=== PATIENT | male | born 1950 | race Caucasian/White ===

== ENCOUNTER 2016-11-16 21:48 | Observation (INO) | payer MEDICARE, OTHER ==
[~2016-11-16] VITALS: Ht 175.3 cm; Wt 82.0 kg
[2016-11-16 21:52] VITALS: BP 174/92; PULSE 102; RESP 16; TEMP 97.5; O2SAT 98
--- NOTE | 2016-11-16 23:03 | PD ---
HPI Chief Complaint: Abdominal Pain Time Seen by Provider: 22:55 Travel History International Travel<30 days: No Contact w/Intl Traveler<30days: No Traveled to known affect area: No History of Present Illness HPI The patient is a 66 year old male who presents to the [facility] emergency department with a history of chronic pain in his abdomen and back that began 4 months ago. It hurts in the back and sometimes in the front. It waxes and wanes in severity. It intermittently is sharp, burning, or cramping. He had some xrays done through [place] doctors that showed a possible spinal fracture. Today he had an MRI of the Lumbar spine and was doubled over in pain after the procedure therefore he decided to come to the emergency department for evaluation. He reports that he thought he strained his back related to playing softball, however he denies any fall or specific injury. His last colonoscopy was at 50 years of age. The patient denies any recent fevers, night sweats, loss of bowel or bladder control, cough, congestion, neck pain, chest pain, shortness of breath, abdominal pain, vomiting, diarrhea, urinary symptoms, or neurologic symptoms. [facility] Past Medical History Narrative Medical The patient's past medical history is significant for crohn's disease-first diagnosed in his 20s, He was last seen for a physical at the [facility] 5 years ago. Medical other: Yes (cat scratch fever, chrons ) Influenza Vaccination: No Past Surgical History Narrative Surgical The patient's past surgical history is significant for a lymph node resection for cat scratch fever. Surgical History: No Previous Surgery Social History Alcohol Use: No Tobacco Use: No Substance Use: No Allergies-Medications (Allergen,Severity, Reaction): Coded Allergies: Sulfa (Verified Allergy, Severe, DIZZINESS, 11/16/16) Reported Meds & Prescriptions Reported Meds & Active Scripts Active No Active Prescriptions or Reported Medications Narrative Medication Ibuprofen prn Review of Systems Except as stated in HPI: all other systems reviewed are Neg General / Constitutional: No: Fever Eyes: No: Visual changes HENT: No: Headaches Cardiovascular: No: Chest Pain or Discomfort Respiratory: No: Shortness of Breath Gastrointestinal: Positive: Abdominal Pain, No: Nausea, Vomiting, Diarrhea, Changes in Bowel Habits, Indigestion, Loss of Appetite Genitourinary: No: Dysuria Musculoskeletal: Positive: Myalgias, Arthralgias, Pain Skin: No Rash Neurologic: No: Weakness, Focal Abnormalities, Change in Mentation, Sensory Disturbance Psychiatric: No: Depression Endocrine: No: Polydipsia Hematologic/Lymphatic: No: Easy Bruising Physical Exam Narrative General: The patient is a well-developed well-nourished male in no acute distress while lying still, however with sitting forward or lying back he has pain in the right side of his back right upper quadrant of the abdomen. Head and Neck exam: Head is normocephalic atraumatic. Eyes: EOMI, pupils are equal round and reactive to light. Nose: Midline septum with pink mucous membranes Mouth: Dentition unremarkable. Moist mucus membranes. Posterior oropharynx is not erythematous. No tonsillar hypertrophy. Uvula midline. Airway patent. Neck: No palpable lymphadenopathy. No nuchal rigidity. No thyromegaly. Cardiovascular: Regular rate and rhythm without murmurs, gallops, or rubs. No pulse deficit to the extremities. Lungs: Clear to auscultation bilaterally. No wheezes, rhonchi, or rales. Abdomen: Soft, without tenderness to palpation in all 4 quadrants of the abdomen. No guarding, rebound, or rigidity. Normal bowel sounds are audible. No tenderness on palpation of McBurney's point. Extremities: No clubbing, cyanosis, or edema. 2+ pulses in all 4 extremities. Back: No spinous process tenderness to palpation. Right-sided CVA tenderness on palpation. Neurologic Exam: Cranial nerves 2-12 were intact on exam. Strength is 5/5 in all 4 extremities. No sensory deficits noted. Skin Exam: No rash noted. Intact skin that is warm and dry. Data Data Last Documented VS Vital Signs Date Time Temp Pulse Resp B/P Pulse Ox O2 Delivery O2 Flow Rate FiO2 11/16/16 23:28 28 99 Room Air 11/16/16 21:52 97.5 102 174/92 Orders Electrocardiogram (11/16/16 23:10) Complete Blood Count With Diff (11/16/16 23:10) Comprehensive Metabolic Panel (11/16/16 23:10) C-Reactive Protein (Crp) (11/16/16 23:10) Lipase (11/16/16 23:10) Urinalysis - C+S If Indicated (11/16/16 23:10) Chest, Single Ap (11/16/16 23:10) Iv Access Insert/Monitor (11/16/16 23:10) Ecg Monitoring (11/16/16 23:10) Oximetry (11/16/16 23:10) Lactic Acid Sepsis Protocol (11/16/16 23:10) Ct Abd/Pel W/O Iv Contrast (11/16/16 23:30) Admit Order (Ed Use Only) (11/17/16 01:13) Labs Laboratory Tests Test 11/16/16 11/16/16 23:20 23:25 White Blood Count 10.2 TH/MM3 Red Blood Count 3.20 MIL/MM3 Hemoglobin 11.0 GM/DL Hematocrit 31.1 % Mean Corpuscular Volume 97.2 FL Mean Corpuscular Hemoglobin 34.4 PG Mean Corpuscular Hemoglobin 35.4 % Concent Red Cell Distribution Width 14.2 % Platelet Count 262 TH/MM3 Mean Platelet Volume 7.9 FL Neutrophils (%) (Auto) 73.8 % Lymphocytes (%) (Auto) 17.1 % Monocytes (%) (Auto) 6.9 % Eosinophils (%) (Auto) 1.8 % Basophils (%) (Auto) 0.4 % Neutrophils # (Auto) 7.5 TH/MM3 Lymphocytes # (Auto) 1.8 TH/MM3 Monocytes # (Auto) 0.7 TH/MM3 Eosinophils # (Auto) 0.2 TH/MM3 Basophils # (Auto) 0.0 TH/MM3 CBC Comment DIFF FINAL Differential Comment Sodium Level 132 MEQ/L Potassium Level 5.0 MEQ/L Chloride Level 102 MEQ/L Carbon Dioxide Level 27.9 MEQ/L Anion Gap 2 MEQ/L Blood Urea Nitrogen 24 MG/DL Creatinine 1.84 MG/DL Estimat Glomerular Filtration 37 ML/MIN Rate Random Glucose 109 MG/DL Calcium Level 9.1 MG/DL Total Bilirubin 0.5 MG/DL Aspartate Amino Transf 58 U/L (AST/SGOT) Alanine Aminotransferase 30 U/L (ALT/SGPT) Alkaline Phosphatase 32 U/L C-Reactive Protein LESS THAN 0.29 MG/DL Total Protein 13.8 GM/DL Albumin 2.8 GM/DL Lipase 152 U/L Lactic Acid Level 0.8 mmol/L MDM Medical Decision Making Medical Screen Exam Complete: Yes Emergency Medical Condition: Yes Medical Record Reviewed: Yes Interpretation(s) Last Impressions Abdomen/Pelvis CT 11/16/16 2330 Signed Impressions: Service Date/Time: Wednesday, November 16, 2016 23:50 - CONCLUSION: Widespread lytic bony lesions consistent with metastatic disease or myeloma. Several significant size soft tissue masses, most conspicuous in the right paraspinal soft tissues in the region of the right 11th rib costovertebral junction. See above discussion Jim Marrero MD Chest X-Ray 11/16/16 2310 Signed Impressions: Service Date/Time: Wednesday, November 16, 2016 23:22 - CONCLUSION: Minimal left base opacity Jim Marrero MD Differential Diagnosis Kidney stone, versus pyelonephritis, versus compression fracture Narrative Course During the course of the patients emergency department visit, the patients history, examination, and differential diagnosis were reviewed with the patient. The patient had IV access obtained and blood work sent for analysis. The patient was placed on a cardiac cath rn with oximetry and blood pressure monitoring. The patient was provided normal saline 1 L IV fluid bolus, morphine for pain, Zofran for nausea. The patients laboratory studies were reviewed and remarkable for white count of 10.2, hemoglobin 11, platelets 262 with 73.8 neutrophils, CMP is remarkable for sodium of 132, BUN 24, creatinine 1.84, glucose 109, lactic acid 0.8, AST 58 , alkaline phosphatase 32, C-reactive protein less than 0.29, total protein 13.8 , urinalysis shows 30 protein trace occult blood rare bacteria Radiology studies were reviewed and remarkable for a chest x-ray that shows a minimal left base opacity. CT scan of the abdomen and pelvis reveals widespread lytic bony lesions consistent with metastatic disease or myeloma, several significant sized soft tissue masses most conspicuous in the right paraspinal soft tissues in the region of the right 11th rib costovertebral junction. The patient's results were discussed with him, his questions were answered. The patient is agreeable with the plan to proceed with admission for continued evaluation and treatment. The he patient was admitted to the hospital in stable condition and [facility] Physician Communication Physician Communication The patient's case is discussed with Dr. Regalado who did agree to admit the patient for further evaluation and treatment at this time. Diagnosis Primary Impression: Osteolytic lesion Additional Impression: Chronic back pain Qualified Code: M54.6 - Chronic right-sided thoracic back pain Admitting Information Admitting Physician Requests: Admit Scripts No Active Prescriptions or Reported Meds Judith Christiansen MD Nov 16, 2016 23:03
--- NOTE | 2016-11-16 23:26 | RADRPT ---
EXAM DATE/TIME: 11/16/2016 23:22 [facility] COMPARISON: No previous studies available for comparison. INDICATIONS : Right side chest pain. MEDICAL HISTORY : None. SURGICAL HISTORY : None. ENCOUNTER: Initial ACUITY: 2 months PAIN SCORE: 5/10 LOCATION: Right chest FINDINGS: There is slight flattening of the left diaphragm and blunting of the left costophrenic angle. This ma y be scarring though some degree of infiltrate and/or effusion at the left base is not excluded and w e have no comparison exams. Right lung is clear. The cardiomediastinal contours are normal for techni que and projection. CONCLUSION: Minimal left base opacity Jim Marrero MD on November 16, 2016 at 23:23 Board Certified Radiologist. This report was verified electronically.
[2016-11-16 23:28] VITALS: RESP 28; O2SAT 99
[2016-11-16 23:41] LABS: AUTOMATED NEUTROPHIL # 7.5 TH/MM3 (1.8-7.7); BASOPHIL % 0.4 % (0.0-2.0); EOSINOPHIL # 0.2 TH/MM3 (0-0.4); EOSINOPHIL % 1.8 % (0.0-4.0); HEMATOCRIT 31.1 % (39.0-51.0); HEMO FLAGS DIFF FINAL; LYMPH % 17.1 % (9.0-44.0); LYMPHOCYTE # 1.8 TH/MM3 (1.0-4.8); MEAN CELL VOLUME 97.2 FL (80.0-100.0); MEAN CORPUSCULAR HEMOGLOBIN 34.4 PG (27.0-34.0); MEAN CORPUSCULAR HGB CONC 35.4 % (32.0-36.0); MONO % 6.9 % (0.0-8.0); NEUT % 73.8 % (16.0-70.0); PLATELET COUNT 262 TH/MM3 (150-450); RED CELL DISTRIBUTION WIDTH 14.2 % (11.6-17.2); WHITE BLOOD COUNT 10.2 TH/MM3 (4.0-11.0)
[2016-11-17] VITALS (11 sets, daily range): BP systolic 130–162; BP diastolic 76–97; PULSE 63–86; RESP 15–18; TEMP 97.5–98.1; O2SAT 94–98
[2016-11-17 00:11] LABS: ALKALINE PHOSPHATASE 32 U/L (45-117); TOTAL BILIRUBIN ADULT 0.5 MG/DL (0.2-1.0)
[2016-11-17 00:14] LABS: ALT (GPT) 30 U/L (12-78); ANION GAP 2 MEQ/L (5-15); AST (GOT) 58 U/L (15-37); BICARBONATE 27.9 MEQ/L (21.0-32.0); BLOOD UREA NITROGEN 24 MG/DL (7-18); CHLORIDE 102 MEQ/L (98-107); GLOMERULAR FILTRATION RATE 37 ML/MIN (>89); SODIUM (NA) 132 MEQ/L (136-145)
--- NOTE | 2016-11-17 00:17 | RADRPT ---
EXAM DATE/TIME: 11/16/2016 23:50 [facility] COMPARISON: No previous studies available for comparison. INDICATIONS : Right upper quadrant and right flank pain for one month ORAL CONTRAST: No oral contrast ingested. RADIATION DOSE: 8.65 CTDIvol (mGy) MEDICAL HISTORY : Crohn's disease. SURGICAL HISTORY : None. ENCOUNTER: Initial ACUITY: 1 day PAIN SCALE: 6/10 LOCATION: Right flank TECHNIQUE: Volumetric scanning of the abdomen and pelvis was performed. Using automated exposure control and ad justment of the mA and/or kV according to patient size, radiation dose was kept as low as reasonably achievable to obtain optimal diagnostic quality images. FINDINGS: There is slight atelectasis in the posterior lung bases. There are widespread lucent bone lesions present consistent with metastatic disease or myeloma. There are several areas of expansile lytic soft tissue involvement of bone, most conspicuously involving t he right transverse process of T10 and at the right 11th rib costovertebral junction where a 3.7 cm s oft tissue mass is present in the posterior lateral paraspinal region count likely contributing to ba ck pain and right-sided radicular symptoms. An expansile lesion is present involving the posterolater al aspect of the left 11th rib with a roughly 3 cm soft tissue mass component present at this site. The liver, spleen, pancreas, adrenals and kidneys are benign in appearance. The bowel structures are benign with scattered distal colonic diverticula noted. In the pelvis cavity urinary bladder is notable for a tiny bladder base diverticulum on the right. Mi ld prostatic enlargement and calcification are noted. There is no evidence of retroperitoneal adenopathy. Inguinal regions are clear. CONCLUSION: Widespread lytic bony lesions consistent with metastatic disease or myeloma. Several significant size soft tissue masses, most conspicuous in the right paraspinal soft tissues in the region of the right 11th rib costovertebral junction. See above discussion Jim Marrero MD on November 17, 2016 at 0:08 Board Certified Radiologist. This report was verified electronically.
[2016-11-17] MEDS ORDERED: MORPHINE SULFATE 4 MG/ML INJ IV PUSH ONE (01:30)
[2016-11-17] MEDS ORDERED: SODIUM CHLOR 0.9% 1000 ML INJ 1,000 ML IV ONE (01:30)
[2016-11-17] MEDS ORDERED: ONDANSETRON HCL 4 MG/2 ML VIAL IV ONE (01:30)
[2016-11-17] MEDS ORDERED: NALOXONE HCL 0.4 MG/ML AMP IV PRN (01:45)
[2016-11-17] MEDS ORDERED: SODIUM CHLORIDE 0.9% FLUSH 5 ML FLUSH FLUSH PRN (01:45)
[2016-11-17] MEDS ORDERED: ONDANSETRON HCL 4 MG/2 ML VIAL IVP PRN (01:45)
[2016-11-17 04:11] LABS: BACTERIA, URINE RARE /hpf; BLOOD, URINE TRACE (NEG); GLUCOSE,URINE NEG (NEG); HYALINE CAST, URINE 3 /lpf (RARE); KETONE, URINE NEG (NEG); MUCUS URINE FEW /lpf (OCC); NITRITE,URINE NEG (NEG); PH, URINE 5.5 (5.0-8.5); SQUAMOUS EPITHELIAL CELL URINE <1 /hpf (0-5); TRANSITIONAL EPI CELLS, URINE <1 /hpf; URINE COLOR YELLOW (YELLW/STRAW)
[2016-11-17 04:12] LABS: COMMENT (UR) CULT NOT INDICATED; CULTURE IF INDICATED CULT NOT INDICATED
[2016-11-17] MEDS: ENOXAPARIN SODIUM 40 MG/0.4 ML SYRINGE SQ SCH (09:00)
--- NOTE | 2016-11-17 09:12 | HHI.HP ---
[facility] Unknown Admission Diagnosis Intractable pain with widespread bony lytic lesions on CT Diagnoses: Chief Complaint: Pain on the right side of the lower chest and back pain. Travel History International Travel<30 Days: No Contact w/Intl Traveler <30 Da: No Traveled to Known Affected Are: No Sepsis Criteria SIRS Criteria (2 or more): Heart rate over 90, RR > 20 or PaCO2 < 32 History of Present Illness Mr. Guerra is a pleasant 66-year-old male with a history of Crohn' s disease who presented to the ED on 11/16/2016 due to right-sided lower rib pain , lower back pain that has been worsening in the last 2 months. Pain is sharp sometimes burning in quality. He has been evaluated by [facility] and had x- ray done. On 11/16/2016, patient underwent an MRI of the Lumbar spine but after MRI he had excruciating pain which prompted him to come to the ED. patient denies any chest pain, shortness of breath, fever or chills. Denies any changes in bowel or bladder habits. Review of Systems ROS Limitations: Other (negative except as noted in the history of present illness) Past Family Social History Past Medical History Crohn's disease Past Surgical History In 1954 had a cat scratch related gland removal from left axilla Reported Medications Patient does not take any medication on a regular basis Allergies: Coded Allergies: Sulfa (Verified Allergy, Severe, DIZZINESS, 11/16/16) Family History Motherdiabetes mellitus. Brotherdiabetes mellitus, prostate cancer Social History Patient is a lifelong nonsmoker. Once in a while he drinks alcohol. Physical Exam Vital Signs Vital Signs Date Time Temp Pulse Resp B/P Pulse Ox O2 Delivery O2 Flow Rate FiO2 11/17/16 07:27 78 15 162/80 97 Room Air 11/16/16 23:28 28 99 Room Air 11/16/16 21:52 97.5 102 16 174/92 98 Physical Exam GENERAL: This is a well-nourished, well-developed patient, in no apparent distress. SKIN: No rashes, ecchymoses or lesions. Cool and dry. HEAD: Atraumatic. Normocephalic. No temporal or scalp tenderness. EYES: Pupils equal round and reactive. Extraocular motions intact. No scleral icterus. No injection or drainage. ENT: Nose without bleeding, purulent drainage or septal hematoma. Throat without erythema, tonsillar hypertrophy or exudate. Uvula midline. Airway patent. NECK: Trachea midline. No JVD or lymphadenopathy. Supple, nontender, no meningeal signs. CARDIOVASCULAR: Regular rate and rhythm without murmurs, gallops, or rubs. RESPIRATORY: Clear to auscultation. Breath sounds equal bilaterally. No wheezes , rales, or rhonchi. GASTROINTESTINAL: Abdomen soft, non-tender, nondistended. No hepato-splenomegaly , or palpable masses. No guarding. MUSCULOSKELETAL: Extremities without clubbing, cyanosis, or edema. No joint tenderness, effusion, or edema noted. No calf tenderness. Negative Homans sign bilaterally. NEUROLOGICAL: Awake and alert. Cranial nerves II through XII intact. Motor and sensory grossly within normal limits. Five out of 5 muscle strength in all muscle groups. Normal speech. Laboratory Laboratory Tests Test 11/16/16 11/16/16 11/17/16 23:20 23:25 03:50 White Blood Count 10.2 Red Blood Count 3.20 Hemoglobin 11.0 Hematocrit 31.1 Mean Corpuscular Volume 97.2 Mean Corpuscular Hemoglobin 34.4 Mean Corpuscular Hemoglobin 35.4 Concent Red Cell Distribution Width 14.2 Platelet Count 262 Mean Platelet Volume 7.9 Neutrophils (%) (Auto) 73.8 Lymphocytes (%) (Auto) 17.1 Monocytes (%) (Auto) 6.9 Eosinophils (%) (Auto) 1.8 Basophils (%) (Auto) 0.4 Neutrophils # (Auto) 7.5 Lymphocytes # (Auto) 1.8 Monocytes # (Auto) 0.7 Eosinophils # (Auto) 0.2 Basophils # (Auto) 0.0 CBC Comment DIFF FINAL Differential Comment Sodium Level 132 Potassium Level 5.0 Chloride Level 102 Carbon Dioxide Level 27.9 Anion Gap 2 Blood Urea Nitrogen 24 Creatinine 1.84 Estimat Glomerular Filtration 37 Rate Random Glucose 109 Calcium Level 9.1 Total Bilirubin 0.5 Aspartate Amino Transf 58 (AST/SGOT) Alanine Aminotransferase 30 (ALT/SGPT) Alkaline Phosphatase 32 C-Reactive Protein LESS THAN 0.29 Total Protein 13.8 Albumin 2.8 Lipase 152 Lactic Acid Level 0.8 Urine Color YELLOW Urine Turbidity CLEAR Urine pH 5.5 Urine Specific [place] 1.018 Urine Protein 30 Urine Glucose (UA) NEG Urine Ketones NEG Urine Occult Blood TRACE Urine Nitrite NEG Urine Bilirubin NEG Urine Urobilinogen LESS THAN 2.0 Urine Leukocyte Esterase NEG Urine RBC 1 Urine WBC 1 Urine Squamous Epithelial <1 Cells Urine Transitional Epithelial <1 Cells Urine Bacteria RARE Urine Hyaline Casts 3 Urine Mucus FEW Microscopic Urinalysis Comment CULT NOT INDICATED Result Diagram: 11/16/16231911/16/162319 Imaging Last Impressions Abdomen/Pelvis CT 11/16/162329 Signed Impressions: Service Date/Time: Wednesday, November 16, 2016 23:50 - CONCLUSION: Widespread lytic bony lesions consistent with metastatic disease or myeloma. Several significant size soft tissue masses, most conspicuous in the right paraspinal soft tissues in the region of the right 11th rib costovertebral junction. See above discussion Jim Marrero MD Chest X-Ray 11/16/162309 Signed Impressions: Service Date/Time: Wednesday, November 16, 2016 23:22 - CONCLUSION: Minimal left base opacity Jim Marrero MD Assessment and Plan Problem List: (1) Osteolytic lesion ICD Code: M89.50 Status: Acute (2) Paraspinal mass ICD Code: R22.2 Status: Acute (3) Crohn's disease ICD Code: K50.90 Status: Acute (4) SUSHMA (acute kidney injury) ICD Code: N17.9 Status: Acute Assessment and Plan Ms. Guerra is a 66-year-old male with a history of Crohn's disease who presented to the emergency department on 11/16/2016 due to right lower rib pain, lower back pain that has been worsening in the last 2 months. Denies any chest pain, shortness of breath, fever or chills. - Paraspinal mass - Osteolytic lesions - Likely related to multiple myeloma or other metastatic disease. - Oncology (Dr. Olvera) has already evaluated patient. - CT-guided biopsy of the paraspinal mass pending. - Other labs pending including [place]/lambda free light chain. - Acute kidney injury - Creatinine 1.84, we do not have baseline creatinine. - will monitor. - Crohn's disease - no acute issues. Full code. SCDs for now. After biopsy, we can consider pharmacological DVT Prophylaxis. Oneal Price DO Nov 17, 2016 09:12
--- NOTE | 2016-11-17 10:38 | EKG ---
Date Performed: 11/16/2016 Time Performed: 23:20:18 PTAGE: 66 years EKG: Sinus rhythm poor r wave progression cannot exclude septal infarct vs. lead placement ABNORMAL ECG NO PREVIOUS TRACING DOCTOR: Panfilo Christiansen Interpretating Date/Time 11/17/2016 10:35:33
[2016-11-17] MEDS: SODIUM CHLORIDE 0.9% FLUSH 5 ML FLUSH FLUSH SCH ×2 (10:39→21:00)
[2016-11-17 10:53] LABS: APTT (PATIENT) 27.6 SEC (24.3-30.1); INTERNATIONAL NORMALIZED RATIO 1.2 RATIO; PROTHROMBIN TIME - PATIENT 13.8 SEC (9.8-11.6)
[2016-11-17] MEDS ORDERED: LIDOCAINE 1%/EPINEPHrine 1:100,000 SOLN 20 ML VIAL ONE (13:34)
[2016-11-17] MEDS ORDERED: fentaNYL CITRATE 250 MCG/5 ML AMP ONE (13:46)
[2016-11-17] MEDS ORDERED: MIDAZOLAM HCL 5 MG/5 ML VIAL ONE (13:46)
--- NOTE | 2016-11-17 14:13 | PD.RAD ---
Post CT Procedure Prog Note Pre Procedure Diagnosis: (1) Osteolytic lesion (2) Paraspinal mass Post Procedure Diagnosis: (1) Osteolytic lesion (2) Paraspinal mass Procedure Date: Nov 17, 2016 Supervising Radiologist: Rolando Pickens Proceduralist/Assist: RT Evelin(R) Anesthesia: Local, Conscious Sedation Plan of Activity Patient to Unit: ROPU Patient Condition: Good See PACS Report for procedural detail/treatment Biopsy Imaging Guidance: CT Side: Right Biopsy Procedure: Soft Tissue Site: Lower thoracic, paraspinal mass Specimen: Core Biopsy Rolando Pickens MD Nov 17, 2016 14:13
[2016-11-17 14:36] LABS: TOTAL PROTEIN SPE 12.9 GM/DL (6.0-7.6)
--- NOTE | 2016-11-17 14:43 | RADRPT ---
EXAM DATE/TIME: 11/17/2016 13:53 [facility] COMPARISON: No previous studies available for comparison. INDICATIONS : Right sided paraspinal soft tissue mass. SEDATION TIME: 30 minutes BIOPSY SITE: Right paraspinal soft tissue MEDICATION(S): 1.) 3 mg midazolam (Versed) IV 2.) 150 mcg fentanyl (Sublimaze) IV DEVICE(S): 1.) 18 gauge Temno core biopsy needle 9cm MEDICAL HISTORY : Crohn's disease. SURGICAL HISTORY : None. ENCOUNTER: Initial ACUITY: 1 day PAIN SCORE: 3/10 LOCATION: Middle back A total of two core specimen(s) were obtained and sent to the laboratory for pathologic evaluation. PROCEDURE: 1. CT guided soft tissue, right biopsy. 2. Conscious sedation with continuous EKG and oximetry monitoring. Prior to the procedure informed consent was obtained. Any appropriate prior imaging studies were rev iewed. The site was prepped in a sterile fashion. Full sterile technique was used, including cap, mask, mary rile gloves and gown and a large sterile sheet. Hand hygiene and 2% chlorhexidine and/or betadine/al cohol prep was utilized per protocol for cutaneous antisepsis. The skin and subcutaneous tissues wer e infiltrated with local anesthetic solution. With CT guidance a right-sided lower thoracic paraspinal mass with adjacent destructive bone changes was localized. Biopsy was performed using the prescribed needle as above. Adequate hemostasis was ob tained with compression at the puncture site. Follow-up CT scan reveals no hemorrhage. The patient tolerated the procedure well and there were no complications. The patient was returned to the Radiology Outpatient Unit in stable condition. CONCLUSION: Uncomplicated CT guided biopsy of a right lower thoracic paraspinal mass. Rolando Pickens MD on November 17, 2016 at 14:41 Board Certified Radiologist. This report was verified electronically.
[2016-11-17 15:17] LABS: IMMUNOGLOBULIN G 7990 MG/DL (670-1650)
[2016-11-17 15:18] LABS: IMMUNOGLOBULIN A 15 MG/DL (98-543); IMMUNOGLOBULIN M LESS THAN 8 MG/DL (39-238); KAPPA LAMBDA RATIO 0.01 (1.57-3.93); LAMBDA LIGHT CHAIN 2290 MG/DL (90-210)
[2016-11-17] MEDS: MORPHINE SULFATE 4 MG/ML INJ IV PUSH PRN ×2 (17:14→23:28)
--- NOTE | 2016-11-17 21:33 | MB ---
cc: MAYA OLVERA M.D. DATE OF CONSULTATION 11/17/16 REASON FOR CONSULTATION Consult requested by Dr. Fabricio BERKOWITZ hospitalist for evaluation of metastatic malignancy. HISTORY OF PRESENT ILLNESS Josh is a pleasant 66-year-old male. He is without any significant past medical history. He has been having intermittent back pain for the last few months. He went to see his [employer] doctor. The patient had an x-ray which was abnormal. He was asked to have MRI of the thoracic and the lumbar spine. The patient unfortunately was unable to do it due to the claustrophobia. Then he was referred to open MRI in [facility]. The patient had an MRI of the spine yesterday. Subsequently, he noticed severe back pain and he came to the emergency room for further evaluation. When he came to the emergency room, he had a CAT scan of the abdomen and pelvis which showed widespread lytic bony lesions consistent with metastatic disease on myeloma. Several significant size soft tissue masses noted most suspicious in the right paraspinal soft tissue in the region of the right 11th rib costal vertebral junction. The chest x-ray was reported to be negative. The patient has been admitted to the hospital and I have been asked to see the patient for evaluation of abnormal CAT scan of the abdomen and pelvis. PAST MEDICAL HISTORY The patient denies any significant past medical history except that he had Crohn's disease when he was in his 20s. He also has a history of cat scratch fever. He had left axillary lymph node dissection. MEDICATIONS The patient is not taking any regular medications except he is on ibuprofen for the back pain. REVIEW OF SYSTEMS He denies any weight loss. He denies any cough, shortness of breath. He denies any nausea, vomiting, constipation.. The rest of the review systems PAST MEDICAL HISTORY 1. Crohn's disease 2. Cat scratch fever. PAST SURGICAL HISTORY Left axillary lymph node dissection for current scratch fever. ALLERGIES SULFA MEDICATIONS Ibuprofen. FAMILY HISTORY Noncontributory. SOCIAL HISTORY The patient does not smoke cigarettes, does not drink alcohol. PHYSICAL EXAMINATION GENERAL: This is a well-developed, well-nourished white male in no apparent distress. VITAL SIGNS: signs: Temperature 97.5, heart rate 75, blood pressure 157/90. HEENT: PERRLA, EOMI, anicteric. No oral lesions are noted. NECK: Supple. LYMPH NODES: There is no cervical, supraclavicular, axillary lymphadenopathy noted. LUNGS: Clear, no wheezing, rhonchi or rales. HEART: Regular rate and rhythm. ABDOMEN: Soft, nontender. No hepatosplenomegaly. EXTREMITIES: No pedal edema. NEUROLOGIC: Awake, alert, oriented times three SKIN: No significant lesions are noted. ASSESSMENT Multiple lytic lesions associated with hyperproteinemia of 13.8, mild renal insufficiency and anemia. This is most likely consistent with multiple myeloma until proven otherwise. However, other primary malignancy cannot be ruled out at this time. PLAN I have reviewed his available records and I had an extensive discussion with the patient and his regarding my clinical suspicion of myeloma. The compressive metabolic profile is significant for total protein of 13.8, albumin is 2.8, creatinine is 1.84. GFR is 37, calcium is normal. The patient has hyperproteinemia and a CAT scan of the abdomen and pelvis show multiple lytic lesions along with multiple soft tissue masses. Most likely we are dealing with multiple myeloma. I will order the gammopathy workup. I will ask interventional radiologist for CT-guided core needle biopsy of the paraspinal soft tissue mass for tissue diagnosis. We will check the PSA as well. Once we have the tissue diagnosis then we will discuss with the patient regarding the treatment plan. I will attempt to get the MRI of C-spine result from open MRI which he had it yesterday. Thank you, Dr. Regalado, for asking my opinion. David Olvera MD / /7:40 PM /9:21 PM MTDRene
[2016-11-18] VITALS (7 sets, daily range): BP systolic 152–159; BP diastolic 82–92; PULSE 52–83; RESP 18–20; TEMP 96.1–98.1; O2SAT 93–97
[2016-11-18 02:18] LABS: URINE TOTAL PROTEIN TIMED 499.7 MG/DL
[2016-11-18] MEDS ORDERED: LORazepam 0.5 MG TAB PO PRN (07:30)
[2016-11-18] MEDS: SODIUM CHLORIDE 0.9% FLUSH 5 ML FLUSH FLUSH SCH ×2 (08:03→20:33)
[2016-11-18] MEDS: MORPHINE SULFATE 4 MG/ML INJ IV PUSH PRN (08:05)
[2016-11-18] MEDS: ENOXAPARIN SODIUM 40 MG/0.4 ML SYRINGE SQ SCH (09:00)
[2016-11-18] MEDS ORDERED: DOCUSATE SODIUM 50 MG/SENNA 8.6 MG TAB PO ONE (09:15)
--- NOTE | 2016-11-18 09:24 | HHI.PR ---
Subjective Remarks Follow-up for right lower rib pain and possible new malignancy. Seen ambulating the halls with his . He still has some right lower rib pain, the medication helps. He does have associated constipation. He is asking for telemetry to be removed. He denies any chest pain, shortness breath, palpitations. Normal urine output, denies history of renal disease. Objective Vitals Vital Signs Date Time Temp Pulse Resp B/P Pulse Ox O2 Delivery O2 Flow Rate FiO2 11/18/16 07:14 97.0 78 18 156/87 95 11/18/16 03:52 97.4 77 18 156/92 97 11/17/16 23:41 16 11/17/16 23:39 97.5 76 18 155/97 95 11/17/16 23:11 63 11/17/16 20:34 97.9 74 18 136/82 96 11/17/16 17:15 97.5 75 18 157/90 98 11/17/16 15:52 67 18 138/82 97 11/17/16 15:25 76 16 136/77 95 11/17/16 15:15 68 16 130/76 94 11/17/16 14:40 82 16 138/81 94 11/17/16 14:25 98.1 86 16 146/82 95 11/17/16 13:14 79 18 159/79 98 Result Diagram: 11/16/16231911/16/162319 Imaging Last Impressions Soft Tissue Biopsy 11/17/16 1028 Signed Impressions: Service Date/Time: Thursday, November 17, 2016 13:53 - CONCLUSION: Uncomplicated CT guided biopsy of a right lower thoracic paraspinal mass. Rolando Pickens MD Abdomen/Pelvis CT 11/16/16 2330 Signed Impressions: Service Date/Time: Wednesday, November 16, 2016 23:50 - CONCLUSION: Widespread lytic bony lesions consistent with metastatic disease or myeloma. Several significant size soft tissue masses, most conspicuous in the right paraspinal soft tissues in the region of the right 11th rib costovertebral junction. See above discussion Jim Marrero MD Chest X-Ray 11/16/16 2310 Signed Impressions: Service Date/Time: Wednesday, November 16, 2016 23:22 - CONCLUSION: Minimal left base opacity Jim Marrero MD Objective Remarks GENERAL: Well-developed well-nourished. In no acute distress. SKIN: Warm and dry. No lesions noted. HEENT: Normocephalic. Pupils equal and round. Mucous membranes pink and moist. CARDIOVASCULAR: Regular rate and rhythm. No murmur appreciated. RESPIRATORY: No accessory muscle use. Clear to auscultation. Breath sounds equal bilaterally. GASTROINTESTINAL: Abdomen soft, non-tender, nondistended. Bowel sounds x4. MUSCULOSKELETAL: No obvious deformities. No clubbing or cyanosis. No edema. NEUROLOGICAL: Awake and alert. No focal neurological deficits. Moves upper and lower extremities spontaneously. Normal speech. PSYCHIATRIC: Appropriate mood and affect; insight and judgment normal. A/P Problem List: (1) Osteolytic lesion ICD Code: M89.50 Status: Acute (2) Paraspinal mass ICD Code: R22.2 Status: Acute (3) Crohn's disease ICD Code: K50.90 Status: Chronic (4) SUSHMA (acute kidney injury) ICD Code: N17.9 Status: Acute Assessment and Plan Ms. Guerra is a 66-year-old male with a history of Crohn's disease who presented to the emergency department on 11/16/2016 due to right lower rib pain, lower back pain that has been worsening in the last 2 months. - Paraspinal mass - Osteolytic lesions - Likely related to multiple myeloma or other metastatic disease. - Oncology consulted, seen by Dr. Olvera, workup in progress. - CT-guided biopsy of the paraspinal mass performed, pathology pending. - Oncology as started the patient on Decadron and oral narcotic pain control , add bowel regimen - Acute kidney injury versus chronic kidney disease- Creatinine 1.84, we do not have baseline creatinine. - Follow-up BMP today - Crohn's disease - no acute issues. Full code. SCDs. Ambulation. Refused Lovenox. Discharge Planning Discharge planning when cleared by oncology. Attending Statement The exam, history, and the medical decision-making described in the above note were completed with the assistance of the mid-level provider. I reviewed and agree with the findings presented. I attest that I had a [id number] encounter with the patient on the same day, and personally performed and documented my assessment and findings in the medical record. Problem Qualifiers (1) Crohn's disease: Qualified Code: K50.90 - Crohn's disease without complication, unspecified gastrointestinal tract location Christopher Escobar Nov 18, 2016 09:24 Tobi Walls MD Dec 07, 2016 03:15
[2016-11-18 09:31] LABS: ALBUMIN SPE 4.01 GM/DL (3.50-5.00); ALPHA 1 GLOBULIN 0.23 GM/DL (0.11-0.29); ALPHA 2 GLOBULIN 0.97 GM/DL (0.22-1.00)
[2016-11-18] MEDS: MORPHINE SULFATE 30 MG CONTROLLED RELEASE TAB PO SCH ×2 (09:43→20:33)
[2016-11-18 10:19] LABS: AUTOMATED NEUTROPHIL # 4.9 TH/MM3 (1.8-7.7); BASOPHIL % 0.6 % (0.0-2.0); EOSINOPHIL # 0.2 TH/MM3 (0-0.4); EOSINOPHIL % 2.8 % (0.0-4.0); HEMATOCRIT 29.3 % (39.0-51.0); HEMO FLAGS DIFF FINAL; LYMPHOCYTE # 1.5 TH/MM3 (1.0-4.8); MEAN CORPUSCULAR HEMOGLOBIN 34.4 PG (27.0-34.0); MEAN CORPUSCULAR HGB CONC 35.5 % (32.0-36.0); MONO % 5.8 % (0.0-8.0); NEUT % 69.8 % (16.0-70.0); PLATELET COUNT 226 TH/MM3 (150-450); RED BLOOD COUNT 3.02 MIL/MM3 (4.50-5.90); RED CELL DISTRIBUTION WIDTH 13.9 % (11.6-17.2)
--- NOTE | 2016-11-18 10:54 | PD.ONC.PN ---
Subjective Subjective Remarks Afebrile overnight. Patient has some pain in the right rib cage, radiating to the back. he states the pain is controlled with the PO morphine he has been receiving. Objective Data Date Time Temp Pulse Resp B/P Pulse Ox O2 Delivery O2 Flow Rate FiO2 11/18/16 07:14 97.0 78 18 156/87 95 11/18/16 03:52 97.4 77 18 156/92 97 11/17/16 23:41 16 11/17/16 23:39 97.5 76 18 155/97 95 11/17/16 23:11 63 11/17/16 20:34 97.9 74 18 136/82 96 11/17/16 17:15 97.5 75 18 157/90 98 11/17/16 15:52 67 18 138/82 97 11/17/16 15:25 76 16 136/77 95 11/17/16 15:15 68 16 130/76 94 11/17/16 14:40 82 16 138/81 94 11/17/16 14:25 98.1 86 16 146/82 95 11/17/16 13:14 79 18 159/79 98 Result Diagram: 11/18/16 0938 11/16/16 2320 Laboratory Results Laboratory Tests Test 11/17/16 11/18/16 11:40 09:38 Prostate Specific Antigen 1.72 NG/ML Screen Total Protein 12.9 GM/DL Albumin 4.01 GM/DL Albumin/Globulin Ratio 0.45 Ozffm-1-Ooddikkrw 0.23 GM/DL Cnmuj-3-Ovyrkugql 0.97 GM/DL Beta Globulins 0.80 GM/DL Gamma Globulins 6.89 GM/DL Immunoglobulin G Total 7990 MG/DL Immunoglobulin A 15 MG/DL Immunoglobulin M LESS THAN 8 MG/DL Immunoglobulin [place]/Lambda 0.01 Ratio Immunofixation Interpretation [place] Light Chain Analysis 12 MG/DL Lambda Light Chain Analysis 2290 MG/DL White Blood Count 7.0 TH/MM3 Red Blood Count 3.02 MIL/MM3 Hemoglobin 10.4 GM/DL Hematocrit 29.3 % Mean Corpuscular Volume 97.0 FL Mean Corpuscular Hemoglobin 34.4 PG Mean Corpuscular Hemoglobin 35.5 % Concent Red Cell Distribution Width 13.9 % Platelet Count 226 TH/MM3 Mean Platelet Volume 7.5 FL Neutrophils (%) (Auto) 69.8 % Lymphocytes (%) (Auto) 21.0 % Monocytes (%) (Auto) 5.8 % Eosinophils (%) (Auto) 2.8 % Basophils (%) (Auto) 0.6 % Neutrophils # (Auto) 4.9 TH/MM3 Lymphocytes # (Auto) 1.5 TH/MM3 Monocytes # (Auto) 0.4 TH/MM3 Eosinophils # (Auto) 0.2 TH/MM3 Basophils # (Auto) 0.0 TH/MM3 CBC Comment DIFF FINAL Differential Comment Administered Medications Medications (Trade) Dose Ordered Sig/Lisa Route PRN Reason Start Time Stop Time Status Last Admin Dose Admin IV Flush (NS Flush) 2 ml BID FLUSH 11/17/16 09:00 11/18/16 08:03 Morphine Sulfate (Oramorph Sr) 30 mg Q12HR PO 11/18/16 09:00 11/18/16 09:43 Objective Remarks GENERAL: Middle aged male, sitting up in bed in nad. SKIN: Warm and dry. HEAD: Normocephalic. EYES: No injection or drainage. NECK: Supple, trachea midline. CARDIOVASCULAR: Regular rate and rhythm RESPIRATORY: Breath sounds equal bilaterally. No accessory muscle use. GASTROINTESTINAL: Abdomen soft, non-tender, nondistended. EXTREMITIES: No cyanosis NEUROLOGICAL: awake and alert, normal speech. moving all extremities. Assessment/Plan Problem List: (1) multiple lytic lesions Status: Acute Plan: 11/18/16: await bone survey and 24 hour urine. will arrange follow up in office Wednesday. s/p CT-guided core needle biopsy of the paraspinal soft tissue mass for tissue diagnosis-->pathology pending --fs faxed to npr for UMER follow up this coming Wednesday. --bone survey pending --24 hour urine pending. Assessment 66y/o male with widespread lytic lesions, hyperproteinemia of 13.8, renal insufficiency + anemia consistent with multiple myeloma until proven otherwise. History: intermittent back pain for the last few months. CAT scan of the abdomen and pelvis in ED showed widespread lytic bony lesions consistent with metastatic disease on myeloma. Several significant size soft tissue masses noted most suspicious in the right paraspinal soft tissue in the region of the right 11th rib costal vertebral junction. The chest x-ray was reported to be negative. Attending Statement c/o right rib cage pain. start oral morphine and stop IV narcotics. IGG and lamda are very high. THis is c/w Myeloma. I have d/w pt and about myeloma. answer their questions. start high dose decadron. Get skeletal survey and 24 hrs urine for TP bx result pending. home tomorrow. Hannah Sandoval Nov 18, 2016 10:54 Jyothi Olvera MD Nov 18, 2016 21:20
[2016-11-18 10:55] LABS: ALKALINE PHOSPHATASE 36 U/L (45-117); ALT (GPT) 19 U/L (12-78); ANION GAP 7 MEQ/L (5-15); AST (GOT) 14 U/L (15-37); BICARBONATE 27.5 MEQ/L (21.0-32.0); BLOOD UREA NITROGEN 19 MG/DL (7-18); CHLORIDE 100 MEQ/L (98-107); GLOMERULAR FILTRATION RATE 36 ML/MIN (>89); POTASSIUM 4.2 MEQ/L (3.5-5.1); SODIUM (NA) 134 MEQ/L (136-145); TOTAL BILIRUBIN ADULT 0.5 MG/DL (0.2-1.0)
[2016-11-18] MEDS: DEXAMETHASONE 4 MG TAB PO SCH (11:36)
[2016-11-18] MEDS: MORPHINE SULFATE 15 MG TAB PO PRN (16:04)
--- NOTE | 2016-11-18 17:00 | RADRPT ---
EXAM DATE/TIME: 11/18/2016 16:09 [facility] COMPARISON: CT ABDOMEN & PELVIS W/O CONTRAST, November 16, 2016, 23:50. INDICATIONS : Evaluate bones for metastatic disease. MEDICAL HISTORY : None. SURGICAL HISTORY : None. ENCOUNTER: Initial ACUITY: 2 days PAIN SCORE: 10/10 LOCATION: Right middle chest. FINDINGS: Bone survey was performed of the axial and appendicular skeleton. The upper extremities are significant only for an area of ill-defined lucency involving the distal ri ght radius. The lower extremities are demonstrate no abnormality. The spinal axis and pelvis are unremarkable for decreased vertebral body height at the level of C6. T he multiple lytic lesions seen throughout the lumbar spine on comparison CT abdomen and pelvis are no t visible by plain film. The AP view of the skull demonstrates multiple well-circumscribed lucencies. The visualized heart, lungs and abdominal structures are unremarkable. Bony mineralization is normal . CONCLUSION: The multiple lytic lesions seen throughout the lumbar spine are not visible by plain film. Well-circu mscribed lucencies are identified within the calvarium and there are ill-defined lucencies identified within the distal right radius. Decreased vertebral body height at the level of C6 concerning for me tastatic involvement. The remainder of the survey is unremarkable.. Suma Mayes MD on November 18, 2016 at 16:53 Board Certified Radiologist. This report was verified electronically.
[2016-11-18] MEDS: DOCUSATE SODIUM 50 MG/SENNA 8.6 MG TAB PO SCH (20:32)
[2016-11-19] MEDS: MORPHINE SULFATE 15 MG TAB PO PRN (04:01)
[2016-11-19 04:38] VITALS: BP 136/79; PULSE 70; RESP 20; TEMP 98.6; O2SAT 95
[2016-11-19 07:45] VITALS: BP 163/90; PULSE 78; RESP 18; TEMP 97.5; O2SAT 95
[2016-11-19] MEDS: SODIUM CHLORIDE 0.9% FLUSH 5 ML FLUSH FLUSH SCH (09:00)
[2016-11-19] MEDS: DOCUSATE SODIUM 50 MG/SENNA 8.6 MG TAB PO SCH (09:16)
[2016-11-19] MEDS: MORPHINE SULFATE 30 MG CONTROLLED RELEASE TAB PO SCH (09:17)
[2016-11-19] MEDS: DEXAMETHASONE 4 MG TAB PO SCH (09:18)
[2016-11-19 10:40] LABS: URINE TOTAL PROTEIN TIMED 227.8 MG/DL
[2016-11-19] MEDS ORDERED: MORP1TAB25 PO (10:50)
[2016-11-19] MEDS ORDERED: SENN1TAB PO (10:50)
[2016-11-19] MEDS ORDERED: DEXA4TAB PO (10:50)
[2016-11-19] MEDS ORDERED: MSIR15 PO (10:50)
--- NOTE | 2016-11-19 10:51 | HHI.DCPOC ---
Discharge Care Plan Diagnosis: (1) multiple lytic lesions Your Health Problems Are: Difficulty with ADL Exercise Tolerance Chronic Pain Goals to Promote Your Health * To prevent worsening of your condition and complications * To maintain your health at the optimal level Directions to Meet Your Goals Take your medications as prescribed Follow your dietary instruction Follow activity as directed Keep your appointments as scheduled Take your immunizations and boosters as scheduled If your symptoms worsen call your PCP, if no PCP go to Urgent Care Center or Emergency Room Smoking is Dangerous to Your Health. Avoid second hand smoke Call the 24-hour hour crisis hotline for domestic abuse at Romeo Lobo MD Nov 19, 2016 10:51
--- NOTE | 2016-11-19 10:56 | PD.ONC.PN ---
Subjective Subjective Remarks pain is better on oral morphine Objective Data Date Time Temp Pulse Resp B/P Pulse Ox O2 Delivery O2 Flow Rate FiO2 11/19/16 07:45 97.5 78 18 163/90 95 11/19/16 05:08 16 11/19/16 04:38 98.6 70 20 136/79 95 11/18/16 23:33 96.1 52 20 155/91 93 11/18/16 21:52 16 11/18/16 20:09 97.6 83 20 152/82 95 11/18/16 15:47 98.1 76 18 159/83 96 11/18/16 11:11 97.5 73 18 153/86 96 Result Diagram: 11/18/1693711/18/16937 Laboratory Results Laboratory Tests Test 11/19/16 09:15 Urine Total Volume 24 Hours 2050 ML Urine Total Protein 24 Hour 4670 MG/24HR Administered Medications Medications (Trade) Dose Ordered Sig/Lisa Route PRN Reason Start Time Stop Time Status Last Admin Dose Admin IV Flush (NS Flush) 2 ml BID FLUSH 11/17/16 09:00 11/18/16 20:33 Morphine Sulfate (Oramorph Sr) 30 mg Q12HR PO 11/18/16 09:00 11/19/16 09:17 Morphine Sulfate (Msir) 15 mg Q4H PRN PO pain 1-10 11/18/16 08:45 11/19/16 04:01 Dexamethasone (Decadron) 40 mg DAILY PO 11/18/16 09:00 11/19/16 09:18 Senna/Docusate Sodium (Marva-Colace) 1 tab BID PO 11/18/16 21:00 11/19/16 09:16 Objective Remarks GENERAL: Well-nourished, well-developed patient. SKIN: Warm and dry. HEAD: Normocephalic. EYES: No scleral icterus. No injection or drainage. NECK: Supple, trachea midline. No JVD or lymphadenopathy. LYMPHATIC: No adenopathy. CARDIOVASCULAR: Regular rate and rhythm without murmurs. RESPIRATORY: Breath sounds equal bilaterally. No accessory muscle use. GASTROINTESTINAL: Abdomen soft, non-tender, nondistended. EXTREMITIES: No cyanosis, or edema. MUSCULOSKELETAL: Adequate muscle tone. NEUROLOGICAL: No obvious focal deficit. Awake, alert, and oriented x3. PSYCHIATRIC: Appropriate mood and affect; insight and judgment normal. Assessment/Plan Problem List: (1) multiple lytic lesions Status: Acute Plan: 11/19/16 IgG and kappa are very high . This is c/w myeloma. 24hrs urine for TP and B2MG are pending continue decadron 40 mg daily OK to d/c FU on wednesday. d/w pt, family and RN 11/18/16: await bone survey and 24 hour urine. will arrange follow up in office Wednesday. s/p CT-guided core needle biopsy of the paraspinal soft tissue mass for tissue diagnosis-->pathology pending --fs faxed to npr for UMER follow up this coming Wednesday. --bone survey pending --24 hour urine pending. Assessment 66y/o male with widespread lytic lesions, hyperproteinemia of 13.8, renal insufficiency + anemia consistent with multiple myeloma until proven otherwise. History: intermittent back pain for the last few months. CAT scan of the abdomen and pelvis in ED showed widespread lytic bony lesions consistent with metastatic disease on myeloma. Several significant size soft tissue masses noted most suspicious in the right paraspinal soft tissue in the region of the right 11th rib costal vertebral junction. The chest x-ray was reported to be negative. Jyothi Olvera MD Nov 19, 2016 10:56
--- NOTE | 2016-11-19 11:12 | HHI.DS ---
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 Brief History - From Admission Mr. Guerra is a pleasant 66-year-old male with a history of Crohn' s disease who presented to the ED on 11/16/2016 due to right-sided lower rib pain , lower back pain that has been worsening in the last 2 months. Pain is sharp sometimes burning in quality. He has been evaluated by [facility] [facility] and had x- ray done. On 11/16/2016, patient underwent an MRI of the Lumbar spine but after MRI he had excruciating pain which prompted him to come to the ED. patient denies any chest pain, shortness of breath, fever or chills. Denies any changes in bowel or bladder habits. CBC/BMP: 11/18/16 0938 11/18/16 0938 Significant Findings Laboratory Tests Test 11/16/16 11/17/16 11/17/16 11/17/16 23:20 03:50 10:30 11:40 Red Blood Count 3.20 MIL/MM3 (4.50-5.90) Hemoglobin 11.0 GM/DL (13.0-17.0) Hematocrit 31.1 % (39.0-51.0) Mean Corpuscular Hemoglobin 34.4 PG (27.0-34.0) Neutrophils (%) (Auto) 73.8 % (16.0-70.0) Sodium Level 132 MEQ/L (136-145) Anion Gap 2 MEQ/L (5-15) Blood Urea Nitrogen 24 MG/DL (7-18) Creatinine 1.84 MG/DL (0.60-1.30) Estimat Glomerular Filtration 37 ML/MIN (>89) Rate Random Glucose 109 MG/DL (74-106) Aspartate Amino Transf 58 U/L (15-37) (AST/SGOT) Alkaline Phosphatase 32 U/L (45-117) Total Protein 13.8 GM/DL 12.9 GM/DL (6.4-8.2) (6.0-7.6) Albumin 2.8 GM/DL (3.4-5.0) Urine Protein 30 mg/dL (NEG-TRACE) Urine Occult Blood TRACE (NEG) Urine Bacteria RARE /hpf (NONE) Urine Mucus FEW /lpf (OCC) Prothrombin Time 13.8 SEC (9.8-11.6) Albumin/Globulin Ratio 0.45 (1.39-2.23) Gamma Globulins 6.89 GM/DL (0.50-1.39) Immunoglobulin G Total 7990 MG/DL (670-1650) Immunoglobulin A 15 MG/DL (98-543) Immunoglobulin M LESS THAN 8 MG/DL (39-238) Immunoglobulin Gillespie/Lambda 0.01 Ratio (1.57-3.93) Gillespie Light Chain Analysis 12 MG/DL (170-370) Lambda Light Chain Analysis 2290 MG/DL (90-210) Free Lambda Light Chains 4928.00 mg/L (5.7-26.3) Free Gillespie/Lambda Light Chain 0.00 Ratio (0.26-1.65) Test 11/18/16 11/19/16 09:38 09:15 Red Blood Count 3.02 MIL/MM3 (4.50-5.90) Hemoglobin 10.4 GM/DL (13.0-17.0) Hematocrit 29.3 % (39.0-51.0) Mean Corpuscular Hemoglobin 34.4 PG (27.0-34.0) Sodium Level 134 MEQ/L (136-145) Blood Urea Nitrogen 19 MG/DL (7-18) Creatinine 1.88 MG/DL (0.60-1.30) Estimat Glomerular Filtration 36 ML/MIN (>89) Rate Aspartate Amino Transf 14 U/L (15-37) (AST/SGOT) Alkaline Phosphatase 36 U/L (45-117) Total Protein 12.2 GM/DL (6.4-8.2) Albumin 2.4 GM/DL (3.4-5.0) Euop-9-Onsgxxjphdqzi 3.43 mcg/mL (1.21 - 2.70) Urine Total Protein 24 Hour 4670 MG/24HR (0-150) Imaging Last Impressions Bone Osseous Survey 11/18/16 0000 Signed Impressions: Service Date/Time: Friday, November 18, 2016 16:09 - CONCLUSION: The multiple lytic lesions seen throughout the lumbar spine are not visible by plain film. Well-circumscribed lucencies are identified within the calvarium and there are ill-defined lucencies identified within the distal right radius. Decreased vertebral body height at the level of C6 concerning for metastatic involvement. The remainder of the survey is unremarkable.. Suma Mayes MD Soft Tissue Biopsy 11/17/16 1028 Signed Impressions: Service Date/Time: Thursday, November 17, 2016 13:53 - CONCLUSION: Uncomplicated CT guided biopsy of a right lower thoracic paraspinal mass. Rolando Pickens MD Abdomen/Pelvis CT 11/16/16 2330 Signed Impressions: Service Date/Time: Wednesday, November 16, 2016 23:50 - CONCLUSION: Widespread lytic bony lesions consistent with metastatic disease or myeloma. Several significant size soft tissue masses, most conspicuous in the right paraspinal soft tissues in the region of the right 11th rib costovertebral junction. See above discussion Jim Marrero MD Chest X-Ray 11/16/16 2310 Signed Impressions: Service Date/Time: Wednesday, November 16, 2016 23:22 - CONCLUSION: Minimal left base opacity Jim Marrero MD PE at Discharge GENERAL: Well-developed well-nourished. In no acute distress. SKIN: Warm and dry. No lesions noted. HEENT: Normocephalic. Pupils equal and round. Mucous membranes pink and moist. CARDIOVASCULAR: Regular rate and rhythm. No murmur appreciated. RESPIRATORY: No accessory muscle use. Clear to auscultation. Breath sounds equal bilaterally. GASTROINTESTINAL: Abdomen soft, non-tender, nondistended. Bowel sounds x4. MUSCULOSKELETAL: No obvious deformities. No clubbing or cyanosis. No edema. NEUROLOGICAL: Awake and alert. No focal neurological deficits. Moves upper and lower extremities spontaneously. Normal speech. PSYCHIATRIC: Appropriate mood and affect; insight and judgment normal. Pt update on day of discharge Follow up for back pain with multiple lytic lesions, suspect multiple myeloma. The patient states his pain is better controlled on the current pain medications. He states he just overall feels lousy. He has been able to ambulate without difficulty. He has no other medical complaints at this time. Hospital Course Ms. Guerra is a 66-year-old male with a history of Crohn's disease who presented to the emergency department on 11/16/2016 due to right lower rib pain, lower back pain that has been worsening in the last 2 months. Upon arrival, CXR showed minimal left base opacity, and CT abd/pelvis showed widespread lytic bony lesions consistent with metastatic disease or myeloma; several significant size soft tissue masses, most conspicuous in right paraspinal tissue at right 11th rib costovertebral junction. Oncology was consulted, seen by Dr. Olvera. CT guided biopsy done 11/17/16 of paraspinous soft tissue mass, sent for pathology. Bone scan completed which showed multiple lytic lesions. Started patient on decadron, and given Rx to continue decadron 40mg daily. IgG and kappa were very high, consistent with myeloma. Checking 24hr urine for total protein and B2MG which was pending at time of discharge. The patient is diagnosed with multiple myeloma until proven otherwise. His pain was well controlled with morphine ER 30mg q12h olayinka and morphine IR 15mg q4h prn. He was cleared for discharge by oncology with follow up appointment being arranged for Wednesday. Written by Angelia Choudhury, acting as scribe for Dr. Lobo on 11/19/16 at 11:05. Pt Condition on Discharge: Stable Discharge Disposition: Discharge Home Discharge Time: > 30 minutes Discharge Instructions DIET: Follow Instructions for: As Tolerated, No Restrictions Activities you can perform: Regular-No Restrictions Activities to Avoid: Driving Follow up Referrals: Oncology - 11/23/16 PCP Follow-up - 2-3 Days New Medications: Dexamethasone (Dexamethasone) 4 Mg Tab 40 MG PO DAILY Control Inflammation #30 TAB Morphine ER (Morphine ER) 30 Mg Tab 30 MG PO Q12HR Pain Management #14 TAB Morphine IR (Morphine IR) 15 Mg Tab 15 MG PO Q4H PRN pain 1-10 #30 TAB Sennosides-Docusate Sodium (Senna Plus 8.6-50 mg) 1 Tab Tab 1 TAB PO BID Prevent Constipation #60 TAB Angelia Choudhury PA-C Nov 19, 2016 11:12
[2016-11-19 11:57] VITALS: BP 163/88; PULSE 92; RESP 18; TEMP 97.9; O2SAT 95
== END 2016-11-19 12:52 | disposition home or self-care (01) ==
LOC: NEPC 21:48 → INTOOBSV 11-17 01:15 → NEDA 11-17 01:15 → NEDH 11-17 05:15 → NEPHCDU 11-17 16:25
PROVIDERS: ADMIT Internal Medicine; ATTEND Internal Medicine
DX: M89.58 Osteolysis, other site (principal); M89.59 Osteolysis, multiple sites; R22.2 Localized swelling, mass and lump, trunk; M54.6 Pain in thoracic spine; N17.9 Acute kidney failure, unspecified; K50.90 Crohn's disease, unspecified, without complications; F40.240 Claustrophobia; E88.09 Other disorders of plasma-protein metabolism, not elsewhere classified; Z83.3 Family history of diabetes mellitus; Z80.42 Family history of malignant neoplasm of prostate
CPT/HCPCS: 20206; 71010; 74176; 77012; 77075; 80053; 81001; 81050; 82232; 82784; 83605; 83690; 83883; 84156; 84165; 84166; 85025; 85610; 85730; 86140; 86334; 86335; 88305; 88341; 88342; 93005; 99152; 99285; G0103; G0378; J2250; J2270; J2405; J3010; J7030; J8540

== ENCOUNTER 2016-11-30 21:25 | Inpatient (IN) | payer OTHER, MEDICARE ==
[~2016-11-30] VITALS: Ht 177.8 cm; Wt 75.4 kg
[2016-11-30 21:25] VITALS: BP 126/75; PULSE 130; RESP 18; TEMP 98.5; O2SAT 91; O2SAT 97
[~2016-11-30 21:25] MED LIST: DEXA4TAB PO; MORP1TAB25 PO; MSIR15 PO; SENN1TAB PO
[2016-11-30 22:23] LABS: AUTOMATED NEUTROPHIL # 18.5 TH/MM3 (1.8-7.7); BASOPHIL # 0.1 TH/MM3 (0-0.2); BASOPHIL % 0.4 % (0.0-2.0); EOSINOPHIL # 0.2 TH/MM3 (0-0.4); EOSINOPHIL % 0.8 % (0.0-4.0); HEMATOCRIT 34.9 % (39.0-51.0); HEMO FLAGS DIFF FINAL; LYMPH % 6.2 % (9.0-44.0); LYMPHOCYTE # 1.3 TH/MM3 (1.0-4.8); MEAN CELL VOLUME 96.4 FL (80.0-100.0); MEAN CORPUSCULAR HGB CONC 35.3 % (32.0-36.0); MONO % 4.1 % (0.0-8.0); NEUT % 88.5 % (16.0-70.0); PLATELET COUNT 293 TH/MM3 (150-450); RED BLOOD COUNT 3.62 MIL/MM3 (4.50-5.90); RED CELL DISTRIBUTION WIDTH 14.5 % (11.6-17.2); WHITE BLOOD COUNT 20.9 TH/MM3 (4.0-11.0)
[2016-11-30 22:45] LABS: APTT (PATIENT) 22.8 SEC (24.3-30.1); INTERNATIONAL NORMALIZED RATIO 1.1 RATIO; PROTHROMBIN TIME - PATIENT 12.3 SEC (9.8-11.6)
[2016-11-30] MEDS ORDERED: SODIUM CHLOR 0.9% 1000 ML INJ 1,000 ML IV ONE (22:45)
[2016-11-30] MEDS ORDERED: ONDANSETRON HCL 4 MG/2 ML VIAL IV PUSH ONE (22:45)
[2016-11-30] MEDS ORDERED: HYDROmorphone HCL PF 1 MG/ML VIAL IV PUSH ONE (22:45)
--- NOTE | 2016-11-30 23:58 | PD ---
HPI Chief Complaint: Abdominal Pain Time Seen by Provider: 22:45 Travel History International Travel<30 days: No Contact w/Intl Traveler<30days: No Traveled to known affect area: No History of Present Illness HPI 66-year-old male presents to the emergency department for complaint of abdominal pain. Patient reports that abdominal pain has been worsening over the past few days. Patient was seen by his oncologist today and received a second dose of chemotherapy Velcade and steroid therapy. Patient is also on pain medication. Patient has developed constipation with decreased bowel movements over the past 2 weeks. Patient was diagnosed recently in the past 2 weeks with multiple myeloma. Patient also has history of Crohn's disease. Patient denies any fever or chills. Patient's had no nausea or vomiting. Patient's had no chest pain or shortness of breath. Patient has only had mild flatus. No previous abdominal surgeries. Patient presents due to abdominal pain that he rates as 10 over 10 in intensity. Patient has been given a medication to help with bowel movements by his oncologist but states he is not getting any relief. No report of melena or hematochezia. PFSH Past Medical History Narrative Medical Multiple myeloma with chemotherapy Crohn's disease Blood Disorders: No Cancer: Yes (MULTIPLE MYELOMA) Cardiovascular Problems: No Chemotherapy: Yes Endocrine: No Genitourinary: No Immune Disorder: No Musculoskeletal: No Neurologic: No Psychiatric: No Reproductive: No Respiratory: No Tetanus Vaccination: Unknown Influenza Vaccination: No Past Surgical History Surgical History: No Previous Surgery Social History Alcohol Use: No Tobacco Use: No Substance Use: No Allergies-Medications (Allergen,Severity, Reaction): Coded Allergies: Sulfa (Verified Allergy, Severe, DIZZINESS, 11/30/16) Reported Meds & Prescriptions Reported Meds & Active Scripts Active Senna Plus 8.6-50 mg (Sennosides-Docusate Sodium) 1 Tab Tab 1 Tab PO BID Morphine IR (Morphine Sulfate) 15 Mg Tab 15 Mg PO Q4H PRN Morphine ER (Morphine Sulfate) 30 Mg Tab 30 Mg PO Q12HR Dexamethasone 4 Mg Tab 40 Mg PO DAILY Review of Systems Except as stated in HPI: all other systems reviewed are Neg General / Constitutional: No: Fever, Chills HENT: No: Congestion Cardiovascular: No: Chest Pain or Discomfort Respiratory: No: Shortness of Breath Gastrointestinal: Positive: Abdominal Pain, Constipation, No: Nausea, Vomiting , Diarrhea Genitourinary: No: Urgency, Frequency, Dysuria Musculoskeletal: No: Myalgias, Arthralgias Skin: No Rash Neurologic: No: Weakness Psychiatric: No: Anxiety Hematologic/Lymphatic: No: Lymph Node Enlargement Physical Exam Narrative GENERAL: Well-developed well-nourished male in no acute distress no respiratory distress SKIN: Warm and dry. HEAD: Normocephalic. EYES: No scleral icterus. No injection or drainage. NECK: Supple, trachea midline. No JVD or lymphadenopathy. CARDIOVASCULAR: Regular rate and rhythm without murmurs, gallops, or rubs. RESPIRATORY: Breath sounds equal bilaterally. No accessory muscle use. GASTROINTESTINAL: Abdomen soft, non-tender, nondistended. No guarding or rebound. MUSCULOSKELETAL: No cyanosis, or edema. BACK: Nontender without obvious deformity. No CVA tenderness. Data Data Last Documented VS Vital Signs Date Time Temp Pulse Resp B/P Pulse Ox O2 Delivery O2 Flow Rate FiO2 11/30/16 21:25 18 91 Room Air 11/30/16 21:25 98.5 130 126/75 Orders Complete Blood Count With Diff (11/30/16 21:48) Comprehensive Metabolic Panel (11/30/16 21:48) Lipase (11/30/16 21:48) Lactic Acid (11/30/16 21:48) Prothrombin Time / Inr (Pt) (11/30/16 21:48) Act Partial Throm Time (Ptt) (11/30/16 21:48) Urinalysis - C+S If Indicated (11/30/16 21:48) Iv Access Insert/Monitor (11/30/16 21:48) Ecg Monitoring (11/30/16 21:48) Oximetry (11/30/16 21:48) Electrocardiogram (11/30/16 21:48) Blood Culture (11/30/16 21:48) Ct Abd/Pel W/O Iv Contrast (11/30/16 ) Sodium Chlor 0.9% 1000 Ml Inj (Ns 1000 M (11/30/16 22:45) Ondansetron Inj (Zofran Inj) (11/30/16 22:45) Hydromorphone Pf Inj (Dilaudid Pf Inj) (11/30/16 22:45) Labs Laboratory Tests Test 11/30/16 11/30/16 22:00 23:30 White Blood Count 20.9 TH/MM3 Red Blood Count 3.62 MIL/MM3 Hemoglobin 12.3 GM/DL Hematocrit 34.9 % Mean Corpuscular Volume 96.4 FL Mean Corpuscular Hemoglobin 34.0 PG Mean Corpuscular Hemoglobin 35.3 % Concent Red Cell Distribution Width 14.5 % Platelet Count 293 TH/MM3 Mean Platelet Volume 7.2 FL Neutrophils (%) (Auto) 88.5 % Lymphocytes (%) (Auto) 6.2 % Monocytes (%) (Auto) 4.1 % Eosinophils (%) (Auto) 0.8 % Basophils (%) (Auto) 0.4 % Neutrophils # (Auto) 18.5 TH/MM3 Lymphocytes # (Auto) 1.3 TH/MM3 Monocytes # (Auto) 0.8 TH/MM3 Eosinophils # (Auto) 0.2 TH/MM3 Basophils # (Auto) 0.1 TH/MM3 CBC Comment DIFF FINAL Differential Comment Prothrombin Time 12.3 SEC Prothromb Time International 1.1 RATIO Ratio Activated Partial 22.8 SEC Thromboplast Time Lactic Acid Level 2.5 mmol/L Sodium Level 132 MEQ/L Potassium Level 4.2 MEQ/L Chloride Level 97 MEQ/L Carbon Dioxide Level 27.7 MEQ/L Anion Gap 7 MEQ/L Blood Urea Nitrogen 31 MG/DL Creatinine 2.19 MG/DL Estimat Glomerular Filtration 30 ML/MIN Rate Random Glucose 126 MG/DL Calcium Level 8.4 MG/DL Total Bilirubin 0.4 MG/DL Aspartate Amino Transf 21 U/L (AST/SGOT) Alanine Aminotransferase 55 U/L (ALT/SGPT) Alkaline Phosphatase 43 U/L Total Protein 11.0 GM/DL Albumin 1.8 GM/DL Lipase 95 U/L [facility] Medical Decision Making Medical Screen Exam Complete: Yes Emergency Medical Condition: Yes Medical Record Reviewed: Yes Differential Diagnosis Abdominal pain, bowel obstruction, obstipation, constipation, exacerbation Crohn 's, UTI, appendicitis, pancreatitis, biliary colic, atypical chest pain Narrative Course Well-developed 58-year-old male with obvious abdominal discomfort recent pain medication introduced with diagnosis of multiple myeloma and development of constipation presents with worsening abdominal pain 1 day. Patient has history of Crohn's. Plan is to proceed with collecting specimens sent for resulting CBC metabolic panel lactic acid and urinalysis and we'll obtain CT abdomen and pelvis without IV contrast in view of history of multiple myeloma. Patient administered normal saline as well as Zofran and Dilaudid 0.5 mg IV for pain 10 over 10 in intensity. At 12:39 AM the patient was spouse at bedside is informed of imaging results. Patient and spouse report that they have been told that there is significant disease of the vertebra T9 affecting the cord and that he has been scheduled to undergo an begin radiation therapy this . Maddison Brown MD Nov 30, 2016 23:58 Maddison Brown MD Nov 30, 2016 23:58
[2016-12-01] VITALS (7 sets, daily range): BP systolic 119–146; BP diastolic 63–78; PULSE 71–91; RESP 18–20; TEMP 98–98.7; O2SAT 94–96
--- NOTE | 2016-12-01 00:04 | RADRPT ---
EXAM DATE/TIME: 11/30/2016 23:12 [facility] COMPARISON: BONE SURVEY COMPLETE, November 18, 2016, 16:09. CT ABDOMEN & PELVIS W/O CONTRAST, November 16, 2016, 2 3:50. INDICATIONS : Abdominal pain with nausea. ORAL CONTRAST: No oral contrast ingested. RADIATION DOSE: 8.89 CTDIvol (mGy) MEDICAL HISTORY : multiple myeloma. SURGICAL HISTORY : None. ENCOUNTER: Initial ACUITY: 1 day PAIN SCALE: 10/10 LOCATION: abdomen TECHNIQUE: Volumetric scanning of the abdomen and pelvis was performed. Using automated exposure control and ad justment of the mA and/or kV according to patient size, radiation dose was kept as low as reasonably achievable to obtain optimal diagnostic quality images. FINDINGS: LOWER LUNGS: The visualized lower lungs are clear. LIVER: Homogeneous density without lesion. There is no dilation of the biliary tree. No calcified gallston es. SPLEEN: Normal size without lesion. PANCREAS: Within normal limits. KIDNEYS: Normal in size and shape. There is no mass, stone, or hydronephrosis. ADRENAL GLANDS: Within normal limits. VASCULAR: There is no aortic aneurysm. BOWEL/MESENTERY: Scattered diverticula are seen of the sigmoid colon without acute inflammatory changes. A small hiata l hernia is noted. There is no obstruction. ABDOMINAL WALL: Within normal limits. RETROPERITONEUM: There is no lymphadenopathy. BLADDER: 1 cm diverticulum seen laterally on the right. REPRODUCTIVE: Heterogeneous enlargement of the prostate with scattered calcifications noted. INGUINAL: There is no lymphadenopathy or hernia. MUSCULOSKELETAL: Numerous lytic lesions are again seen of the visualized osseous structures. The upper most axial imag e on the current study is higher than on the comparison and demonstrates a very large destructive les ion of the T9 vertebral body measuring at least 3.5 x 4.5 cm in size, including the right posterior e lements, and with a considerable epidural component. The cord is displaced to the left and probably c ompressed. Of the lesions seen previously, I don't see a significant change in the interim. CONCLUSION: 1. No acute abnormality seen within the abdomen or pelvis. Diverticulitis. A small hiatal hernia and small diverticulum of the urinary bladder also noted. 2. Widespread involvement of the visualized osseous structures by multiple myeloma again noted. Inclu ded on this study but not the prior is a large destructive lesion of the T9 vertebral body with proba ble cord compression. Jim Vega MD on November 30, 2016 at 23:54 Board Certified Radiologist. This report was verified electronically.
[2016-12-01 00:05] LABS: ANION GAP 7 MEQ/L (5-15); AST (GOT) 21 U/L (15-37); BICARBONATE 27.7 MEQ/L (21.0-32.0); BLOOD UREA NITROGEN 31 MG/DL (7-18); CHLORIDE 97 MEQ/L (98-107); GLOMERULAR FILTRATION RATE 30 ML/MIN (>89); POTASSIUM 4.2 MEQ/L (3.5-5.1); SODIUM (NA) 132 MEQ/L (136-145)
[2016-12-01 00:08] LABS: ALKALINE PHOSPHATASE 43 U/L (45-117); ALT (GPT) 55 U/L (12-78); TOTAL BILIRUBIN ADULT 0.4 MG/DL (0.2-1.0)
[2016-12-01] MEDS ORDERED: cefTAZidime INJ 2,000 MG in SODIUM CHLORIDE 0.9% INJ 100 ML IV ONE (01:00)
[2016-12-01] MEDS ORDERED: NALOXONE HCL 0.4 MG/ML AMP IV PRN (01:00)
[2016-12-01] MEDS ORDERED: SODIUM CHLORIDE 0.9% FLUSH 5 ML FLUSH FLUSH PRN (01:00)
[2016-12-01] MEDS ORDERED: SODIUM CHLORIDE 0.9% FLUSH 5 ML FLUSH IVF PRN (01:15)
[2016-12-01] MEDS ORDERED: LORazepam 2 MG/ML VIAL IV PUSH ONE (01:45)
[2016-12-01 02:01] LABS: BLOOD, URINE NEG (NEG); GLUCOSE,URINE NEG (NEG); HYALINE CAST, URINE 8 /lpf (RARE); KETONE, URINE NEG (NEG); MUCUS URINE FEW /lpf (OCC); NITRITE,URINE NEG (NEG); PH, URINE 5.5 (5.0-8.5); RENAL EPITHELIAL CELLS <1 /hpf; URINE COLOR YELLOW (YELLW/STRAW)
[2016-12-01 02:02] LABS: COMMENT (UR) CULT NOT INDICATED; CULTURE IF INDICATED CULT NOT INDICATED
[2016-12-01] MEDS ORDERED: GADOBENATE DIM PF 529 MG/ML 5 ML VIAL (for RAD MRI) IV ONE (02:41)
--- NOTE | 2016-12-01 03:26 | RADRPT ---
EXAM DATE/TIME: 12/01/2016 02:03 [facility] COMPARISON: No previous studies available for comparison. INDICATIONS : Neoplasm. CONTRAST: 15 cc Multihance (gadobenate) IV MEDICAL HISTORY : Multiple myeloma. SURGICAL HISTORY : None. ENCOUNTER: Initial ACUITY: 2 weeks PAIN SCORE: 0/10 LOCATION: neck TECHNIQUE: Multiplanar, multisequence MRI examination of the cervical spine was performed. FINDINGS: Too numerous to count enhancing bone lesions are demonstrated of the thoracic spine. These range betw een just a few millimeters in size and 2.6 cm. The largest lesion is in the C2 vertebral body. There is essentially complete infiltration of the C6 vertebral body and there is a moderate compression def ormity of its inferior endplate. There is expansion and mild retropulsion and resultant mild spinal s tenosis but no cord compression or cord signal abnormality. The C6 vertebral body changes combined wi th degenerative changes contribute to right greater than left foraminal stenosis at both C5/C6 and C6 /C7. There is also narrowing of the right transverse foramen at C6. I don't see an extraosseous lesion of the cervical spine. There are mild degenerative changes, mainly the C5/C6 disc. Cervical cord has normal signal and morphology. CONCLUSION: 1. Too numerous to count multiple myeloma lesions of the cervical spine osseous structures ranging in size from just a few millimeters up to 26 mm. Largest lesion is in the C2 vertebral body. 2. Moderate pathologic compression deformity and bony expansion of C6 with associated spinal stenosis without cord compression or cord signal abnormality. There is also associated right greater than lef t foraminal stenosis at C5/C6 and C6/C7. Bony expansion of C6 preferentially towards the right also c auses obliteration of the right transverse foramen and probable occlusion of the right vertebral glenn ry. 3. No cervical spine fracture or osseous lesion. Jim Vega MD on December 01, 2016 at 3:16 Board Certified Radiologist. This report was verified electronically.
--- NOTE | 2016-12-01 03:42 | RADRPT ---
EXAM DATE/TIME: 12/01/2016 02:03 [facility] COMPARISON: No previous studies available for comparison. INDICATIONS : Neoplasm. CONTRAST: 15 cc Multihance (gadobenate) IV MEDICAL HISTORY : Multiple myeloma. SURGICAL HISTORY : None. ENCOUNTER: Initial ACUITY: 2 weeks PAIN SCORE: 5/10 LOCATION: Back TECHNIQUE: Multiplanar multisequence MRI of the thoracic spine was performed. FINDINGS: There are too numerous to count multiple myeloma lesions of the thoracic spine. These range in size f rom just a few millimeters to several centimeters. Largest vertebral body lesions are seen of T1, T3, T9 and T10. There is mild loss of height of T9 vertebral body. Most extensive posterior element invo lvement is left-sided at T1 and T2, right-sided of T3, left-sided of T5 and T6 and right-sided at T9 and T10. T9 vertebral body and posterior elements are expanded and destroyed, especially on the right. There i s associated moderate spinal stenosis and short segment compression of the cord to the left. No cord signal abnormality demonstrated. No other areas of spinal stenosis are demonstrated. There is mild right foraminal stenosis at T8/T9 and T9/T10. Otherwise no significant foraminal stenos is in the thoracic spine. Numerous lesions are seen of the visualized ribs. There appears to be involvement i medially of the v isualized right scapula body as well with an estimated 2.6 cm lesion. Posterior portions of the right fifth and sixth ribs are expanded. There is an expansile lesion posteriorly of the right 11th rib at the costovertebral junction. CONCLUSION: 1. Destruction/expansion of T9 vertebral body and right posterior elements and with associated modera te spinal stenosis compressing the cord towards the left but no cord signal abnormality. There is rig ht foraminal stenosis at both T8/T9 and T9/T10. There is mild pathologic compression fracture/loss of height of the T9 vertebral body. 2. There is extensive osseous involvement elsewhere of the thoracic spine as above but no other level s of spinal or significant foraminal stenosis demonstrated. There is right scapula and extensive rib involvement as well. Jim Vega MD on December 01, 2016 at 3:29 Board Certified Radiologist. This report was verified electronically.
[2016-12-01] MEDS ORDERED: OXYC1TAB63 PO (07:54)
[2016-12-01] MEDS ORDERED: SODIUM CHLORIDE 0.9% FLUSH 5 ML FLUSH FLUSH SCH (09:00)
[2016-12-01] MEDS ORDERED: SODIUM CHLORIDE 0.9% FLUSH 5 ML FLUSH IVF SCH (09:00)
[2016-12-01] MEDS ORDERED: MORPHINE SULFATE 30 MG CONTROLLED RELEASE TAB PO SCH (09:45)
[2016-12-01] MEDS ORDERED: oxyCODONE/ACETAMINOPHEN 5 MG/325 MG TAB PO PRN (09:45)
[2016-12-01] MEDS: DEXAMETHASONE SOD PHOS 4 MG/ML VIAL IV PUSH SCH ×2 (10:01→17:31)
[2016-12-01] MEDS: LACTULOSE SYRUP 20 GM/30 ML CUP PO SCH ×2 (11:55→17:31)
--- NOTE | 2016-12-01 13:45 | EKG ---
Date Performed: 11/30/2016 Time Performed: 21:44:14 PTAGE: 66 years EKG: SINUS TACHYCARDIA POSSIBLE LEFT ATRIAL ENLARGEMENT LOW QRS VOLTAGE IN PRECORDIAL LEADS POSS IBLE RIGHT VENTRICULAR CONDUCTION DELAY ABNORMAL RHYTHM ECG Compared to prior tracing no significant change PREVIOUS TRACING : 11/16/2016 23.20 DOCTOR: Apurva Greenberg Interpretating Date/Time 12/01/2016 13:43:58
[2016-12-01] MEDS ORDERED: MIRA33504 PO (14:25)
[2016-12-01] MEDS ORDERED: SENN1TAB PO (14:25)
--- NOTE | 2016-12-01 14:42 | HHI.HP ---
HPI Service [facility] Primary Care Physician Non-Staff Admission Diagnosis abdominal pain; T9 destructive lesion; multiple myeloma; poss sepsis Diagnoses: Travel History International Travel<30 Days: No Contact w/Intl Traveler <30 Da: No Traveled to Known Affected Are: No History of Present Illness patient was constipated, took many laxatives, then had a "huge" watery BM, felt chilled and lightheaded at the time, which lasted about 10 mins. He was brought into the ER due to this acute episode. Says he feels back to normal now. denies any weakness.. no CP or sob. No fevers, chills, nausea, vomiting. Review of Systems Other performed and negative except for HPI and past medical history. 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 Allergies: Coded Allergies: Sulfa (Verified Allergy, Severe, DIZZINESS, 11/30/16) Family History Family history reviewed with the patient and found to be currently noncontributory. Social History Nonsmoker. Nondrinker. Denies illicit drugs. Physical Exam Vital Signs Vital Signs Date Time Temp Pulse Resp B/P Pulse Ox O2 Delivery O2 Flow Rate FiO2 12/01/16 12:00 98.7 83 18 138/76 94 12/01/16 08:00 71 12/01/16 08:00 98.0 78 18 132/78 95 12/01/16 05:00 98.0 91 18 146/77 96 12/01/16 03:27 84 20 119/63 94 Nasal Cannula 12/01/16 01:40 95 12/01/16 00:05 82 20 123/64 Nasal Cannula 11/30/16 21:25 18 91 Room Air 11/30/16 21:25 18 11/30/16 21:25 98.5 130 18 126/75 97 Physical Exam GENERAL: This is a well-nourished, well-developed patient, in no apparent distress. AAOx3 SKIN: No rashes, ecchymoses or lesions. Cool and dry. HEAD: Atraumatic. Normocephalic. No temporal or scalp tenderness. EYES: Pupils equal round and reactive. Extraocular motions intact. No scleral icterus. No injection or drainage. ENT: Nose without bleeding, purulent drainage or septal hematoma. Throat without erythema, tonsillar hypertrophy or exudate. Uvula midline. Airway patent. NECK: Trachea midline. No JVD or lymphadenopathy. Supple, nontender, no meningeal signs. CARDIOVASCULAR: Regular rate and rhythm without murmurs, gallops, or rubs. RESPIRATORY: Clear to auscultation. Breath sounds equal bilaterally. No wheezes , rales, or rhonchi. GASTROINTESTINAL: Abdomen soft, non-tender, nondistended. No hepato-splenomegaly , or palpable masses. No guarding. MUSCULOSKELETAL: Extremities without clubbing, cyanosis, or edema. No joint tenderness, effusion, or edema noted. No calf tenderness. Negative Homans sign bilaterally. NEUROLOGICAL: Awake and alert. Cranial nerves II through XII intact. Motor and sensory grossly within normal limits. Five out of 5 muscle strength in all muscle groups. Normal speech. Laboratory Laboratory Tests Test 11/30/16 11/30/16 12/01/16 12/01/16 22:00 23:30 01:30 10:35 White Blood Count 20.9 Red Blood Count 3.62 Hemoglobin 12.3 Hematocrit 34.9 Mean Corpuscular Volume 96.4 Mean Corpuscular Hemoglobin 34.0 Mean Corpuscular Hemoglobin 35.3 Concent Red Cell Distribution Width 14.5 Platelet Count 293 Mean Platelet Volume 7.2 Neutrophils (%) (Auto) 88.5 Lymphocytes (%) (Auto) 6.2 Monocytes (%) (Auto) 4.1 Eosinophils (%) (Auto) 0.8 Basophils (%) (Auto) 0.4 Neutrophils # (Auto) 18.5 Lymphocytes # (Auto) 1.3 Monocytes # (Auto) 0.8 Eosinophils # (Auto) 0.2 Basophils # (Auto) 0.1 CBC Comment DIFF FINAL Differential Comment Prothrombin Time 12.3 Prothromb Time International 1.1 Ratio Activated Partial 22.8 Thromboplast Time Lactic Acid Level 2.5 1.2 Sodium Level 132 Potassium Level 4.2 Chloride Level 97 Carbon Dioxide Level 27.7 Anion Gap 7 Blood Urea Nitrogen 31 Creatinine 2.19 Estimat Glomerular Filtration 30 Rate Random Glucose 126 Calcium Level 8.4 Total Bilirubin 0.4 Aspartate Amino Transf 21 (AST/SGOT) Alanine Aminotransferase 55 (ALT/SGPT) Alkaline Phosphatase 43 Total Protein 11.0 Albumin 1.8 Lipase 95 Urine Color YELLOW Urine Turbidity CLEAR Urine pH 5.5 Urine Specific Dexter 1.012 Urine Protein 30 Urine Glucose (UA) NEG Urine Ketones NEG Urine Occult Blood NEG Urine Nitrite NEG Urine Bilirubin NEG Urine Urobilinogen LESS THAN 2.0 Urine Leukocyte Esterase TRACE Urine RBC 2 Urine WBC 5 Urine Renal Epithelial Cells <1 Urine Hyaline Casts 8 Urine Mucus FEW Microscopic Urinalysis Comment CULT NOT INDICATED Date/Time Procedure Status Source Growth 12/01/16 03:15 Aerobic Blood Culture Received Blood Peripheral Pending 12/01/16 03:15 Anaerobic Blood Culture Received Blood Peripheral Pending 11/30/16 22:05 Aerobic Blood Culture - Preliminary Resulted Blood Peripheral NO GROWTH IN 1 DAY 11/30/16 22:05 Anaerobic Blood Culture - Preliminary Resulted Blood Peripheral NO GROWTH IN 1 DAY Result Diagram: 11/30/16 2200 11/30/16 2330 Imaging Last Impressions Thoracic Spine MRI 12/01/16 0000 Signed Impressions: Service Date/Time: Thursday, December 01, 2016 02:03 - CONCLUSION: 1. Destruction/expansion of T9 vertebral body and right posterior elements and with associated moderate spinal stenosis compressing the cord towards the left but no cord signal abnormality. There is right foraminal stenosis at both T8/T9 and T9/T10. There is mild pathologic compression fracture/loss of height of the T9 vertebral body. 2. There is extensive osseous involvement elsewhere of the thoracic spine as above but no other levels of spinal or significant foraminal stenosis demonstrated. There is right scapula and extensive rib involvement as well. Jim Vega MD Cervical Spine MRI 12/01/16 0000 Signed Impressions: Service Date/Time: Thursday, December 01, 2016 02:03 - CONCLUSION: 1. Too numerous to count multiple myeloma lesions of the cervical spine osseous structures ranging in size from just a few millimeters up to 26 mm. Largest lesion is in the C2 vertebral body. 2. Moderate pathologic compression deformity and bony expansion of C6 with associated spinal stenosis without cord compression or cord signal abnormality. There is also associated right greater than left foraminal stenosis at C5/C6 and C6/C7. Bony expansion of C6 preferentially towards the right also causes obliteration of the right transverse foramen and probable occlusion of the right vertebral artery. 3. No cervical spine fracture or osseous lesion. Jim Vega MD Abdomen/Pelvis CT 11/30/16 0000 Signed Impressions: Service Date/Time: Wednesday, November 30, 2016 23:12 - CONCLUSION: 1. No acute abnormality seen within the abdomen or pelvis. Diverticulitis. A small hiatal hernia and small diverticulum of the urinary bladder also noted. 2. Widespread involvement of the visualized osseous structures by multiple myeloma again noted. Included on this study but not the prior is a large destructive lesion of the T9 vertebral body with probable cord compression. Jim Vega MD Assessment and Plan Assessment and Plan //Constipation. //Abdominal pain. Resolved after bowel movement. Discharge with daily MiraLAX. Increase Marva- Colace to 2 tabs twice daily Patient will continue to monitor at home //Multiple myeloma. Chronic. Continue pain medication. //Leukocytosis. Most likely secondary to steroids. No fevers. //Pathologic fracture of T-spine and C-spine. Patient was found to have compression fracture at T9. Patient does have chronic pain, however no acute findings. No acute weakness. Discussed with oncology. Patient will be undergoing radiation tomorrow. -Continue dexamethasone 8 mg by mouth 3 times a day as per oncology. Appreciate assistance -Patient can be discharged home. He'll receive radiation, follow-up oncology. Discussed Condition With patient, nurse, oncology physician's orthodontic assistant. Physician Certification 2 Midnight Certification Type: Admission for Inpatient Services Order for Inpatient Services The services are ordered in accordance with Medicare regulations or non- Medicare payer requirements, as applicable. In the case of services not specified as inpatient-only, they are appropriately provided as inpatient services in accordance with the 2-midnight benchmark. Estimated LOS (days): 4 days is the estimated time the patient will need to remain in the hospital, assuming treatment plan goals are met and no additional complications. Post-Hospital Plan: Home Notes: estimated length of stay is as estimated at the time of admission. Tobi Walls MD Dec 01, 2016 14:42
[2016-12-01] MEDS ORDERED: DEXA4TAB PO (16:10)
[2016-12-01] MEDS ORDERED: PANT20 PO (16:10)
--- NOTE | 2016-12-01 21:21 | MB ---
cc: MAYA NUR M.D. DATE OF CONSULTATION 12/01/2016 REASON FOR CONSULTATION CONSULTATION REASON FOR CONSULTATION Consult requested by Dr. Regalado for followup of multiple myeloma. HISTORY OF PRESENT ILLNESS Josh is a pleasant 66-year-old male. Recently he was diagnosed with multiple myeloma. He was started on Velcade and Decadron therapy last week Wednesday. Yesterday he came into our office to get the chemotherapy. In the clinic he was complaining of severe constipation. He was prescribed lactulose. When he went home last evening he developed severe abdominal pain and had no bowel movements. With that he came to the emergency room. In the emergency room the patient had a CAT scan of the abdomen and pelvis which did not show any abdominal findings except that he was found to have worsening pathological fracture of the thoracic spine. He had an MRI of the cervical and thoracic spine which confirmed multiple lytic lesions with compression fracture at T9. The patient is admitted to the hospital. I have been asked to see the patient for further evaluation. The patient had a good bowel movement and his abdominal pain has not resolved. PAST MEDICAL HISTORY 1. Multiple myeloma recently diagnosed. 2. Cat scratch fever. 3. Crohn's disease. PAST SURGICAL HISTORY Axillary lymph node biopsy. Colonoscopy. ALLERGIES SULFA. MEDICATIONS Please see EMR. FAMILY HISTORY Noncontributory. SOCIAL HISTORY The patient does not smoke cigarettes, does not drink alcohol. PHYSICAL EXAMINATION GENERAL: This is a well-developed, well-nourished white male in no apparent distress. VITAL SIGNS: Temperature 98, heart rate is 91, blood pressure 146/77, O2 suture 96%. HEENT: PERRLA, EOMI, anicteric. No oral lesions noted. NECK: Supple. LYMPHATICS: There is no cervical, supraclavicular or axillary lymphadenopathy noted. LUNGS: Clear. No wheezing, rhonchi or rales. HEART: Regular rate and rhythm. ABDOMEN: Soft, nontender. No hepatosplenomegaly. EXTREMITIES: No pedal edema. NEUROLOGY: Awake, alert, oriented x 3. SKIN: No significant lesions noted. ASSESSMENT 1. Multiple myeloma. 1. Abdominal pain due to constipation. 2. Pathological fracture of the T-spine and C-spine. PLAN 1. I have reviewed his available records and I have discussed with the patient regarding the chemotherapy and radiation treatment. I have discussed the case with Dr. Johnson, radiation oncologist. Dr. Johnson will simulate him today and then will start the radiation therapy tomorrow. 2. I have placed him on Decadron 8 mg to take three times per day due to the pathological fracture. I have advised him to continue the Decadron throughout the radiation treatment. 3. He will also continue with the Velcade chemotherapy which is twice a week. 4. He will also continue on morphine ER 30 mg twice a day and Percocet for breakthrough pain. 5. The patient could be discharged from the oncology standpoint. I will follow him as an outpatient. Thank you for asking my opinion. MD WILMAN Lin/ANGELINA /8:38 PM /9:12 PM
== END 2016-12-01 17:55 | disposition home or self-care (01) | DRG 392 ==
LOC: NEPC 21:25 → NEDA 12-01 01:04 → OBSVTOIN 12-01 01:04 → N04A 12-01 04:20
PROVIDERS: ADMIT Internal Medicine; ATTEND Internal Medicine
DX: R10.9 Unspecified abdominal pain (principal); C90.00 Multiple myeloma not having achieved remission; M84.58XA Pathological fracture in neoplastic disease, other specified site, initial encounter for fracture; K50.90 Crohn's disease, unspecified, without complications; K59.00 Constipation, unspecified; G89.3 Neoplasm related pain (acute) (chronic); Z88.2 Allergy status to sulfonamides
CPT/HCPCS: 72156; 72157; 74176; 77263; 77290; 77334; 80053; 81001; 83605; 83690; 85025; 85610; 85730; 87040; 87186; 87205; 93005; 96374; 96375; 96401; A9577; J0713; J1100; J1170; J2060; J2405; J7030; J9041; Q0166

== ENCOUNTER 2016-12-21 15:08 | Inpatient (IN) | payer OTHER, MEDICARE ==
[~2016-12-21] VITALS: Ht 165.1 cm; Wt 74.4 kg
[~2016-12-21 15:08] MED LIST changes: +MIRA33504 PO; -MSIR15 PO; +OXYC1TAB63 PO; +PANT20 PO
[2016-12-21 15:11] VITALS: BP 128/85; PULSE 118; RESP 19; TEMP 97.9; O2SAT 96
--- NOTE | 2016-12-21 17:34 | PD ---
HPI Chief Complaint: ENT Complaint Time Seen by Provider: 17:33 Travel History International Travel<30 days: No Contact w/Intl Traveler<30days: No Traveled to known affect area: No History of Present Illness HPI Patient sent by Dr. Olvera after chemotherapy today secondary to not being able to eat, drink, take medications x24 hrs. secondary to local to swallowing. Patient has history of multiple myeloma in his neck and is having radiation and chemotherapy. He was told by Dr. Olvera he would most likely develop an inability to swallow. Per the patient he was sent for fluids and nutrition and to have us call Dr. Olvera when the patient got here. Reports lightheadedness , dizziness, headache. Denies chest pain, shortness of breath, abdominal pain. Denies change in stool. Reports decreased urination. Denies fever, chills, nausea, vomiting. Allergies to sulfa. No other modifying factors or associated signs and symptoms. PFSH Past Medical History Blood Disorders: No Anxiety: No Depression: No Cancer: Yes (MULTIPLE MYELOMA) Cardiovascular Problems: No Chemotherapy: Yes Endocrine: No Genitourinary: No Immune Disorder: No Musculoskeletal: No Neurologic: No Psychiatric: No Reproductive: No Respiratory: No Social History Alcohol Use: No Tobacco Use: No Substance Use: No Allergies-Medications (Allergen,Severity, Reaction): Coded Allergies: Sulfa (Verified Allergy, Severe, DIZZINESS, 12/21/16) Reported Meds & Prescriptions Reported Meds & Active Scripts Active Miralax Powder (Polyethylene Glycol 3350 Powder) 17 Gm Powd 17 Gm PO DAILY Mix and dissolve one measuring cap-ful (17 grams) in water or juice. Senna Plus 8.6-50 mg (Sennosides-Docusate Sodium) 1 Tab Tab 2 Tab PO BID Reported [Revlimid] 25 Mg PO DIRECTED Dexamethasone 4 Mg Tab 20 Mg PO WEEKLY Omeprazole 40 Mg Cap 40 Mg PO DAILY Morphine IR (Morphine Sulfate) 15 Mg Tab 15 Mg PO TID Review of Systems Except as stated in HPI: all other systems reviewed are Neg Physical Exam Narrative GENERAL: Well-nourished, well-developed male patient, in no acute distress SKIN: Warm and dry. HEAD: Atraumatic. Normocephalic. EYES: Pupils equal and round. No scleral icterus. No injection or drainage. ENT: Mucosa pink and moist. No erythema or exudates. No uvular edema. No uvular , palatal, or tonsillar deviation. Airway patent. NECK: Trachea midline. CARDIOVASCULAR: Tachycardic rate and rhythm. No murmur appreciated. RESPIRATORY: No accessory muscle use. Breath sounds clear and equal bilaterally. No retractions or tachypnea. GASTROINTESTINAL: Abdomen soft, non-tender, nondistended. Bowel sounds active 4 quadrants. MUSCULOSKELETAL: No obvious deformities. No clubbing. No cyanosis. No edema. NEUROLOGICAL: Awake and alert. Oriented 3. No obvious cranial nerve deficits. Motor grossly within normal limits. Normal speech. PSYCHIATRIC: Appropriate mood and affect; insight and judgment normal. Data Data Last Documented VS Vital Signs Date Time Temp Pulse Resp B/P Pulse Ox O2 Delivery O2 Flow Rate FiO2 12/21/16 17:51 95 Room Air 12/21/16 15:11 97.9 118 19 128/85 Orders Basic Metabolic Panel (Bmp) (12/21/16 17:38) Complete Blood Count With Diff (12/21/16 17:38) Magnesium (Mg) (12/21/16 17:38) Act Partial Throm Time (Ptt) (12/21/16 17:38) Prothrombin Time / Inr (Pt) (12/21/16 17:38) Ecg Monitoring (12/21/16 17:38) Iv Access Insert/Monitor (12/21/16 17:38) Oximetry (12/21/16 17:38) Sodium Chloride 0.9% Flush (Ns Flush) (12/21/16 17:45) Sodium Chlor 0.9% 1000 Ml Inj (Ns 1000 M (12/21/16 17:59) Consult Medical Oncology (12/21/16 ) (Hub Use Only)Inp Phy Cons/Ref (12/21/16 ) Sodium Chlor 0.9% 1000 Ml Inj (Ns 1000 M (12/21/16 18:58) Add Patient To Providers List (12/21/16 ) Sucralfate Liq (Carafate Liq) (12/21/16 21:00) Pantoprazole Inj (Protonix Inj) (12/21/16 21:00) Dexamethasone Inj (Decadron Inj) (12/21/16 19:15) ^ Other Nursing Orders (12/21/16 19:06) Admit Order (Ed Use Only) (12/21/16 19:19) Labs Laboratory Tests Test 12/21/16 17:55 White Blood Count 5.8 TH/MM3 Red Blood Count 3.21 MIL/MM3 Hemoglobin 10.9 GM/DL Hematocrit 31.8 % Mean Corpuscular Volume 99.0 FL Mean Corpuscular Hemoglobin 33.8 PG Mean Corpuscular Hemoglobin 34.1 % Concent Red Cell Distribution Width 14.7 % Platelet Count 206 TH/MM3 Mean Platelet Volume 7.4 FL Neutrophils (%) (Auto) 94.2 % Lymphocytes (%) (Auto) 2.9 % Monocytes (%) (Auto) 2.0 % Eosinophils (%) (Auto) 0.8 % Basophils (%) (Auto) 0.1 % Neutrophils # (Auto) 5.4 TH/MM3 Lymphocytes # (Auto) 0.2 TH/MM3 Monocytes # (Auto) 0.1 TH/MM3 Eosinophils # (Auto) 0.0 TH/MM3 Basophils # (Auto) 0.0 TH/MM3 CBC Comment DIFF FINAL Differential Comment Prothrombin Time 12.8 SEC Prothromb Time International 1.2 RATIO Ratio Activated Partial 23.6 SEC Thromboplast Time Sodium Level 132 MEQ/L Potassium Level 4.2 MEQ/L Chloride Level 97 MEQ/L Carbon Dioxide Level 27.6 MEQ/L Anion Gap 7 MEQ/L Blood Urea Nitrogen 19 MG/DL Creatinine 1.49 MG/DL Estimat Glomerular Filtration 47 ML/MIN Rate Random Glucose 103 MG/DL Calcium Level 8.3 MG/DL Magnesium Level 1.9 MG/DL MDM Medical Decision Making Medical Screen Exam Complete: Yes Emergency Medical Condition: Yes Medical Record Reviewed: Yes Differential Diagnosis Electrolyte imbalance, dehydration, anemia Narrative Course 66-year-old male currently under radiation and chemotherapy for multiple myeloma in his neck sent by Dr. Olvera, for hydration and nutrition secondary to inability to swallow fluids, food, medications 24 hours. Patient placed on cardiopulmonary monitor. IV site established. Labs ordered. Normal saline bolus ordered. 1740: Call out to Dr. Olvera. 1800: I spoke with Dr. Olvera and he is requesting the patient to be admitted secondary to dysphagia for hydration and nutrition. 1910: Hemoglobin 10.9. Hematocrit 31.8. Sodium 132. BUN 19. Creatinine 1.49. BUN and creatinine are improved when compared to November 30, 2016 levels. Sodium is consistent with November 30, 2016 level of 132. I discussed the patient with Dr. Landa and he recommended normal saline at 150 mL per hour. Order entered. Call placed to WOO. 1919: I spoke with WOO Watts, and report given and the patient will be admitted. Portia Gamez Dec 21, 2016 17:33
[2016-12-21] MEDS ORDERED: SODIUM CHLORIDE 0.9% FLUSH 5 ML FLUSH IVF PRN (17:45)
[2016-12-21 17:51] VITALS: O2SAT 95
[2016-12-21] MEDS ORDERED: OMEP40CA2 PO (17:54)
[2016-12-21] MEDS ORDERED: MSIR15 PO (17:54)
[2016-12-21] MEDS ORDERED: DEXA4TAB PO (17:54)
[2016-12-21] MEDS ORDERED: REVLIMID PO (17:55)
[2016-12-21] MEDS ORDERED: SODIUM CHLOR 0.9% 1000 ML INJ 1,000 ML IV SCH ×2 (17:59→18:58)
[2016-12-21 18:15] LABS: AUTOMATED NEUTROPHIL # 5.4 TH/MM3 (1.8-7.7); BASOPHIL % 0.1 % (0.0-2.0); EOSINOPHIL % 0.8 % (0.0-4.0); HEMATOCRIT 31.8 % (39.0-51.0); HEMO FLAGS DIFF FINAL; LYMPH % 2.9 % (9.0-44.0); LYMPHOCYTE # 0.2 TH/MM3 (1.0-4.8); MEAN CORPUSCULAR HEMOGLOBIN 33.8 PG (27.0-34.0); MEAN CORPUSCULAR HGB CONC 34.1 % (32.0-36.0); NEUT % 94.2 % (16.0-70.0); PLATELET COUNT 206 TH/MM3 (150-450); RED BLOOD COUNT 3.21 MIL/MM3 (4.50-5.90); RED CELL DISTRIBUTION WIDTH 14.7 % (11.6-17.2); WHITE BLOOD COUNT 5.8 TH/MM3 (4.0-11.0)
[2016-12-21 18:28] LABS: APTT (PATIENT) 23.6 SEC (24.3-30.1); INTERNATIONAL NORMALIZED RATIO 1.2 RATIO; PROTHROMBIN TIME - PATIENT 12.8 SEC (9.8-11.6)
[2016-12-21 18:29] LABS: BICARBONATE 27.6 MEQ/L (21.0-32.0); MAGNESIUM 1.9 MG/DL (1.5-2.5); POTASSIUM 4.2 MEQ/L (3.5-5.1)
[2016-12-21 19:05] VITALS: BP 136/67; PULSE 99; RESP 18
[2016-12-21] MEDS: DEXAMETHASONE SOD PHOS 20 MG/5 ML VIAL IV PUSH SCH (19:35)
[2016-12-21] MEDS ORDERED: SODIUM CHLORIDE 0.9% FLUSH 5 ML FLUSH FLUSH PRN (19:45)
[2016-12-21] MEDS ORDERED: NALOXONE HCL 0.4 MG/ML AMP IV PRN (19:45)
[2016-12-21] MEDS ORDERED: MORPHINE SULFATE 4 MG/ML INJ IV PUSH PRN (20:00)
[2016-12-21] MEDS: SUCRALFATE 1 GM/10 ML CUP PO SCH (21:00)
[2016-12-21] MEDS: SODIUM CHLORIDE 0.9% FLUSH 5 ML FLUSH FLUSH SCH (21:22)
[2016-12-21] MEDS: PANTOPRAZOLE SODIUM 40 MG VIAL IV PUSH SCH (22:41)
[2016-12-21] MEDS ORDERED: AMINO ACID IV SCH (23:45)
[2016-12-21] MEDS ORDERED: D5W IV SCH (23:45)
[2016-12-21] MEDS ORDERED: [UNRECOGNIZED DRUG - OTHER] IV SCH (23:45)
[2016-12-22] VITALS (8 sets, daily range): BP systolic 120–150; BP diastolic 65–89; PULSE 72–89; RESP 16–20; TEMP 96.5–98.1; O2SAT 94–97
[2016-12-22 00:55] LABS: TOTAL BILIRUBIN ADULT 0.7 MG/DL (0.2-1.0)
[2016-12-22 01:00] LABS: INDIRECT BILIRUBIN 0.6 MG/DL (0.0-0.8)
[2016-12-22] MEDS: AMINO ACID INFUSION IN D5W 1,000 ML IV SCH ×2 (01:46→14:32)
--- NOTE | 2016-12-22 02:12 | HHI.HP ---
[facility] Primary Care Physician Non-Staff Admission Diagnosis dysphagia, hyponatremia, dehydration Diagnoses: (1) Dysphagia (2) Odynophagia (3) Dehydration (4) Hyponatremia (5) Renal insufficiency (6) Multiple myeloma Chief Complaint: progressively worsening dysphagia with odynophagia Travel History International Travel<30 Days: No Contact w/Intl Traveler <30 Da: No Traveled to Known Affected Are: No History of Present Illness Mr. Guerra is a 66 year-old male with multiple myeloma currently being treated by Dr. Olvera with radiation and chemotherapy. He was seen today for a chemotherapy treatment and was sent to the hospital by Dr. Olvera for nutrition and fluids due to inability to eat, drink or take medications for 24 hours. Hemoglobin 10.9 and hematocrit 31.8. Patient is hyponatremic with a sodium of 132, impaired kidney function noted with BUN elevated at 19, creatinine elevated at 1.49, and estimated GFR low at 47. The patient is seen in his hospital room. He reports that he's had progressively worsening dysphagia accompanied by odynophagia over the past couple of days. He states he is now even having trouble taking fluids in. His last radiation treatment was on Wednesday and his last chemotherapy treatment was yesterday. Denies fever, shortness of breath, chest pain, black or bloody stools, constipation, diarrhea, nausea, vomiting, hematuria, or dysuria. Denies history of diabetes mellitus, respiratory disease, cardiac disease, liver problems, kidney problems, seizures, thyroid dysfunction, or problems with blood clots such as DVT, PE, CVA. . Review of Systems Constitutional: DENIES: Fever, Chills Respiratory: DENIES: Shortness of breath Cardiovascular: DENIES: Chest pain Gastrointestinal: DENIES: Black stools, Bloody stools, Constipation, Diarrhea, Nausea, Vomiting Genitourinary: DENIES: Hematuria, Dysuria Past Family Social History Past Medical History Multiple myeloma Crohns disease . Past Surgical History Left axillary lymph node removal following cat scratch 1953 Colonoscopy Reported Medications Reported Meds & Active Scripts Active Miralax Powder (Polyethylene Glycol 3350 Powder) 17 Gm Powd 17 Gm PO DAILY Mix and dissolve one measuring cap-ful (17 grams) in water or juice. Senna Plus 8.6-50 mg (Sennosides-Docusate Sodium) 1 Tab Tab 2 Tab PO BID Reported [Revlimid] 25 Mg PO DIRECTED Dexamethasone 4 Mg Tab 20 Mg PO WEEKLY Omeprazole 40 Mg Cap 40 Mg PO DAILY Morphine IR (Morphine Sulfate) 15 Mg Tab 15 Mg PO TID . Allergies: Coded Allergies: Sulfa (Verified Allergy, Severe, DIZZINESS, 12/21/16) Active Ordered Medications Current Medications IV Flush 2 ml 2 ml UNSCH PRN IVF FLUSH AFTER USING IV ACCESS Last administered on 12/21/16 18:04; Start 12/21/16 at 17:45; Stop 12/21/16 at 19:46; Status DC Sodium Chloride 1,000 ml @ 1,000 mls/hr Q1H IV Last administered on 12/21/16 18:04; Start 12/21/16 at 17:59; Stop 12/21/16 at 18:58; Status DC Sodium Chloride (NS 1000 ml Inj) 1,000 ml @ 150 mls/hr Q6H40M IV Last administered on 12/21/16 19:35; Start 12/21/16 at 18:58; Stop 12/22/16 at 01:37 ; Status DC Sucralfate (Carafate Liq) 1 gm ACHS PO ; Start 12/21/16 at 21:00 Pantoprazole Sodium (Protonix Inj) 40 mg Q12H IV PUSH Last administered on 12/21 22:41; Start 12/21/16 at 21:00 Dexamethasone Sodium Phosphate (Decadron Inj) 40 mg DAILY IV PUSH Last administered on 12/21/16 19:35; Start 12/21/16 at 19:15 IV Flush (NS Flush) 2 ml UNSCH PRN FLUSH FLUSH AFTER USING IV ACCESS; Start at 19:45 IV Flush (NS Flush) 2 ml BID FLUSH Last administered on 12/21/16 21:22; Start 12/21/16 at 21:00 Ondansetron HCl (Zofran Inj) 4 mg Q6H PRN IVP NAUSEA OR VOMITING; Start at 19:45 Enoxaparin Sodium (Lovenox Inj) 40 mg Q24H SQ ; Start 12/22/16 at 09:00 Naloxone HCl (Narcan Inj) 0.4 mg UNSCH PRN IV SEE LABEL COMMENTS; Start at 19:45 Morphine Sulfate 2 mg 2 mg Q3H PRN IV PUSH pain >5; Start 12/21/16 at 20:00 Multivitamins 10 ml/Folic Acid 1 mg/Amino Acids/ Electrolytes/ Dextrose 2,010.2 ml @ 83 mls/hr Q24H IV ; Start 12/22/16 at 20:00 Fat Emulsion Intravenous 250 ml @ 10 mls/hr Q24H IV ; Start 12/22/16 at 20:00 Amino Acids/ Electrolytes/ Dextrose 2,000 ml @ 83 mls/hr Q24H IV ; Start at 23:45; Stop 12/22/16 at 20:00; Status Cancel Amino Acids/ Dextrose (Clinimix 4.25/5) 1,000 ml @ 83 mls/hr Q12H3M IV Last administered on 12/22/16t 01:46; Start 12/21/16 at 23:45; Stop 12/22/16 at 20:00 . Family History Mother with diabetes mellitus lived until age 95 Brother with diabetes mellitus and (prostate cancer in his 40s) . Social History Tobacco: Denies lifelong non-smoker Alcohol: Occasional Illicit Drugs: Denies . Physical Exam Vital Signs Vital Signs Date Time Temp Pulse Resp B/P Pulse Ox O2 Delivery O2 Flow Rate FiO2 12/22/16 00:00 97.5 87 17 122/65 94 12/21/16 19:05 99 18 136/67 Room Air 12/21/16 17:51 95 Room Air 12/21/16 15:11 97.9 118 19 128/85 96 Room Air Physical Exam GENERAL: This is a well-nourished, well-developed patient, in no apparent distress. SKIN: No rashes, ecchymoses or lesions. Cool and dry. PPN left upper extremity. HEAD: Atraumatic. Normocephalic. EYES: No scleral icterus. No injection or drainage. ENT: Nose without bleeding, purulent drainage. NECK: Trachea midline. No JVD or lymphadenopathy. CARDIOVASCULAR: Regular rate and rhythm without murmurs, gallops, or rubs. RESPIRATORY: Clear to auscultation. Breath sounds equal bilaterally. No wheezes , rales, or rhonchi. GASTROINTESTINAL: Abdomen soft, non-tender, nondistended. No guarding. MUSCULOSKELETAL: Extremities without clubbing, cyanosis, or edema. No calf tenderness. NEUROLOGICAL: Awake and alert. Motor and sensory grossly within normal limits. Normal speech. . Laboratory Laboratory Tests Test 12/21/16 17:55 White Blood Count 5.8 Red Blood Count 3.21 Hemoglobin 10.9 Hematocrit 31.8 Mean Corpuscular Volume 99.0 Mean Corpuscular Hemoglobin 33.8 Mean Corpuscular Hemoglobin 34.1 Concent Red Cell Distribution Width 14.7 Platelet Count 206 Mean Platelet Volume 7.4 Neutrophils (%) (Auto) 94.2 Lymphocytes (%) (Auto) 2.9 Monocytes (%) (Auto) 2.0 Eosinophils (%) (Auto) 0.8 Basophils (%) (Auto) 0.1 Neutrophils # (Auto) 5.4 Lymphocytes # (Auto) 0.2 Monocytes # (Auto) 0.1 Eosinophils # (Auto) 0.0 Basophils # (Auto) 0.0 CBC Comment DIFF FINAL Differential Comment Prothrombin Time 12.8 Prothromb Time International 1.2 Ratio Activated Partial 23.6 Thromboplast Time Sodium Level 132 Potassium Level 4.2 Chloride Level 97 Carbon Dioxide Level 27.6 Anion Gap 7 Blood Urea Nitrogen 19 Creatinine 1.49 Estimat Glomerular Filtration 47 Rate Random Glucose 103 Calcium Level 8.3 Magnesium Level 1.9 Phosphorus Level 3.7 Total Bilirubin 0.7 Direct Bilirubin 0.1 Indirect Bilirubin 0.6 Aspartate Amino Transf 23 (AST/SGOT) Alanine Aminotransferase 34 (ALT/SGPT) Alkaline Phosphatase 39 Total Protein 11.6 Albumin 1.8 Triglycerides Level 66 Result Diagram: 12/21/16175412/21/161754 Assessment and Plan Problem List: (1) Dysphagia ICD Code: R13.10 Status: Acute (2) Odynophagia ICD Code: R13.10 Status: Acute (3) Dehydration ICD Code: E86.0 Status: Acute (4) Hyponatremia ICD Code: E87.1 Status: Acute (5) Renal insufficiency ICD Code: N28.9 Status: Acute (6) Multiple myeloma ICD Code: C90.00 Status: Chronic Assessment and Plan Mr. Guerra is a 66 year-old male with multiple myeloma currently being treated by Dr. Olvera with radiation and chemotherapy. He was seen today for a chemotherapy treatment and was sent to the hospital by Dr. Olvera for nutrition and fluids due to inability to eat, drink or take medications for 24 hours. Dysphagia with odynophagia - NPO - PPN per Dr. Dorsey orders - Morphine 2 mg IV q3h prn for pain - Dexamethasone, Carafate, and Protonix per Dr. Olvera - We will discuss further with Dr. Olvera re: management plan Dehydration - continue NS at 150 cc/hr - monitor for improvement Renal insufficiency - BUN elevated at 19, creatinine elevated at 1.49, and estimated GFR low at 47- appears to be chronic when compared to prior labs but we only have labs dating back to 11/16/16 - IVF hydration - Recheck BMP in a.m. and follow trends in renal indices - Avoid nephrotoxins Hyponatremia, stable compared to prior labs - Sodium 132 on admission - Replaced with normal saline - Recheck sodium level in a.m. and follow trends DVT prophylaxis - Lovenox 40 mg subcutaneous every 24 hours Written by Concetta Collins, acting as scribe for Dr. Regalado on 12/22/16 at 02:33. The documentation accurately reflects the work performed [id number] by me on at 0233 Discussed Condition With patient, ER physician, and RN Concetta Collins Dec 22, 2016 02:12 Apolonia Regalado MD Dec 22, 2016 08:35
[2016-12-22] MEDS: SUCRALFATE 1 GM/10 ML CUP PO SCH ×4 (05:39→20:28)
[2016-12-22 07:14] LABS: AUTOMATED NEUTROPHIL # 5.7 TH/MM3 (1.8-7.7); BASOPHIL % 0.1 % (0.0-2.0); EOSINOPHIL % 0.1 % (0.0-4.0); HEMATOCRIT 27.5 % (39.0-51.0); HEMO FLAGS DIFF FINAL; LYMPH % 1.5 % (9.0-44.0); LYMPHOCYTE # 0.1 TH/MM3 (1.0-4.8); MEAN CELL VOLUME 100.1 FL (80.0-100.0); MEAN CORPUSCULAR HEMOGLOBIN 33.6 PG (27.0-34.0); MEAN CORPUSCULAR HGB CONC 33.5 % (32.0-36.0); NEUT % 97.3 % (16.0-70.0); PLATELET COUNT 157 TH/MM3 (150-450); RED BLOOD COUNT 2.75 MIL/MM3 (4.50-5.90); RED CELL DISTRIBUTION WIDTH 14.8 % (11.6-17.2); WHITE BLOOD COUNT 5.9 TH/MM3 (4.0-11.0)
[2016-12-22 07:51] LABS: BICARBONATE 26.4 MEQ/L (21.0-32.0); POTASSIUM 3.8 MEQ/L (3.5-5.1)
--- NOTE | 2016-12-22 08:46 | MB ---
cc: MAYA OLVERA M.D. DATE OF CONSULTATION 12/21/2016 REASON FOR CONSULTATION Consult requested by ER BRITTNI Gamez for followup of multiple myeloma. HISTORY OF PRESENT ILLNESS Josh is a 66-year-old male. He was recently diagnosed with IgG lambda multiple myeloma. He was started on chemotherapy, Velcade and Decadron. I saw him last week Wednesday and added the Revlimid to the Velcade and Decadron therapy. The patient also has had developed pathological fracture of the T9 vertebrae and C6 vertebrae. The patient was referred to Dr. Johnson. The patient had received radiation therapy which he completed last week Wednesday. The patient came into the office today for the day #4 of cycle number #2 chemotherapy today. The patient was found to be quite ill. He stated that over the weekend he was unable to eat or drink. When he tried to take pills, he felt like they got stuck in his esophagus. He has burning retrosternal pain. He is not able to drink or eat anything for the last 24-48 hours. He is not able to take his narcotics either due to difficulties swallowing. He noticed that since he is not able to take the narcotics his constipation has now almost resolved which was a huge problem in the last couple of weeks. He had to do manual disimpaction previously but he does not need to do it anymore since he is not taking the narcotics. The patient denies any fever. He is complaining of rash on his forehead. He is complaining of extreme weakness, tiredness, fatigue. PAST MEDICAL HISTORY 1. Arthritis. 1. Cat scratch fever. 2. Crohn disease. 3. Multiple myeloma. 4. IgG lambda type recently diagnosed. PAST SURGICAL HISTORY 1. Lymph node biopsy. 2. Colonoscopy. ALLERGIES SULFA. MEDICATIONS Prior to admission to the hospital - 1. Decadron. 2. Revlimid. 3. Velcade. 4. Morphine IR 15 mg. FAMILY HISTORY Noncontributory. SOCIAL HISTORY Does not smoke cigarettes, does not drink alcohol. PHYSICAL EXAMINATION GENERAL: This is a well-developed, well-nourished chronically ill-appearing white male in no apparent distress. VITAL SIGNS: Temperature 97.9, heart rate is 118, blood pressure 128/85, O2 saturation 96% on room air. HEENT: PERRLA, EOMI, anicteric. No oral lesions are noted. NECK: Supple. LYMPHATICS: There is no cervical, supraclavicular, axillary lymphadenopathy noted. LUNGS: Clear. No wheezing, rhonchi or rales. HEART: Regular rate and rhythm. ABDOMEN: Soft, nontender. No other splenomegaly. EXTREMITIES: No pedal edema. NEUROLOGY: Awake, alert, oriented x 3. SKIN: No significant lesions are noted. ASSESSMENT 1. IgG lambda multiple myeloma recently diagnosed, currently on chemotherapy, Revlimid, Velcade and Decadron. 2. Pathological fracture of C6 and T9 vertebrae, status post radiation therapy completed last week Wednesday. 3. Radiation esophagitis. 4. Dehydration due to radiation esophagitis. 5. Poor nutrition due to difficulty swallowing from radiation esophagitis. PLAN I have reviewed his available records. I have discussed with the patient and his regarding his condition. The patient clearly is quite ill. He is unable to drink or eat anything due to the radiation esophagitis. My recommendation is for hydration as well as PPN for nutrition. I will also start him on Carafate liquid 1 gram four times a day as well as IV Protonix 40 mg twice a day . I will also give him high-dose Decadron 40 mg daily for his myeloma. He had Velcade chemotherapy today. Since he is having difficulty swallowing, I will hold off on the oral Revlimid for now. Further recommendations based on his hospital stay. Thank you for asking my opinion. David Olvera MD /ANGELINA /7:18 PM /8:31 AM MTDD
[2016-12-22] MEDS ORDERED: ACETAMINOPHEN 1000 MG/100 ML VIAL IV ONE (09:00)
[2016-12-22] MEDS: SODIUM CHLORIDE 0.9% FLUSH 5 ML FLUSH FLUSH SCH ×2 (09:30→20:28)
[2016-12-22] MEDS: PANTOPRAZOLE SODIUM 40 MG VIAL IV PUSH SCH (09:32)
--- NOTE | 2016-12-22 10:07 | PD.ONC.PN ---
Subjective Subjective Remarks Afebrile overnight. Patient would like to try some liquids today. He complains of headache and states he cannot swallow pills but would like to try liquids. Objective Data Date Time Temp Pulse Resp B/P Pulse Ox O2 Delivery O2 Flow Rate FiO2 12/22/16 08:00 96.8 82 16 126/74 96 12/22/16 04:00 97.4 89 17 120/73 94 12/22/16 00:00 97.5 87 17 122/65 94 12/21/16 19:05 99 18 136/67 Room Air 12/21/16 17:51 95 Room Air 12/21/16 15:11 97.9 118 19 128/85 96 Room Air Result Diagram: 12/22/16 0624 12/22/16 0624 Laboratory Results Laboratory Tests Test 12/21/16 12/22/16 17:55 06:24 White Blood Count 5.8 TH/MM3 5.9 TH/MM3 Red Blood Count 3.21 MIL/MM3 2.75 MIL/MM3 Hemoglobin 10.9 GM/DL 9.2 GM/DL Hematocrit 31.8 % 27.5 % Mean Corpuscular Volume 99.0 FL 100.1 FL Mean Corpuscular Hemoglobin 33.8 PG 33.6 PG Mean Corpuscular Hemoglobin 34.1 % 33.5 % Concent Red Cell Distribution Width 14.7 % 14.8 % Platelet Count 206 TH/MM3 157 TH/MM3 Mean Platelet Volume 7.4 FL 7.7 FL Neutrophils (%) (Auto) 94.2 % 97.3 % Lymphocytes (%) (Auto) 2.9 % 1.5 % Monocytes (%) (Auto) 2.0 % 1.0 % Eosinophils (%) (Auto) 0.8 % 0.1 % Basophils (%) (Auto) 0.1 % 0.1 % Neutrophils # (Auto) 5.4 TH/MM3 5.7 TH/MM3 Lymphocytes # (Auto) 0.2 TH/MM3 0.1 TH/MM3 Monocytes # (Auto) 0.1 TH/MM3 0.1 TH/MM3 Eosinophils # (Auto) 0.0 TH/MM3 0.0 TH/MM3 Basophils # (Auto) 0.0 TH/MM3 0.0 TH/MM3 CBC Comment DIFF FINAL DIFF FINAL Differential Comment Prothrombin Time 12.8 SEC Prothromb Time International 1.2 RATIO Ratio Activated Partial 23.6 SEC Thromboplast Time Sodium Level 132 MEQ/L 135 MEQ/L Potassium Level 4.2 MEQ/L 3.8 MEQ/L Chloride Level 97 MEQ/L 102 MEQ/L Carbon Dioxide Level 27.6 MEQ/L 26.4 MEQ/L Anion Gap 7 MEQ/L 7 MEQ/L Blood Urea Nitrogen 19 MG/DL 23 MG/DL Creatinine 1.49 MG/DL 1.39 MG/DL Estimat Glomerular Filtration 47 ML/MIN 51 ML/MIN Rate Random Glucose 103 MG/DL 117 MG/DL Calcium Level 8.3 MG/DL 7.8 MG/DL Magnesium Level 1.9 MG/DL Phosphorus Level 3.7 MG/DL Total Bilirubin 0.7 MG/DL Direct Bilirubin 0.1 MG/DL Indirect Bilirubin 0.6 MG/DL Aspartate Amino Transf 23 U/L (AST/SGOT) Alanine Aminotransferase 34 U/L (ALT/SGPT) Alkaline Phosphatase 39 U/L Total Protein 11.6 GM/DL Albumin 1.8 GM/DL Triglycerides Level 66 MG/DL Administered Medications Medications (Trade) Dose Ordered Sig/Lisa Route PRN Reason Start Time Stop Time Status Last Admin Dose Admin Pantoprazole Sodium (Protonix Inj) 40 mg Q12H IV PUSH 12/21/16 21:00 12/22/16 09:32 Dexamethasone Sodium Phosphate (Decadron Inj) 40 mg DAILY IV PUSH 12/21/16 19:15 12/21/16 19:35 IV Flush 2 ml 2 ml BID FLUSH 12/21/16 21:00 12/21/16 21:22 Amino Acids/ Dextrose (Clinimix 4.25/5) 1,000 ml @ 83 mls/hr Q12H3M IV 12/21/16 23:45 12/22/16 20:00 12/22/16 01:46 Objective Remarks GENERAL: Pleasant middle aged male, sitting up in bed in [facility]. SKIN: Warm and dry. HEAD: Normocephalic. EYES: No injection or drainage. NECK: Supple, trachea midline. CARDIOVASCULAR: Regular rate and rhythm RESPIRATORY: Breath sounds equal bilaterally. No accessory muscle use. GASTROINTESTINAL: Abdomen soft, non-tender, nondistended. EXTREMITIES: No cyanosis NEUROLOGICAL: awake and alert, normal speech. moving all extremities. Assessment/Plan Problem List: (1) Multiple myeloma Status: Chronic Plan: IgG lambda multiple myeloma recently diagnosed, currently on chemotherapy , Revlimid, Velcade and Decadron. --transfer to oncology floor (2) Dysphagia Status: Acute Plan: --TPN --Carafate + Protonix --continue Decadron 40 mg daily for myeloma. --consult ST for swallow eval (3) Headache Status: Acute Plan: --supportive care for now, if persistent will order imaging to r/o mets Assessment 66y/o male with IgG lambda multiple myeloma admitted with suspected radiation esophagitis, dehydration, dysphagia. h/o pathologic fx T9 and C6 vertebrae--completed XRT 12/18 Crohn disease. Attending Statement c/o dysphagia and R/S pain. Vomited with swallowing study. NO more constipation. c/o severe LABOY. continuie PPN, hydration, carafate, and protonix. Continue Hi dose decadron. d/w pt and . The exam, history, and the medical decision-making described in the above note were completed with the assistance of the mid-level provider. I reviewed and agree with the findings presented. I attest that I had a [id number] encounter with the patient on the same day, and personally performed and documented my assessment and findings in the medical record. Hannah Sandoval Dec 22, 2016 10:07 Jyothi Olvera MD Dec 22, 2016 20:50
[2016-12-22] MEDS: ENOXAPARIN SODIUM 40 MG/0.4 ML SYRINGE SQ SCH (10:28)
[2016-12-22] MEDS: DEXAMETHASONE SOD PHOS 20 MG/5 ML VIAL IV PUSH SCH (10:29)
[2016-12-22] MEDS ORDERED: oxyCODONE/ACETAMINOPHEN 10 MG/325 MG TAB PO PRN (12:45)
[2016-12-22] MEDS ORDERED: NALOXONE HCL 0.4 MG/ML AMP IV PRN (12:45)
[2016-12-22] MEDS ORDERED: ACETAMINOPHEN 325 MG TAB PO PRN (12:45)
[2016-12-22] MEDS ORDERED: oxyCODONE/ACETAMINOPHEN 5 MG/325 MG TAB PO PRN (12:45)
[2016-12-22] MEDS ORDERED: IBUPROFEN 600 MG TAB PO PRN (13:45)
[2016-12-22] MEDS: FAT EMULSION 20% INJ 250 ML (@10 mls/hr) IV SCH ×2 (20:29→22:57)
[2016-12-22] MEDS ORDERED: PANTOPRAZOLE SOD 40 MG DELAYED RELEASE TAB PO SCH (21:00)
[2016-12-22] MEDS: CLINIMIX E 4.25/5 2000 mL- >42 mls/hr IV SCH ×3 (22:57)
[2016-12-23] VITALS: BP 158/88; PULSE 77; RESP 18; TEMP 96.7; O2SAT 96
[2016-12-23 04:00] VITALS: BP 145/83; PULSE 69; RESP 18; TEMP 97; O2SAT 96
[2016-12-23] MEDS: SUCRALFATE 1 GM/10 ML CUP PO SCH ×4 (06:03→20:40)
[2016-12-23 07:55] LABS: BICARBONATE 22.3 MEQ/L (21.0-32.0); POTASSIUM 3.8 MEQ/L (3.5-5.1)
[2016-12-23 08:00] VITALS: BP 152/94; PULSE 77; RESP 20; TEMP 96.5; O2SAT 98
[2016-12-23] MEDS ORDERED: ACETAMINOPHEN 1000 MG/100 ML VIAL IV ONE (08:30)
[2016-12-23] MEDS: SODIUM CHLORIDE 0.9% FLUSH 5 ML FLUSH FLUSH SCH ×2 (09:00→20:40)
[2016-12-23] MEDS: DEXAMETHASONE SOD PHOS 20 MG/5 ML VIAL IV PUSH SCH (10:04)
[2016-12-23] MEDS: PANTOPRAZOLE SODIUM 40 MG VIAL IV PUSH SCH ×2 (10:04→20:40)
[2016-12-23] MEDS: ENOXAPARIN SODIUM 40 MG/0.4 ML SYRINGE SQ SCH (10:04)
[2016-12-23 10:05] VITALS: PULSE 70
[2016-12-23 10:15] LABS: AUTOMATED NEUTROPHIL # 9.1 TH/MM3 (1.8-7.7); BASOPHIL % 0.1 % (0.0-2.0); HEMATOCRIT 28.5 % (39.0-51.0); HEMO FLAGS DIFF FINAL; LYMPH % 1.7 % (9.0-44.0); LYMPHOCYTE # 0.2 TH/MM3 (1.0-4.8); MEAN CELL VOLUME 99.1 FL (80.0-100.0); MEAN CORPUSCULAR HEMOGLOBIN 33.8 PG (27.0-34.0); MEAN CORPUSCULAR HGB CONC 34.1 % (32.0-36.0); MONO % 3.2 % (0.0-8.0); PLATELET COUNT 143 TH/MM3 (150-450); RED BLOOD COUNT 2.88 MIL/MM3 (4.50-5.90); WHITE BLOOD COUNT 9.6 TH/MM3 (4.0-11.0)
[2016-12-23 10:36] LABS: ANION GAP 8 MEQ/L (5-15); AST (GOT) 11 U/L (15-37); BICARBONATE 22.9 MEQ/L (21.0-32.0); BLOOD UREA NITROGEN 25 MG/DL (7-18); CHLORIDE 104 MEQ/L (98-107); GLOMERULAR FILTRATION RATE 59 ML/MIN (>89); MAGNESIUM 1.9 MG/DL (1.5-2.5); POTASSIUM 3.4 MEQ/L (3.5-5.1); SODIUM (NA) 135 MEQ/L (136-145)
[2016-12-23 10:45] LABS: ALKALINE PHOSPHATASE 33 U/L (45-117); ALT (GPT) 20 U/L (12-78); TOTAL BILIRUBIN ADULT 0.2 MG/DL (0.2-1.0)
[2016-12-23] MEDS ORDERED: LORazepam 2 MG/ML VIAL IV PUSH ONE (11:00)
--- NOTE | 2016-12-23 11:00 | PD.ONC.PN ---
Subjective Subjective Remarks Afebrile overnight. Patient continues to have headache. Describes it as pain/ pressure around his sinuses and in the forehead. +photophobia. No nausea or vomiting. Continues to have pain in throat. Cannot swallow pills and does not want to take IV pain medications. Had BM yesterday. Objective Data Date Time Temp Pulse Resp B/P Pulse Ox O2 Delivery O2 Flow Rate FiO2 12/23/16 08:00 96.5 77 20 152/94 98 12/23/16 04:00 97.0 69 18 145/83 96 12/23/16 00:00 96.7 77 18 158/88 96 12/22/16 21:38 72 12/22/16 20:00 97.9 76 18 146/85 95 12/22/16 16:14 98.1 78 20 150/89 96 12/22/16 12:00 96.5 74 17 129/73 97 Result Diagram: 12/23/16 0946 12/23/16 0946 Laboratory Results Laboratory Tests Test 12/23/16 12/23/16 06:46 09:46 Sodium Level 134 MEQ/L 135 MEQ/L Potassium Level 3.8 MEQ/L 3.4 MEQ/L Chloride Level 104 MEQ/L 104 MEQ/L Carbon Dioxide Level 22.3 MEQ/L 22.9 MEQ/L Anion Gap 8 MEQ/L 8 MEQ/L Blood Urea Nitrogen 26 MG/DL 25 MG/DL Creatinine 1.21 MG/DL 1.23 MG/DL Estimat Glomerular Filtration 60 ML/MIN 59 ML/MIN Rate Random Glucose 127 MG/DL 112 MG/DL Calcium Level 8.0 MG/DL 8.0 MG/DL White Blood Count 9.6 TH/MM3 Red Blood Count 2.88 MIL/MM3 Hemoglobin 9.7 GM/DL Hematocrit 28.5 % Mean Corpuscular Volume 99.1 FL Mean Corpuscular Hemoglobin 33.8 PG Mean Corpuscular Hemoglobin 34.1 % Concent Red Cell Distribution Width 15.0 % Platelet Count 143 TH/MM3 Mean Platelet Volume 7.4 FL Neutrophils (%) (Auto) 95.0 % Lymphocytes (%) (Auto) 1.7 % Monocytes (%) (Auto) 3.2 % Eosinophils (%) (Auto) 0.0 % Basophils (%) (Auto) 0.1 % Neutrophils # (Auto) 9.1 TH/MM3 Lymphocytes # (Auto) 0.2 TH/MM3 Monocytes # (Auto) 0.3 TH/MM3 Eosinophils # (Auto) 0.0 TH/MM3 Basophils # (Auto) 0.0 TH/MM3 CBC Comment DIFF FINAL Differential Comment Phosphorus Level 2.0 MG/DL Magnesium Level 1.9 MG/DL Total Bilirubin 0.2 MG/DL Aspartate Amino Transf 11 U/L (AST/SGOT) Alanine Aminotransferase 20 U/L (ALT/SGPT) Alkaline Phosphatase 33 U/L Total Protein 9.9 GM/DL Albumin 1.6 GM/DL Administered Medications Medications (Trade) Dose Ordered Sig/Lisa Route PRN Reason Start Time Stop Time Status Last Admin Dose Admin Sucralfate (Carafate Liq) 1 gm ACHS PO 12/21/16 21:00 12/23/16 10:05 Dexamethasone Sodium Phosphate (Decadron Inj) 40 mg DAILY IV PUSH 12/21/16 19:15 12/23/16 10:04 IV Flush (NS Flush) 2 ml BID FLUSH 12/21/16 21:00 12/21/16 21:22 Enoxaparin Sodium 40 mg 40 mg Q24H SQ 12/22/16 09:00 12/23/16 10:04 Multivitamins 10 ml/Folic Acid 1 mg/Amino Acids/ Electrolytes/ Dextrose 2,010.2 ml @ 83 mls/hr Q24H IV 12/22/16 20:00 12/22/16 22:57 Fat Emulsion Intravenous (Liposyn Iii 20% Inj) 250 ml @ 10 mls/hr Q24H IV 12/22/16 20:00 12/22/16 22:57 Pantoprazole Sodium (Protonix Inj) 40 mg Q12HR IV PUSH 12/23/16 09:00 12/23/16 10:04 Objective Remarks GENERAL: Middle aged male, sitting up in bed in [facility]. SKIN: Warm and dry. HEAD: Normocephalic. EYES: No injection or drainage. NECK: Supple, trachea midline. CARDIOVASCULAR: Regular rate and rhythm RESPIRATORY: Breath sounds equal bilaterally. No accessory muscle use. GASTROINTESTINAL: Abdomen soft, non-tender, nondistended. EXTREMITIES: No cyanosis NEUROLOGICAL: awake and alert, normal speech. moving all extremities. Assessment/Plan Problem List: (1) Headache Status: Acute Plan: --supportive care with acetaminophen. will check MRI brain for mets (2) Multiple myeloma Status: Chronic Plan: IgG lambda multiple myeloma recently diagnosed, currently on Decadron only while inpatient with radiation esophagitis (3) Dysphagia Status: Acute Plan: --TPN + as tolerated pureed diet. --Carafate + Protonix --continue Decadron 40 mg daily for myeloma. 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 h/o pathologic fx T9 and C6 vertebrae--completed XRT 12/18 Crohn disease. Attending Statement LABOY resolve MRI brain = NL able to eat some. Continue PPN Home by wednesday. The exam, history, and the medical decision-making described in the above note were completed with the assistance of the mid-level provider. I reviewed and agree with the findings presented. I attest that I had a [id number] encounter with the patient on the same day, and personally performed and documented my assessment and findings in the medical record. Hannah Sandoval Dec 23, 2016 11:00 Jyothi Olvera MD Dec 23, 2016 18:29
[2016-12-23 12:00] VITALS: BP 146/88; PULSE 78; RESP 18; TEMP 96.9; O2SAT 98
--- NOTE | 2016-12-23 12:11 | HHI.PR ---
Subjective Remarks This note is a late entry. Patient was seen at 10:15 this morning. The patient states that his throat pain and swallowing have improved. He was able to tolerate cream of wheat this morning. He denies any nausea vomiting. Denies neck pain paresthesias or weakness in his legs or arms. Has not had a bowel movement but feels this is due to his decreased by mouth intake. is at bedside. Objective Vitals Vital Signs Date Time Temp Pulse Resp B/P Pulse Ox O2 Delivery O2 Flow Rate FiO2 12/23/16 08:00 96.5 77 20 152/94 98 12/23/16 04:00 97.0 69 18 145/83 96 12/23/16 00:00 96.7 77 18 158/88 96 12/22/16 21:38 72 12/22/16 20:00 97.9 76 18 146/85 95 12/22/16 16:14 98.1 78 20 150/89 96 I/O 12/22/16 12/22/16 12/22/16 12/23/16 12/23/16 12/23/16 07:00 15:00 23:00 07:00 15:00 23:00 Intake Total 1650 ml 1464 ml 654 ml Output Total 120 ml Balance 1530 ml 1464 ml 654 ml Intake IV Total 1650 ml 800 ml TPN/PPN 664 ml 584 ml Lipid 70 ml Output Urine Total 120 ml # Voids 1 1 # Bowel Movements 1 1 Result Diagram: 12/23/1646 12/23/16 0946 Objective Remarks GENERAL: Well-nourished, well-developed very pleasant male patient. SKIN: Warm and dry. HEAD: Normocephalic. EYES: No scleral icterus. No injection or drainage. NECK: Supple, trachea midline. No JVD or lymphadenopathy. CARDIOVASCULAR: Regular rate and rhythm without murmurs, gallops, or rubs. RESPIRATORY: Breath sounds equal bilaterally. No accessory muscle use. GASTROINTESTINAL: Abdomen soft, non-tender, nondistended. EXTREMITIES: No cyanosis, or edema. NEUROLOGICAL: Awake, alert, and oriented x 3. Non-focal. A/P Problem List: (1) Dysphagia ICD Code: R13.10 Status: Acute (2) Odynophagia ICD Code: R13.10 Status: Acute (3) Dehydration ICD Code: E86.0 Status: Acute (4) Hyponatremia ICD Code: E87.1 Status: Acute (5) Renal insufficiency ICD Code: N28.9 Status: Acute (6) Multiple myeloma ICD Code: C90.00 Status: Chronic Assessment and Plan Mr. Guerra is a 66 year-old male with multiple myeloma currently being treated by Dr. Olvera with radiation and chemotherapy were multiple myeloma recently diagnosed; last course of chemotherapy was last Wednesday, he also completed radiation for pathologic fracture of T9 vertebra and C6 vertebra. Over the weekend he started to develop O Saumya aphasia with inability to tolerate by mouth. He was seen to the ER by Dr. Olvera for nutrition and fluids due to inability to eat, drink or take medications for 24 hours. 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 -Continue PPN. -Tolerating pured diet. ST following. -Continue Carafate. Protonix IV. Dehydration - improved. - continue NS at 150 cc/hr - monitor for improvement Acute kidney injury secondary to dehydration. Resolved after IV fluid hydration. Chronic Hyponatremia, stable compared to prior labs Multiple myeloma with pathologic fracture T9 C6 status post completion of radiation treatment last week. No neurologic signs or symptoms. He is on Decadron high-dose IV as per hematology as part of his chemotherapy treatment. DVT prophylaxis - Lovenox 40 mg subcutaneous every 24 hours Terra Brown MD Dec 23, 2016 12:11
[2016-12-23] MEDS ORDERED: GADODIAMIDE PF 287 MG/ML 5 ML VIAL (for RAD MRI) IV ONE (15:39)
--- NOTE | 2016-12-23 16:24 | RADRPT ---
EXAM DATE/TIME: 12/23/2016 15:23 [facility] COMPARISON: No previous studies available for comparison. INDICATIONS : Metastatic disease. Dysphagia. Headache. CONTRAST: 16 cc Omniscan (gadodiamide) IV MEDICAL HISTORY : Crohn's disease. Multiple myeloma. SURGICAL HISTORY : None. ENCOUNTER: Initial ACUITY: 1 day PAIN SCORE: 5/10 LOCATION: cranial TECHNIQUE: Multiplanar, multisequence MRI of the brain was performed both prior to and following the administrat ion of paramagnetic contrast. FINDINGS: CEREBRUM: The ventricles are normal for age. No evidence of midline shift, mass lesion, hemorrhage or acute in farction. No extraaxial fluid collections are seen. The pituitary gland and suprasellar cistern are normal in configuration. WHITE MATTER: No significant signal abnormalities are seen in the white matter. POSTERIOR FOSSA: The cerebellum and brainstem are intact. The 4th ventricle is midline. The cerebellopontine angle is unremarkable. The cerebellar tonsils are normal in position. DIFFUSION IMAGING: No focal areas of restricted diffusion are seen. No evidence of acute infarction. EXTRACRANIAL: The visualized portions of the orbits and paranasal sinuses are unremarkable. POST-CONTRAST: No abnormal areas of parenchymal or dural enhancement. No evidence of blood-brain barrier breakdown. CONCLUSION: Normal examination. Maximo Leblanc MD on December 23, 2016 at 16:22 Board Certified Radiologist. This report was verified electronically.
[2016-12-23] MEDS: FAT EMULSION 20% INJ 250 ML (@10 mls/hr) IV SCH (20:40)
[2016-12-23] MEDS: CLINIMIX E 4.25/5 2000 mL- >42 mls/hr IV SCH ×3 (20:41)
[2016-12-23 21:30] VITALS: BP 143/87; PULSE 72; RESP 16; TEMP 97.6; O2SAT 94
[2016-12-24] VITALS: BP 139/86; PULSE 79; RESP 16; TEMP 97.6; O2SAT 94
[2016-12-24] MEDS: ONDANSETRON HCL 4 MG/2 ML VIAL IVP PRN (00:05)
[2016-12-24 04:56] VITALS: BP 140/70; PULSE 74; RESP 16; TEMP 96.8; O2SAT 98
[2016-12-24] MEDS: SUCRALFATE 1 GM/10 ML CUP PO SCH ×4 (06:04→22:22)
[2016-12-24] MEDS ORDERED: ACETAMINOPHEN 1000 MG/100 ML VIAL IV ONE (06:30)
[2016-12-24 08:00] VITALS: BP 140/88; PULSE 70; RESP 16; TEMP 96.8; O2SAT 97
[2016-12-24 08:45] LABS: AUTOMATED NEUTROPHIL # 5.9 TH/MM3 (1.8-7.7); BASOPHIL % 0.1 % (0.0-2.0); EOSINOPHIL % 0.1 % (0.0-4.0); HEMATOCRIT 25.9 % (39.0-51.0); HEMO FLAGS DIFF FINAL; LYMPH % 1.5 % (9.0-44.0); LYMPHOCYTE # 0.1 TH/MM3 (1.0-4.8); MEAN CELL VOLUME 97.4 FL (80.0-100.0); MEAN CORPUSCULAR HEMOGLOBIN 34.4 PG (27.0-34.0); MEAN CORPUSCULAR HGB CONC 35.3 % (32.0-36.0); MONO % 3.3 % (0.0-8.0); PLATELET COUNT 104 TH/MM3 (150-450); RED BLOOD COUNT 2.65 MIL/MM3 (4.50-5.90); RED CELL DISTRIBUTION WIDTH 14.7 % (11.6-17.2); WHITE BLOOD COUNT 6.2 TH/MM3 (4.0-11.0)
[2016-12-24] MEDS: ENOXAPARIN SODIUM 40 MG/0.4 ML SYRINGE SQ SCH (09:00)
[2016-12-24 09:07] LABS: ALKALINE PHOSPHATASE 31 U/L (45-117); ALT (GPT) 21 U/L (12-78); ANION GAP 8 MEQ/L (5-15); AST (GOT) 11 U/L (15-37); BICARBONATE 23.2 MEQ/L (21.0-32.0); BLOOD UREA NITROGEN 27 MG/DL (7-18); CHLORIDE 101 MEQ/L (98-107); GLOMERULAR FILTRATION RATE 67 ML/MIN (>89); POTASSIUM 3.6 MEQ/L (3.5-5.1); SODIUM (NA) 132 MEQ/L (136-145); TOTAL BILIRUBIN ADULT 0.2 MG/DL (0.2-1.0)
[2016-12-24] MEDS: SODIUM CHLORIDE 0.9% FLUSH 5 ML FLUSH FLUSH SCH ×2 (09:12→21:00)
[2016-12-24] MEDS: PANTOPRAZOLE SODIUM 40 MG VIAL IV PUSH SCH ×2 (09:12→22:24)
[2016-12-24] MEDS: DEXAMETHASONE SOD PHOS 20 MG/5 ML VIAL IV PUSH SCH (09:12)
[2016-12-24 12:00] VITALS: BP 139/90; PULSE 72; RESP 16; TEMP 98.2; O2SAT 99
--- NOTE | 2016-12-24 13:13 | PD.ONC.PN ---
Subjective Subjective Remarks Afebrile overnight. Patient tolerating pureed diet. He does not like the food here, his is bringing him in some soup. Objective Data Date Time Temp Pulse Resp B/P Pulse Ox O2 Delivery O2 Flow Rate FiO2 12/24/16 12:00 98.2 72 16 139/90 99 12/24/16 08:00 96.8 70 16 140/88 97 12/24/16 04:56 96.8 74 16 140/70 98 12/24/16 00:00 97.6 79 16 139/86 94 12/23/16 21:30 97.6 72 16 143/87 94 12/24/16 12/24/16 12/24/16 07:00 15:00 23:00 Intake Total 1044 ml 240 ml Balance 1044 ml 240 ml Result Diagram: 12/24/16 0800 12/24/16 0800 Laboratory Results Laboratory Tests Test 12/24/16 08:00 White Blood Count 6.2 TH/MM3 Red Blood Count 2.65 MIL/MM3 Hemoglobin 9.1 GM/DL Hematocrit 25.9 % Mean Corpuscular Volume 97.4 FL Mean Corpuscular Hemoglobin 34.4 PG Mean Corpuscular Hemoglobin 35.3 % Concent Red Cell Distribution Width 14.7 % Platelet Count 104 TH/MM3 Mean Platelet Volume 8.1 FL Neutrophils (%) (Auto) 95.0 % Lymphocytes (%) (Auto) 1.5 % Monocytes (%) (Auto) 3.3 % Eosinophils (%) (Auto) 0.1 % Basophils (%) (Auto) 0.1 % Neutrophils # (Auto) 5.9 TH/MM3 Lymphocytes # (Auto) 0.1 TH/MM3 Monocytes # (Auto) 0.2 TH/MM3 Eosinophils # (Auto) 0.0 TH/MM3 Basophils # (Auto) 0.0 TH/MM3 CBC Comment DIFF FINAL Differential Comment Sodium Level 132 MEQ/L Potassium Level 3.6 MEQ/L Chloride Level 101 MEQ/L Carbon Dioxide Level 23.2 MEQ/L Anion Gap 8 MEQ/L Blood Urea Nitrogen 27 MG/DL Creatinine 1.10 MG/DL Estimat Glomerular Filtration 67 ML/MIN Rate Random Glucose 106 MG/DL Calcium Level 7.9 MG/DL Total Bilirubin 0.2 MG/DL Aspartate Amino Transf 11 U/L (AST/SGOT) Alanine Aminotransferase 21 U/L (ALT/SGPT) Alkaline Phosphatase 31 U/L Total Protein 9.4 GM/DL Albumin 1.5 GM/DL Administered Medications Medications (Trade) Dose Ordered Sig/Lisa Route PRN Reason Start Time Stop Time Status Last Admin Dose Admin Sucralfate (Carafate Liq) 1 gm ACHS PO 12/21/16 21:00 12/24/16 10:44 Dexamethasone Sodium Phosphate (Decadron Inj) 40 mg DAILY IV PUSH 12/21/16 19:15 12/24/16 09:12 IV Flush (NS Flush) 2 ml BID FLUSH 12/21/16 21:00 12/24/16 09:12 Ondansetron HCl (Zofran Inj) 4 mg Q6H PRN IVP NAUSEA OR VOMITING 12/21/16 19:45 12/24/16 00:05 Enoxaparin Sodium 40 mg 40 mg Q24H SQ 12/22/16 09:00 12/23/16 10:04 Multivitamins 10 ml/Folic Acid 1 mg/Amino Acids/ Electrolytes/ Dextrose 2,010.2 ml @ 83 mls/hr Q24H IV 12/22/16 20:00 12/23/16 20:41 Fat Emulsion Intravenous (Liposyn Iii 20% Inj) 250 ml @ 10 mls/hr Q24H IV 12/22/16 20:00 12/23/16 20:40 Pantoprazole Sodium (Protonix Inj) 40 mg Q12HR IV PUSH 12/23/16 09:00 12/24/16 09:12 Objective Remarks GENERAL: Middle aged male, upright in room in [facility]. SKIN: Warm and dry. HEAD: Normocephalic. EYES: No injection or drainage. NECK: Supple, trachea midline. CARDIOVASCULAR: Regular rate and rhythm RESPIRATORY: Breath sounds equal bilaterally. No accessory muscle use. GASTROINTESTINAL: Abdomen soft, non-tender, nondistended. EXTREMITIES: No cyanosis NEUROLOGICAL: AO x3. normal speech. Assessment/Plan Problem List: (1) Headache Status: Resolved Plan: 12/24: states headache is gone now. --supportive care with acetaminophen. MRI brain negative (2) Multiple myeloma Status: Chronic Plan: IgG lambda multiple myeloma recently diagnosed, currently on Decadron only while inpatient with radiation esophagitis--asked to bring in Revlimid since he can swallow again. will resume once brought in and patient able to swallow the Revlimid (3) Dysphagia Status: Acute Plan: 12/24: continue PPN + as tolerated diet. will taper TPN once eating more --TPN + as tolerated pureed diet. --Carafate + Protonix --continue Decadron 40 mg daily for myeloma. 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 h/o pathologic fx T9 and C6 vertebrae--completed XRT 12/18 Crohn disease. Attending Statement tolertaing puree diet. Continue PPN resume revlimid. continue hi dose decadron. home soon. Hannah Sandoval Dec 24, 2016 13:13 Jyothi Olvera MD Dec 24, 2016 20:43
--- NOTE | 2016-12-24 13:31 | HHI.PR ---
Subjective Remarks Swallowing is improving, but still painful. Objective Vitals Vital Signs Date Time Temp Pulse Resp B/P Pulse Ox O2 Delivery O2 Flow Rate FiO2 12/24/16 12:00 98.2 72 16 139/90 99 12/24/16 08:00 96.8 70 16 140/88 97 12/24/16 04:56 96.8 74 16 140/70 98 12/24/16 00:00 97.6 79 16 139/86 94 12/23/16 21:30 97.6 72 16 143/87 94 I/O 12/23/16 12/23/16 12/23/16 12/24/16 12/24/16 12/24/16 07:00 15:00 23:00 07:00 15:00 23:00 Intake Total 654 ml 120 ml 1224 ml 1044 ml 240 ml Balance 654 ml 120 ml 1224 ml 1044 ml 240 ml Intake Oral 120 ml 480 ml 300 ml 240 ml TPN/PPN 584 ml 664 ml 664 ml Lipid 70 ml 80 ml 80 ml # Voids 3 3 1 1 # Bowel Movements 0 Result Diagram: 12/24/16 0812/24/16 0800 Objective Remarks GENERAL: Well-nourished, well-developed very pleasant male patient. SKIN: Warm and dry. HEAD: Normocephalic. EYES: No scleral icterus. No injection or drainage. NECK: Supple, trachea midline. No JVD or lymphadenopathy. CARDIOVASCULAR: Regular rate and rhythm without murmurs, gallops, or rubs. RESPIRATORY: Breath sounds equal bilaterally. No accessory muscle use. GASTROINTESTINAL: Abdomen soft, non-tender, nondistended. EXTREMITIES: No cyanosis, or edema. NEUROLOGICAL: Awake, alert, and oriented x 3. Non-focal. A/P Problem List: (1) Dysphagia ICD Code: R13.10 Status: Acute (2) Odynophagia ICD Code: R13.10 Status: Acute (3) Dehydration ICD Code: E86.0 Status: Acute (4) Hyponatremia ICD Code: E87.1 Status: Acute (5) Renal insufficiency ICD Code: N28.9 Status: Acute (6) Multiple myeloma ICD Code: C90.00 Status: Chronic Assessment and Plan Mr. Guerra is a 66 year-old male with multiple myeloma currently being treated by Dr. Olvera with radiation and chemotherapy were multiple myeloma recently diagnosed; last course of chemotherapy was last Wednesday, he also completed radiation for pathologic fracture of T9 vertebra and C6 vertebra. Over the weekend he started to develop O Saumya aphasia with inability to tolerate by mouth. He was seen to the ER by Dr. Olvera for nutrition and fluids due to inability to eat, drink or take medications for 24 hours. 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 -Continue PPN. -Tolerating pured diet. ST following. -Continue Carafate. Protonix IV. Dehydration - improved. Acute kidney injury secondary to dehydration. Resolved after IV fluid hydration. Chronic Hyponatremia, stable compared to prior labs Multiple myeloma with pathologic fracture T9 C6 status post completion of radiation treatment last week. No neurologic signs or symptoms. He is on Decadron high-dose IV as per hematology as part of his chemotherapy treatment. DVT prophylaxis - Lovenox 40 mg subcutaneous every 24 hours - monitor platelets as they have decreased slightly, repeat CBC in a.m. Terra Brown MD Dec 24, 2016 13:31
[2016-12-24 16:00] VITALS: BP 144/91; PULSE 73; RESP 16; TEMP 98.2; O2SAT 98
[2016-12-24 20:00] VITALS: BP 132/85; PULSE 69; RESP 17; TEMP 97.3; O2SAT 96
[2016-12-24] MEDS: FAT EMULSION 20% INJ 250 ML (@10 mls/hr) IV SCH (22:20)
[2016-12-24] MEDS: CLINIMIX E 4.25/5 2000 mL- >42 mls/hr IV SCH ×3 (22:21)
[2016-12-25] VITALS: BP 141/87; PULSE 70; RESP 17; TEMP 96.8; O2SAT 96
[2016-12-25 04:00] VITALS: BP 142/92; PULSE 68; RESP 16; TEMP 96.7; O2SAT 98
[2016-12-25] MEDS: SUCRALFATE 1 GM/10 ML CUP PO SCH ×4 (06:01→20:34)
[2016-12-25 08:00] VITALS: BP 135/74; PULSE 69; RESP 20; TEMP 96.9; O2SAT 96
[2016-12-25] MEDS: SODIUM CHLORIDE 0.9% FLUSH 5 ML FLUSH FLUSH SCH ×2 (09:00→20:34)
[2016-12-25] MEDS: ONDANSETRON HCL 4 MG/2 ML VIAL IVP PRN (10:06)
[2016-12-25] MEDS: DEXAMETHASONE SOD PHOS 20 MG/5 ML VIAL IV PUSH SCH (10:15)
[2016-12-25] MEDS: ENOXAPARIN SODIUM 40 MG/0.4 ML SYRINGE SQ SCH (10:16)
[2016-12-25] MEDS: PANTOPRAZOLE SODIUM 40 MG VIAL IV PUSH SCH ×2 (10:16→20:34)
[2016-12-25 10:58] LABS: AUTOMATED NEUTROPHIL # 7.6 TH/MM3 (1.8-7.7); BASOPHIL % 0.1 % (0.0-2.0); EOSINOPHIL % 0.1 % (0.0-4.0); HEMATOCRIT 29.4 % (39.0-51.0); HEMO FLAGS DIFF FINAL; LYMPH % 3.3 % (9.0-44.0); LYMPHOCYTE # 0.3 TH/MM3 (1.0-4.8); MEAN CELL VOLUME 98.7 FL (80.0-100.0); MEAN CORPUSCULAR HEMOGLOBIN 34.1 PG (27.0-34.0); MEAN CORPUSCULAR HGB CONC 34.5 % (32.0-36.0); MONO % 3.2 % (0.0-8.0); NEUT % 93.3 % (16.0-70.0); PLATELET COUNT 111 TH/MM3 (150-450); RED BLOOD COUNT 2.98 MIL/MM3 (4.50-5.90); RED CELL DISTRIBUTION WIDTH 15.2 % (11.6-17.2); WHITE BLOOD COUNT 8.1 TH/MM3 (4.0-11.0)
[2016-12-25 11:25] LABS: ALKALINE PHOSPHATASE 35 U/L (45-117); ALT (GPT) 25 U/L (12-78); ANION GAP 11 MEQ/L (5-15); AST (GOT) 12 U/L (15-37); BICARBONATE 23.2 MEQ/L (21.0-32.0); BLOOD UREA NITROGEN 26 MG/DL (7-18); CHLORIDE 97 MEQ/L (98-107); GLOMERULAR FILTRATION RATE 59 ML/MIN (>89); POTASSIUM 3.3 MEQ/L (3.5-5.1); SODIUM (NA) 131 MEQ/L (136-145); TOTAL BILIRUBIN ADULT 0.2 MG/DL (0.2-1.0)
[2016-12-25 12:00] VITALS: BP 143/85; PULSE 73; RESP 20; TEMP 96.2; O2SAT 96
--- NOTE | 2016-12-25 12:37 | PD.ONC.PN ---
Subjective Subjective Remarks Afebrile overnight. patient resting. He tried to drink a protein shake this AM , but vomited it up. He complains of electrical shock like sensation along left abdomen, present for the last two days. He also had a few loose stools this AM. Objective Data Date Time Temp Pulse Resp B/P Pulse Ox O2 Delivery O2 Flow Rate FiO2 12/25/16 12:00 96.2 73 20 143/85 96 12/25/16 08:00 96.9 69 20 135/74 96 12/25/16 04:00 96.7 68 16 142/92 98 12/25/16 00:00 96.8 70 17 141/87 96 12/24/16 20:00 97.3 69 17 132/85 96 12/24/16 16:00 98.2 73 16 144/91 98 Result Diagram: 12/25/16 1010 12/25/16 1010 Laboratory Results Laboratory Tests Test 12/25/16 10:10 White Blood Count 8.1 TH/MM3 Red Blood Count 2.98 MIL/MM3 Hemoglobin 10.1 GM/DL Hematocrit 29.4 % Mean Corpuscular Volume 98.7 FL Mean Corpuscular Hemoglobin 34.1 PG Mean Corpuscular Hemoglobin 34.5 % Concent Red Cell Distribution Width 15.2 % Platelet Count 111 TH/MM3 Mean Platelet Volume 8.7 FL Neutrophils (%) (Auto) 93.3 % Lymphocytes (%) (Auto) 3.3 % Monocytes (%) (Auto) 3.2 % Eosinophils (%) (Auto) 0.1 % Basophils (%) (Auto) 0.1 % Neutrophils # (Auto) 7.6 TH/MM3 Lymphocytes # (Auto) 0.3 TH/MM3 Monocytes # (Auto) 0.3 TH/MM3 Eosinophils # (Auto) 0.0 TH/MM3 Basophils # (Auto) 0.0 TH/MM3 CBC Comment DIFF FINAL Differential Comment Sodium Level 131 MEQ/L Potassium Level 3.3 MEQ/L Chloride Level 97 MEQ/L Carbon Dioxide Level 23.2 MEQ/L Anion Gap 11 MEQ/L Blood Urea Nitrogen 26 MG/DL Creatinine 1.22 MG/DL Estimat Glomerular Filtration 59 ML/MIN Rate Random Glucose 142 MG/DL Calcium Level 8.3 MG/DL Total Bilirubin 0.2 MG/DL Aspartate Amino Transf 12 U/L (AST/SGOT) Alanine Aminotransferase 25 U/L (ALT/SGPT) Alkaline Phosphatase 35 U/L Total Protein 10.9 GM/DL Albumin 1.9 GM/DL Administered Medications Medications (Trade) Dose Ordered Sig/Lisa Route PRN Reason Start Time Stop Time Status Last Admin Dose Admin Sucralfate (Carafate Liq) 1 gm ACHS PO 12/21/16 21:00 12/25/16 10:16 Dexamethasone Sodium Phosphate (Decadron Inj) 40 mg DAILY IV PUSH 12/21/16 19:15 12/25/16 10:15 IV Flush (NS Flush) 2 ml BID FLUSH 12/21/16 21:00 12/25/16 09:00 Ondansetron HCl (Zofran Inj) 4 mg Q6H PRN IVP NAUSEA OR VOMITING 12/21/16 19:45 12/25/16 10:06 Enoxaparin Sodium 40 mg 40 mg Q24H SQ 12/22/16 09:00 12/25/16 10:16 Multivitamins 10 ml/Folic Acid 1 mg/Amino Acids/ Electrolytes/ Dextrose 2,010.2 ml @ 83 mls/hr Q24H IV 12/22/16 20:00 12/24/16 22:21 Fat Emulsion Intravenous (Liposyn Iii 20% Inj) 250 ml @ 10 mls/hr Q24H IV 12/22/16 20:00 12/24/16 22:20 Pantoprazole Sodium (Protonix Inj) 40 mg Q12HR IV PUSH 12/23/16 09:00 12/25/16 10:16 Objective Remarks GENERAL: Middle aged male, lying in bed, resting. SKIN: Warm and dry. HEAD: Normocephalic. EYES: No injection or drainage. NECK: Supple, trachea midline. CV: RRR Lungs: CTAB GASTROINTESTINAL: Abdomen soft, nondistended. equisitly tender to light touch palpation of left abdomen and left back ~T9-T10 dermatome. there are some red papules on the left back forming. I do not see a rash along the front abdomen. EXTREMITIES: No cyanosis Assessment/Plan Problem List: (1) Dysphagia Status: Acute Plan: 12/25: will continue PPN. --TPN + as tolerated pureed diet. --Carafate + Protonix --continue Decadron 40 mg daily for myeloma. (2) Multiple myeloma Status: Chronic Plan: IgG lambda multiple myeloma recently diagnosed, currently on Decadron only while inpatient with radiation esophagitis--asked to bring in Revlimid since he can swallow again. 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 h/o pathologic fx T9 and C6 vertebrae--completed XRT 12/18 Crohn disease. Attending Statement still has dysphagia. Can not swallow. c/o left abd pain. continue ppn and hydration. Acyclovir for H zoster. Home once start eating again. The exam, history, and the medical decision-making described in the above note were completed with the assistance of the mid-level provider. I reviewed and agree with the findings presented. I attest that I had a [id number] encounter with the patient on the same day, and personally performed and documented my assessment and findings in the medical record. Problem Qualifiers (1) Herpes zoster: Qualified Code: B02.9 - Herpes zoster without complication (2) Vomiting: Qualified Code: R11.2 - Non-intractable vomiting with nausea, unspecified vomiting type Hannah Sandoval Dec 25, 2016 12:37 Jyothi Olvera MD Dec 25, 2016 17:17
[2016-12-25] MEDS: ACETAMINOPHEN 1000 MG/100 ML VIAL IV PRN ×2 (13:09→21:59)
[2016-12-25] MEDS ORDERED: KETOROLAC TROMETHAMINE 30 MG/ML (IVP) VIAL IV PUSH ONE (13:45)
[2016-12-25] MEDS ORDERED: POTASSIUM CHLORIDE 10 MEQ CAP PO SCH (13:45)
[2016-12-25 16:00] VITALS: BP 120/71; PULSE 88; RESP 20; TEMP 98.4; O2SAT 97
[2016-12-25] MEDS: LIDOCAINE HCL 5% OINT 37 GM TUBE TOPICAL PRN ×2 (16:17→23:59)
[2016-12-25] MEDS: ACYCLOVIR IV SCH ×2 (16:17→23:59)
[2016-12-25] MEDS: SODIUM CHLORIDE 0.9% IV SCH ×2 (16:17→23:59)
--- NOTE | 2016-12-25 16:19 | HHI.PR ---
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 Patient sitting in room with at bedside. Patient's and reports she just vomited for the second time today. Patient reports he cannot tolerate the hospital food. Patient reports his esophageal pain has improved a little but is still present. Patient reports left thoracic pain which started today describes this pain as tingling sensation. Patient reports feeling generally weak and washed out. Patient denies shortness of breath chest pain. Objective Vitals Vital Signs Date Time Temp Pulse Resp B/P Pulse Ox O2 Delivery O2 Flow Rate FiO2 12/25/16 16:00 98.4 88 20 120/71 97 12/25/16 12:00 96.2 73 20 143/85 96 12/25/16 08:00 96.9 69 20 135/74 96 12/25/16 04:00 96.7 68 16 142/92 98 12/25/16 00:00 96.8 70 17 141/87 96 12/24/16 20:00 97.3 69 17 132/85 96 I/O 12/24/16 12/24/16 12/24/16 12/25/16 12/25/16 12/25/16 07:00 15:00 23:00 07:00 15:00 23:00 Intake Total 1044 ml 720 ml 240 ml 240 ml Balance 1044 ml 720 ml 240 ml 240 ml Intake Oral 300 ml 720 ml 240 ml 240 ml TPN/PPN 664 ml Lipid 80 ml # Voids 1 4 1 3 5 # Bowel Movements 0 1 1 3 Result Diagram: 12/25/16 1010 12/25/16 1010 Imaging Last Impressions Brain MRI 12/23/16 0000 Signed Impressions: Service Date/Time: Friday, December 23, 2016 15:23 - CONCLUSION: Normal examination. Maximo Leblanc MD Objective Remarks GENERAL: thin frail appearing 66 year old male SKIN: exquisitely tender to light touch palpation of left abdomen and left back ~T9-T10 dermatome. there are some red papules on the left back forming HEAD: Normocephalic. EYES: No scleral icterus. No injection or drainage. NECK: Supple, trachea midline. No JVD or lymphadenopathy. CARDIOVASCULAR: Regular rate and rhythm without murmurs, gallops, or rubs. RESPIRATORY: Breath sounds equal bilaterally. No accessory muscle use. GASTROINTESTINAL: Abdomen soft, non-tender, nondistended. EXTREMITIES: No cyanosis, or edema. NEUROLOGICAL: Awake, alert, and oriented x 3. Non-focal. Medications and IVs Current Medications Medications (Trade) Dose Ordered Sig/Lisa Route Start Time Stop Time Status Last Admin (Carafate Liq) 1 gm ACHS PO 12/21/16 21:00 12/25/16 16:16 (Decadron Inj) 40 mg DAILY IV PUSH 12/21/16 19:15 12/25/16 10:15 (NS Flush) 2 ml UNSCH PRN FLUSH 12/21/16 19:45 (NS Flush) 2 ml BID FLUSH 12/21/16 21:00 12/25/16 09:00 (Zofran Inj) 4 mg Q6H PRN IVP 12/21/16 19:45 12/25/16 10:06 (Lovenox Inj) 40 mg Q24H SQ 12/22/16 09:00 12/25/16 10:16 (Narcan Inj) 0.4 mg UNSCH PRN IV 12/21/16 19:45 Morphine Sulfate 2 mg 2 mg Q3H PRN IV PUSH 12/21/16 20:00 Multivitamins 10 ml/Folic Acid 1 mg/Amino Acids/ Electrolytes/ Dextrose 2,010.2 ml @ 83 mls/hr Q24H IV 12/22/16 20:00 12/24/16 22:21 (Liposyn Iii 20% Inj) 250 ml @ 10 mls/hr Q24H IV 12/22/16 20:00 12/24/16 22:20 (Percocet 5-325 Mg) 1 tab Q6H PRN PO 12/22/16 12:45 (Percocet 10-325 Mg) 1 tab Q6H PRN PO 12/22/16 12:45 (Narcan Inj) 0.4 mg UNSCH PRN IV 12/22/16 12:45 (Motrin) 600 mg Q8HR PRN PO 12/22/16 13:45 (Protonix Inj) 40 mg Q12HR IV PUSH 12/23/16 09:00 12/25/16 10:16 Acetaminophen 1000 mg 1,000 mg Q8H PRN IV 12/25/16 12:45 12/25/16 13:09 (Zovirax Inj/NS Inj) 150 ml @ 150 mls/hr Q8H IV 12/25/16 16:00 12/25/16 16:17 Lidocaine HCl 1 applic 1 applic Q8H PRN TOPICAL 12/25/16 13:45 12/25/16 16:17 (KCl 20 Meq Premix Inj) 100 ml @ 50 mls/hr ONCE ONCE IV 12/25/16 16:30 12/25/16 18:29 12/25/16 16:45 A/P Problem List: (1) Dysphagia ICD Code: R13.10 Status: Acute (2) Odynophagia ICD Code: R13.10 Status: Acute (3) Dehydration ICD Code: E86.0 Status: Resolved (4) Hyponatremia ICD Code: E87.1 Status: Acute (5) Renal insufficiency ICD Code: N28.9 Status: Acute (6) Multiple myeloma ICD Code: C90.00 Status: Chronic Assessment and Plan Mr. Guerra is a 66 year-old male with multiple myeloma currently being treated by Dr. Olvera with radiation and chemotherapy were multiple myeloma recently diagnosed; last course of chemotherapy was last Wednesday, he also completed radiation for pathologic fracture of T9 vertebra and C6 vertebra. Over the weekend he started to develop odynophagia with inability to tolerate by mouth. He was seen to the ER by Dr. Olvera for nutrition and fluids due to inability to eat, drink or take medications for 24 hours. 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 Continue PPN. pured diet. ST following. Continue Carafate. Protonix IV. Dehydration - improved. Acute kidney injury secondary to dehydration. Resolved after IV fluid hydration. Hyponatremia, Worsening and trending down. Will check serum and urine osmolality. Continue to monitor BMP. Since patient has been vomiting could be due to SIADH. Multiple myeloma with pathologic fracture T9 C6 status post completion of radiation treatment last week. No neurologic signs or symptoms. He is on Decadron high-dose IV as per hematology as part of his chemotherapy treatment. Follow by Oncology/Hematology Herpes zoster On IV acyclovir 10mg/kg q 8 hours (patient unable to take PO) per Oncology/ hematology PRN acetaminophen PRN morphine PRN lidocaine ointment 5% isolation for herpes zoster Vomiting supportive care with PPN, PRN zofran DVT prophylaxis Lovenox 40 mg subcutaneous every 24 hours - monitor platelets Hypokalemia- replaced recheck in AM Discussed plan of care with patient and at bedside and RN Written by Michelle Potter, acting as scribe for Dr. Franklin on 12/25/16 at 16:14. Attending Statement All or portions of this note were transcribed by scribe Michelle Potter . I, Dr. Jj Vyas personally performed the history, physical exam, and medical decision making; and confirmed the accuracy of the information in the transcribed note. Authenticated by Dr. Jj Vyas on 01/10/17 at 23:49. Michelle Potter Dec 25, 2016 16:19 Jj Cross MD Dec 25, 2016 16:54
[2016-12-25] MEDS ORDERED: POTASSIUM CHLOR 20 MEQ PREMIX 100 ML IV ONE (16:30)
[2016-12-25 20:00] VITALS: BP 135/87; PULSE 69; RESP 17; TEMP 96.3; O2SAT 96
[2016-12-25] MEDS: CLINIMIX E 4.25/5 2000 mL- >42 mls/hr IV SCH ×3 (20:35)
[2016-12-25] MEDS: FAT EMULSION 20% INJ 250 ML (@10 mls/hr) IV SCH (20:35)
[2016-12-26] VITALS: BP 145/93; PULSE 71; RESP 18; TEMP 96.7; O2SAT 97
[2016-12-26] MEDS ORDERED: KETOROLAC TROMETHAMINE 30 MG/ML (IVP) VIAL IV PUSH ONE (00:45)
[2016-12-26 04:00] VITALS: BP 142/86; PULSE 69; RESP 17; TEMP 96.5; O2SAT 96
[2016-12-26] MEDS: SUCRALFATE 1 GM/10 ML CUP PO SCH ×4 (05:39→20:58)
[2016-12-26] MEDS: ACETAMINOPHEN 1000 MG/100 ML VIAL IV PRN ×2 (05:40→14:08)
[2016-12-26 06:45] LABS: ALKALINE PHOSPHATASE 30 U/L (45-117); ALT (GPT) 19 U/L (12-78); ANION GAP 9 MEQ/L (5-15); AST (GOT) 9 U/L (15-37); BICARBONATE 23.5 MEQ/L (21.0-32.0); BLOOD UREA NITROGEN 28 MG/DL (7-18); CHLORIDE 101 MEQ/L (98-107); GLOMERULAR FILTRATION RATE 60 ML/MIN (>89); POTASSIUM 4.1 MEQ/L (3.5-5.1); SODIUM (NA) 133 MEQ/L (136-145); TOTAL BILIRUBIN ADULT 0.3 MG/DL (0.2-1.0)
[2016-12-26] MEDS: ONDANSETRON HCL 4 MG/2 ML VIAL IVP PRN (07:53)
[2016-12-26] MEDS: DEXAMETHASONE SOD PHOS 20 MG/5 ML VIAL IV PUSH SCH (07:55)
[2016-12-26] MEDS: SODIUM CHLORIDE 0.9% FLUSH 5 ML FLUSH FLUSH SCH ×2 (07:56→20:59)
[2016-12-26] MEDS: PANTOPRAZOLE SODIUM 40 MG VIAL IV PUSH SCH ×2 (07:56→20:58)
[2016-12-26] MEDS: SODIUM CHLORIDE 0.9% IV SCH ×3 (07:57→23:44)
[2016-12-26] MEDS: ACYCLOVIR IV SCH ×3 (07:57→23:44)
[2016-12-26 08:00] VITALS: BP 133/86; PULSE 90; RESP 18; TEMP 96.4; O2SAT 97
[2016-12-26] MEDS: ENOXAPARIN SODIUM 40 MG/0.4 ML SYRINGE SQ SCH (08:03)
[2016-12-26 08:08] LABS: AUTOMATED NEUTROPHIL # 7.9 TH/MM3 (1.8-7.7); BASOPHIL % 0.1 % (0.0-2.0); EOSINOPHIL % 0.1 % (0.0-4.0); HEMATOCRIT 26.8 % (39.0-51.0); LYMPH % 2.6 % (9.0-44.0); LYMPHOCYTE # 0.2 TH/MM3 (1.0-4.8); MEAN CELL VOLUME 98.3 FL (80.0-100.0); MEAN CORPUSCULAR HEMOGLOBIN 33.9 PG (27.0-34.0); MEAN CORPUSCULAR HGB CONC 34.5 % (32.0-36.0); MONO % 3.9 % (0.0-8.0); NEUT % 93.3 % (16.0-70.0); PLATELET COUNT 92 TH/MM3 (150-450); RED BLOOD COUNT 2.73 MIL/MM3 (4.50-5.90); RED CELL DISTRIBUTION WIDTH 14.9 % (11.6-17.2); WHITE BLOOD COUNT 8.4 TH/MM3 (4.0-11.0)
[2016-12-26 08:12] LABS: HEMO FLAGS AUTO DIFF
--- NOTE | 2016-12-26 08:51 | PD.ONC.PN ---
Subjective Subjective Remarks Afebrile overnight. Pt sitting up in chair at bedside with emesis basin in lap. He is having some increased nausea this am. Per RN, he is not able to keep much down. Objective Data Date Time Temp Pulse Resp B/P Pulse Ox O2 Delivery O2 Flow Rate FiO2 12/26/16 04:00 96.5 69 17 142/86 96 12/26/16 00:00 96.7 71 18 145/93 97 12/25/16 20:00 96.3 69 17 135/87 96 12/25/16 16:00 98.4 88 20 120/71 97 12/25/16 12:00 96.2 73 20 143/85 96 Result Diagram: 12/26/16 0518 12/26/1618 Laboratory Results Laboratory Tests Test 12/25/16 12/25/16 12/25/16 12/26/16 10:10 17:50 19:04 05:18 White Blood Count 8.1 TH/MM3 8.4 TH/MM3 Red Blood Count 2.98 MIL/MM3 2.73 MIL/MM3 Hemoglobin 10.1 GM/DL 9.3 GM/DL Hematocrit 29.4 % 26.8 % Mean Corpuscular Volume 98.7 FL 98.3 FL Mean Corpuscular Hemoglobin 34.1 PG 33.9 PG Mean Corpuscular Hemoglobin 34.5 % 34.5 % Concent Red Cell Distribution Width 15.2 % 14.9 % Platelet Count 111 TH/MM3 92 TH/MM3 Mean Platelet Volume 8.7 FL 9.2 FL Neutrophils (%) (Auto) 93.3 % 93.3 % Lymphocytes (%) (Auto) 3.3 % 2.6 % Monocytes (%) (Auto) 3.2 % 3.9 % Eosinophils (%) (Auto) 0.1 % 0.1 % Basophils (%) (Auto) 0.1 % 0.1 % Neutrophils # (Auto) 7.6 TH/MM3 7.9 TH/MM3 Lymphocytes # (Auto) 0.3 TH/MM3 0.2 TH/MM3 Monocytes # (Auto) 0.3 TH/MM3 0.3 TH/MM3 Eosinophils # (Auto) 0.0 TH/MM3 0.0 TH/MM3 Basophils # (Auto) 0.0 TH/MM3 0.0 TH/MM3 CBC Comment DIFF FINAL AUTO DIFF Differential Comment Sodium Level 131 MEQ/L 133 MEQ/L Potassium Level 3.3 MEQ/L 4.1 MEQ/L Chloride Level 97 MEQ/L 101 MEQ/L Carbon Dioxide Level 23.2 MEQ/L 23.5 MEQ/L Anion Gap 11 MEQ/L 9 MEQ/L Blood Urea Nitrogen 26 MG/DL 28 MG/DL Creatinine 1.22 MG/DL 1.20 MG/DL Estimat Glomerular Filtration 59 ML/MIN 60 ML/MIN Rate Random Glucose 142 MG/DL 108 MG/DL Calcium Level 8.3 MG/DL 8.0 MG/DL Total Bilirubin 0.2 MG/DL 0.3 MG/DL Aspartate Amino Transf 12 U/L 9 U/L (AST/SGOT) Alanine Aminotransferase 25 U/L 19 U/L (ALT/SGPT) Alkaline Phosphatase 35 U/L 30 U/L Total Protein 10.9 GM/DL 9.3 GM/DL Albumin 1.9 GM/DL 1.7 GM/DL Urine Osmolality 631 MOSM/KG Serum Osmolality 296 MOSM/KG Administered Medications Medications (Trade) Dose Ordered Sig/Lisa Route PRN Reason Start Time Stop Time Status Last Admin Dose Admin Sucralfate (Carafate Liq) 1 gm ACHS PO 12/21/16 21:00 12/26/16 05:39 Dexamethasone Sodium Phosphate (Decadron Inj) 40 mg DAILY IV PUSH 12/21/16 19:15 12/26/16 07:55 IV Flush (NS Flush) 2 ml BID FLUSH 12/21/16 21:00 12/26/16 07:56 Ondansetron HCl (Zofran Inj) 4 mg Q6H PRN IVP NAUSEA OR VOMITING 12/21/16 19:45 12/26/16 07:53 Enoxaparin Sodium 40 mg 40 mg Q24H SQ 12/22/16 09:00 12/25/16 10:16 Multivitamins 10 ml/Folic Acid 1 mg/Amino Acids/ Electrolytes/ Dextrose 2,010.2 ml @ 83 mls/hr Q24H IV 12/22/16 20:00 12/25/16 20:35 Fat Emulsion Intravenous (Liposyn Iii 20% Inj) 250 ml @ 10 mls/hr Q24H IV 12/22/16 20:00 12/25/16 20:35 Pantoprazole Sodium (Protonix Inj) 40 mg Q12HR IV PUSH 12/23/16 09:00 12/26/16 07:56 Acetaminophen 1000 mg 1,000 mg Q8H PRN IV pain 12/25/16 12:45 12/26/16 05:40 Acyclovir Sodium/ Sodium Chloride (Zovirax Inj/NS Inj) 150 ml @ 150 mls/hr Q8H IV 12/25/16 16:00 12/26/16 07:57 Lidocaine HCl (Xylocaine 5% Oint) 1 applic Q8H PRN TOPICAL pain 12/25/16 13:45 12/25/16 23:59 Objective Remarks GENERAL: Middle aged male, sitting up in chair at bedside. SKIN: Warm and dry. Few red papules noted to L back. HEAD: Normocephalic. EYES: No injection or drainage. NECK: Supple, trachea midline. CV: +S1/S2. No murmur noted. Lungs: Lungs clear, mildly diminished to bases. GASTROINTESTINAL: Abdomen soft, nondistended. Tender to L side abdomen. EXTREMITIES: No cyanosis. MUSCULOSKELETAL: Generalized weakness. Assessment/Plan Problem List: (1) Dysphagia Status: Acute Plan: --TPN + as tolerated pureed diet. --Carafate + Protonix --continue Decadron 40 mg daily for myeloma. (2) Multiple myeloma Status: Chronic Plan: IgG lambda multiple myeloma recently diagnosed, currently on Decadron only while inpatient with radiation esophagitis--asked to bring in Revlimid since he can swallow again. 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 h/o pathologic fx T9 and C6 vertebrae--completed XRT 12/18 Crohn disease. Plan 1. Continue Acyclovir for herpes zoster. 2. Will add on Reglan for increased nausea. 3. GI consulted; plan to do EGD on Wednesday. 4. Monitor labs, electrolytes. 5. Supportive care. Attending Statement The exam, history, and the medical decision-making described in the above note were completed with the assistance of the mid-level provider. I reviewed and agree with the findings presented. I attest that I had a [id number] encounter with the patient on the same day, and personally performed and documented my assessment and findings in the medical record. Pt seen and examined. Cont acyclovir for Zoster. Dysphagia evaluated by GI, pt wants to get better to avoid GI procedure. Pt reports able to swallow some liquid this afternoon. Carafate helping. Continue to follow and support, TPN continue until pt can drink enough fluid to sustain himself without IV. Problem Qualifiers (1) Herpes zoster: Qualified Code: B02.9 - Herpes zoster without complication (2) Vomiting: Qualified Code: R11.2 - Non-intractable vomiting with nausea, unspecified vomiting type Alexandrea Toney Dec 26, 2016 08:50 Ella Messina MD Dec 26, 2016 16:42
--- NOTE | 2016-12-26 11:34 | HHI.PR ---
Subjective Remarks Patient very nauseous this am still has pain and difficulty swallowing Denies fevers/chills sodium improving stable vital signs Objective Vitals Vital Signs Date Time Temp Pulse Resp B/P Pulse Ox O2 Delivery O2 Flow Rate FiO2 12/26/16 08:00 96.4 90 18 133/86 97 12/26/16 04:00 96.5 69 17 142/86 96 12/26/16 00:00 96.7 71 18 145/93 97 12/25/16 20:00 96.3 69 17 135/87 96 12/25/16 16:00 98.4 88 20 120/71 97 12/25/16 12:00 96.2 73 20 143/85 96 I/O 12/25/16 12/25/16 12/25/16 12/26/16 12/26/16 12/26/16 07:00 15:00 23:00 07:00 15:00 23:00 Intake Total 240 ml 240 ml 240 ml 120 ml Output Total 100 ml 200 ml Balance 240 ml 240 ml 140 ml -80 ml Intake Oral 240 ml 240 ml 240 ml 120 ml Output Urine Total 100 ml 200 ml # Voids 3 5 # Bowel Movements 3 Result Diagram: 12/26/16 0518 12/26/16 0518 Imaging Last Impressions Brain MRI 12/23/16 0000 Signed Impressions: Service Date/Time: Friday, December 23, 2016 15:23 - CONCLUSION: Normal examination. Maximo Leblanc MD Objective Remarks GENERAL: thin frail appearing 66 year old male SKIN: exquisitely tender to light touch palpation of left abdomen and left back ~T9-T10 dermatome. there are some red papules on the left back forming HEAD: Normocephalic. EYES: No scleral icterus. No injection or drainage. NECK: Supple, trachea midline. No JVD or lymphadenopathy. CARDIOVASCULAR: Regular rate and rhythm without murmurs, gallops, or rubs. RESPIRATORY: Breath sounds equal bilaterally. No accessory muscle use. GASTROINTESTINAL: Abdomen soft, non-tender, nondistended. EXTREMITIES: No cyanosis, or edema. NEUROLOGICAL: Awake, alert, and oriented x 3. Non-focal. Medications and IVs Current Medications Medications (Trade) Dose Ordered Sig/Lisa Route Start Time Stop Time Status Last Admin (Carafate Liq) 1 gm ACHS PO 12/21/16 21:00 12/26/16 05:39 (Decadron Inj) 40 mg DAILY IV PUSH 12/21/16 19:15 12/26/16 07:55 (NS Flush) 2 ml UNSCH PRN FLUSH 12/21/16 19:45 (NS Flush) 2 ml BID FLUSH 12/21/16 21:00 12/26/16 07:56 (Zofran Inj) 4 mg Q6H PRN IVP 12/21/16 19:45 12/26/16 07:53 (Lovenox Inj) 40 mg Q24H SQ 12/22/16 09:00 12/25/16 10:16 (Narcan Inj) 0.4 mg UNSCH PRN IV 12/21/16 19:45 Morphine Sulfate 2 mg 2 mg Q3H PRN IV PUSH 12/21/16 20:00 Multivitamins 10 ml/Folic Acid 1 mg/Amino Acids/ Electrolytes/ Dextrose 2,010.2 ml @ 83 mls/hr Q24H IV 12/22/16 20:00 12/25/16 20:35 (Liposyn Iii 20% Inj) 250 ml @ 10 mls/hr Q24H IV 12/22/16 20:00 12/25/16 20:35 (Percocet 5-325 Mg) 1 tab Q6H PRN PO 12/22/16 12:45 (Percocet 10-325 Mg) 1 tab Q6H PRN PO 12/22/16 12:45 (Narcan Inj) 0.4 mg UNSCH PRN IV 12/22/16 12:45 (Motrin) 600 mg Q8HR PRN PO 12/22/16 13:45 Hold (Protonix Inj) 40 mg Q12HR IV PUSH 12/23/16 09:00 12/26/16 07:56 Acetaminophen 1000 mg 1,000 mg Q8H PRN IV 12/25/16 12:45 12/26/16 05:40 (Zovirax Inj/NS Inj) 150 ml @ 150 mls/hr Q8H IV 12/25/16 16:00 12/26/16 07:57 (Xylocaine 5% Oint) 1 applic Q8H PRN TOPICAL 12/25/16 13:45 12/25/16 23:59 Urinary Catheter: No Vascular Central Line Catheter: No A/P Problem List: (1) Dysphagia ICD Code: R13.10 Status: Acute (2) Odynophagia ICD Code: R13.10 Status: Acute (3) Dehydration ICD Code: E86.0 Status: Acute (4) Hyponatremia ICD Code: E87.1 Status: Acute (5) Renal insufficiency ICD Code: N28.9 Status: Acute (6) Multiple myeloma ICD Code: C90.00 Status: Chronic Assessment and Plan Mr. Guerra is a 66 year-old male with multiple myeloma currently being treated by Dr. Olvera with radiation and chemotherapy were multiple myeloma recently diagnosed; last course of chemotherapy was last Wednesday, he also completed radiation for pathologic fracture of T9 vertebra and C6 vertebra. Over the weekend he started to develop O [place] aphasia with inability to tolerate by mouth. He was seen to the ER by Dr. Olvera for nutrition and fluids due to inability to eat, drink or take medications for 24 hours. 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 Continue PPN. pured diet. ST following. Continue Carafate. Protonix IV. 12/26 Patient still with dysphagia and odynophagia - Will order a barium swallow and consult GI. Dehydration - improved. Acute kidney injury secondary to dehydration. Resolved after IV fluid hydration. Hyponatremia, 12/26Initially worsening, now trending up Serum osmolality high and urine osmolality in the lower side of normal - likely SIADH from nausea. Sodium improving. Continue to monitor BMP. Multiple myeloma with pathologic fracture T9 C6 status post completion of radiation treatment last week. No neurologic signs or symptoms. He is on Decadron high-dose IV as per hematology as part of his chemotherapy treatment. Follow by Oncology/Hematology Herpes zoster On IV acyclovir 10mg/kg q 8 hours (patient unable to take PO) per Oncology/ hematology PRN acetaminophen PRN morphine PRN lidocaine ointment 5% isolation for herpes zoster Vomiting supportive care with PPN, PRN zofran Agree with Reglan DVT prophylaxis Lovenox 40 mg subcutaneous every 24 hours - monitor platelets Hypokalemia- Due to poor oral intake replaced. K 4.1. continue to monitor BMP and replace as needed. Discharge Planning Continue to monitor in oncology floor. Jj Cross MD Dec 26, 2016 11:34
[2016-12-26 12:00] VITALS: BP 141/90; PULSE 74; RESP 18; TEMP 98.1; O2SAT 95
--- NOTE | 2016-12-26 13:49 | MB ---
cc: JEAN CARLOS LEE M.D. DATE OF CONSULTATION: 12/26/2016. REASON FOR CONSULTATION: Dysphagia. HISTORY OF PRESENT ILLNESS: Thank you for the consultation. This is a 66-year-old gentleman who has history of multiple myeloma. The patient had been treated with radiation and chemotherapy. The patient developed a fracture of T9 and C6. The patient is also starting to have dysphagia and odynophagia. I was asked to see him for evaluation with possible endoscopy and dilation. The patient denies any previous history of GI problems. He finished radiation last Wednesday and he feels that he can take some liquid especially with Carafate, but no solid food. PAST SURGICAL HISTORY: 1. Lymph node biopsy. 2. Colonoscopy. ALLERGIES: SULFA. PAST MEDICAL HISTORY: 1. Arthritis. 2. Cat scratch fever. 3. Crohn disease. 4. Multiple myeloma IgG lambda type recently diagnosed. MEDICATIONS: Reviewed in the chart. FAMILY HISTORY: Noncontributory. SOCIAL HISTORY: No tobacco or drug or alcohol. REVIEW OF SYSTEMS: All 12-point negative except for the history of present illness. PHYSICAL EXAMINATION: GENERAL: Alert, oriented, in no acute distress. VITAL SIGNS: Vital signs are stable at this time. No fever. Slightly tachycardic. HEAD, EYES, EARS, NOSE, THROAT: Pupils are round and reactive to light. NECK: The neck is supple. CHEST: Clear to auscultation and percussion. CARDIAC: Regular rate and rhythm. ABDOMEN: The abdomen is soft, nontender and nondistended. EXTREMITIES: No edema, clubbing or cyanosis. NEUROLOGIC: Neurologically alert and oriented and no muscle waste or neurological deficits. PSYCHIATRIC: Psychologically appropriate. LABORATORY DATA: White count 8.4, hemoglobin 9.3, platelets 92,000. INR 1.2. Liver function tests are normal. BUN 28, creatinine 1.2. ASSESSMENT AND PLAN: This is a pleasant 66-year-old gentleman who has dysphagia most likely radiation-related. I discussed the case with Dr. Ella Messina. We will plan on doing just endoscopy and possible dilation depending on the findings on the endoscopy. We are not going to plan on doing a PEG-tube at this time since his radiation is over and he should be getting better as time goes on. He already on TPN. MD PAULINA Clifford/BANDAR /12:43 PM /1:43 PM
[2016-12-26] MEDS: METOCLOPRAMIDE HCL 10 MG/2 ML VIAL IV PUSH SCH ×2 (14:07→20:58)
[2016-12-26 15:11] LABS: PLATELET ESTIMATE SMEAR LOW (NORMAL); PLATELET MORPHOLOGY NORMAL (NORMAL); SCAN/DIFF AUTO DIFF CONFIRMED
[2016-12-26 16:00] VITALS: BP 131/84; PULSE 72; RESP 18; TEMP 98.4; O2SAT 96
[2016-12-26 20:00] VITALS: BP 148/95; PULSE 65; RESP 17; TEMP 97.6; O2SAT 96
[2016-12-26] MEDS: FAT EMULSION 20% INJ 250 ML (@10 mls/hr) IV SCH (20:59)
[2016-12-26] MEDS: CLINIMIX E 4.25/5 2000 mL- >42 mls/hr IV SCH ×3 (20:59)
[2016-12-27] VITALS: BP 143/95; PULSE 69; RESP 16; TEMP 96.6; O2SAT 96
[2016-12-27] MEDS: LIDOCAINE HCL 5% OINT 37 GM TUBE TOPICAL PRN ×2 (01:30→08:41)
[2016-12-27 04:00] VITALS: BP 151/95; PULSE 77; RESP 16; TEMP 96.6; O2SAT 97
[2016-12-27] MEDS: METOCLOPRAMIDE HCL 10 MG/2 ML VIAL IV PUSH SCH ×3 (05:25→22:00)
[2016-12-27] MEDS: SUCRALFATE 1 GM/10 ML CUP PO SCH ×4 (05:25→19:54)
[2016-12-27 08:00] VITALS: BP_SYST 136; BP_SYST 158; BP_DIAS 94; BP_DIAS 96; PULSE 75; RESP 16; TEMP 96.9; O2SAT 96
[2016-12-27] MEDS: ENOXAPARIN SODIUM 40 MG/0.4 ML SYRINGE SQ SCH (08:31)
[2016-12-27] MEDS: SODIUM CHLORIDE 0.9% IV SCH ×2 (08:31→16:58)
[2016-12-27] MEDS: SODIUM CHLORIDE 0.9% FLUSH 5 ML FLUSH FLUSH SCH ×2 (08:31→19:54)
[2016-12-27] MEDS: DEXAMETHASONE SOD PHOS 20 MG/5 ML VIAL IV PUSH SCH (08:31)
[2016-12-27] MEDS: PANTOPRAZOLE SODIUM 40 MG VIAL IV PUSH SCH ×2 (08:31→19:54)
[2016-12-27] MEDS: ACYCLOVIR IV SCH ×2 (08:31→16:58)
--- NOTE | 2016-12-27 08:57 | PD.ONC.PN ---
Subjective Subjective Remarks Afebrile overnight. The patient states his nausea is better controlled today. He states he is still overall very uncomfortable. He was able to eat some soup yesterday. He is asking what time he is going downstairs for a barium swallow today. Objective Data Date Time Temp Pulse Resp B/P Pulse Ox O2 Delivery O2 Flow Rate FiO2 12/27/16 04:00 96.6 77 16 151/95 97 12/27/16 00:00 96.6 69 16 143/95 96 12/26/16 20:00 97.6 65 17 148/95 96 12/26/16 16:00 98.4 72 18 131/84 96 12/26/16 12:00 98.1 74 18 141/90 95 Result Diagram: 12/26/1651712/26/16517 Administered Medications Medications (Trade) Dose Ordered Sig/Lisa Route PRN Reason Start Time Stop Time Status Last Admin Dose Admin Sucralfate (Carafate Liq) 1 gm ACHS PO 12/21/16 21:00 12/27/16 05:25 Dexamethasone Sodium Phosphate (Decadron Inj) 40 mg DAILY IV PUSH 12/21/16 19:15 12/27/16 08:31 IV Flush (NS Flush) 2 ml BID FLUSH 12/21/16 21:00 12/26/16 20:59 Ondansetron HCl (Zofran Inj) 4 mg Q6H PRN IVP NAUSEA OR VOMITING 12/21/16 19:45 12/26/16 07:53 Enoxaparin Sodium 40 mg 40 mg Q24H SQ 12/22/16 09:00 12/25/16 10:16 Multivitamins 10 ml/Folic Acid 1 mg/Amino Acids/ Electrolytes/ Dextrose 2,010.2 ml @ 83 mls/hr Q24H IV 12/22/16 20:00 12/26/16 20:59 Fat Emulsion Intravenous (Liposyn Iii 20% Inj) 250 ml @ 10 mls/hr Q24H IV 12/22/16 20:00 12/26/16 20:59 Pantoprazole Sodium (Protonix Inj) 40 mg Q12HR IV PUSH 12/23/16 09:00 12/27/16 08:31 Acetaminophen 1000 mg 1,000 mg Q8H PRN IV pain 12/25/16 12:45 12/26/16 14:08 Acyclovir Sodium/ Sodium Chloride (Zovirax Inj/NS Inj) 150 ml @ 150 mls/hr Q8H IV 12/25/16 16:00 12/27/16 08:31 Lidocaine HCl (Xylocaine 5% Oint) 1 applic Q8H PRN TOPICAL pain 12/25/16 13:45 12/27/16 08:41 Metoclopramide HCl (Reglan Inj) 10 mg Q8HR IV PUSH 12/26/16 14:00 12/27/16 05:25 Objective Remarks GENERAL: Middle aged male, resting in bed in no distress. SKIN: Warm and dry. Lesions improved to left flank and back. HEAD: Normocephalic. EYES: No injection or drainage. NECK: Supple, trachea midline. CV: +S1/S2. No murmur noted. Lungs: Lungs clear, mildly diminished to bases. GASTROINTESTINAL: Abdomen soft, nondistended. EXTREMITIES: No cyanosis. MUSCULOSKELETAL: Generalized weakness. Assessment/Plan Problem List: (1) Dysphagia Status: Acute Plan: -- GI following -- Barium swallow ordered --TPN + as tolerated pureed diet. --Carafate + Protonix --continue Decadron 40 mg daily for myeloma. (2) Multiple myeloma Status: Chronic Plan: IgG lambda multiple myeloma recently diagnosed, currently on Decadron only while inpatient with radiation esophagitis--asked to bring in Revlimid since he can swallow again. 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 h/o pathologic fx T9 and C6 vertebrae--completed XRT 12/18 Crohn disease. Plan 1. Barium swallow today; GI following for esophagitis 2. Nausea improved with the addition of Reglan 3. Continue PPN until po intake improved. 4. Supportive care. Attending Statement The exam, history, and the medical decision-making described in the above note were completed with the assistance of the mid-level provider. I reviewed and agree with the findings presented. I attest that I had a [id number] encounter with the patient on the same day, and personally performed and documented my assessment and findings in the medical record. Pt seen and examined. Barium swallow normal, no aspiration. Feels he can drink boost and have soup now. Agree to endoscopy, hopeful to find a treatable cause to his dysphagia. Slow to improve, becoming impatient. If TPN needed tornado chaser discussed home TPN, alternative PEG tube. Problem Qualifiers (1) Herpes zoster: Qualified Code: B02.9 - Herpes zoster without complication (2) Vomiting: Qualified Code: R11.2 - Non-intractable vomiting with nausea, unspecified vomiting type Alexandrea Toney Dec 27, 2016 08:57 Ella Messina MD Dec 27, 2016 13:30
--- NOTE | 2016-12-27 09:46 | RADRPT ---
EXAM DATE/TIME: 12/27/2016 09:07 [facility] COMPARISON: MRI CERVICAL SPINE W & W/O CONTRAST, December 01, 2016, 2:03. INDICATIONS : Difficulty swallowing. FLUORO TIME: 0.8 minutes IMAGE COUNT: 9 CONTRAST: 1. E-Z HD Barium Sulfate (98% w/w) MEDICAL HISTORY : Multiple Myeloma SURGICAL HISTORY : None. ENCOUNTER: Initial ACUITY: 1 week PAIN SCORE: 0/10 LOCATION: Throat FINDINGS: Air-contrast views of the hypopharynx demonstrate a normal mucosal surface without filling defect. R apid sequence images of the hypopharynx and cervical esophagus during the passage of barium demonstra te a normal swallowing function. No evidence of aspiration. Multiphasic examination of the esophagu s demonstrates no esophageal fold thickening, ulceration, or filling defect. The gastroesophageal ju nction is normal in configuration without evidence of hiatal hernia.CONCLUSION: Barium swallow within normal limits. No obstruction or perceptible mucosal abnormalities are demonstr ated. Loss of height of the C6 vertebral body again seen. Jim Vega MD on December 27, 2016 at 9:43 Board Certified Radiologist. This report was verified electronically.
[2016-12-27 10:40] LABS: AUTOMATED NEUTROPHIL # 9.9 TH/MM3 (1.8-7.7); HEMATOCRIT 27.8 % (39.0-51.0); LYMPH % 1.2 % (9.0-44.0); LYMPHOCYTE # 0.1 TH/MM3 (1.0-4.8); MEAN CELL VOLUME 97.9 FL (80.0-100.0); MEAN CORPUSCULAR HEMOGLOBIN 34.4 PG (27.0-34.0); MEAN CORPUSCULAR HGB CONC 35.2 % (32.0-36.0); MONO % 3.4 % (0.0-8.0); NEUT % 95.4 % (16.0-70.0); PLATELET COUNT 99 TH/MM3 (150-450); RED BLOOD COUNT 2.84 MIL/MM3 (4.50-5.90); RED CELL DISTRIBUTION WIDTH 14.2 % (11.6-17.2); WHITE BLOOD COUNT 10.4 TH/MM3 (4.0-11.0)
[2016-12-27 10:53] LABS: HEMO FLAGS AUTO DIFF
[2016-12-27 11:05] LABS: ANION GAP 10 MEQ/L (5-15); AST (GOT) 8 U/L (15-37); BICARBONATE 24.3 MEQ/L (21.0-32.0); BLOOD UREA NITROGEN 24 MG/DL (7-18); CHLORIDE 99 MEQ/L (98-107); GLOMERULAR FILTRATION RATE 59 ML/MIN (>89); MAGNESIUM 1.8 MG/DL (1.5-2.5); POTASSIUM 3.4 MEQ/L (3.5-5.1); SODIUM (NA) 133 MEQ/L (136-145)
[2016-12-27 11:17] LABS: ALKALINE PHOSPHATASE 31 U/L (45-117); ALT (GPT) 18 U/L (12-78); TOTAL BILIRUBIN ADULT 0.4 MG/DL (0.2-1.0)
[2016-12-27 12:00] VITALS: BP 142/90; PULSE 80; RESP 16; TEMP 98.6; O2SAT 97
--- NOTE | 2016-12-27 13:34 | HHI.GIFU ---
Subjective Remarks feels ok still having some dysphagia Objective Vitals I&O Vital Signs Date Time Temp Pulse Resp B/P Pulse Ox O2 Delivery O2 Flow Rate FiO2 12/27/16 08:00 96.9 75 16 158/96 96 136/94 12/27/16 04:00 96.6 77 16 151/95 97 12/27/16 00:00 96.6 69 16 143/95 96 12/26/16 20:00 97.6 65 17 148/95 96 12/26/16 16:00 98.4 72 18 131/84 96 I/O 12/26/16 12/26/16 12/26/16 12/27/16 12/27/16 12/27/16 07:00 15:00 23:00 07:00 15:00 23:00 Intake Total 120 ml 1144 ml 984 ml 984 ml Output Total 200 ml 650 ml 350 ml 1150 ml Balance -80 ml 494 ml 634 ml -166 ml Intake Oral 120 ml 50 ml 240 ml 240 ml IV Total 1094 ml TPN/PPN 664 ml 664 ml Lipid 80 ml 80 ml Output Urine Total 200 ml 650 ml 350 ml 1150 ml Laboratory Laboratory Tests Test 12/27/16 10:02 White Blood Count 10.4 Red Blood Count 2.84 Hemoglobin 9.8 Hematocrit 27.8 Mean Corpuscular Volume 97.9 Mean Corpuscular Hemoglobin 34.4 Mean Corpuscular Hemoglobin 35.2 Concent Red Cell Distribution Width 14.2 Platelet Count 99 Mean Platelet Volume 8.7 Neutrophils (%) (Auto) 95.4 Lymphocytes (%) (Auto) 1.2 Monocytes (%) (Auto) 3.4 Eosinophils (%) (Auto) 0.0 Basophils (%) (Auto) 0.0 Neutrophils # (Auto) 9.9 Lymphocytes # (Auto) 0.1 Monocytes # (Auto) 0.4 Eosinophils # (Auto) 0.0 Basophils # (Auto) 0.0 CBC Comment AUTO DIFF Sodium Level 133 Potassium Level 3.4 Chloride Level 99 Carbon Dioxide Level 24.3 Anion Gap 10 Blood Urea Nitrogen 24 Creatinine 1.22 Estimat Glomerular Filtration 59 Rate Random Glucose 110 Calcium Level 8.2 Phosphorus Level 2.1 Magnesium Level 1.8 Total Bilirubin 0.4 Aspartate Amino Transf 8 (AST/SGOT) Alanine Aminotransferase 18 (ALT/SGPT) Alkaline Phosphatase 31 Total Protein 10.0 Albumin 1.9 Physical Exam HEENT: Pupils round and reactive to light; normocephalic; atraumatic; no jaundice. Throat is clear. NECK: Neck is supple, no JVD, no lymphadenopathy. CHEST: Chest is clear to auscultation and percussion. CARDIAC: Regular rate and rhythm with no murmur gallop or rubs. ABDOMEN: Soft, nondistended, nontender; no hepatosplenomegaly; bowel sounds are present in all four quadrants. EXTREMITIES: No clubbing, cyanosis, or edema. SKIN: Normal; no rash; no jaundice. PLUSH FINISHER: No focal deficits; alert and oriented times three. Assessment and Plan Plan dysphagia, could be related to radiation esophagitis or stricture, D/W oncology , patient is willing to have EGD with dilation tomorrow plan for EGD with dilation in Stewart Ram MD Dec 27, 2016 13:34
[2016-12-27] MEDS ORDERED: POTASSIUM CHLORIDE 20 MEQ CONTROLLED RELEASE TAB PO ONE (13:45)
[2016-12-27 13:52] LABS: PLATELET ESTIMATE SMEAR LOW (NORMAL); PLATELET MORPHOLOGY NORMAL (NORMAL); SCAN/DIFF AUTO DIFF CONFIRMED
[2016-12-27 16:00] VITALS: BP 148/93; PULSE 83; RESP 16; TEMP 97.4; O2SAT 97
[2016-12-27] MEDS ORDERED: POTASSIUM CHLORIDE 25 MEQ EFFERVESCENT TAB PO ONE (16:45)
[2016-12-27] MEDS: ACETAMINOPHEN 1000 MG/100 ML VIAL IV PRN (19:52)
[2016-12-27] MEDS: FAT EMULSION 20% INJ 250 ML (@10 mls/hr) IV SCH (19:53)
[2016-12-27] MEDS: CLINIMIX E 4.25/5 2000 mL- >42 mls/hr IV SCH ×3 (19:53)
[2016-12-27 20:00] VITALS: BP 134/85; PULSE 77; RESP 18; TEMP 97.7; O2SAT 97
--- NOTE | 2016-12-27 23:18 | HHI.PR ---
Subjective Remarks Deferred entry patient seen earlier at 1:45 pm Patient states that he feels better, was able to eat some chicken without problem K mildly low denies sob, abdominal pain denies fevers/chills Objective Vitals Vital Signs Date Time Temp Pulse Resp B/P Pulse Ox O2 Delivery O2 Flow Rate FiO2 12/27/16 20:00 97.7 77 18 134/85 97 12/27/16 16:00 97.4 83 16 148/93 97 12/27/16 12:00 98.6 80 16 142/90 97 12/27/16 08:00 96.9 75 16 158/96 96 136/94 12/27/16 04:00 96.6 77 16 151/95 97 12/27/16 00:00 96.6 69 16 143/95 96 I/O 12/26/16 12/26/16 12/26/16 12/27/16 12/27/16 12/27/16 07:00 15:00 23:00 07:00 15:00 23:00 Intake Total 120 ml 1144 ml 984 ml 984 ml 2079 ml Output Total 200 ml 650 ml 350 ml 1150 ml 800 ml 950 ml Balance -80 ml 494 ml 634 ml -166 ml -800 ml 1129 ml Intake Oral 120 ml 50 ml 240 ml 240 ml 480 ml IV Total 1094 ml 500 ml TPN/PPN 664 ml 664 ml 981 ml Lipid 80 ml 80 ml 118 ml Output Urine Total 200 ml 650 ml 350 ml 1150 ml 800 ml 950 ml Result Diagram: 12/27/16 1002 12/27/16 1002 Imaging Last Impressions Barium Swallow X-Ray 12/27/16 0000 Signed Impressions: Service Date/Time: Tuesday, December 27, 2016 09:07 - CONCLUSION: Barium swallow within normal limits. No obstruction or perceptible mucosal abnormalities are demonstrated. Loss of height of the C6 vertebral body again seen. Jim Vega MD Brain MRI 12/23/16 0000 Signed Impressions: Service Date/Time: Friday, December 23, 2016 15:23 - CONCLUSION: Normal examination. Maximo Leblanc MD Objective Remarks GENERAL: thin frail appearing 66 year old male SKIN: exquisitely tender to light touch palpation of left abdomen and left back ~T9-T10 dermatome. there are some red papules on the left back forming HEAD: Normocephalic. EYES: No scleral icterus. No injection or drainage. NECK: Supple, trachea midline. No JVD or lymphadenopathy. CARDIOVASCULAR: Regular rate and rhythm without murmurs, gallops, or rubs. RESPIRATORY: Breath sounds equal bilaterally. No accessory muscle use. GASTROINTESTINAL: Abdomen soft, non-tender, nondistended. EXTREMITIES: No cyanosis, or edema. NEUROLOGICAL: Awake, alert, and oriented x 3. Non-focal. Procedures none Medications and IVs Current Medications Medications (Trade) Dose Ordered Sig/Lisa Route Start Time Stop Time Status Last Admin (Carafate Liq) 1 gm ACHS PO 12/21/16 21:00 12/27/16 19:54 (Decadron Inj) 40 mg DAILY IV PUSH 12/21/16 19:15 12/27/16 08:31 (NS Flush) 2 ml UNSCH PRN FLUSH 12/21/16 19:45 (NS Flush) 2 ml BID FLUSH 12/21/16 21:00 12/26/16 20:59 (Zofran Inj) 4 mg Q6H PRN IVP 12/21/16 19:45 12/26/16 07:53 (Lovenox Inj) 40 mg Q24H SQ 12/22/16 09:00 12/25/16 10:16 (Narcan Inj) 0.4 mg UNSCH PRN IV 12/21/16 19:45 Morphine Sulfate 2 mg 2 mg Q3H PRN IV PUSH 12/21/16 20:00 Multivitamins 10 ml/Folic Acid 1 mg/Amino Acids/ Electrolytes/ Dextrose 2,010.2 ml @ 83 mls/hr Q24H IV 12/22/16 20:00 12/27/16 19:53 (Liposyn Iii 20% Inj) 250 ml @ 10 mls/hr Q24H IV 12/22/16 20:00 12/27/16 19:53 (Percocet 5-325 Mg) 1 tab Q6H PRN PO 12/22/16 12:45 (Percocet 10-325 Mg) 1 tab Q6H PRN PO 12/22/16 12:45 (Narcan Inj) 0.4 mg UNSCH PRN IV 12/22/16 12:45 (Motrin) 600 mg Q8HR PRN PO 12/22/16 13:45 Hold (Protonix Inj) 40 mg Q12HR IV PUSH 12/23/16 09:00 12/27/16 19:54 Acetaminophen 1000 mg 1,000 mg Q8H PRN IV 12/25/16 12:45 12/27/16 19:52 (Zovirax Inj/NS Inj) 150 ml @ 150 mls/hr Q8H IV 12/25/16 16:00 12/27/16 16:58 (Xylocaine 5% Oint) 1 applic Q8H PRN TOPICAL 12/25/16 13:45 12/27/16 08:41 (Reglan Inj) 10 mg Q8HR IV PUSH 12/26/16 14:00 12/27/16 05:25 Urinary Catheter: No Vascular Central Line Catheter: No A/P Problem List: (1) Dysphagia ICD Code: R13.10 Status: Acute (2) Odynophagia ICD Code: R13.10 Status: Acute (3) Dehydration ICD Code: E86.0 Status: Resolved (4) Hyponatremia ICD Code: E87.1 Status: Acute (5) Multiple myeloma ICD Code: C90.00 Status: Chronic (6) SUSHMA (acute kidney injury) ICD Code: N17.9 Status: Resolved Assessment and Plan Mr. Guerra is a 66 year-old male with multiple myeloma currently being treated by Dr. Olvera with radiation and chemotherapy were multiple myeloma recently diagnosed; last course of chemotherapy was last Wednesday, he also completed radiation for pathologic fracture of T9 vertebra and C6 vertebra. Over the weekend he started to develop O Saumya aphasia with inability to tolerate by mouth. He was seen to the ER by Dr. Olvera for nutrition and fluids due to inability to eat, drink or take medications for 24 hours. 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 Continue PPN. pured diet. ST following. Continue Carafate. Protonix IV. 12/26 Patient still with dysphagia and odynophagia - Will order a barium swallow and consult GI. 12/27 Dysphagia and odinophagia slightly improved. Barium swallow unremarkable. Appreciate Gi recommendations - for EGD with possible dilation in am. Dehydration - improved. Acute kidney injury secondary to dehydration. Resolved after IV fluid hydration. Hyponatremia, 12/26Initially worsening, now trending up Serum osmolality high and urine osmolality in the lower side of normal - likely SIADH from nausea. Sodium improving. Continue to monitor BMP. 12/27 Sodium stable at 133. Continue to monitor bmp. Multiple myeloma with pathologic fracture T9 C6 status post completion of radiation treatment last week. No neurologic signs or symptoms. He is on Decadron high-dose IV as per hematology as part of his chemotherapy treatment. Follow by Oncology/Hematology Herpes zoster On IV acyclovir 10mg/kg q 8 hours (patient unable to take PO) per Oncology/ hematology PRN acetaminophen PRN morphine PRN lidocaine ointment 5% isolation for herpes zoster Vomiting supportive care with PPN, PRN zofran Agree with Reglan 12/27 resolved. Continue antiemetics as above. DVT prophylaxis Lovenox 40 mg subcutaneous every 24 hours - monitor platelets Hypokalemia- Due to poor oral intake K low at 3.4 - replace orally and continue to monitor. GI prophylaxis - on PPI DVT Prophylaxis - on Lovenox which patient has been refusing. Discharge Planning DC pending clinical improvement and EGD. Jj Cross MD Dec 27, 2016 23:18
[2016-12-28] VITALS (7 sets, daily range): BP systolic 112–153; BP diastolic 76–95; PULSE 67–130; RESP 17–24; TEMP 97.2–98.1; O2SAT 95–99
[2016-12-28] MEDS: ACYCLOVIR IV SCH ×4 (00:01→21:00)
[2016-12-28] MEDS: SODIUM CHLORIDE 0.9% IV SCH ×4 (00:01→21:00)
[2016-12-28] MEDS: METOCLOPRAMIDE HCL 10 MG/2 ML VIAL IV PUSH SCH ×3 (05:31→21:36)
[2016-12-28] MEDS: SUCRALFATE 1 GM/10 ML CUP PO SCH ×4 (06:04→21:35)
[2016-12-28 07:13] LABS: AUTOMATED NEUTROPHIL # 5.2 TH/MM3 (1.8-7.7); BASOPHIL % 0.1 % (0.0-2.0); EOSINOPHIL % 0.1 % (0.0-4.0); HEMATOCRIT 28.3 % (39.0-51.0); HEMO FLAGS DIFF FINAL; LYMPH % 4.6 % (9.0-44.0); LYMPHOCYTE # 0.3 TH/MM3 (1.0-4.8); MEAN CORPUSCULAR HEMOGLOBIN 33.5 PG (27.0-34.0); MEAN CORPUSCULAR HGB CONC 34.2 % (32.0-36.0); MONO % 10.8 % (0.0-8.0); NEUT % 84.4 % (16.0-70.0); PLATELET COUNT 100 TH/MM3 (150-450); RED BLOOD COUNT 2.89 MIL/MM3 (4.50-5.90); WHITE BLOOD COUNT 6.1 TH/MM3 (4.0-11.0)
[2016-12-28 07:23] LABS: INTERNATIONAL NORMALIZED RATIO 1.1 RATIO; PROTHROMBIN TIME - PATIENT 11.7 SEC (9.8-11.6)
[2016-12-28 07:43] LABS: ALT (GPT) 16 U/L (12-78); ANION GAP 9 MEQ/L (5-15); AST (GOT) 7 U/L (15-37); BLOOD UREA NITROGEN 27 MG/DL (7-18); CHLORIDE 101 MEQ/L (98-107); MAGNESIUM 1.9 MG/DL (1.5-2.5); POTASSIUM 3.7 MEQ/L (3.5-5.1); SODIUM (NA) 132 MEQ/L (136-145)
[2016-12-28 07:47] LABS: ALKALINE PHOSPHATASE 29 U/L (45-117); GLOMERULAR FILTRATION RATE 70 ML/MIN (>89); TOTAL BILIRUBIN ADULT 0.4 MG/DL (0.2-1.0)
[2016-12-28] MEDS ORDERED: PROPOFOL 200 MG/20 ML AMP IV ONE (11:07)
--- NOTE | 2016-12-28 11:23 | PD.PROCEDR ---
GI Procedure REFERRING PHYSICIAN WOO PROCEDURE PERFORMED EGD with dilation and biopsy INDICATION FOR PROCEDURE Dysphagia PROCEDURE: The procedure, risks and benefits were discussed with Mr. Guerra and informed consent was obtained. Anesthesia sedated him with Diprivan. He was placed in the left lateral decubitus position. EGD: The Pentax videoscope was introduced through the oropharynx and advanced to the second portion of the duodenum under direct visualization. Retroflexion was performed in the stomach. FINDINGS: The esophagus there was proximal esophageal erythema with some friability extending into the pharynx probably radiation injury biopsies were taken from the proximal esophagus and the distal esophagus I also did a dilation with a 16 mm savory dilator postdilatation view was unremarkable and unchanged The stomach this was normal The duodenum this was normal ESTIMATED BLOOD LOSS: None SPECIMENS REMOVED: Esophageal COMPLICATIONS: None IMPRESSION: Radiation pharyngitis with radiation esophagitis PLAN: Await biopsies Recommend PPI Recommend precautions with eating Malik Lopez MD Dec 28, 2016 11:22
[2016-12-28] MEDS: DEXAMETHASONE SOD PHOS 20 MG/5 ML VIAL IV PUSH SCH (12:32)
[2016-12-28] MEDS: SODIUM CHLORIDE 1 GRAM TAB PO SCH (12:32)
[2016-12-28] MEDS: ENOXAPARIN SODIUM 40 MG/0.4 ML SYRINGE SQ SCH (12:33)
[2016-12-28] MEDS: SODIUM CHLORIDE 0.9% FLUSH 5 ML FLUSH FLUSH SCH ×2 (12:34→21:00)
[2016-12-28] MEDS: PANTOPRAZOLE SODIUM 40 MG VIAL IV PUSH SCH ×2 (12:34→21:35)
--- NOTE | 2016-12-28 13:23 | PD.ONC.PN ---
Subjective Subjective Remarks Afebrile overnight. Patient just back from EGD with dilation. He had some chest pain this AM "it felt like I couldn't get enough air." Symptoms lasted for about a minute and then subsided. he attributes the pain to being unable to eat. He is very eager to be able to eat again. Objective Data Date Time Temp Pulse Resp B/P Pulse Ox O2 Delivery O2 Flow Rate FiO2 12/28/16 12:00 97.5 76 18 145/84 98 12/28/16 11:36 82 16 125/72 97 12/28/16 11:28 89 18 112/66 96 12/28/16 11:20 97.5 82 16 104/64 97 12/28/16 09:05 98.0 86 18 112/76 98 12/28/16 08:00 98.0 130 24 112/76 98 12/28/16 04:00 97.2 68 17 143/95 96 12/28/16 00:00 97.3 67 17 153/95 97 12/27/16 20:00 97.7 77 18 134/85 97 12/27/16 16:00 97.4 83 16 148/93 97 12/28/16 12/28/16 12/28/16 07:00 15:00 23:00 Intake Total 680 ml 100 ml Output Total 1300 ml 200 ml Balance -620 ml -100 ml Result Diagram: 12/28/16 0536 12/28/16 0536 Laboratory Results Laboratory Tests Test 12/28/16 05:36 White Blood Count 6.1 TH/MM3 Red Blood Count 2.89 MIL/MM3 Hemoglobin 9.7 GM/DL Hematocrit 28.3 % Mean Corpuscular Volume 98.0 FL Mean Corpuscular Hemoglobin 33.5 PG Mean Corpuscular Hemoglobin 34.2 % Concent Red Cell Distribution Width 15.0 % Platelet Count 100 TH/MM3 Mean Platelet Volume 9.3 FL Neutrophils (%) (Auto) 84.4 % Lymphocytes (%) (Auto) 4.6 % Monocytes (%) (Auto) 10.8 % Eosinophils (%) (Auto) 0.1 % Basophils (%) (Auto) 0.1 % Neutrophils # (Auto) 5.2 TH/MM3 Lymphocytes # (Auto) 0.3 TH/MM3 Monocytes # (Auto) 0.7 TH/MM3 Eosinophils # (Auto) 0.0 TH/MM3 Basophils # (Auto) 0.0 TH/MM3 CBC Comment DIFF FINAL Differential Comment Prothrombin Time 11.7 SEC Prothromb Time International 1.1 RATIO Ratio Sodium Level 132 MEQ/L Potassium Level 3.7 MEQ/L Chloride Level 101 MEQ/L Carbon Dioxide Level 22.0 MEQ/L Anion Gap 9 MEQ/L Blood Urea Nitrogen 27 MG/DL Creatinine 1.05 MG/DL Estimat Glomerular Filtration 70 ML/MIN Rate Random Glucose 94 MG/DL Calcium Level 8.4 MG/DL Phosphorus Level 2.4 MG/DL Magnesium Level 1.9 MG/DL Total Bilirubin 0.4 MG/DL Aspartate Amino Transf 7 U/L (AST/SGOT) Alanine Aminotransferase 16 U/L (ALT/SGPT) Alkaline Phosphatase 29 U/L Total Protein 9.6 GM/DL Albumin 1.8 GM/DL Triglycerides Level 132 MG/DL Administered Medications Medications (Trade) Dose Ordered Sig/Lisa Route PRN Reason Start Time Stop Time Status Last Admin Dose Admin Sucralfate (Carafate Liq) 1 gm ACHS PO 12/21/16 21:00 12/28/16 12:33 Dexamethasone Sodium Phosphate (Decadron Inj) 40 mg DAILY IV PUSH 12/21/16 19:15 12/28/16 12:32 IV Flush (NS Flush) 2 ml BID FLUSH 12/21/16 21:00 12/28/16 12:34 Ondansetron HCl (Zofran Inj) 4 mg Q6H PRN IVP NAUSEA OR VOMITING 12/21/16 19:45 12/26/16 07:53 Enoxaparin Sodium 40 mg 40 mg Q24H SQ 12/22/16 09:00 12/28/16 12:33 Multivitamins 10 ml/Folic Acid 1 mg/Amino Acids/ Electrolytes/ Dextrose 2,010.2 ml @ 83 mls/hr Q24H IV 12/22/16 20:00 12/27/16 19:53 Fat Emulsion Intravenous (Liposyn Iii 20% Inj) 250 ml @ 10 mls/hr Q24H IV 12/22/16 20:00 12/27/16 19:53 Pantoprazole Sodium (Protonix Inj) 40 mg Q12HR IV PUSH 12/23/16 09:00 12/28/16 12:34 Acetaminophen 1000 mg 1,000 mg Q8H PRN IV pain 2/24/17 12:45 12/27/16 19:52 Acyclovir Sodium/ Sodium Chloride (Zovirax Inj/NS Inj) 150 ml @ 150 mls/hr Q8H IV 12/25/16 16:00 12/28/16 12:45 Lidocaine HCl (Xylocaine 5% Oint) 1 applic Q8H PRN TOPICAL pain 12/25/16 13:45 12/27/16 08:41 Metoclopramide HCl (Reglan Inj) 10 mg Q8HR IV PUSH 12/26/16 14:00 12/28/16 12:36 Sodium Chloride (Sodium Chloride) 1 gm DAILY PO 12/28/16 10:00 12/28/16 12:32 Objective Remarks GENERAL: Middle aged male, sitting up in bed in nad. SKIN: Warm and dry. dried up vesicles along left flank back and left abdomen. HEAD: Normocephalic. EYES: No injection or drainage. NECK: Supple, trachea midline. CARDIOVASCULAR: Regular rate and rhythm RESPIRATORY: Breath sounds equal bilaterally. No accessory muscle use. GASTROINTESTINAL: Abdomen soft, non-tender, nondistended. EXTREMITIES: No cyanosis MUSCULOSKELETAL: Adequate muscle tone. NEUROLOGICAL: No obvious focal deficit. Awake, alert, and oriented x3. Assessment/Plan Problem List: (1) Dysphagia Status: Acute Plan: -- s/p EGD 12/28--showed friability in the proximal esophagus extending into the pharynx. dilation performed --TPN + as tolerated pureed diet. --Carafate + Protonix --continue Decadron 40 mg daily for myeloma. (2) Multiple myeloma Status: Chronic Plan: IgG lambda multiple myeloma recently diagnosed, currently on Decadron only while inpatient with radiation esophagitis--asked to bring in Revlimid since he can swallow again. will resume once brought in and patient able to swallow the Revlimid (3) Herpes zoster Status: Acute Plan: --continue IV acyclovir 10mg/kg q 8 hours--will switch to pills when patient feels he can take PO again. 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 h/o pathologic fx T9 and C6 vertebrae--completed XRT 12/18 Crohn disease. Plan 1. continue supportive care 2. pain management 3. advance diet per GI--patient seems much improved after dilation. If he continues to do this well, we may be able to taper the PPN tomorrow and start PO medications and d/c within 2-3 days Attending Statement start eating again. Advance diet to regular. If tolerates well then taper down the PPN. decrease decadron 20 mg IV Resume revlimid. today. OOB to ambulate IV acyclovir can be change to PO if able to swallow. d/w pt , and RN. The exam, history, and the medical decision-making described in the above note were completed with the assistance of the mid-level provider. I reviewed and agree with the findings presented. I attest that I had a [id number] encounter with the patient on the same day, and personally performed and documented my assessment and findings in the medical record. Problem Qualifiers (1) Herpes zoster: Qualified Code: B02.9 - Herpes zoster without complication (2) Vomiting: Qualified Code: R11.2 - Non-intractable vomiting with nausea, unspecified vomiting type Hannah Sandoval Dec 28, 2016 13:23 Jyothi Olvera MD Dec 28, 2016 19:04
--- NOTE | 2016-12-28 13:37 | EKG ---
Date Performed: 12/28/2016 Time Performed: 08:10:05 PTAGE: 66 years EKG: Sinus rhythm NORMAL ECG Compared to prior tracing no significant change PREVIOUS TRACING : 11/30/2016 21.44 DOCTOR: Elias Nguyễn Interpretating Date/Time 12/28/2016 13:36:52
--- NOTE | 2016-12-28 16:08 | HHI.PR ---
Subjective Remarks sp EGD w dilation states could swallow better denies cp/sob passing gas stable vital signs As per our report the patient had an episode of tachycardia with diaphoresis and chest pain which subsided. Objective Vitals Vital Signs Date Time Temp Pulse Resp B/P Pulse Ox O2 Delivery O2 Flow Rate FiO2 12/28/16 12:00 97.5 76 18 145/84 98 12/28/16 11:36 82 16 125/72 97 12/28/16 11:28 89 18 112/66 96 12/28/16 11:20 97.5 82 16 104/64 97 12/28/16 09:05 98.0 86 18 112/76 98 12/28/16 08:00 98.0 130 24 112/76 98 12/28/16 04:00 97.2 68 17 143/95 96 12/28/16 00:00 97.3 67 17 153/95 97 12/27/16 20:00 97.7 77 18 134/85 97 12/27/16 16:00 97.4 83 16 148/93 97 I/O 12/27/16 12/27/16 12/27/16 12/28/16 12/28/16 12/28/16 07:00 15:00 23:00 07:00 15:00 23:00 Intake Total 984 ml 2759 ml 680 ml 100 ml Output Total 1150 ml 800 ml 950 ml 1300 ml 200 ml Balance -166 ml -800 ml 1809 ml -620 ml -100 ml Intake Oral 240 ml 480 ml IV Total 500 ml TPN/PPN 664 ml 1581 ml 600 ml Lipid 80 ml 198 ml 80 ml Other 100 ml Output Urine Total 1150 ml 800 ml 950 ml 1300 ml 200 ml Result Diagram: 12/28/16 0536 12/28/16 0536 Imaging Last Impressions Barium Swallow X-Ray 12/27/16 0000 Signed Impressions: Service Date/Time: Tuesday, December 27, 2016 09:07 - CONCLUSION: Barium swallow within normal limits. No obstruction or perceptible mucosal abnormalities are demonstrated. Loss of height of the C6 vertebral body again seen. Jim Vega MD Brain MRI 12/23/16 0000 Signed Impressions: Service Date/Time: Friday, December 23, 2016 15:23 - CONCLUSION: Normal examination. Maximo Leblanc MD Objective Remarks GENERAL: thin frail appearing 66 year old male SKIN: exquisitely tender to light touch palpation of left abdomen and left back ~T9-T10 dermatome. there are some red papules on the left back forming HEAD: Normocephalic. EYES: No scleral icterus. No injection or drainage. NECK: Supple, trachea midline. No JVD or lymphadenopathy. CARDIOVASCULAR: Regular rate and rhythm without murmurs, gallops, or rubs. RESPIRATORY: Breath sounds equal bilaterally. No accessory muscle use. GASTROINTESTINAL: Abdomen soft, non-tender, nondistended. EXTREMITIES: No cyanosis, or edema. NEUROLOGICAL: Awake, alert, and oriented x 3. Non-focal. Procedures none Medications and IVs Current Medications Medications (Trade) Dose Ordered Sig/Lisa Route Start Time Stop Time Status Last Admin (Carafate Liq) 1 gm ACHS PO 12/21/16 21:00 12/28/16 12:33 (Decadron Inj) 40 mg DAILY IV PUSH 12/21/16 19:15 12/28/16 12:32 (NS Flush) 2 ml UNSCH PRN FLUSH 12/21/16 19:45 (NS Flush) 2 ml BID FLUSH 12/21/16 21:00 12/28/16 12:34 (Zofran Inj) 4 mg Q6H PRN IVP 12/21/16 19:45 12/26/16 07:53 (Lovenox Inj) 40 mg Q24H SQ 12/22/16 09:00 12/28/16 12:33 (Narcan Inj) 0.4 mg UNSCH PRN IV 12/21/16 19:45 Morphine Sulfate 2 mg 2 mg Q3H PRN IV PUSH 12/21/16 20:00 Multivitamins 10 ml/Folic Acid 1 mg/Amino Acids/ Electrolytes/ Dextrose 2,010.2 ml @ 83 mls/hr Q24H IV 12/22/16 20:00 12/27/16 19:53 (Liposyn Iii 20% Inj) 250 ml @ 10 mls/hr Q24H IV 12/22/16 20:00 12/27/16 19:53 (Percocet 5-325 Mg) 1 tab Q6H PRN PO 12/22/16 12:45 (Percocet 10-325 Mg) 1 tab Q6H PRN PO 12/22/16 12:45 (Narcan Inj) 0.4 mg UNSCH PRN IV 12/22/16 12:45 (Motrin) 600 mg Q8HR PRN PO 12/22/16 13:45 Hold (Protonix Inj) 40 mg Q12HR IV PUSH 12/23/16 09:00 12/28/16 12:34 Acetaminophen 1000 mg 1,000 mg Q8H PRN IV 12/25/16 12:45 12/27/16 19:52 (Zovirax Inj/NS Inj) 150 ml @ 150 mls/hr Q8H IV 12/25/16 16:00 12/28/16 12:45 (Xylocaine 5% Oint) 1 applic Q8H PRN TOPICAL 12/25/16 13:45 12/27/16 08:41 (Reglan Inj) 10 mg Q8HR IV PUSH 12/26/16 14:00 12/28/16 12:36 (Sodium Chloride) 1 gm DAILY PO 12/28/16 10:00 12/28/16 12:32 Urinary Catheter: No Vascular Central Line Catheter: No A/P Problem List: (1) Dysphagia ICD Code: R13.10 Status: Acute (2) Odynophagia ICD Code: R13.10 Status: Acute (3) Dehydration ICD Code: E86.0 Status: Resolved (4) Hyponatremia ICD Code: E87.1 Status: Acute (5) Multiple myeloma ICD Code: C90.00 Status: Chronic (6) SUSHMA (acute kidney injury) ICD Code: N17.9 Status: Resolved (7) Chest pain ICD Code: R07.9 Status: Acute Plan: Patient had an episode of chest pain associated with diaphoresis which subsided. Symptoms resolved spontaneously. EKG ordered stat and showed normal sinus rhythm with a ventricular rate of 60 bpm. T-wave inversions in lead 3, however noticed the changes suggestive of active ischemia. Troponin negative. Will recheck troponins serially. Place on telemetry. Assessment and Plan Mr. Guerra is a 66 year-old male with multiple myeloma currently being treated by Dr. Olvera with radiation and chemotherapy were multiple myeloma recently diagnosed; last course of chemotherapy was last Wednesday, he also completed radiation for pathologic fracture of T9 vertebra and C6 vertebra. Over the weekend he started to develop O Saumya aphasia with inability to tolerate by mouth. He was seen to the ER by Dr. Olvera for nutrition and fluids due to inability to eat, drink or take medications for 24 hours. 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 Continue PPN. pured diet. ST following. Continue Carafate. Protonix IV. 12/26 Patient still with dysphagia and odynophagia - Will order a barium swallow and consult GI. 12/27 Dysphagia and odinophagia slightly improved. Barium swallow unremarkable. Appreciate Gi recommendations - for EGD with possible dilation in am. 12/28 status post EGD with dilation same. Follow-up GI recommendations. 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 Continue PPI. Dehydration - Resolved after IV fluid administration Acute kidney injury secondary to dehydration. Resolved after IV fluid hydration. Hyponatremia, 12/26Initially worsening, now trending up Serum osmolality high and urine osmolality in the lower side of normal - likely SIADH from nausea. Sodium improving. Continue to monitor BMP. 12/27 Sodium stable at 133. Continue to monitor bmp. 12/28 sodium trending down - will place on fluid restriction and start salt tablets. monitor bmp. Multiple myeloma with pathologic fracture T9 C6 status post completion of radiation treatment last week. No neurologic signs or symptoms. He is on Decadron high-dose IV as per hematology as part of his chemotherapy treatment. Follow by Oncology/Hematology Herpes zoster On IV acyclovir 10mg/kg q 8 hours (patient unable to take PO) per Oncology/ hematology PRN acetaminophen PRN morphine PRN lidocaine ointment 5% isolation for herpes zoster Vomiting supportive care with PPN, PRN zofran Agree with Reglan 12/27 resolved. Continue antiemetics as above. DVT prophylaxis Lovenox 40 mg subcutaneous every 24 hours - monitor platelets Hypokalemia- Due to poor oral intake K low at 3.4 - replace orally and continue to monitor. GI prophylaxis - on PPI DVT Prophylaxis - on Lovenox which patient has been refusing. Discharge Planning DC pending clinical improvement and EGD. Problem Qualifiers (1) Chest pain: Qualified Code: R07.9 - Chest pain, unspecified type Jj Cross MD Dec 28, 2016 16:08
[2016-12-28] MEDS: FAT EMULSION 20% INJ 250 ML (@10 mls/hr) IV SCH (21:35)
[2016-12-28] MEDS: CLINIMIX E 4.25/5 2000 mL- >42 mls/hr IV SCH ×3 (21:36)
[2016-12-29] VITALS: BP 143/96; PULSE 97; RESP 18; TEMP 96.8; O2SAT 100
[2016-12-29 04:00] VITALS: BP 133/87; PULSE 73; RESP 18; TEMP 97.5; O2SAT 95
[2016-12-29] MEDS: SODIUM CHLORIDE 0.9% IV SCH (05:00)
[2016-12-29] MEDS: ACYCLOVIR IV SCH (05:00)
[2016-12-29 07:38] LABS: HEMATOCRIT 28.8 % (39.0-51.0); MEAN CELL VOLUME 98.1 FL (80.0-100.0); MEAN CORPUSCULAR HEMOGLOBIN 33.7 PG (27.0-34.0); MEAN CORPUSCULAR HGB CONC 34.4 % (32.0-36.0); PLATELET COUNT 122 TH/MM3 (150-450); RED BLOOD COUNT 2.93 MIL/MM3 (4.50-5.90); RED CELL DISTRIBUTION WIDTH 14.5 % (11.6-17.2); REVIEW FLAG FINAL; WHITE BLOOD COUNT 5.3 TH/MM3 (4.0-11.0)
[2016-12-29] MEDS: SUCRALFATE 1 GM/10 ML CUP PO SCH ×4 (07:41→20:27)
[2016-12-29] MEDS: METOCLOPRAMIDE HCL 10 MG/2 ML VIAL IV PUSH SCH (07:41)
[2016-12-29 07:43] LABS: BICARBONATE 22.9 MEQ/L (21.0-32.0); POTASSIUM 3.5 MEQ/L (3.5-5.1)
[2016-12-29 08:00] VITALS: BP 107/82; PULSE 106; RESP 18; TEMP 97.5; O2SAT 97
[2016-12-29] MEDS: REVLIMID 25 MG PO SCH (08:19)
[2016-12-29] MEDS: SODIUM CHLORIDE 1 GRAM TAB PO SCH ×3 (08:19→16:52)
[2016-12-29] MEDS: PANTOPRAZOLE SODIUM 40 MG VIAL IV PUSH SCH (08:19)
[2016-12-29] MEDS: ENOXAPARIN SODIUM 40 MG/0.4 ML SYRINGE SQ SCH (08:20)
[2016-12-29] MEDS: SODIUM CHLORIDE 0.9% FLUSH 5 ML FLUSH FLUSH SCH ×2 (08:20→20:28)
[2016-12-29] MEDS ORDERED: DEXAMETHASONE SOD PHOS 20 MG/5 ML VIAL IV PUSH SCH (09:00)
--- NOTE | 2016-12-29 10:41 | PD.ONC.PN ---
Subjective Subjective Remarks Afebrile overnight. Patient resting comfortably. His pain is improved in his left flank at Shingles site. He has had no further chest pain. He is eating well. He ate breakfast and had BM this AM. He is overall feeling much improved and in good spirits. Objective Data Date Time Temp Pulse Resp B/P Pulse Ox O2 Delivery O2 Flow Rate FiO2 12/29/16 08:00 97.5 106 18 107/82 97 12/29/16 04:00 97.5 73 18 133/87 95 12/29/16 00:00 96.8 97 18 143/96 100 12/28/16 20:00 98.0 78 18 131/81 95 12/28/16 16:00 98.1 85 18 136/90 99 12/28/16 12:00 97.5 76 18 145/84 98 12/28/16 11:36 82 16 125/72 97 12/28/16 11:28 89 18 112/66 96 12/28/16 11:20 97.5 82 16 104/64 97 Result Diagram: 12/29/16 0629 12/29/16 0629 Laboratory Results Laboratory Tests Test 12/28/16 12/28/16 12/29/16 13:25 19:24 06:29 Troponin I 0.03 NG/ML 0.03 NG/ML Total Creatine Kinase 24 U/L White Blood Count 5.3 TH/MM3 Red Blood Count 2.93 MIL/MM3 Hemoglobin 9.9 GM/DL Hematocrit 28.8 % Mean Corpuscular Volume 98.1 FL Mean Corpuscular Hemoglobin 33.7 PG Mean Corpuscular Hemoglobin 34.4 % Concent Red Cell Distribution Width 14.5 % Platelet Count 122 TH/MM3 Mean Platelet Volume 8.9 FL Sodium Level 130 MEQ/L Potassium Level 3.5 MEQ/L Chloride Level 99 MEQ/L Carbon Dioxide Level 22.9 MEQ/L Anion Gap 8 MEQ/L Blood Urea Nitrogen 24 MG/DL Creatinine 1.17 MG/DL Estimat Glomerular Filtration 62 ML/MIN Rate Random Glucose 106 MG/DL Calcium Level 8.0 MG/DL Administered Medications Medications (Trade) Dose Ordered Sig/Lisa Route PRN Reason Start Time Stop Time Status Last Admin Dose Admin Sucralfate (Carafate Liq) 1 gm ACHS PO 12/21/16 21:00 12/29/16 07:41 IV Flush (NS Flush) 2 ml BID FLUSH 12/21/16 21:00 12/29/16 08:20 Ondansetron HCl (Zofran Inj) 4 mg Q6H PRN IVP NAUSEA OR VOMITING 12/21/16 19:45 12/26/16 07:53 Enoxaparin Sodium 40 mg 40 mg Q24H SQ 12/22/16 09:00 12/29/16 08:20 Multivitamins 10 ml/Folic Acid 1 mg/Amino Acids/ Electrolytes/ Dextrose 2,010.2 ml @ 83 mls/hr Q24H IV 12/22/16 20:00 12/28/16 21:36 Fat Emulsion Intravenous (Liposyn Iii 20% Inj) 250 ml @ 10 mls/hr Q24H IV 12/22/16 20:00 12/28/16 21:35 Pantoprazole Sodium (Protonix Inj) 40 mg Q12HR IV PUSH 12/23/16 09:00 12/29/16 08:19 Acetaminophen (Ofirmev Inj) 1,000 mg Q8H PRN IV pain 12/25/16 12:45 12/27/16 19:52 Lidocaine HCl (Xylocaine 5% Oint) 1 applic Q8H PRN TOPICAL pain 12/25/16 13:45 12/27/16 08:41 Metoclopramide HCl 10 mg 10 mg Q8HR IV PUSH 12/26/16 14:00 12/29/16 07:41 Acyclovir Sodium/ Sodium Chloride (Zovirax Inj/NS Inj) 150 ml @ 150 mls/hr Q8H IV 12/28/16 21:00 12/29/16 05:00 Dexamethasone Sodium Phosphate (Decadron Inj) 20 mg DAILY IV PUSH 12/29/16 09:00 12/29/16 08:19 Patient Own Medication PT OWN MED: Revlimid (LENALIDOMI... DAILY PO 12/29/16 09:00 12/29/16 08:19 Objective Remarks GENERAL: Pleasant middle aged male, sitting up in chair next to bed SKIN: Warm and dry. resolving herpes zoster rash, left flank, back and abdomen a few dried 3mm papules remain, no vesicles. HEAD: Normocephalic. EYES: No injection or drainage. NECK: Supple, trachea midline. CARDIOVASCULAR: Regular rate and rhythm RESPIRATORY: Breath sounds equal bilaterally. No accessory muscle use. GASTROINTESTINAL: Abdomen soft, non-tender, nondistended. EXTREMITIES: No cyanosis NEUROLOGICAL: No obvious focal deficit. Awake, alert, and oriented x3. Assessment/Plan Problem List: (1) Dysphagia Status: Acute Plan: 12/29: improved after dilation yesterday. will reduce PPN to 42cc/hr. will change all medications to PO -- s/p EGD 12/28--showed friability in the proximal esophagus extending into the pharynx. dilation performed --TPN + as tolerated pureed diet. 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 h/o pathologic fx T9 and C6 vertebrae--completed XRT 12/18 Crohn disease. Attending Statement start eating again. Able to swallow pills. Taper down PPN decrease decadron to 20 mg daily change IV acyclovir to PO tomorrow. home soon. The exam, history, and the medical decision-making described in the above note were completed with the assistance of the mid-level provider. I reviewed and agree with the findings presented. I attest that I had a [id number] encounter with the patient on the same day, and personally performed and documented my assessment and findings in the medical record. Problem Qualifiers (1) Herpes zoster: Qualified Code: B02.9 - Herpes zoster without complication (2) Vomiting: Qualified Code: R11.2 - Non-intractable vomiting with nausea, unspecified vomiting type Hannah Sandoval Dec 29, 2016 10:41 Jyothi Olvera MD Dec 29, 2016 19:59
[2016-12-29] MEDS ORDERED: ACETAMINOPHEN 500 MG CPLT PO PRN (11:30)
[2016-12-29] MEDS ORDERED: ONDANSETRON ODT 4 MG TAB PO PRN (11:30)
[2016-12-29] MEDS ORDERED: METOCLOPRAMIDE HCL 10 MG/2 ML VIAL IV PUSH PRN (11:30)
--- NOTE | 2016-12-29 11:43 | HHI.PR ---
Subjective Remarks Patient states that now he is able to eat better denies dysphagia or odynophagia denies cp/son stable vital signs sodium trending down Objective Vitals Vital Signs Date Time Temp Pulse Resp B/P Pulse Ox O2 Delivery O2 Flow Rate FiO2 12/29/16 08:00 97.5 106 18 107/82 97 12/29/16 04:00 97.5 73 18 133/87 95 12/29/16 00:00 96.8 97 18 143/96 100 12/28/16 20:00 98.0 78 18 131/81 95 12/28/16 16:00 98.1 85 18 136/90 99 12/28/16 12:00 97.5 76 18 145/84 98 I/O 12/28/16 12/28/16 12/28/16 12/29/16 12/29/16 12/29/16 07:00 15:00 23:00 07:00 15:00 23:00 Intake Total 680 ml 820 ml 480 ml Output Total 1300 ml 1700 ml 1000 ml Balance -620 ml -880 ml -520 ml Intake Oral 720 ml 480 ml TPN/PPN 600 ml Lipid 80 ml Other 100 ml Output Urine Total 1300 ml 1700 ml 1000 ml # Bowel Movements 0 Result Diagram: 12/29/16 0629 12/29/16 0629 Imaging Last Impressions Barium Swallow X-Ray 12/27/16 0000 Signed Impressions: Service Date/Time: Tuesday, December 27, 2016 09:07 - CONCLUSION: Barium swallow within normal limits. No obstruction or perceptible mucosal abnormalities are demonstrated. Loss of height of the C6 vertebral body again seen. Jim Vega MD Brain MRI 12/23/16 0000 Signed Impressions: Service Date/Time: Friday, December 23, 2016 15:23 - CONCLUSION: Normal examination. Maximo Leblanc MD Objective Remarks GENERAL: thin frail appearing 66 year old male SKIN: exquisitely tender to light touch palpation of left abdomen and left back ~T9-T10 dermatome. there are some red papules on the left back forming HEAD: Normocephalic. EYES: No scleral icterus. No injection or drainage. NECK: Supple, trachea midline. No JVD or lymphadenopathy. CARDIOVASCULAR: Regular rate and rhythm without murmurs, gallops, or rubs. RESPIRATORY: Breath sounds equal bilaterally. No accessory muscle use. GASTROINTESTINAL: Abdomen soft, non-tender, nondistended. EXTREMITIES: No cyanosis, or edema. NEUROLOGICAL: Awake, alert, and oriented x 3. Non-focal. Procedures none Medications and IVs Current Medications Medications (Trade) Dose Ordered Sig/Lisa Route Start Time Stop Time Status Last Admin (Carafate Liq) 1 gm ACHS PO 12/21/16 21:00 12/29/16 07:41 (NS Flush) 2 ml UNSCH PRN FLUSH 12/21/16 19:45 (NS Flush) 2 ml BID FLUSH 12/21/16 21:00 12/29/16 08:20 (Lovenox Inj) 40 mg Q24H SQ 12/22/16 09:00 12/29/16 08:20 (Narcan Inj) 0.4 mg UNSCH PRN IV 12/21/16 19:45 Morphine Sulfate 2 mg 2 mg Q3H PRN IV PUSH 12/21/16 20:00 (Liposyn Iii 20% Inj) 250 ml @ 10 mls/hr Q24H IV 12/22/16 20:00 12/28/16 21:35 (Percocet 5-325 Mg) 1 tab Q6H PRN PO 12/22/16 12:45 (Percocet 10-325 Mg) 1 tab Q6H PRN PO 12/22/16 12:45 (Narcan Inj) 0.4 mg UNSCH PRN IV 12/22/16 12:45 (Motrin) 600 mg Q8HR PRN PO 12/22/16 13:45 (Xylocaine 5% Oint) 1 applic Q8H PRN TOPICAL 12/25/16 13:45 12/27/16 08:41 Patient Own Medication PT OWN MED: Revlimid (LENALIDOMI... DAILY PO 12/29/16 09:00 12/29/16 08:19 (Mvi-12 Inj/ Folvite Inj/ Clinimix E 4.25/5) 1,010.2 ml @ 42 mls/hr Q24H IV 12/29/16 20:00 (Reglan Inj) 10 mg Q8HR PRN IV PUSH 12/29/16 11:30 (Protonix) 40 mg DAILY PO 12/30/16 09:00 (Zofran Odt) 4 mg Q4H PRN PO 12/29/16 11:30 UNV (Decadron) 20 mg DAILY PO 12/30/16 09:00 (Tylenol) 1,000 mg Q6H PRN PO 12/29/16 11:30 UNV Urinary Catheter: No Vascular Central Line Catheter: No A/P Problem List: (1) Dysphagia ICD Code: R13.10 Status: Acute (2) Odynophagia ICD Code: R13.10 Status: Acute (3) Dehydration ICD Code: E86.0 Status: Resolved (4) Hyponatremia ICD Code: E87.1 Status: Acute (5) Multiple myeloma ICD Code: C90.00 Status: Chronic (6) SUSHMA (acute kidney injury) ICD Code: N17.9 Status: Resolved (7) Chest pain ICD Code: R07.9 Status: Acute Assessment and Plan Mr. Guerra is a 66 year-old male with multiple myeloma currently being treated by Dr. Olvera with radiation and chemotherapy were multiple myeloma recently diagnosed; last course of chemotherapy was last Wednesday, he also completed radiation for pathologic fracture of T9 vertebra and C6 vertebra. Over the weekend he started to develop O Saumya aphasia with inability to tolerate by mouth. He was seen to the ER by Dr. Olvera for nutrition and fluids due to inability to eat, drink or take medications for 24 hours. 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 Continue PPN. pured diet. ST following. Continue Carafate. Protonix IV. 12/26 Patient still with dysphagia and odynophagia - Will order a barium swallow and consult GI. 12/27 Dysphagia and odinophagia slightly improved. Barium swallow unremarkable. Appreciate Gi recommendations - for EGD with possible dilation in am. 12/28 status post EGD with dilation same. Follow-up GI recommendations. 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 Continue PPI. 12/29 Patient feels better and eating better. Plan is to decrease TPN to try to get him off. Dehydration - Resolved after IV fluid administration Acute kidney injury secondary to dehydration. Resolved after IV fluid hydration. Hyponatremia, 12/26Initially worsening, now trending up Serum osmolality high and urine osmolality in the lower side of normal - likely SIADH from nausea. Sodium improving. Continue to monitor BMP. 12/27 Sodium stable at 133. Continue to monitor bmp. 12/28 sodium trending down - will place on fluid restriction and start salt tablets. monitor bmp 12/29 Sodium trending down. Patient looks euvolemic. Will continue fluid restriction and increase salt tablets to TID. Recheck urine and serum osmolality. Multiple myeloma with pathologic fracture T9 C6 status post completion of radiation treatment last week. No neurologic signs or symptoms. He is on Decadron high-dose IV as per hematology as part of his chemotherapy treatment. Follow by Oncology/Hematology Herpes zoster On IV acyclovir 10mg/kg q 8 hours (patient unable to take PO) per Oncology/ hematology PRN acetaminophen PRN morphine PRN lidocaine ointment 5% isolation for herpes zoster Vomiting supportive care with PPN, PRN zofran Agree with Reglan 12/27 resolved. Continue antiemetics as above. DVT prophylaxis Lovenox 40 mg subcutaneous every 24 hours - monitor platelets Hypokalemia- Due to poor oral intake K low at 3.4 - replace orally and continue to monitor. 12/29 Resolved. Continue to monitor bmp. GI prophylaxis - on PPI DVT Prophylaxis - on Lovenox which patient has been refusing. Discharge Planning Continue to monitor in the oncology floor. Problem Qualifiers (1) Chest pain: Qualified Code: R07.9 - Chest pain, unspecified type Jj Cross MD Dec 29, 2016 11:43
[2016-12-29] MEDS: ACYCLOVIR 800 MG TAB PO SCH ×3 (12:41→20:27)
[2016-12-29] MEDS ORDERED: SODIUM CHLORIDE 1 GRAM TAB PO SCH (13:00)
[2016-12-29 14:30] VITALS: BP 127/78; PULSE 84; RESP 20; TEMP 97.7; O2SAT 98
[2016-12-29 16:00] VITALS: BP 126/91; PULSE 86; RESP 16; TEMP 98; O2SAT 98
[2016-12-29] MEDS ORDERED: CLINIMIX E 4.25/5 1000 mL- </= 42 mls/hr IV SCH ×3 (20:00)
[2016-12-29 20:30] VITALS: BP 127/80; PULSE 85; RESP 16; TEMP 97.7; O2SAT 97
--- NOTE | 2016-12-29 20:35 | HHI.GIFU ---
Subjective Remarks Patient comfortable in chair has been able to swallow well he denies any odynophagia or dysphagia at this point Objective Vitals I&O Vital Signs Date Time Temp Pulse Resp B/P Pulse Ox O2 Delivery O2 Flow Rate FiO2 12/29/16 16:00 98.0 86 16 126/91 98 12/29/16 14:30 97.7 84 20 127/78 98 12/29/16 08:00 97.5 106 18 107/82 97 12/29/16 04:00 97.5 73 18 133/87 95 12/29/16 00:00 96.8 97 18 143/96 100 I/O 12/28/16 12/28/16 12/28/16 12/29/16 12/29/16 12/29/16 07:00 15:00 23:00 07:00 15:00 23:00 Intake Total 680 ml 820 ml 480 ml 600 ml Output Total 1300 ml 1700 ml 1000 ml 300 ml Balance -620 ml -880 ml -520 ml 300 ml Intake Oral 720 ml 480 ml 600 ml TPN/PPN 600 ml Lipid 80 ml Other 100 ml Output Urine Total 1300 ml 1700 ml 1000 ml 300 ml # Bowel Movements 0 2 Laboratory Laboratory Tests Test 12/29/16 06:29 White Blood Count 5.3 Red Blood Count 2.93 Hemoglobin 9.9 Hematocrit 28.8 Mean Corpuscular Volume 98.1 Mean Corpuscular Hemoglobin 33.7 Mean Corpuscular Hemoglobin 34.4 Concent Red Cell Distribution Width 14.5 Platelet Count 122 Mean Platelet Volume 8.9 Sodium Level 130 Potassium Level 3.5 Chloride Level 99 Carbon Dioxide Level 22.9 Anion Gap 8 Blood Urea Nitrogen 24 Creatinine 1.17 Estimat Glomerular Filtration 62 Rate Random Glucose 106 Serum Osmolality 287 Calcium Level 8.0 Physical Exam HEENT: normocephalic; atraumatic; no jaundice. Throat is clear. NECK: Neck is supple. CHEST: Chest is clear to auscultation and percussion. CARDIAC: Regular rate and rhythm with no murmur gallop or rubs. ABDOMEN: Soft, nondistended, nontender; no hepatosplenomegaly; bowel sounds are present in all four quadrants. EXTREMITIES: No clubbing, cyanosis, or edema. SKIN: Normal; no rash; no jaundice. STRETCHER AND DRIER: No focal deficits; alert and oriented times three. Assessment and Plan Plan dysphagia, related to radiation esophagitis and pharyngitis, patient doing very well at this point Continue with current supportive care We will sign off Malik Lopez MD Dec 29, 2016 20:35
[2016-12-30] VITALS: BP 135/85; PULSE 75; RESP 18; TEMP 97.7; O2SAT 97
[2016-12-30 04:00] VITALS: BP 128/86; PULSE 77; RESP 18; TEMP 96.9; O2SAT 97
[2016-12-30] MEDS: ACYCLOVIR 800 MG TAB PO SCH ×2 (07:42→08:49)
[2016-12-30] MEDS: SUCRALFATE 1 GM/10 ML CUP PO SCH ×2 (07:42→12:04)
[2016-12-30 08:00] VITALS: BP 119/77; PULSE 105; RESP 18; TEMP 97.9; O2SAT 97
[2016-12-30 08:02] LABS: AUTOMATED NEUTROPHIL # 3.8 TH/MM3 (1.8-7.7); BASOPHIL % 0.1 % (0.0-2.0); EOSINOPHIL % 0.7 % (0.0-4.0); HEMATOCRIT 27.1 % (39.0-51.0); HEMO FLAGS DIFF FINAL; LYMPHOCYTE # 0.4 TH/MM3 (1.0-4.8); MEAN CELL VOLUME 98.4 FL (80.0-100.0); MEAN CORPUSCULAR HEMOGLOBIN 33.7 PG (27.0-34.0); MEAN CORPUSCULAR HGB CONC 34.3 % (32.0-36.0); MONO % 9.5 % (0.0-8.0); NEUT % 80.7 % (16.0-70.0); PLATELET COUNT 127 TH/MM3 (150-450); RED BLOOD COUNT 2.75 MIL/MM3 (4.50-5.90); WHITE BLOOD COUNT 4.7 TH/MM3 (4.0-11.0)
[2016-12-30 08:21] LABS: ALT (GPT) 20 U/L (12-78); ANION GAP 10 MEQ/L (5-15); AST (GOT) 10 U/L (15-37); BICARBONATE 22.6 MEQ/L (21.0-32.0); BLOOD UREA NITROGEN 23 MG/DL (7-18); CHLORIDE 101 MEQ/L (98-107); GLOMERULAR FILTRATION RATE 64 ML/MIN (>89); POTASSIUM 3.6 MEQ/L (3.5-5.1); SODIUM (NA) 134 MEQ/L (136-145)
[2016-12-30 08:23] LABS: ALKALINE PHOSPHATASE 31 U/L (45-117); TOTAL BILIRUBIN ADULT 0.7 MG/DL (0.2-1.0)
[2016-12-30] MEDS: ENOXAPARIN SODIUM 40 MG/0.4 ML SYRINGE SQ SCH (08:49)
[2016-12-30] MEDS: SODIUM CHLORIDE 1 GRAM TAB PO SCH ×2 (08:49→12:04)
[2016-12-30] MEDS: SODIUM CHLORIDE 0.9% FLUSH 5 ML FLUSH FLUSH SCH (08:50)
[2016-12-30] MEDS: REVLIMID 25 MG PO SCH (08:50)
[2016-12-30] MEDS ORDERED: PANTOPRAZOLE SOD 40 MG DELAYED RELEASE TAB PO SCH (09:00)
[2016-12-30] MEDS ORDERED: DEXAMETHASONE 4 MG TAB PO SCH (09:00)
[2016-12-30 12:00] VITALS: BP_SYST 122; BP_SYST 164; BP_DIAS 74; BP_DIAS 93; PULSE 58; PULSE 91; RESP 16; RESP 18; TEMP 97; O2SAT 100; O2SAT 97
[2016-12-30] MEDS ORDERED: SUCR1S PO (13:35)
[2016-12-30] MEDS ORDERED: SODI1TAB PO (13:35)
[2016-12-30] MEDS ORDERED: ONDA4TAB7 PO (13:35)
[2016-12-30] MEDS ORDERED: PANT40TA3 PO (13:35)
--- NOTE | 2016-12-30 13:36 | HHI.DCPOC ---
Discharge Care Plan Diagnosis: (1) Odynophagia (2) Dysphagia (3) Hyponatremia (4) Renal insufficiency (5) Multiple myeloma (6) Headache (7) Herpes zoster (8) Vomiting (9) Thrombocytopenia (10) Dehydration (11) SUSHMA (acute kidney injury) (12) Chest pain Your Health Problems Are: Inflammation Difficulty to Swallow Goals to Promote Your Health * To prevent worsening of your condition and complications * To maintain your health at the optimal level Directions to Meet Your Goals Take your medications as prescribed Follow your dietary instruction Follow activity as directed Keep your appointments as scheduled Take your immunizations and boosters as scheduled If your symptoms worsen call your PCP, if no PCP go to Urgent Care Center or Emergency Room Smoking is Dangerous to Your Health. Avoid second hand smoke Call the 24-hour hour crisis hotline for domestic abuse at Jj Cross MD Dec 30, 2016 13:36
[2016-12-30] MEDS ORDERED: ACYC800T PO (13:38)
[2016-12-30] MEDS ORDERED: DEXA4TAB PO (13:38)
--- NOTE | 2016-12-30 13:40 | PD.ONC.PN ---
Subjective Subjective Remarks Afebrile overnight. Patient resting comfortably without complaint. He is eager to go home today. Pain significantly improved around shingles rash. Ate good breakfast and and good lunch. Objective Data Date Time Temp Pulse Resp B/P Pulse Ox O2 Delivery O2 Flow Rate FiO2 12/30/16 12:00 97.0 91 16 122/93 97 12/30/16 08:00 97.9 105 18 119/77 97 12/30/16 04:00 96.9 77 18 128/86 97 12/30/16 00:00 97.7 75 18 135/85 97 12/29/16 20:30 97.7 85 16 127/80 97 12/29/16 16:00 98.0 86 16 126/91 98 12/29/16 14:30 97.7 84 20 127/78 98 Result Diagram: 12/30/16 0704 12/30/16 0704 Laboratory Results Laboratory Tests Test 12/30/16 07:04 White Blood Count 4.7 TH/MM3 Red Blood Count 2.75 MIL/MM3 Hemoglobin 9.3 GM/DL Hematocrit 27.1 % Mean Corpuscular Volume 98.4 FL Mean Corpuscular Hemoglobin 33.7 PG Mean Corpuscular Hemoglobin 34.3 % Concent Red Cell Distribution Width 15.0 % Platelet Count 127 TH/MM3 Mean Platelet Volume 8.6 FL Neutrophils (%) (Auto) 80.7 % Lymphocytes (%) (Auto) 9.0 % Monocytes (%) (Auto) 9.5 % Eosinophils (%) (Auto) 0.7 % Basophils (%) (Auto) 0.1 % Neutrophils # (Auto) 3.8 TH/MM3 Lymphocytes # (Auto) 0.4 TH/MM3 Monocytes # (Auto) 0.4 TH/MM3 Eosinophils # (Auto) 0.0 TH/MM3 Basophils # (Auto) 0.0 TH/MM3 CBC Comment DIFF FINAL Differential Comment Sodium Level 134 MEQ/L Potassium Level 3.6 MEQ/L Chloride Level 101 MEQ/L Carbon Dioxide Level 22.6 MEQ/L Anion Gap 10 MEQ/L Blood Urea Nitrogen 23 MG/DL Creatinine 1.14 MG/DL Estimat Glomerular Filtration 64 ML/MIN Rate Random Glucose 71 MG/DL Calcium Level 8.2 MG/DL Total Bilirubin 0.7 MG/DL Aspartate Amino Transf 10 U/L (AST/SGOT) Alanine Aminotransferase 20 U/L (ALT/SGPT) Alkaline Phosphatase 31 U/L Total Protein 9.6 GM/DL Albumin 2.0 GM/DL Administered Medications Medications (Trade) Dose Ordered Sig/Lisa Route PRN Reason Start Time Stop Time Status Last Admin Dose Admin Sucralfate (Carafate Liq) 1 gm ACHS PO 12/21/16 21:00 12/30/16 12:04 IV Flush (NS Flush) 2 ml BID FLUSH 12/21/16 21:00 12/30/16 08:50 Enoxaparin Sodium (Lovenox Inj) 40 mg Q24H SQ 12/22/16 09:00 12/30/16 08:49 Lidocaine HCl (Xylocaine 5% Oint) 1 applic Q8H PRN TOPICAL pain 12/25/16 13:45 12/27/16 08:41 Patient Own Medication PT OWN MED: Revlimid (LENALIDOMI... DAILY PO 12/29/16 09:00 12/30/16 08:50 Pantoprazole Sodium (Protonix) 40 mg DAILY PO 12/30/16 09:00 12/30/16 08:49 Dexamethasone (Decadron) 20 mg DAILY PO 12/30/16 09:00 12/30/16 08:50 Acetaminophen (Tylenol) 1,000 mg Q6H PRN PO pain 1-10 12/29/16 11:30 12/30/16 12:06 Sodium Chloride (Sodium Chloride) 1 gm TID PO 12/29/16 13:00 12/30/16 12:04 Objective Remarks GENERAL: Middle aged male, sitting up in chair next to bed, fully dressed. SKIN: Warm and dry. fading rash, left chest wall and left back. HEAD: Normocephalic. EYES: No injection or drainage. NECK: Supple, trachea midline. CARDIOVASCULAR: Regular rate and rhythm RESPIRATORY: Breath sounds equal bilaterally. No accessory muscle use. GASTROINTESTINAL: Abdomen soft, non-tender, nondistended. EXTREMITIES: No cyanosis NEUROLOGICAL: Awake and alert, normal speech. moving all extremities. Assessment/Plan Problem List: (1) Dysphagia Status: Acute Plan: 12/30; tolerating regular diet. clear for d/c -- s/p EGD 12/28--showed friability in the proximal esophagus extending into the pharynx. dilation performed --TPN + as tolerated pureed diet. 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 h/o pathologic fx T9 and C6 vertebrae--completed XRT 12/18 Crohn disease. Attending Statement able to swallow meals and pills with no problem. wants to go home. d/c to home today. Resume chemo on this wednesday. The exam, history, and the medical decision-making described in the above note were completed with the assistance of the mid-level provider. I reviewed and agree with the findings presented. I attest that I had a [id number] encounter with the patient on the same day, and personally performed and documented my assessment and findings in the medical record. Problem Qualifiers (1) Herpes zoster: Qualified Code: B02.9 - Herpes zoster without complication (2) Vomiting: Qualified Code: R11.2 - Non-intractable vomiting with nausea, unspecified vomiting type Hannah Sandoval Dec 30, 2016 13:40 Jyothi Olvera MD Dec 30, 2016 22:09
--- NOTE | 2016-12-30 13:42 | HHI.DS ---
Discharge Summary Admission Date Dec 23, 2016 at 14:31 Discharge Date: Dec 30, 2016 Admitting Diagnosis dysphagia, hyponatremia, dehydration (1) Dysphagia ICD Code: R13.10 Diagnosis: Principal (2) Odynophagia ICD Code: R13.10 Diagnosis: Principal (3) Dehydration ICD Code: E86.0 Diagnosis: Principal (4) Hyponatremia ICD Code: E87.1 Diagnosis: Principal (5) Multiple myeloma ICD Code: C90.00 Diagnosis: Principal (6) SUSHMA (acute kidney injury) ICD Code: N17.9 Diagnosis: Principal (7) Chest pain ICD Code: R07.9 Diagnosis: Principal (8) Radiation esophagitis ICD Code: K20.8 Diagnosis: Principal Procedures none Brief History - From Admission Mr. Guerra is a 66 year-old male with multiple myeloma currently being treated by Dr. Olvera with radiation and chemotherapy. He was seen today for a chemotherapy treatment and was sent to the hospital by Dr. Olvera for nutrition and fluids due to inability to eat, drink or take medications for 24 hours. Hemoglobin 10.9 and hematocrit 31.8. Patient is hyponatremic with a sodium of 132, impaired kidney function noted with BUN elevated at 19, creatinine elevated at 1.49, and estimated GFR low at 47. The patient is seen in his hospital room. He reports that he's had progressively worsening dysphagia accompanied by odynophagia over the past couple of days. He states he is now even having trouble taking fluids in. His last radiation treatment was on Wednesday and his last chemotherapy treatment was yesterday. Denies fever, shortness of breath, chest pain, black or bloody stools, constipation, diarrhea, nausea, vomiting, hematuria, or dysuria. Denies history of diabetes mellitus, respiratory disease, cardiac disease, liver problems, kidney problems, seizures, thyroid dysfunction, or problems with blood clots such as DVT, PE, CVA. . CBC/BMP: 12/30/16 0704 12/30/16 0704 Significant Findings Laboratory Tests Test 12/28/16 12/28/16 12/29/16 12/30/16 05:36 19:24 06:29 07:04 Red Blood Count 2.89 MIL/MM3 2.93 MIL/MM3 2.75 MIL/MM3 (4.50-5.90) (4.50-5.90) (4.50-5.90) Hemoglobin 9.7 GM/DL 9.9 GM/DL 9.3 GM/DL (13.0-17.0) (13.0-17.0) (13.0-17.0) Hematocrit 28.3 % 28.8 % 27.1 % (39.0-51.0) (39.0-51.0) (39.0-51.0) Platelet Count 100 TH/MM3 122 TH/MM3 127 TH/MM3 (150-450) (150-450) (150-450) Neutrophils (%) (Auto) 84.4 % 80.7 % (16.0-70.0) (16.0-70.0) Lymphocytes (%) (Auto) 4.6 % (9.0-44.0) Monocytes (%) (Auto) 10.8 % 9.5 % (0.0-8.0) (0.0-8.0) Lymphocytes # (Auto) 0.3 TH/MM3 0.4 TH/MM3 (1.0-4.8) (1.0-4.8) Prothrombin Time 11.7 SEC (9.8-11.6) Sodium Level 132 MEQ/L 130 MEQ/L 134 MEQ/L (136-145) (136-145) (136-145) Blood Urea Nitrogen 27 MG/DL (7-18) 24 MG/DL (7-18) 23 MG/DL (7-18) Estimat Glomerular Filtration 70 ML/MIN (>89) 62 ML/MIN (>89) 64 ML/MIN (>89) Rate Calcium Level 8.4 MG/DL 8.0 MG/DL 8.2 MG/DL (8.5-10.1) (8.5-10.1) (8.5-10.1) Phosphorus Level 2.4 MG/DL (2.5-4.9) Aspartate Amino Transf 7 U/L (15-37) 10 U/L (15-37) (AST/SGOT) Alkaline Phosphatase 29 U/L (45-117) 31 U/L (45-117) Total Protein 9.6 GM/DL 9.6 GM/DL (6.4-8.2) (6.4-8.2) Albumin 1.8 GM/DL 2.0 GM/DL (3.4-5.0) (3.4-5.0) Total Creatine Kinase 24 U/L (39-308) Random Glucose 71 MG/DL (74-106) Imaging Last Impressions Barium Swallow X-Ray 12/27/16 0000 Signed Impressions: Service Date/Time: Tuesday, December 27, 2016 09:07 - CONCLUSION: Barium swallow within normal limits. No obstruction or perceptible mucosal abnormalities are demonstrated. Loss of height of the C6 vertebral body again seen. Jim Vega MD Brain MRI 12/23/16 0000 Signed Impressions: Service Date/Time: Friday, December 23, 2016 15:23 - CONCLUSION: Normal examination. Maximo Leblanc MD PE at Discharge GENERAL: thin frail appearing 66 year old male SKIN: exquisitely tender to light touch palpation of left abdomen and left back ~T9-T10 dermatome. there are some red papules on the left back forming HEAD: Normocephalic. EYES: No scleral icterus. No injection or drainage. NECK: Supple, trachea midline. No JVD or lymphadenopathy. CARDIOVASCULAR: Regular rate and rhythm without murmurs, gallops, or rubs. RESPIRATORY: Breath sounds equal bilaterally. No accessory muscle use. GASTROINTESTINAL: Abdomen soft, non-tender, nondistended. EXTREMITIES: No cyanosis, or edema. NEUROLOGICAL: Awake, alert, and oriented x 3. Non-focal. Hospital Course Mr. Guerra is a 66 year-old male with multiple myeloma currently being treated by Dr. Olvera with radiation and chemotherapy were multiple myeloma recently diagnosed; last course of chemotherapy was last Wednesday, he also completed radiation for pathologic fracture of T9 vertebra and C6 vertebra. Over the weekend he started to develop O Saumya aphasia with inability to tolerate by mouth. He was seen to the ER by Dr. Olvera for nutrition and fluids due to inability to eat, drink or take medications for 24 hours. 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 Continue PPN. pured diet. ST . Continue Carafate. Protonix IV. 12/26 Patient still with dysphagia and odynophagia - Will order a barium swallow and consult GI. 12/27 Dysphagia and odinophagia slightly improved. Barium swallow unremarkable. Appreciate Gi recommendations - for EGD with possible dilation in am. 12/28 status post EGD with dilation same. Follow-up GI recommendations. 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 Continue PPI. 12/29 Patient feels better and eating better. Plan is to decrease TPN to try to get him off. Dehydration - Resolved after IV fluid administration Acute kidney injury secondary to dehydration. Resolved after IV fluid hydration. Hyponatremia, 12/26Initially worsening, now trending up Serum osmolality high and urine osmolality in the lower side of normal - likely SIADH from nausea. Sodium improving. Continue to monitor BMP. 12/27 Sodium stable at 133. Continue to monitor bmp. 12/28 sodium trending down - will place on fluid restriction and start salt tablets. monitor bmp 12/29 Sodium trending down. Patient looks euvolemic. Will continue fluid restriction and increase salt tablets to TID. Recheck urine and serum osmolality. 12/30 Sodium much improved after fluid restriction and sodium chloride tablets started. sodium up to 134. Multiple myeloma with pathologic fracture T9 C6 status post completion of radiation treatment last week. No neurologic signs or symptoms. He is on Decadron high-dose IV as per hematology as part of his chemotherapy treatment. Follow by Oncology/Hematology Herpes zoster On IV acyclovir 10mg/kg q 8 hours (patient unable to take PO) per Oncology/ hematology PRN acetaminophen PRN morphine PRN lidocaine ointment 5% isolation for herpes zoster Vomiting supportive care with PPN, PRN zofran Agree with Reglan 12/27 resolved. Continue antiemetics as above. DVT prophylaxis Lovenox 40 mg subcutaneous every 24 hours - monitor platelets Hypokalemia- Due to poor oral intake K low at 3.4 - replace orally and continue to monitor. 12/29 Resolved. Continue to monitor bmp. GI prophylaxis - on PPI DVT Prophylaxis - on Lovenox which patient has been refusing. Pt Condition on Discharge: Stable Discharge Disposition: Discharge Home Discharge Time: <= 30 minutes Discharge Instructions DIET: Follow Instructions for: On Tube Feeding Follow up Referrals: Oncology - 2-3 Days with Jyothi Olvera MD PCP Follow-up - 1 Week New Medications: Pantoprazole (Pantoprazole) 40 Mg Tab 40 MG PO DAILY esophagitis #31 TAB Continued Medications: Sennosides-Docusate Sodium (Senna Plus 8.6-50 mg) 1 Tab Tab 2 TAB PO BID Prevent Constipation #60 TAB Discontinued Medications: Dexamethasone (Dexamethasone) 4 Mg Tab 20 MG PO WEEKLY Ref 0 TAB Omeprazole (Omeprazole) 40 Mg Cap 40 MG PO DAILY #30 Ref 0 CAP Polyethylene Glycol 3350 Powder (Miralax Powder) 17 Gm Powd 17 GM PO DAILY Mix and dissolve one measuring cap-ful (17 grams) in water or juice. Constipation #1 Ref 0 BOTTLE Jj Cross MD Dec 30, 2016 13:42
== END 2016-12-30 15:31 | disposition home or self-care (01) | DRG 392 ==
LOC: NEPE 15:08 → NEDH 19:21 → INTOOBSV 19:21 → N04A 21:30 → HOCA 12-22 16:00 → OBSVTOIN 12-23 14:31
PROVIDERS: ADMIT Hospitalist; ATTEND Hospitalist
PROC: 0D758ZZ Dilation of Esophagus, Via Natural or Artificial Opening Endoscopic (ICD-10-PCS; 2016-12-28)
PROC: 0DB58ZX Excision of Esophagus, Via Natural or Artificial Opening Endoscopic, Diagnostic (ICD-10-PCS; principal; 2016-12-28 10:30)
DX: K20.8 Other esophagitis (principal); N17.9 Acute kidney failure, unspecified; C90.00 Multiple myeloma not having achieved remission; D69.6 Thrombocytopenia, unspecified; E22.2 Syndrome of inappropriate secretion of antidiuretic hormone; K50.90 Crohn's disease, unspecified, without complications; M84.48XA Pathological fracture, other site, initial encounter for fracture; B02.9 Zoster without complications; K22.2 Esophageal obstruction; J02.9 Acute pharyngitis, unspecified; R13.10 Dysphagia, unspecified; Z88.2 Allergy status to sulfonamides; E86.0 Dehydration; Z83.3 Family history of diabetes mellitus; Z80.42 Family history of malignant neoplasm of prostate; M19.90 Unspecified osteoarthritis, unspecified site; Y84.2 Radiological procedure and radiotherapy as the cause of abnormal reaction of the patient, or of later complication, without mention of misadventure at the time of the procedure; Y92.099 Unspecified place in other non-institutional residence as the place of occurrence of the external cause; Y93.9 Activity, unspecified; E87.6 Hypokalemia
CPT/HCPCS: 70553; 74230; 80048; 80053; 80076; 82550; 82948; 83735; 83930; 83935; 84100; 84478; 84484; 85025; 85027; 85610; 85730; 88305; 88312; 93005; 96360; 96401; A9579; C1769; C9113; G0378; J0131; J0133; J1100; J1650; J1885; J2060; J2405; J2765; J3480; J7030; J8540; J9041

== ENCOUNTER 2017-01-07 19:14 | Emergency (ER) | payer OTHER ==
[~2017-01-07] VITALS: Ht 177.8 cm; Wt 70.0 kg
[~2017-01-07 19:14] MED LIST changes: +ACYC800T PO; -MIRA33504 PO; -MORP1TAB25 PO; +MSIR15 PO; +ONDA4TAB7 PO; -OXYC1TAB63 PO; -PANT20 PO; +PANT40TA3 PO; +REVLIMID PO; +SODI1TAB PO; +SUCR1S PO
[2017-01-07 19:16] VITALS: BP 143/83; PULSE 96; RESP 16; TEMP 97.9; O2SAT 96
--- NOTE | 2017-01-07 21:10 | PD ---
HPI Chief Complaint: GI Complaint Time Seen by Provider: 21:10 Travel History International Travel<30 days: No Contact w/Intl Traveler<30days: No Traveled to known affect area: No History of Present Illness HPI 66-year-old male with history of multiple myeloma and Crohn's disease presents to emergency department for evaluation of abdominal pain and constipation. Patient states he has not had a bowel movement in over 2 days. His last bowel movement was about 2 days ago and it was hard and forced. Denies any nausea or vomiting. Does report left-sided abdominal pain, constant, severe. Patient took a fleets enema 2 days ago, drank a bottle of mag citrate yesterday, and half a bottle of mag citrate today. He had x-ray imaging complete which was concerning for obstruction and was advised to come the emergency department. Denies any recent illnesses, fever, chills. Patient took his last current chemotherapy 4 days ago. Denies any chest or tightness. No difficulty breathing. Patient has no other symptoms to report at this time. PFSH Past Medical History Autoimmune Disease: Yes (chrons disease ) Blood Disorders: No Anxiety: No Depression: No Cancer: Yes (MULTIPLE MYELOMA) Cardiovascular Problems: No Chemotherapy: Yes (01/04/17 ) Diminished Hearing: No Endocrine: No Gastrointestinal Disorders: Yes (ABD PAIN ) Genitourinary: No Immune Disorder: No Musculoskeletal: No Neurologic: No Psychiatric: No Reproductive: No Respiratory: No Radiation Therapy: Yes Seizures: Yes ("CONVULSIONS") Past Surgical History Body Medical Devices: metal crowns Other Surgery: Yes (CAT SCRATCH FEVER-1953) Social History Alcohol Use: No Tobacco Use: No Substance Use: No Allergies-Medications (Allergen,Severity, Reaction): Coded Allergies: Sulfa (Verified Allergy, Severe, DIZZINESS, 01/07/17) Reported Meds & Prescriptions Reported Meds & Active Scripts Active Dexamethasone 4 Mg Tab 20 Mg PO DAILY Ondansetron Odt 4 Mg Tab 4 Mg PO Q4H PRN Pantoprazole (Pantoprazole Sodium) 40 Mg Tab 40 Mg PO DAILY Sucralfate Liq (Sucralfate) 1 Gm/10 Ml Yomaira 1 Gm PO ACHS Senna Plus 8.6-50 mg (Sennosides-Docusate Sodium) 1 Tab Tab 2 Tab PO BID Reported Tylenol Extra Strength (Acetaminophen) 500 Mg Tab 500 Mg PO Q4-6H PRN Review of Systems Except as stated in HPI: all other systems reviewed are Neg Physical Exam Narrative GENERAL: Well-nourished male patient, in no acute distress SKIN: Warm and dry. HEAD: Atraumatic. Normocephalic. EYES: Pupils equal and round. No scleral icterus. No injection or drainage. ENT: No nasal bleeding or discharge. Mucous membranes pink and moist. NECK: Trachea midline. No JVD. CARDIOVASCULAR: Elevated rate and rhythm. No murmur appreciated. RESPIRATORY: No accessory muscle use. Diminished bilateral bases. Breath sounds equal bilaterally. GASTROINTESTINAL: Abdomen slightly distended with significant tenderness in the left upper and left lower quadrants. No guarding but no rebound tenderness. Hepatic and splenic margins not palpable. MUSCULOSKELETAL: No obvious deformities. No clubbing. No cyanosis. No edema. NEUROLOGICAL: Awake and alert. No obvious cranial nerve deficits. Motor grossly within normal limits. Normal speech. PSYCHIATRIC: Appropriate mood and affect; insight and judgment normal. Data Data Last Documented VS Vital Signs Date Time Temp Pulse Resp B/P Pulse Ox O2 Delivery O2 Flow Rate FiO2 01/07/17 21:20 18 99 Room Air 01/07/17 19:16 97.9 96 143/83 Orders Complete Blood Count With Diff (01/07/17 21:09) Comprehensive Metabolic Panel (01/07/17 21:09) Lipase (01/07/17 21:09) Prothrombin Time / Inr (Pt) (01/07/17 21:09) Act Partial Throm Time (Ptt) (01/07/17 21:09) Urinalysis - C+S If Indicated (01/07/17 21:09) Ct Abd/Pel W Iv Contrast(Rout) (01/07/17 21:09) Iv Access Insert/Monitor (01/07/17 21:09) Ecg Monitoring (01/07/17 21:09) Oximetry (01/07/17 21:09) Sodium Chloride 0.9% Flush (Ns Flush) (01/07/17 21:15) Electrocardiogram (01/07/17 21:09) Oral Contrast - Adult (01/07/17 21:19) Diatrizoate Liq ( Gastrojoselin Liq) (01/07/17 21:42) Labs Laboratory Tests Test 01/07/17 21:20 White Blood Count 5.6 TH/MM3 Red Blood Count 2.90 MIL/MM3 Hemoglobin 10.2 GM/DL Hematocrit 29.0 % Mean Corpuscular Volume 99.8 FL Mean Corpuscular Hemoglobin 35.1 PG Mean Corpuscular Hemoglobin 35.2 % Concent Red Cell Distribution Width 16.3 % Platelet Count 108 TH/MM3 Mean Platelet Volume 9.0 FL Neutrophils (%) (Auto) 89.4 % Lymphocytes (%) (Auto) 5.4 % Monocytes (%) (Auto) 4.7 % Eosinophils (%) (Auto) 0.4 % Basophils (%) (Auto) 0.1 % Neutrophils # (Auto) 5.0 TH/MM3 Lymphocytes # (Auto) 0.3 TH/MM3 Monocytes # (Auto) 0.3 TH/MM3 Eosinophils # (Auto) 0.0 TH/MM3 Basophils # (Auto) 0.0 TH/MM3 CBC Comment DIFF FINAL Differential Comment Prothrombin Time 11.6 SEC Prothromb Time International 1.0 RATIO Ratio Activated Partial 23.5 SEC Thromboplast Time Sodium Level 135 MEQ/L Potassium Level 3.9 MEQ/L Chloride Level 100 MEQ/L Carbon Dioxide Level 27.7 MEQ/L Anion Gap 7 MEQ/L Blood Urea Nitrogen 19 MG/DL Creatinine 1.32 MG/DL Estimat Glomerular Filtration 54 ML/MIN Rate Random Glucose 105 MG/DL Calcium Level 7.6 MG/DL Total Bilirubin 0.3 MG/DL Aspartate Amino Transf 14 U/L (AST/SGOT) Alanine Aminotransferase 25 U/L (ALT/SGPT) Alkaline Phosphatase 41 U/L Total Protein 9.0 GM/DL Albumin 1.9 GM/DL Lipase 278 U/L [facility] Medical Decision Making Medical Screen Exam Complete: Yes Emergency Medical Condition: Yes Medical Record Reviewed: Yes Differential Diagnosis Obstruction versus ileus versus constipation versus colitis versus metastatic disease Narrative Course 66-year-old male presents to emergency department for evaluation. Patient looks overall well. He is mildly tachycardic. His abdomen is slightly distended and significantly tender in the left upper and lower quadrants. Lab work and CT are ordered. I have signed the pt out to my attending Dr. Edmondson , who will assume care at this time. Condition: Stable Antonella ZamoraP Jan 07, 2017 21:10
[2017-01-07] MEDS ORDERED: SODIUM CHLORIDE 0.9% FLUSH 5 ML FLUSH IVF PRN (21:15)
[2017-01-07] MEDS ORDERED: ACET-703 PO (21:19)
[2017-01-07 21:20] VITALS: RESP 18; O2SAT 99
[2017-01-07] MEDS ORDERED: DIATRIZOATE MEGLUM/DIATRIZOATE SOD 9 ML CUP ONE (21:42)
[2017-01-07 21:46] LABS: APTT (PATIENT) 23.5 SEC (24.3-30.1); PROTHROMBIN TIME - PATIENT 11.6 SEC (9.8-11.6)
[2017-01-07 21:55] LABS: BASOPHIL % 0.1 % (0.0-2.0); EOSINOPHIL % 0.4 % (0.0-4.0); HEMO FLAGS DIFF FINAL; LYMPH % 5.4 % (9.0-44.0); LYMPHOCYTE # 0.3 TH/MM3 (1.0-4.8); MEAN CELL VOLUME 99.8 FL (80.0-100.0); MEAN CORPUSCULAR HEMOGLOBIN 35.1 PG (27.0-34.0); MEAN CORPUSCULAR HGB CONC 35.2 % (32.0-36.0); MONO % 4.7 % (0.0-8.0); NEUT % 89.4 % (16.0-70.0); PLATELET COUNT 108 TH/MM3 (150-450); RED CELL DISTRIBUTION WIDTH 16.3 % (11.6-17.2); WHITE BLOOD COUNT 5.6 TH/MM3 (4.0-11.0)
[2017-01-07 21:59] LABS: ANION GAP 7 MEQ/L (5-15); AST (GOT) 14 U/L (15-37); BICARBONATE 27.7 MEQ/L (21.0-32.0); BLOOD UREA NITROGEN 19 MG/DL (7-18); CHLORIDE 100 MEQ/L (98-107); GLOMERULAR FILTRATION RATE 54 ML/MIN (>89); POTASSIUM 3.9 MEQ/L (3.5-5.1); SODIUM (NA) 135 MEQ/L (136-145)
[2017-01-07 22:02] LABS: ALKALINE PHOSPHATASE 41 U/L (45-117); ALT (GPT) 25 U/L (12-78); TOTAL BILIRUBIN ADULT 0.3 MG/DL (0.2-1.0)
[2017-01-07 22:44] LABS: BACTERIA, URINE RARE /hpf; BLOOD, URINE NEG (NEG); COMMENT (UR) CULT NOT INDICATED; CULTURE IF INDICATED CULT NOT INDICATED; GLUCOSE,URINE NEG (NEG); HYALINE CAST, URINE 1 /lpf (RARE); KETONE, URINE NEG (NEG); MUCUS URINE FEW /lpf (OCC); NITRITE,URINE NEG (NEG); URINE COLOR YELLOW (YELLW/STRAW)
--- NOTE | 2017-01-07 22:50 | PD ---
Physical Exam Date Seen by Provider: Jan 07, 2017 Time Seen by Provider: 22:47 Narrative The patient is a 66-year-old male who presents to the emergency department for abdominal pain and distention. The patient was initially evaluated by the mid-level provider, please refer to the initial history, physical, diagnostic evaluation, treatment modality plan. The patient was signed out [address] of the abdomen and pelvis pending for possible small bowel obstruction and/or ileus. Data Data Last Documented VS Vital Signs Date Time Temp Pulse Resp B/P Pulse Ox O2 Delivery O2 Flow Rate FiO2 01/07/17 23:57 77 18 146/89 97 Room Air 01/07/17 19:16 97.9 Orders Complete Blood Count With Diff (01/07/17 21:09) Comprehensive Metabolic Panel (01/07/17 21:09) Lipase (01/07/17 21:09) Prothrombin Time / Inr (Pt) (01/07/17 21:09) Act Partial Throm Time (Ptt) (01/07/17 21:09) Urinalysis - C+S If Indicated (01/07/17 21:09) Ct Abd/Pel W Iv Contrast(Rout) (01/07/17 21:09) Iv Access Insert/Monitor (01/07/17 21:09) Ecg Monitoring (01/07/17 21:09) Oximetry (01/07/17 21:09) Sodium Chloride 0.9% Flush (Ns Flush) (01/07/17 21:15) Electrocardiogram (01/07/17 21:09) Oral Contrast - Adult (01/07/17 21:19) Diatrizoate Liq ( Gastrojoselin Liq) (01/07/17 21:42) Iohexol 350 Inj (Omnipaque 350 Inj) (01/07/17 23:36) Labs Laboratory Tests Test 01/07/17 01/07/17 21:20 22:22 White Blood Count 5.6 TH/MM3 Red Blood Count 2.90 MIL/MM3 Hemoglobin 10.2 GM/DL Hematocrit 29.0 % Mean Corpuscular Volume 99.8 FL Mean Corpuscular Hemoglobin 35.1 PG Mean Corpuscular Hemoglobin 35.2 % Concent Red Cell Distribution Width 16.3 % Platelet Count 108 TH/MM3 Mean Platelet Volume 9.0 FL Neutrophils (%) (Auto) 89.4 % Lymphocytes (%) (Auto) 5.4 % Monocytes (%) (Auto) 4.7 % Eosinophils (%) (Auto) 0.4 % Basophils (%) (Auto) 0.1 % Neutrophils # (Auto) 5.0 TH/MM3 Lymphocytes # (Auto) 0.3 TH/MM3 Monocytes # (Auto) 0.3 TH/MM3 Eosinophils # (Auto) 0.0 TH/MM3 Basophils # (Auto) 0.0 TH/MM3 CBC Comment DIFF FINAL Differential Comment Prothrombin Time 11.6 SEC Prothromb Time International 1.0 RATIO Ratio Activated Partial 23.5 SEC Thromboplast Time Sodium Level 135 MEQ/L Potassium Level 3.9 MEQ/L Chloride Level 100 MEQ/L Carbon Dioxide Level 27.7 MEQ/L Anion Gap 7 MEQ/L Blood Urea Nitrogen 19 MG/DL Creatinine 1.32 MG/DL Estimat Glomerular Filtration 54 ML/MIN Rate Random Glucose 105 MG/DL Calcium Level 7.6 MG/DL Total Bilirubin 0.3 MG/DL Aspartate Amino Transf 14 U/L (AST/SGOT) Alanine Aminotransferase 25 U/L (ALT/SGPT) Alkaline Phosphatase 41 U/L Total Protein 9.0 GM/DL Albumin 1.9 GM/DL Lipase 278 U/L Urine Color YELLOW Urine Turbidity HAZY Urine pH 7.0 Urine Specific [place] 1.019 Urine Protein TRACE mg/dL Urine Glucose (UA) NEG mg/dL Urine Ketones NEG mg/dL Urine Occult Blood NEG Urine Nitrite NEG Urine Bilirubin NEG Urine Urobilinogen LESS THAN 2.0 MG/DL Urine Leukocyte Esterase NEG Urine RBC LESS THAN 1 /hpf Urine WBC 1 /hpf Urine Amorphous Sediment FEW Urine Bacteria RARE /hpf Urine Hyaline Casts 1 /lpf Urine Mucus FEW /lpf Microscopic Urinalysis Comment CULT NOT INDICATED [facility] Medical Record Reviewed: Yes Supervised Visit with DARRIN: Yes Interpretation(s) Laboratory Tests Test 01/07/17 01/07/17 21:20 22:22 White Blood Count 5.6 TH/MM3 Red Blood Count 2.90 MIL/MM3 Hemoglobin 10.2 GM/DL Hematocrit 29.0 % Mean Corpuscular Volume 99.8 FL Mean Corpuscular Hemoglobin 35.1 PG Mean Corpuscular Hemoglobin 35.2 % Concent Red Cell Distribution Width 16.3 % Platelet Count 108 TH/MM3 Mean Platelet Volume 9.0 FL Neutrophils (%) (Auto) 89.4 % Lymphocytes (%) (Auto) 5.4 % Monocytes (%) (Auto) 4.7 % Eosinophils (%) (Auto) 0.4 % Basophils (%) (Auto) 0.1 % Neutrophils # (Auto) 5.0 TH/MM3 Lymphocytes # (Auto) 0.3 TH/MM3 Monocytes # (Auto) 0.3 TH/MM3 Eosinophils # (Auto) 0.0 TH/MM3 Basophils # (Auto) 0.0 TH/MM3 CBC Comment DIFF FINAL Differential Comment Prothrombin Time 11.6 SEC Prothromb Time International 1.0 RATIO Ratio Activated Partial 23.5 SEC Thromboplast Time Sodium Level 135 MEQ/L Potassium Level 3.9 MEQ/L Chloride Level 100 MEQ/L Carbon Dioxide Level 27.7 MEQ/L Anion Gap 7 MEQ/L Blood Urea Nitrogen 19 MG/DL Creatinine 1.32 MG/DL Estimat Glomerular Filtration 54 ML/MIN Rate Random Glucose 105 MG/DL Calcium Level 7.6 MG/DL Total Bilirubin 0.3 MG/DL Aspartate Amino Transf 14 U/L (AST/SGOT) Alanine Aminotransferase 25 U/L (ALT/SGPT) Alkaline Phosphatase 41 U/L Total Protein 9.0 GM/DL Albumin 1.9 GM/DL Lipase 278 U/L Urine Color YELLOW Urine Turbidity HAZY Urine pH 7.0 Urine Specific [place] 1.019 Urine Protein TRACE mg/dL Urine Glucose (UA) NEG mg/dL Urine Ketones NEG mg/dL Urine Occult Blood NEG Urine Nitrite NEG Urine Bilirubin NEG Urine Urobilinogen LESS THAN 2.0 MG/DL Urine Leukocyte Esterase NEG Urine RBC LESS THAN 1 /hpf Urine WBC 1 /hpf Urine Amorphous Sediment FEW Urine Bacteria RARE /hpf Urine Hyaline Casts 1 /lpf Urine Mucus FEW /lpf Microscopic Urinalysis Comment CULT NOT INDICATED EKG reveals normal sinus rhythm with a rate of 77. Inverted T-wave in lead 3. Low QRS voltage in precordial leads. CT of the abdomen and pelvis reveals constipation with prominent amount of stool in the right and transverse colon. No dilated loops of small bowel. Widespread osteolytic osseous disease, characteristic of multiple myeloma, similar to prior CT. Last Impressions Abdomen/Pelvis CT 01/07/17 8489 Signed Impressions: Service Date/Time: December 23:19 - CONCLUSION: 1. Constipation with prominent amount of stool in the right and transverse colon. No dilated loops of small bowel. 2. Widespread osteolytic osseous disease, characteristic of multiple myeloma, similar to prior CT. Arthur Fall MD Differential Diagnosis Differential diagnoses includes small bowel obstruction, ileus, partial small bowel obstruction, volvulus, constipation, medication side effect. Narrative Course I, Dr. Edmondson, have reviewed the advance practice practitioner's documentation and am in agreement, met with the patient face to face, made the diagnosis, and the medical decision making was done by me. *My assessment and Findings: 66-year-old male who is initially evaluated by the mid-level provider. The patient has a history of multiple myeloma, notes a 4 day history of constipation with inability to have a bowel movement. The patient has been using [id number] magnesium citrate without any alleviation of his symptoms. The patient was referred to an urgent care center today by his doctor for an x-ray. The patient had a x-ray which revealed air fluid levels and was sent to the emergency department for further evaluation of possible small bowel obstruction. Diagnosis Primary Impression: Constipation Qualified Code: K59.00 - Constipation, unspecified constipation type Patient Instructions: General Instructions Additional Instruction: Please provide the patient a copy of his CT results and lab results at discharge. GoLYTELY as directed. Follow-up with your primary physician. Return if symptoms worsen or progress. Med/Other Pt SpecificInfo: Prescription(s) given Scripts Peg-Electrolytes (Golytely 236 gm)4,000 Ml Soln4,000 Ml PO ONCE #1 CONTAINER Ref 0 Prov:Grady Edmondson MD 01/08/17 Disposition: 01 DISCHARGE HOME Condition: Stable Grady Edmondson MD Jan 07, 2017 22:50
[2017-01-07] MEDS ORDERED: IOHEXOL 350 MG/ML 10 ML VIAL (for RAD DIAG) IV ONE (23:36)
[2017-01-07 23:57] VITALS: BP 146/89; PULSE 77; RESP 18; O2SAT 97
--- NOTE | 2017-01-08 00:22 | RADRPT ---
EXAM DATE/TIME: 01/07/2017 23:19 [facility] COMPARISON: CT ABDOMEN & PELVIS W/O CONTRAST, November 30, 2016, 23:12. INDICATIONS : Constipated, possible bowel impaction seen on xray IV CONTRAST: 85 cc Omnipaque 350 (iohexol) IV ORAL CONTRAST: Prescribed oral contrast ingested. RADIATION DOSE: 8.24 CTDIvol (mGy) MEDICAL HISTORY : Crohn's disease. Multiple myeloma. SURGICAL HISTORY : None. ENCOUNTER: Initial ACUITY: 1 day PAIN SCALE: 5/10 LOCATION: Diffuse abdomen TECHNIQUE: Volumetric scanning of the abdomen and pelvis was performed. Using automated exposure control and ad justment of the mA and/or kV according to patient size, radiation dose was kept as low as reasonably achievable to obtain optimal diagnostic quality images. FINDINGS: LOWER LUNGS: The visualized lower lungs are clear. LIVER: Homogeneous density without lesion. There is no dilation of the biliary tree. No calcified gallston es. SPLEEN: Normal size without lesion. PANCREAS: Within normal limits. KIDNEYS: Normal in size and shape. There is no mass, stone or hydronephrosis. ADRENAL GLANDS: Within normal limits. VASCULAR: There is no aortic aneurysm. BOWEL/MESENTERY: Prominent amount of stool in the right colon and transverse colon. There is prominent amount of stephon um in the region of the cecum is probably from a barium swallow performed 12/01/16. No dilated loops of small bowel. Oral contrast passes through to the distal one third of the small bowel. ABDOMINAL WALL: Within normal limits. RETROPERITONEUM: There is no lymphadenopathy. BLADDER: No wall thickening or mass. Small diverticulum posterior right wall, stable. REPRODUCTIVE: Stable calcifications within the prostate. INGUINAL: There is no lymphadenopathy or hernia. MUSCULOSKELETAL: Widespread lytic osseous lesions throughout the spine and pelvis, similar to prior. The largest lesi on seen involves the right vertebral body and transverse process of T10. CONCLUSION: 1. Constipation with prominent amount of stool in the right and transverse colon. No dilated loops o f small bowel. 2. Widespread osteolytic osseous disease, characteristic of multiple myeloma, similar to prior CT. Arthur Fall MD on January 08, 2017 at 0:05 Board Certified Radiologist. This report was verified electronically.
[2017-01-08] MEDS ORDERED: COLY4000S PO (00:38)
--- NOTE | 2017-01-08 19:38 | EKG ---
Date Performed: 01/07/2017 Time Performed: 21:29:08 PTAGE: 66 years EKG: Sinus rhythm LOW QRS VOLTAGE IN PRECORDIAL LEADS POSSIBLE RIGHT VENTRICULAR CONDUCTION DELAY Nonspecific ST and T wave abnormalities BORDERLINE ECG PREVIOUS TRACING : 12/28/2016 08.10 Compared to prior tracing no significant change DOCTOR: Kory Chao Interpretating Date/Time 01/08/2017 19:37:12
== END 2017-01-08 01:17 | disposition home or self-care (01) ==
LOC: NEPC 19:14
DX: K59.00 Constipation, unspecified (principal); K50.90 Crohn's disease, unspecified, without complications; C90.00 Multiple myeloma not having achieved remission; R94.31 Abnormal electrocardiogram [ECG] [EKG]
CPT/HCPCS: 74177; 80053; 81001; 83690; 85025; 85610; 85730; 93005; 99284; Q9963; Q9967

== ENCOUNTER 2017-01-08 20:15 | Emergency (ER) | payer OTHER ==
[~2017-01-08 20:15] MED LIST changes: +ACET-703 PO; -ACYC800T PO; +COLY4000S PO; -MSIR15 PO; -REVLIMID PO; -SODI1TAB PO
[2017-01-08 20:18] VITALS: BP 111/69; PULSE 96; RESP 14; TEMP 97.9; O2SAT 93
[2017-01-08] MEDS ORDERED: SODIUM CHLOR 0.9% 1000 ML INJ 1,000 ML IV SCH ×2 (20:55→22:15)
[2017-01-08 20:59] VITALS: O2SAT 96
[2017-01-08] MEDS ORDERED: SODIUM CHLORIDE 0.9% FLUSH 5 ML FLUSH IVF PRN (21:00)
[2017-01-08] MEDS ORDERED: ONDANSETRON HCL 4 MG/2 ML VIAL IVP ONE (21:00)
[2017-01-08 21:55] LABS: AUTOMATED NEUTROPHIL # 7.1 TH/MM3 (1.8-7.7); BASOPHIL % 0.3 % (0.0-2.0); EOSINOPHIL # 0.1 TH/MM3 (0-0.4); EOSINOPHIL % 0.7 % (0.0-4.0); HEMATOCRIT 27.8 % (39.0-51.0); HEMO FLAGS DIFF FINAL; LYMPH % 4.5 % (9.0-44.0); LYMPHOCYTE # 0.4 TH/MM3 (1.0-4.8); MEAN CELL VOLUME 100.6 FL (80.0-100.0); MEAN CORPUSCULAR HEMOGLOBIN 34.6 PG (27.0-34.0); MEAN CORPUSCULAR HGB CONC 34.4 % (32.0-36.0); NEUT % 88.5 % (16.0-70.0); PLATELET COUNT 122 TH/MM3 (150-450); RED BLOOD COUNT 2.77 MIL/MM3 (4.50-5.90); RED CELL DISTRIBUTION WIDTH 16.8 % (11.6-17.2)
--- NOTE | 2017-01-08 22:02 | PD ---
HPI Chief Complaint: Syncope/Near-Syncope Time Seen by Provider: 20:45 Travel History International Travel<30 days: No Contact w/Intl Traveler<30days: No Traveled to known affect area: No History of Present Illness HPI This is a 66 year old male who has a history of multiple myeloma currently on chemotherapy who presents to the emergency department with lightheadedness, dizziness, and fatigue, having nearly passed out earlier today, constant, worsening. His family feels like he is more lethargic than normal. Pt. was seen yesterday in the emergency department for constipation and was prescribed Go-Lytely. He did start having some bowel movements this morning. He also received chemotherapy this morning prior to the onset of his symptoms. His family reports that he's been struggling with constipation for 2-3 months. He is bothered by a lot of abdominal distention and on top this he also developed shingles on his left upper abdomen 10 days ago. PFSH Past Medical History Autoimmune Disease: Yes (CHRON'S DISEASE) Blood Disorders: No Anxiety: No Depression: No Cancer: Yes (MULTIPLE MYELOMA) Cardiovascular Problems: No Chemotherapy: Yes (TODAY) Diminished Hearing: No Endocrine: No Gastrointestinal Disorders: Yes (ABD PAIN ) Genitourinary: No Immune Disorder: No Implanted Vascular Access Dvce: Yes Musculoskeletal: No Neurologic: No Psychiatric: No Reproductive: No Respiratory: No Radiation Therapy: Yes Seizures: Yes ("CONVULSIONS") Past Surgical History Body Medical Devices: metal crowns Other Surgery: Yes (CAT SCRATCH FEVER-1953) Social History Alcohol Use: No Tobacco Use: No Substance Use: No Allergies-Medications (Allergen,Severity, Reaction): Coded Allergies: Sulfa (Verified Allergy, Severe, DIZZINESS, 01/08/17) Reported Meds & Prescriptions Reported Meds & Active Scripts Active Pantoprazole (Pantoprazole Sodium) 40 Mg Tab 40 Mg PO DAILY Senna Plus 8.6-50 mg (Sennosides-Docusate Sodium) 1 Tab Tab 2 Tab PO BID Reported Tylenol Extra Strength (Acetaminophen) 500 Mg Tab 1,000 Mg PO BID PRN Review of Systems Except as stated in HPI: all other systems reviewed are Neg Physical Exam Narrative GENERAL: Uncomfortable appearing SKIN: Dry with skin tenting, scattered petechial rash in the left upper abdomen HEAD: Atraumatic. Normocephalic. EYES: Pupils equal and round. No injection or drainage. ENT: Dry mucous membranes NECK: Trachea midline. CARDIOVASCULAR: Regular rate and rhythm. No murmur appreciated. RESPIRATORY: Clear to auscultation. Breath sounds equal bilaterally. GASTROINTESTINAL: Abdomen soft, tender to palpation in the left upper and left lower quadrants with no rebound or guarding. Distended. MUSCULOSKELETAL: No obvious deformities. NEUROLOGICAL: Awake and alert. No obvious cranial nerve deficits. Moving all extremities. PSYCHIATRIC: Appropriate mood and affect; insight and judgment normal. Data Data Last Documented VS Vital Signs Date Time Temp Pulse Resp B/P Pulse Ox O2 Delivery O2 Flow Rate FiO2 01/08/17 20:59 96 Room Air 01/08/17 20:18 97.9 96 14 111/69 Orders Complete Blood Count With Diff (01/08/17 20:55) Comprehensive Metabolic Panel (01/08/17 20:55) Lipase (01/08/17 20:55) Urinalysis - C+S If Indicated (01/08/17 20:55) Iv Access Insert/Monitor (01/08/17 20:55) Ecg Monitoring (01/08/17 20:55) Oximetry (01/08/17 20:55) Ondansetron Inj (Zofran Inj) (01/08/17 21:00) Sodium Chlor 0.9% 1000 Ml Inj (Ns 1000 M (01/08/17 20:55) Sodium Chloride 0.9% Flush (Ns Flush) (01/08/17 21:00) Sodium Chlor 0.9% 1000 Ml Inj (Ns 1000 M (01/08/17 22:15) Acetaminophen (Tylenol) (01/08/17 23:45) Labs Laboratory Tests Test 01/08/17 21:34 White Blood Count 8.0 TH/MM3 Red Blood Count 2.77 MIL/MM3 Hemoglobin 9.6 GM/DL Hematocrit 27.8 % Mean Corpuscular Volume 100.6 FL Mean Corpuscular Hemoglobin 34.6 PG Mean Corpuscular Hemoglobin 34.4 % Concent Red Cell Distribution Width 16.8 % Platelet Count 122 TH/MM3 Mean Platelet Volume 9.3 FL Neutrophils (%) (Auto) 88.5 % Lymphocytes (%) (Auto) 4.5 % Monocytes (%) (Auto) 6.0 % Eosinophils (%) (Auto) 0.7 % Basophils (%) (Auto) 0.3 % Neutrophils # (Auto) 7.1 TH/MM3 Lymphocytes # (Auto) 0.4 TH/MM3 Monocytes # (Auto) 0.5 TH/MM3 Eosinophils # (Auto) 0.1 TH/MM3 Basophils # (Auto) 0.0 TH/MM3 CBC Comment DIFF FINAL Differential Comment Sodium Level 135 MEQ/L Potassium Level 4.0 MEQ/L Chloride Level 99 MEQ/L Carbon Dioxide Level 26.3 MEQ/L Anion Gap 10 MEQ/L Blood Urea Nitrogen 17 MG/DL Creatinine 1.33 MG/DL Estimat Glomerular Filtration 53 ML/MIN Rate Random Glucose 87 MG/DL Calcium Level 7.8 MG/DL Total Bilirubin 0.3 MG/DL Aspartate Amino Transf 25 U/L (AST/SGOT) Alanine Aminotransferase 25 U/L (ALT/SGPT) Alkaline Phosphatase 42 U/L Total Protein 8.8 GM/DL Albumin 2.0 GM/DL Lipase 322 U/L [facility] Medical Decision Making Medical Screen Exam Complete: Yes Emergency Medical Condition: Yes Interpretation(s) Afebrile, mild tachycardia Macrocytic anemia similar to yesterday Some renal insufficiency similar to yesterday Lipase is normal Differential Diagnosis Electrolyte abnormality, dehydration, infection Narrative Course This is a 66-year-old male who presents to the emergency department having had an episode of lightheadedness and dizziness in the setting of having chemotherapy and using GoLYTELY for constipation. He was placed on a monitor and an IV was established. Clinically he appeared dry and dehydrated. He was given 2 L of IV hydration. Labs are reassuring. Patient had multiple bowel movements in his abdominal distention feels much better. He feels comfortable going home. I suspect his dehydration was due to GoLYTELY. Patient will be discharged. Diagnosis Primary Impression: Dehydration Patient Instructions: General Instructions Additional Instructions: If you develop severe or worsening abdominal pain, fever>100.4, persistent vomiting or inability to eat or drink return to the emergency department immediately. Follow up with your primary care physician in 1-2 days for a check-up if your symptoms are not improved. Med/Other Pt SpecificInfo: No Change to Meds Disposition: 01 DISCHARGE HOME Condition: Stable Trina Jimenez MD Jan 08, 2017 22:01
[2017-01-08 22:47] LABS: ALKALINE PHOSPHATASE 42 U/L (45-117); ALT (GPT) 25 U/L (12-78); ANION GAP 10 MEQ/L (5-15); AST (GOT) 25 U/L (15-37); BICARBONATE 26.3 MEQ/L (21.0-32.0); BLOOD UREA NITROGEN 17 MG/DL (7-18); CHLORIDE 99 MEQ/L (98-107); GLOMERULAR FILTRATION RATE 53 ML/MIN (>89); SODIUM (NA) 135 MEQ/L (136-145); TOTAL BILIRUBIN ADULT 0.3 MG/DL (0.2-1.0)
[2017-01-08] MEDS ORDERED: ACETAMINOPHEN 325 MG TAB PO ONE (23:45)
== END 2017-01-09 00:28 | disposition home or self-care (01) ==
LOC: NEPC 20:15
DX: E86.0 Dehydration (principal); C90.00 Multiple myeloma not having achieved remission; Z87.19 Personal history of other diseases of the digestive system; Z86.2 Personal history of diseases of the blood and blood-forming organs and certain disorders involving the immune mechanism; Z86.69 Personal history of other diseases of the nervous system and sense organs
CPT/HCPCS: 80053; 83690; 85025; 96360; 96361; 99284; J7030

== ENCOUNTER 2017-09-10 06:00 | Day surgery (SDC) | payer OTHER ==
[~2017-09-10] VITALS: Ht 175.3 cm; Wt 79.1 kg
[~2017-09-10 06:00] MED LIST changes: -COLY4000S PO; -DEXA4TAB PO; -ONDA4TAB7 PO; -SUCR1S PO
[2017-09-10] MEDS ORDERED: FENT75DI T-DERMAL (06:36)
[2017-09-10] MEDS ORDERED: LYRI100C PO (06:37)
[2017-09-10] MEDS ORDERED: DEXA1TAB PO (06:38)
[2017-09-10] MEDS ORDERED: ACYC400T PO (06:38)
[2017-09-10] MEDS ORDERED: DICY20TA10 PO (06:39)
[2017-09-10 06:40] VITALS: BP 147/101; PULSE 86; RESP 20; TEMP 98.3; O2SAT 95
[2017-09-10] MEDS ORDERED: OMEP20TA93 PO (06:40)
[2017-09-10] MEDS ORDERED: VANCOMYCIN 1000 MG/NS 250 ML - implanted port/tunneled catheter IV SCH ×2 (07:00)
[2017-09-10] MEDS ORDERED: SODIUM CHLORIDE 0.9% 1000 ML IV SCH (07:00)
[2017-09-10] MEDS ORDERED: POVIDONE IODINE 5% (ANTISEPSIS KIT) 4 APPLICATIONS EACH NARE SCH (07:00)
[2017-09-10] MEDS ORDERED: ceFAZolin 2 GM PREMIX 50 ML - implanted port/tunneled catheter insertion IV SCH (07:00)
[2017-09-10] MEDS ORDERED: CHLORHEXIDINE GLUCONATE 2 % 1 PACK (2 CLOTHS) TOPICAL SCH (07:00)
[2017-09-10 07:15] LABS: APTT (PATIENT) 23.3 SEC (24.3-30.1); PROTHROMBIN TIME - PATIENT 10.9 SEC (9.8-11.6)
[2017-09-10] MEDS ORDERED: LIDOCAINE 1%/EPINEPHrine 1:100,000 SOLN 20 ML VIAL ONE (07:41)
[2017-09-10] MEDS ORDERED: MIDAZOLAM HCL 2 MG/2 ML VIAL ONE (07:43)
[2017-09-10 08:50] VITALS: BP 140/77; PULSE 77; RESP 18; TEMP 97.9; O2SAT 93
[2017-09-10 09:05] VITALS: BP 140/73; PULSE 80; RESP 19; O2SAT 94
--- NOTE | 2017-09-10 09:07 | RADRPT ---
EXAM DATE/TIME: 09/10/2017 08:48 [place] COMPARISON: No previous studies available for comparison. INDICATIONS : PATIENT PRESENTS WITH MYELOMA AND IN NEED OF PORT PLACEMENT. MEDICAL HISTORY : SHINGLES SPINAL CORD COMPRESSION CROHNS DISEASE SEIZURES SURGICAL HISTORY : LYMPH BIOPSY COLONOSCOPY ENCOUNTER: Initial ACUITY: 2 days PAIN SCORE: 6/10 LOCATION: ABDOMEN LT FLUORO TIME: 0.6 minutes IMAGE SERIES: 1 SEDATION TIME: 30 minutes ACCESS: Right internal jugular vein SEDATION: 1.) 25 mg midazolam (Versed) IV 2.) 125 mcg fentanyl (Sublimaze) IV Prophylactic antibiotics were administered with appropriate pre-procedure timing. Vancomycin within 2 hours of procedure, Ancef (or alternative) within 1 hour of procedure. DEVICE: 1. 8 English single lumen [id number] PROCEDURE : 1. Continuous pulse oximetry and EKG monitoring. 2. Intravenous conscious sedation. 3. Ultrasound guidance for venous access. 4. Fluoroscopic guided implantable central venous port placement. The patient was placed supine. The neck was prepped in sterile fashion. Full sterile technique was u sed, including cap, mask, sterile gloves and gown, and a large sterile sheet. Hand hygiene and 2% ch lorhexidine Betadine was utilized per protocol for cutaneous antisepsis with appropriate dry time for site. Sterile gel and sterile probe cover were utilized for ultrasound guidance. The skin and sub cutaneous tissues were infiltrated with local anesthetic solution. Under direct ultrasound guidance, central venous access was accomplished in the targeted vessel. The ultrasound images depicting access guidance were stored and saved to PACS for permanent record. A s ubcutaneous pocket was created using blunt dissection. The port was introduced to the pocket. The c atheter tubing was fed through a subcutaneous tunnel to the venotomy site. The catheter tubing was c ut to a suitable length and then was introduced through a valved Peel-Away sheath and positioned with catheter tubing tip at the cavo-atrial junction level. The pocket incision was closed with subcutic ular Vicryl suture. Steri-Strips were applied. The port was flushed and locked with heparin solutio n per protocol. Sterile dressing was applied to the site. The patient tolerated the procedure well. Conscious sedation was performed with the prescribed dosages and duration as above in the presence of an independent trained radiology nurse to assist in the monitoring of the patient. EKG and oximetry remained stable throughout the procedure. The patient tolerated the procedure well and there were no complications. The patient was sent to post anesthesia recovery in stable condition. CONCLUSION: Uncomplicated ultrasound and fluoroscopic guided implanted central venous port catheter placement as described in detail above. An 8 English Power port was placed. Weston Quesada MD on September 10, 2017 at 9:05 Board Certified Radiologist. This report was verified electronically.
--- NOTE | 2017-09-10 09:25 | PD.RAD ---
Post Procedure Progress Note Pre Procedure Diagnosis: (1) multiple lytic lesions Post Procedure Diagnosis: (1) Multiple myeloma Procedure Date: Sep 10, 2017 Supervising Radiologist: Weston Quesada Proceduralist/Assist: RT Silverio(R), RT Jacque(R) Anesthesia: Conscious Sedation Plan of Activity Patient to Unit: ROPU Patient Condition: Good See PACS Report for procedural detail/treatment Weston Quesada MD Sep 10, 2017 09:25
[2017-09-10] MEDS ORDERED: SODIUM CHLORIDE 0.9% FLUSH 10 ML FLUSH IVF PRN (09:30)
[2017-09-10 09:35] VITALS: BP 130/74; PULSE 80; RESP 18; O2SAT 96
[2017-09-10 10:05] VITALS: BP 118/69; PULSE 67; RESP 17; O2SAT 93
== END 2017-09-10 10:37 | disposition home or self-care (01) ==
LOC: HRIP 06:00 → HROP 06:00
PROVIDERS: ATTEND Internal Medicine Hematology & Oncology
DX: Z45.2 Encounter for adjustment and management of vascular access device (principal); C90.00 Multiple myeloma not having achieved remission; K50.90 Crohn's disease, unspecified, without complications; Z79.01 Long term (current) use of anticoagulants
CPT/HCPCS: 36561; 76937; 77001; 85610; 85730; 99152; 99153; C1788; J0690; J1642; J2250; J3010; J3370; J7030; J7050

== ENCOUNTER 2018-08-05 19:04 | Inpatient (IN) ==
--- NOTE | 2018-08-05 20:03 | ED ---
HPI General Chief Complaint: Fever Stated Complaint: Fever Time Seen by Provider: 08/05/18 19:50 History of Present Illness HPI Narrative: pt has Multiple Myeloma and is on chemo from Dr Godfrey Onc and pt has fever 102 at home shaking chills , and comes to ER , 5 days ago pt was started on Azothromycin for 101 temp and sore throat , His PCP marco did wbc abd UA last week but pt is unclear of results , pt did not take tylenol at home for fever comes direstly to the ER , temp at traige is 100.8 , denies dysuria denies cough or sore throat . pt is accompanied by she has URI symptoms as well Related Data Home Medications Medication Instructions Recorded Confirmed acyclovir 400 mg PO BID 08/05/18 08/05/18 aspirin 325 mg PO DAILY 08/05/18 08/05/18 azithromycin 250 mg PO DAILY 08/05/18 08/05/18 cetirizine 10 mg PO DAILY 08/05/18 08/05/18 daratumumab 16 mg/kg IV Q4W 08/05/18 08/05/18 dexamethasone 20 mg PO QWEEK 08/05/18 08/05/18 docusate sodium [Colace] 100 mg PO BID 08/05/18 08/05/18 enalapril maleate 10 mg PO DAILY 08/05/18 08/05/18 minocycline 100 mg PO BID 08/05/18 08/05/18 omeprazole 20 mg PO QWEEK 08/05/18 08/05/18 pomalidomide [Pomalyst] 3 mg PO DAILY 08/05/18 08/06/18 rosuvastatin 10 mg PO DAILY 08/05/18 08/05/18 Allergies Allergy/AdvReac Type Severity Reaction Status Date / Time Sulfa (Sulfonamide Allergy Severe DIZZINESS Verified 08/05/18 22:05 Antibiotics) Review of Systems ROS: all other systems reviewed are negative PMFSH Family History Family History Other No pertinent family history Social History Social History Substance History: No History of Abuse Second Hand Smoke Exposure: No Smoking Status: Never smoker How Often Do You Have a Drink Containing Alcohol: Never Recent Travel in [place] within the Last 8 Weeks: No Recent Out of Country Travel within the Last 8 Weeks: No Immunization History Tetanus Immunization: Unsure Exam Narrative Exam Narrative: GENERAL: pt feels febrile SKIN: Warm and dry. HEAD: Atraumatic. Normocephalic. EYES: Pupils equal and round. No scleral icterus. No injection or drainage. ENT: No nasal bleeding or discharge. Mucous membranes pink and moist. NECK: Trachea midline. No JVD. CARDIOVASCULAR: Regular rate and rhythm. RESPIRATORY: coughing with deep inspiration and raattling cracks right base . GASTROINTESTINAL: Abdomen soft, non-tender, nondistended. Hepatic and splenic margins not palpable. MUSCULOSKELETAL: Extremities without clubbing, cyanosis, or edema. No obvious deformities. NEUROLOGICAL: Awake and alert. No obvious cranial nerve deficits. Motor grossly within normal limits. Five out of 5 muscle strength in the arms and legs. Normal speech. PSYCHIATRIC: Appropriate mood and affect; insight and judgment normal. Course Initial Documented Vital Signs Temperature 100.8 F H 08/05/18 19:34 Pulse Rate 118 H 08/05/18 19:34 Respiratory Rate 22 08/05/18 19:34 Blood Pressure 135/76 08/05/18 19:34 Pulse Oximetry 95 08/05/18 19:34 Last Documented Vital Signs Temperature 99.7 F H 08/09/18 12:00 Pulse Rate 82 08/09/18 12:00 Respiratory Rate 18 08/09/18 12:00 Blood Pressure 126/66 08/09/18 12:00 Pulse Oximetry 93 L 08/09/18 12:00 Medical Decision Making [facility] Narrative Medical decision making narrative: Clinical indications of PNA pt has fever and cough crackles on lung exam Vanco and cefepime IV and reverse isolation admission Medical Screen Exam Complete: Yes Emergency Medical Condition: Yes Differential Diagnosis Differential Diagnosis: PNA vs UTI vs bacterial sepsis bacteremia other fever infectious source Lab Data Result diagrams: 08/09/18 04:51 08/09/18 04:07 Lab Results 08/05/18 08/05/18 08/05/18 Range/Units 20:20 20:20 20:20 WBC 10.9 (4.0-11.0) th/mm3 RBC 3.79 L (4.50-5.90) mil/mm3 Hgb 12.7 L (13.0-17.0) gm/dL Hct 37.8 L (39.0-51.0) % MCV 99.8 (80.0-100.0) fL MCH 33.6 (27.0-34.0) pg MCHC 33.7 (32.0-36.0) % RDW 18.6 H (11.6-17.2) % Plt Count 309 (150-450) th/mm3 MPV 8.3 (7.0-11.0) fL Neut % (Auto) 89.6 H (16.0-70.0) % Lymph % (Auto) 2.2 L (9.0-44.0) % [place] % (Auto) 2.3 (0.0-8.0) % Eos % (Auto) 5.4 H (0.0-4.0) % Baso % (Auto) 0.5 (0.0-2.0) % Neut # (Auto) 9.8 H (1.8-7.7) th/mm3 Lymph # (Auto) 0.2 L (1.0-4.8) th/mm3 [place] # (Auto) 0.3 (0.0-0.9) th/mm3 Eos # (Auto) 0.6 H (0.0-0.4) th/mm3 Baso # (Auto) 0.1 (0.0-0.2) th/mm3 WBC Differential . Differential Comment Auto diff final Sodium 140 (136-145) meq/L Potassium 3.3 L (3.5-5.1) meq/L Chloride 107 (98-107) meq/L Carbon Dioxide 22.6 (21.0-32.0) meq/L Anion Gap 10 (5-15) meq/L BUN 25 H (7-18) mg/dL Creatinine 1.39 H (0.60-1.30) mg/dL Estimated GFR 51 L (>89) mL/min Random Glucose 106 (74-106) mg/dL Lactic Acid 2.1 H (0.4-2.0) mmol/L Calcium 8.3 L (8.5-10.1) mg/dL Prot Corrected Calcium (8.5-10.1) mg/dL Phosphorus (2.5-4.9) mg/dL Magnesium (1.5-2.5) mg/dL Total Bilirubin 0.4 (0.2-1.0) mg/dL AST 7 L (15-37) U/L ALT 14 (12-78) U/L Alkaline Phosphatase 66 (45-117) U/L Total Protein 6.8 (6.4-8.2) g/dL Albumin 2.9 L (3.4-5.0) g/dL Urine Color (Yellw/Straw) Urine Clarity (Clear) Urine pH (5.0-8.5) Ur Specific [place] [facility] (1.002-1.035) Urine Protein (Neg-Trace) mg/dL Urine Glucose (UA) (Negative) mg/dL Urine Ketones (Negative) mg/dL Urine Occult Blood (Negative) Urine Nitrate (Negative) Urine Bilirubin (Negative) Urine Urobilinogen (Less than 2) mg/dL Ur Leukocyte Esterase (Negative) Urine RBC (0-3) /hpf Urine WBC (0-5) /hpf Micro UA Comment Ur Microscopic Review Urine Culture Comments Random Vancomycin Comment 08/05/18 08/05/18 08/06/18 Range/Units 20:42 22:48 05:54 WBC 10.0 (4.0-11.0) th/mm3 RBC 3.50 L (4.50-5.90) mil/mm3 Hgb 12.0 L (13.0-17.0) gm/dL Hct 34.9 L (39.0-51.0) % MCV 99.8 (80.0-100.0) fL MCH 34.3 H (27.0-34.0) pg MCHC 34.4 (32.0-36.0) % RDW 18.6 H (11.6-17.2) % Plt Count 239 (150-450) th/mm3 MPV 8.3 (7.0-11.0) fL Neut % (Auto) 94.8 H (16.0-70.0) % Lymph % (Auto) 1.1 L (9.0-44.0) % [place] % (Auto) 2.1 (0.0-8.0) % Eos % (Auto) 1.8 (0.0-4.0) % Baso % (Auto) 0.2 (0.0-2.0) % Neut # (Auto) 9.5 H (1.8-7.7) th/mm3 Lymph # (Auto) 0.1 L (1.0-4.8) th/mm3 [place] # (Auto) 0.2 (0.0-0.9) th/mm3 Eos # (Auto) 0.2 (0.0-0.4) th/mm3 Baso # (Auto) 0.0 (0.0-0.2) th/mm3 WBC Differential . Differential Comment Auto diff final Sodium (136-145) meq/L Potassium (3.5-5.1) meq/L Chloride (98-107) meq/L Carbon Dioxide (21.0-32.0) meq/L Anion Gap (5-15) meq/L BUN (7-18) mg/dL Creatinine (0.60-1.30) mg/dL Estimated GFR (>89) mL/min Random Glucose (74-106) mg/dL Lactic Acid 2.3 H (0.4-2.0) mmol/L Calcium (8.5-10.1) mg/dL Prot Corrected Calcium (8.5-10.1) mg/dL Phosphorus (2.5-4.9) mg/dL Magnesium (1.5-2.5) mg/dL Total Bilirubin (0.2-1.0) mg/dL AST (15-37) U/L ALT (12-78) U/L Alkaline Phosphatase (45-117) U/L Total Protein (6.4-8.2) g/dL Albumin (3.4-5.0) g/dL Urine Color Yellow (Yellw/Straw) Urine Clarity Clear (Clear) Urine pH 5.0 (5.0-8.5) Ur Specific [place] [facility] 1.018 (1.002-1.035) Urine Protein Negative (Neg-Trace) mg/dL Urine Glucose (UA) Negative (Negative) mg/dL Urine Ketones Negative (Negative) mg/dL Urine Occult Blood Small H (Negative) Urine Nitrate Negative (Negative) Urine Bilirubin Negative (Negative) Urine Urobilinogen Less than 2 (Less than 2) mg/dL Ur Leukocyte Esterase Negative (Negative) Urine RBC Less than 1 (0-3) /hpf Urine WBC 3 (0-5) /hpf Micro UA Comment Culture not ind Ur Microscopic Review Not Reportable Urine Culture Comments Culture not ind Random Vancomycin Comment 08/06/18 08/07/18 08/07/18 Range/Units 05:54 10:50 10:50 WBC 16.9 H (4.0-11.0) th/mm3 RBC 3.25 L (4.50-5.90) mil/mm3 Hgb 10.8 L (13.0-17.0) gm/dL Hct 32.0 L (39.0-51.0) % MCV 98.6 (80.0-100.0) fL MCH 33.2 (27.0-34.0) pg MCHC 33.6 (32.0-36.0) % RDW 18.9 H (11.6-17.2) % Plt Count 172 (150-450) th/mm3 MPV 8.5 (7.0-11.0) fL Neut % (Auto) (16.0-70.0) % Lymph % (Auto) (9.0-44.0) % [place] % (Auto) (0.0-8.0) % Eos % (Auto) (0.0-4.0) % Baso % (Auto) (0.0-2.0) % Neut # (Auto) (1.8-7.7) th/mm3 Lymph # (Auto) (1.0-4.8) th/mm3 [place] # (Auto) (0.0-0.9) th/mm3 Eos # (Auto) (0.0-0.4) th/mm3 Baso # (Auto) (0.0-0.2) th/mm3 WBC Differential Differential Comment Sodium 144 (136-145) meq/L Potassium 3.7 (3.5-5.1) meq/L Chloride 112 H (98-107) meq/L Carbon Dioxide 22.1 (21.0-32.0) meq/L Anion Gap 10 (5-15) meq/L BUN 19 H (7-18) mg/dL Creatinine 1.37 H (0.60-1.30) mg/dL Estimated GFR 52 L (>89) mL/min Random Glucose 95 (74-106) mg/dL Lactic Acid (0.4-2.0) mmol/L Calcium 7.5 L D (8.5-10.1) mg/dL Prot Corrected Calcium (8.5-10.1) mg/dL Phosphorus (2.5-4.9) mg/dL Magnesium (1.5-2.5) mg/dL Total Bilirubin 0.6 (0.2-1.0) mg/dL AST 8 L (15-37) U/L ALT 14 (12-78) U/L Alkaline Phosphatase 60 (45-117) U/L Total Protein 5.8 L D (6.4-8.2) g/dL Albumin 2.6 L (3.4-5.0) g/dL Urine Color (Yellw/Straw) Urine Clarity (Clear) Urine pH (5.0-8.5) Ur Specific [facility] (1.002-1.035) Urine Protein (Neg-Trace) mg/dL Urine Glucose (UA) (Negative) mg/dL Urine Ketones (Negative) mg/dL Urine Occult Blood (Negative) Urine Nitrate (Negative) Urine Bilirubin (Negative) Urine Urobilinogen (Less than 2) mg/dL Ur Leukocyte Esterase (Negative) Urine RBC (0-3) /hpf Urine WBC (0-5) /hpf Micro UA Comment Ur Microscopic Review Urine Culture Comments Random Vancomycin 3.5 Comment 08/07/18 08/07/18 08/08/18 Range/Units 10:50 10:50 04:32 WBC 12.3 H (4.0-11.0) th/mm3 RBC 3.20 L (4.50-5.90) mil/mm3 Hgb 10.7 L (13.0-17.0) gm/dL Hct 32.1 L (39.0-51.0) % MCV 100.3 H (80.0-100.0) fL MCH 33.4 (27.0-34.0) pg MCHC 33.3 (32.0-36.0) % RDW 19.0 H (11.6-17.2) % Plt Count 160 (150-450) th/mm3 MPV 8.8 (7.0-11.0) fL Neut % (Auto) 86.9 H (16.0-70.0) % Lymph % (Auto) 2.1 L (9.0-44.0) % [place] % (Auto) 5.5 (0.0-8.0) % Eos % (Auto) 4.8 H (0.0-4.0) % Baso % (Auto) 0.7 (0.0-2.0) % Neut # (Auto) 10.7 H (1.8-7.7) th/mm3 Lymph # (Auto) 0.3 L (1.0-4.8) th/mm3 [place] # (Auto) 0.7 (0.0-0.9) th/mm3 Eos # (Auto) 0.6 H (0.0-0.4) th/mm3 Baso # (Auto) 0.1 (0.0-0.2) th/mm3 WBC Differential . Differential Comment Auto diff final Sodium 141 (136-145) meq/L Potassium 3.3 L (3.5-5.1) meq/L Chloride 110 H (98-107) meq/L Carbon Dioxide 22.1 (21.0-32.0) meq/L Anion Gap 9 (5-15) meq/L BUN 12 (7-18) mg/dL Creatinine 1.37 H (0.60-1.30) mg/dL Estimated GFR 52 L (>89) mL/min Random Glucose 128 H (74-106) mg/dL Lactic Acid 3.0 H (0.4-2.0) mmol/L Calcium 7.3 L* (8.5-10.1) mg/dL Prot Corrected Calcium 8.2 L (8.5-10.1) mg/dL Phosphorus (2.5-4.9) mg/dL Magnesium (1.5-2.5) mg/dL Total Bilirubin (0.2-1.0) mg/dL AST (15-37) U/L ALT (12-78) U/L Alkaline Phosphatase (45-117) U/L Total Protein 5.5 L (6.4-8.2) g/dL Albumin (3.4-5.0) g/dL Urine Color (Yellw/Straw) Urine Clarity (Clear) Urine pH (5.0-8.5) Ur Specific [facility] (1.002-1.035) Urine Protein (Neg-Trace) mg/dL Urine Glucose (UA) (Negative) mg/dL Urine Ketones (Negative) mg/dL Urine Occult Blood (Negative) Urine Nitrate (Negative) Urine Bilirubin (Negative) Urine Urobilinogen (Less than 2) mg/dL Ur Leukocyte Esterase (Negative) Urine RBC (0-3) /hpf Urine WBC (0-5) /hpf Micro UA Comment Ur Microscopic Review Urine Culture Comments Random Vancomycin Comment 08/08/18 08/09/1808/09/18 Range/Units 04:32 04:07 04:51 WBC 10.5 (4.0-11.0) th/mm3 RBC 2.78 L (4.50-5.90) mil/mm3 Hgb 9.5 L (13.0-17.0) gm/dL Hct 27.8 L (39.0-51.0) % MCV 100.1 H (80.0-100.0) fL MCH 34.2 H (27.0-34.0) pg MCHC 34.2 (32.0-36.0) % RDW 19.3 H (11.6-17.2) % Plt Count 144 L (150-450) th/mm3 MPV 8.8 (7.0-11.0) fL Neut % (Auto) 79.0 H (16.0-70.0) % Lymph % (Auto) 4.2 L (9.0-44.0) % [place] % (Auto) 9.9 H (0.0-8.0) % Eos % (Auto) 6.6 H (0.0-4.0) % Baso % (Auto) 0.3 (0.0-2.0) % Neut # (Auto) 8.3 H (1.8-7.7) th/mm3 Lymph # (Auto) 0.4 L (1.0-4.8) th/mm3 [place] # (Auto) 1.0 H (0.0-0.9) th/mm3 Eos # (Auto) 0.7 H (0.0-0.4) th/mm3 Baso # (Auto) 0.0 (0.0-0.2) th/mm3 WBC Differential . Differential Comment Auto diff final Sodium 141 140 (136-145) meq/L Potassium 3.7 3.5 (3.5-5.1) meq/L Chloride 110 H 107 (98-107) meq/L Carbon Dioxide 20.8 L 22.5 (21.0-32.0) meq/L Anion Gap 10 11 (5-15) meq/L BUN 13 9 (7-18) mg/dL Creatinine 1.37 H 1.26 (0.60-1.30) mg/dL Estimated GFR 52 L 57 L (>89) mL/min Random Glucose 124 H 96 (74-106) mg/dL Lactic Acid (0.4-2.0) mmol/L Calcium 7.9 L 7.9 L (8.5-10.1) mg/dL Prot Corrected Calcium (8.5-10.1) mg/dL Phosphorus 1.9 L (2.5-4.9) mg/dL Magnesium 1.7 (1.5-2.5) mg/dL Total Bilirubin 0.8 (0.2-1.0) mg/dL AST 13 L (15-37) U/L ALT 30 (12-78) U/L Alkaline Phosphatase 56 (45-117) U/L Total Protein 6.2 L D (6.4-8.2) g/dL Albumin 2.2 L (3.4-5.0) g/dL Urine Color (Yellw/Straw) Urine Clarity (Clear) Urine pH (5.0-8.5) Ur Specific [facility] (1.002-1.035) Urine Protein (Neg-Trace) mg/dL Urine Glucose (UA) (Negative) mg/dL Urine Ketones (Negative) mg/dL Urine Occult Blood (Negative) Urine Nitrate (Negative) Urine Bilirubin (Negative) Urine Urobilinogen (Less than 2) mg/dL Ur Leukocyte Esterase (Negative) Urine RBC (0-3) /hpf Urine WBC (0-5) /hpf Micro UA Comment Ur Microscopic Review Urine Culture Comments Random Vancomycin 15.8 Comment Imaging Data Radiologist's impression: Chest X-Ray 08/05/18 20:03 CONCLUSION: Trace left base atelectasis. Otherwise negative. Chest X-Ray 08/07/18 00:00 CONCLUSION: Bibasilar areas of consolidation or atelectasis being worse on the left. These appear worse when compared to the prior exam. Discharge Plan Discharge Disposition Patient Disposition: 30 Still Patient Physicians Team ED Provider: Tony Merino Primary Care Provider: Primary Care Farida Garvey Attending Provider: Chrystal Goldstein Other Providers: Elizabeth Montero ; Ibeth Cristina ; Wiley Godfrey Discharge Interventions Interventions: ED Discharge Assessment Last Done: 08/05/18 23:09 Status ED Status: Left Department Discharge Information Discharge Date/Time: 08/05/18 23:10
[2018-08-05 20:40] LABS: Baso # (Auto) 0.1 th/mm3 (0.0-0.2); Baso % (Auto) 0.5 % (0.0-2.0); Eos # (Auto) 0.6 th/mm3 (0.0-0.4); Eos % (Auto) 5.4 % (0.0-4.0); Hematocrit 37.8 % (39.0-51.0); Hemoglobin 12.7 gm/dL (13.0-17.0); Lymph # (Auto) 0.2 th/mm3 (1.0-4.8); Lymph % (Auto) 2.2 % (9.0-44.0); Mean Corpuscular HGB Conc 33.7 % (32.0-36.0); Mean Corpuscular Hemoglobin 33.6 pg (27.0-34.0); Mean Corpuscular Volume 99.8 fL (80.0-100.0); Mean Platelet Volume 8.3 fL (7.0-11.0); Mono # (Auto) 0.3 th/mm3 (0.0-0.9); Mono % (Auto) 2.3 % (0.0-8.0); Neut # (Auto) 9.8 th/mm3 (1.8-7.7); Neut % (Auto) 89.6 % (16.0-70.0); Platelet Count 309 th/mm3 (150-450); Red Blood Count 3.79 mil/mm3 (4.50-5.90); Red Cell Distribution Width 18.6 % (11.6-17.2); White Blood Count 10.9 th/mm3 (4.0-11.0)
[2018-08-05 21:01] LABS: Alanine Aminotransferase 14 U/L (12-78); Albumin 2.9 g/dL (3.4-5.0); Anion Gap 10 meq/L (5-15); Aspartate Aminotransferase 7 U/L (15-37); Blood Urea Nitrogen 25 mg/dL (7-18); Calcium 8.3 mg/dL (8.5-10.1); Carbon Dioxide 22.6 meq/L (21.0-32.0); Chloride 107 meq/L (98-107); Glomerular Filtration Rate 51 mL/min (>89); Glucose,Random 106 mg/dL (74-106); Potassium 3.3 meq/L (3.5-5.1); Sodium 140 meq/L (136-145)
[2018-08-05 21:03] LABS: Alkaline Phosphatase 66 U/L (45-117); Total Protein 6.8 g/dL (6.4-8.2)
--- NOTE | 2018-08-05 21:06 | XR ---
EXAM DATE: 08/05/2018 8:03 PM EDT AGE/SEX: 67 years / Male INDICATIONS: Cough. CLINICAL DATA: This is the patient's initial encounter. Patient reports that signs and symptoms have been present for 3 days and indicates a pain score of 0/10. MEDICAL/SURGICAL HISTORY: . Crohn's disease. Multiple myeloma. . Infusaport. COMPARISON: [facility] [place], CHEST SINGLE AP, 11/16/2016. . FINDINGS: Trace left base atelectasis present. Lungs otherwise appear clear. No pleural effusion. No pneumothor ax. Heart size stable, within normal limits. Right-sided Nfinor-r-Tclg catheter is now present, tip in the superior vena cava. Mild S shaped thoracolumbar curvature again seen. CONCLUSION: Trace left base atelectasis. Otherwise negative. Electronically signed by: Jim Vega MD 08/05/2018 9:04 PM EDT
[2018-08-05] MEDS ORDERED: Sodium Chlor 0.9% Inj 500 ML IV.SIG ONE (21:07)
[2018-08-05 21:08] LABS: Bilirubin,Urine Negative (Negative); Clarity,Urine Clear (Clear); Color,Urine Yellow (Yellw/Straw); Glucose,Urine (UA) Negative (Negative); Leukocyte Esterase,Urine Negative (Negative); Nitrite,Urine Negative (Negative); Specific Gravity,Urine 1.018 (1.002-1.035)
[2018-08-05] MEDS ORDERED: Acetaminophen 500 MG Tablet PO ONE (21:31)
[2018-08-05] MEDS ORDERED: Vancomycin Inj 1 GM/200 ML PIGGYBACK IV.SIG ONE (21:38)
[2018-08-05] MEDS ORDERED: Vancomycin Inj 1,000 MG in Sodium Chlor 0.9% Inj 250 ML IV.SIG ONE ×2 (21:45→23:59)
[2018-08-05] MEDS ORDERED: Vancomycin Consult Pharmacy OTHER PRN (22:25)
[2018-08-05] MEDS ORDERED: Bisacodyl 10 MG Supp RECTAL PRN (22:26)
--- NOTE | 2018-08-05 22:29 | P.HPIM ---
History of Present Illness Primary Care Physician: No Primary Care Physician History of Present Illness: This is a 67-year-old male with a PMH of HTN, Hyperlipidemia and Multiple Myeloma who presented to the ER with complaints of fever. Currently on Chemotherapy, following w/ Dr. Godfrey. States he developed sore throat and was started on Z-pack 5 days ago by PCP, today noted to have fever of 102 at home. Denies cough, nausea, vomiting or diarrhea. On arrival, BP 135/76, HR 118, O2 sat 95% on RA, Temp 101.4. CBC unremarkable except for elevated neutrophil count. Creatinine 1.39, previous E1.31 on 05-18. Lactic Acid 2.1. UA negative for UTI. CXR with trace left base atelectasis otherwise negative. S/p Vanc/ Cefepime in ER. - Diagnosis (1) SIRS (systemic inflammatory response syndrome) (2) Multiple myeloma (3) Renal insufficiency Inpatient Certification: I certify that the inpatient services were ordered in accordance with Medicare regulations governing the order. This includes certification that hospital inpatient services are reasonable and necessary and in the case of services not specified as inpatient-only under 42 CFR 419.22(n), that they are appropriately provided as inpatient services in accordance to with the 2-midnight benchmark under 43 CFR 412.3(e) Estimated Total Length of Stay (Days): 2 Plans for Post Hospital Care: Not yet determined Review of Systems PAST FAMILY HISTORY: Reviewed. No h/o DM or CAD All other systems reviewed negative except as stated in HPI PMFSH - History History Provided By: Patient - Medical History Medical History: Medical History (Last Reviewed 08/05/18 @ 23:06 by Radhika Stahl RN) Enlarged prostate HTN (hypertension) Hypercholesteremia Multiple myeloma - Tobacco History Smoking Status: Never smoker - Alcohol History How Often Do You Have a Drink Containing Alcohol: Never - Substance Use History Substance History: No History of Abuse - Travel History Recent Travel in the [place] Within the Last 8 Weeks: No Recent Travel Out of the Country Within the Last 8 Weeks: No - Immunization History Tetanus Immunization: Unsure Medications and Allergies Active Medications: Active Medications Vancomycin HCl 1,000 mg/ (Sodium Chloride) 250 mls @ 250 mls/hr IV.SIG ONCE ONE Stop: 08/05/18 22:44 Sodium Chloride (Ns Flush) 2 ml IV.FLUSH PRN PRN PRN Reason: FLUSH AFTER USING IV ACCESS Allergies Allergy/AdvReac Type Severity Reaction Status Date / Time Sulfa (Sulfonamide Allergy Severe DIZZINESS Verified 08/05/18 22:05 Antibiotics) Home Medications Medication Instructions Recorded Confirmed Type acyclovir 400 mg PO BID 08/05/18 08/05/18 History aspirin 325 mg PO DAILY 08/05/18 08/05/18 History azithromycin 250 mg PO DAILY 08/05/18 08/05/18 History cetirizine 10 mg PO DAILY 08/05/18 08/05/18 History daratumumab 16 mg/kg IV Q4W 08/05/18 08/05/18 History dexamethasone 20 mg PO QWEEK 08/05/18 08/05/18 History docusate sodium [Colace] 100 mg PO BID 08/05/18 08/05/18 History enalapril maleate 10 mg PO DAILY 08/05/18 08/05/18 History minocycline 100 mg PO BID 08/05/18 08/05/18 History omeprazole 20 mg PO QWEEK 08/05/18 08/05/18 History pomalidomide [Pomalyst] mg PO DAILY 08/05/18 History rosuvastatin 10 mg PO DAILY 08/05/18 08/05/18 History Exam Vital signs: Vital Signs 08/05/18 19:34 08/05/18 20:05 08/05/18 21:53 Temperature 100.8 F H 101.4 F H Pulse Rate 118 H 102 H 97 H Respiratory Rate 22 18 18 Blood Pressure 135/76 141/73 H 141/73 H Pulse Oximetry 95 95 96 Intake & Output 08/05/18 08/05/18 08/06/18 06:59 18:59 06:59 Weight 86 kg Narrative: PE: GENERAL: Very pleasant middle-aged white male in no acute distress. at bedside. SKIN: Focused skin assessment warm and dry. HEENT: PERRLA, EOMI. No scleral icterus or conjunctival pallor. No lid lag or facial droop. CARDIOVASCULAR: Regular rate and rhythm. No obvious murmurs to auscultation. No chest tenderness to palpation. RESPIRATORY: No obvious rhonchi or wheezing. Clear to auscultation. Breath sounds equal bilaterally. GASTROINTESTINAL: Abdomen soft, non-tender, nondistended. BS normal. MUSCULOSKELETAL: Extremities without clubbing, cyanosis, or edema. No obvious deformities. NEUROLOGICAL: Awake, alert and oriented x4. No focal neurologic deficits. Moving both upper and lower extremities spontaneously. PSYCHIATRIC: Appropriate mood and affect. Insight and judgment normal. Results - Labs CBC & Chem 7: 08/05/18 20:20 08/05/18 20:20 Labs: Short CBC 08/05/18 Range/Units 20:20 WBC 10.9 (4.0-11.0) th/mm3 Hgb 12.7 L (13.0-17.0) gm/dL Hct 37.8 L (39.0-51.0) % Plt Count 309 (150-450) th/mm3 BMP 08/05/18 20:20 Sodium 140 Potassium 3.3 L Chloride 107 Carbon Dioxide 22.6 BUN 25 H Creatinine 1.39 H Calcium 8.3 L Liver Function 08/05/18 Range/Units 20:20 Total Bilirubin 0.4 (0.2-1.0) mg/dL AST 7 L (15-37) U/L ALT 14 (12-78) U/L Alkaline Phosphatase 66 (45-117) U/L Albumin 2.9 L (3.4-5.0) g/dL Urine 08/05/18 Range/Units 20:42 Urine Color Yellow (Yellw/Straw) Urine Clarity Clear (Clear) Urine pH 5.0 (5.0-8.5) Ur Specific [place] 1.018 (1.002-1.035) Urine Protein Negative (Neg-Trace) mg/dL Urine Glucose (UA) Negative (Negative) mg/dL - Imaging Impressions Chest X-Ray 08/05/18 20:03 CONCLUSION: Trace left base atelectasis. Otherwise negative. Caprini VTE Risk Assessment Caprini VTE Risk Assessment: No/Low Risk (score <= 1) Caprini Risk Assessment Model: Point Value = 1 Point Value = 2 Point Value = 3 Point Value = 5 Age 41-60 Minor surgery BMI > 25 kg/m2 Swollen legs Varicose veins or History of unexplained or recurrent spontaneous Oral contraceptives or hormone replacement Sepsis (< 1 month) Serious lung disease, including pneumonia (< 1 month) Abnormal pulmonary function Acute myocardial infarction Congestive heart failure (< 1 month) History of inflammatory bowel disease Medical patient at bed rest Age 61-74 Arthroscopic surgery Major open surgery (> 45 min) Laparoscopic surgery (> 45 min) Malignancy Confined to bed (> 72 hours) Immobilizing plaster cast Central venous access Age >= 75 History of VTE Family history of VTE Factor V Leiden Prothrombin [id number] Lupus anticoagulant Anticardiolipin antibodies Elevated serum homocysteine Heparin-induced thrombocytopenia Other congenital or acquired thrombophilia Stroke (< 1 month) Elective arthroplasty Hip, pelvis, or leg fracture Acute spinal cord injury (< 1 month) Prophylaxis Regimen: Total Risk Factor Score Risk Level Prophylaxis Regimen 0-1 Low Early ambulation 2 Moderate Order ONE of the following: *Sequential Compression Device (SCD) *Heparin 5000 units SQ BID 3-4 Higher Order ONE of the following medications: *Heparin 5000 units SQ TID *Enoxaparin/Lovenox 40 mg SQ daily (WT < 150 kg, CrCl > 30 mL/min) *Enoxaparin/Lovenox 30 mg SQ daily (WT < 150 kg, CrCl > 10-29 mL/min) *Enoxaparin/Lovenox 30 mg SQ BID (WT < 150 kg, CrCl > 30 mL/min) AND/OR *Sequential Compression Device (SCD) 5 or more Highest Order ONE of the following medications: *Heparin 5000 units SQ TID (Preferred with Epidurals) *Enoxaparin/Lovenox 40 mg SQ daily (WT < 150 kg, CrCl > 30 mL/min) *Enoxaparin/Lovenox 30 mg SQ daily (WT < 150 kg, CrCl > 10-29 mL/min) *Enoxaparin/Lovenox 30 mg SQ BID (WT < 150 kg, CrCl > 30 mL/min) AND *Sequential Compression Device (SCD) Assessment and Plan - Assessment (1) SIRS (systemic inflammatory response syndrome) Code(s): R65.10 - Systemic inflammatory response syndrome (SIRS) of non- infectious origin without acute organ dysfunction Status: Acute (2) Multiple myeloma Code(s): C90.00 - Multiple myeloma not having achieved remission Status: Acute (3) Renal insufficiency Code(s): N28.9 - Disorder of kidney and ureter, unspecified Status: Acute - Plan A/P: 1. SIRS: Temp 101.4, HR 118, Source-unclear. S/p Blood Cultures, Vanc/ Cefepime, follow up cultures, continue IV Abx. Lactic Acid 2.1, will repeat labs for trend. 2. Multiple Myeloma: Currently on 21-day cycle of chemotherapy, following w/ Dr. Godfrey, Dr. Meier consulted for further evaluation. 3. Renal Insufficiency: Acute on Chronic. Creatinine 1.39, previously 1.31 on 05/02/18, IVF for hydration, monitor I/O, repeat labs in am. 4. DVT Prophylaxis: SCD/Teds 5. Social work for d/c planning as needed 6. Case discussed w/ ER physician at length, labs/records/imaging reviewed by me.
[2018-08-05] MEDS: Sod Chloride 0.9% Inj 1,000 ML IV.CONT SCH (23:17)
[2018-08-05] MEDS: Acyclovir 200 MG Capsule PO SCH (23:40)
[2018-08-06] MEDS ORDERED: Sodium Chloride 0.9% 2 ML Flush PRN IV.FLUSH (00:36)
[2018-08-06 07:05] LABS: Baso % (Auto) 0.2 % (0.0-2.0); Eos # (Auto) 0.2 th/mm3 (0.0-0.4); Eos % (Auto) 1.8 % (0.0-4.0); Hematocrit 34.9 % (39.0-51.0); Lymph # (Auto) 0.1 th/mm3 (1.0-4.8); Lymph % (Auto) 1.1 % (9.0-44.0); Mean Corpuscular HGB Conc 34.4 % (32.0-36.0); Mean Corpuscular Hemoglobin 34.3 pg (27.0-34.0); Mean Corpuscular Volume 99.8 fL (80.0-100.0); Mean Platelet Volume 8.3 fL (7.0-11.0); Mono # (Auto) 0.2 th/mm3 (0.0-0.9); Mono % (Auto) 2.1 % (0.0-8.0); Neut # (Auto) 9.5 th/mm3 (1.8-7.7); Neut % (Auto) 94.8 % (16.0-70.0); Platelet Count 239 th/mm3 (150-450); Red Cell Distribution Width 18.6 % (11.6-17.2)
[2018-08-06 07:38] LABS: Alanine Aminotransferase 14 U/L (12-78); Albumin 2.6 g/dL (3.4-5.0); Alkaline Phosphatase 60 U/L (45-117); Anion Gap 10 meq/L (5-15); Aspartate Aminotransferase 8 U/L (15-37); Blood Urea Nitrogen 19 mg/dL (7-18); Calcium 7.5 mg/dL (8.5-10.1); Carbon Dioxide 22.1 meq/L (21.0-32.0); Chloride 112 meq/L (98-107); Glomerular Filtration Rate 52 mL/min (>89); Glucose,Random 95 mg/dL (74-106); Potassium 3.7 meq/L (3.5-5.1); Sodium 144 meq/L (136-145); Total Protein 5.8 g/dL (6.4-8.2)
[2018-08-06] MEDS: Aspirin 325 MG Tablet PO SCH (08:34)
[2018-08-06] MEDS: Acyclovir 200 MG Capsule PO SCH ×2 (08:34→20:00)
[2018-08-06] MEDS: Senna/Docusate Sodium 8.6/50 MG Tablet PO SCH ×2 (08:35→20:00)
[2018-08-06] MEDS: Acetaminophen 325 MG Tablet PO PRN ×2 (08:35→19:53)
[2018-08-06] MEDS: Sodium Chloride 0.9% 2 ML Flush BID IV.FLUSH SCH ×2 (08:36→20:00)
[2018-08-06] MEDS: Sod Chloride 0.9% Inj 1,000 ML IV.CONT SCH ×2 (08:43→19:53)
--- NOTE | 2018-08-06 10:26 | P.PN ---
Subjective Interval history: Follow up for fever, chills, cough: Feeling poorly, + cough with sputum, not sure of color. Dizzy when sitting up. No cp, no sob. Appetite poor, some nausea. No diarrhea, no abd. pain. Febrile 101.4---> 100.8 this morning. Physical Exam Vital signs: Vital Signs 08/05/18 19:34 08/05/18 20:05 08/05/18 21:53 Temperature 100.8 F H 101.4 F H Pulse Rate 118 H 102 H 97 H Respiratory Rate 22 18 18 Blood Pressure 135/76 141/73 H 141/73 H Pulse Oximetry 95 95 96 08/06/18 00:36 08/06/18 01:00 08/06/18 04:00 Temperature 98.2 F 98.3 F Pulse Rate 75 85 104 H Respiratory Rate 18 18 Blood Pressure 128/74 156/68 H Pulse Oximetry 92 L 95 08/06/18 08:00 Temperature 100.8 F H Pulse Rate 92 H Respiratory Rate 18 Blood Pressure 113/68 Pulse Oximetry 90 L Intake & Output 08/05/18 08/06/18 08/06/18 18:59 06:59 18:59 Intake Total 1300 / 1300 1000 / 1000 Balance 1300 / 1300 1000 / 1000 Weight 85.8 kg Intake: IV 1100 / 1100 1000 / 1000 NS Inj 1,000 ML @ 100 mls/hr IV 1000 / 1000 .CONT .Q10H BRAULIO Rx#:[id number] Maxipime Inj 2,000 MG In NS Inj 100 / 100 100 ML @ 200 mls/hr IV.SIG ONCE ONE Rx#:[id number] NS Inj 500 ML @ Wide Open IV. 500 / 500 SIG BOLUS ONE Rx#:[id number] Vancomycin Inj 1,000 MG In NS 500 / 500 Inj 250 ML @ 250 mls/hr IV.SIG ONCE ONE Rx#:[id number] Oral 200 / 200 Other: # Voids 3 Weight On Admission 89 kg Narrative: GENERAL: Very pleasant middle-aged white male in no acute distress. SKIN:warm and dry HEENT: PERRLA, EOMI. No scleral icterus or conjunctival pallor. No lid lag or facial droop. CARDIOVASCULAR: Regular rate and rhythm. No obvious murmurs to auscultation. No chest tenderness to palpation. RESPIRATORY: bibasilar rales noted, L > R GASTROINTESTINAL: Abdomen soft, non-tender, nondistended. BS normal. MUSCULOSKELETAL: Extremities without clubbing, cyanosis, or edema. No obvious deformities. NEUROLOGICAL: Awake, alert and oriented x4. No focal neurologic deficits. Moving both upper and lower extremities spontaneously. PSYCHIATRIC: Appropriate mood and affect. Insight and judgment normal. Results - Labs CBC & Chem 7: 08/06/18 05:54 08/06/18 05:54 Laboratory Results - last 24 hr 08/05/18 08/05/18 08/05/18 20:20 20:20 20:20 WBC 10.9 RBC 3.79 L Hgb 12.7 L Hct 37.8 L MCV 99.8 MCH 33.6 MCHC 33.7 RDW 18.6 H Plt Count 309 MPV 8.3 Neut % (Auto) 89.6 H Lymph % (Auto) 2.2 L [place] % (Auto) 2.3 Eos % (Auto) 5.4 H Baso % (Auto) 0.5 Neut # (Auto) 9.8 H Lymph # (Auto) 0.2 L [place] # (Auto) 0.3 Eos # (Auto) 0.6 H Baso # (Auto) 0.1 WBC Differential . Differential Comment Auto diff final Sodium 140 Potassium 3.3 L Chloride 107 Carbon Dioxide 22.6 Anion Gap 10 BUN 25 H Creatinine 1.39 H Estimated GFR 51 L Random Glucose 106 Lactic Acid 2.1 H Calcium 8.3 L Total Bilirubin 0.4 AST 7 L ALT 14 Alkaline Phosphatase 66 Total Protein 6.8 Albumin 2.9 L Urine Color Urine Clarity Urine pH Ur Specific [place] Urine Protein Urine Glucose (UA) Urine Ketones Urine Occult Blood Urine Nitrate Urine Bilirubin Urine Urobilinogen Ur Leukocyte Esterase Urine RBC Urine WBC Micro UA Comment Ur Microscopic Review Urine Culture Comments 08/05/18 08/05/18 08/06/18 20:42 22:48 05:54 WBC 10.0 RBC 3.50 L Hgb 12.0 L Hct 34.9 L MCV 99.8 MCH 34.3 H MCHC 34.4 RDW 18.6 H Plt Count 239 MPV 8.3 Neut % (Auto) 94.8 H Lymph % (Auto) 1.1 L [place] % (Auto) 2.1 Eos % (Auto) 1.8 Baso % (Auto) 0.2 Neut # (Auto) 9.5 H Lymph # (Auto) 0.1 L [place] # (Auto) 0.2 Eos # (Auto) 0.2 Baso # (Auto) 0.0 WBC Differential . Differential Comment Auto diff final Sodium Potassium Chloride Carbon Dioxide Anion Gap BUN Creatinine Estimated GFR Random Glucose Lactic Acid 2.3 H Calcium Total Bilirubin AST ALT Alkaline Phosphatase Total Protein Albumin Urine Color Yellow Urine Clarity Clear Urine pH 5.0 Ur Specific [place] 1.018 Urine Protein Negative Urine Glucose (UA) Negative Urine Ketones Negative Urine Occult Blood Small H Urine Nitrate Negative Urine Bilirubin Negative Urine Urobilinogen Less than 2 Ur Leukocyte Esterase Negative Urine RBC Less than 1 Urine WBC 3 Micro UA Comment Culture not ind Ur Microscopic Review Not Reportable Urine Culture Comments Culture not ind 08/06/18 05:54 WBC RBC Hgb Hct MCV MCH MCHC RDW Plt Count MPV Neut % (Auto) Lymph % (Auto) [place] % (Auto) Eos % (Auto) Baso % (Auto) Neut # (Auto) Lymph # (Auto) [place] # (Auto) Eos # (Auto) Baso # (Auto) WBC Differential Differential Comment Sodium 144 Potassium 3.7 Chloride 112 H Carbon Dioxide 22.1 Anion Gap 10 BUN 19 H Creatinine 1.37 H Estimated GFR 52 L Random Glucose 95 Lactic Acid Calcium 7.5 L D Total Bilirubin 0.6 AST 8 L ALT 14 Alkaline Phosphatase 60 Total Protein 5.8 L D Albumin 2.6 L Urine Color Urine Clarity Urine pH Ur Specific [place] Urine Protein Urine Glucose (UA) Urine Ketones Urine Occult Blood Urine Nitrate Urine Bilirubin Urine Urobilinogen Ur Leukocyte Esterase Urine RBC Urine WBC Micro UA Comment Ur Microscopic Review Urine Culture Comments Microbiology 08/05/18 22:00 Throat Group A Streptococcus Screen ([facility]) - Final 08/05/18 22:00 Nasal Wash Influenza Types A,B Antigen - Final Negative for FLU A and B antigen Infection due to influenza A or B cannot be ruled out since the antigen present in the sample may be below the detection limit of the test. - Imaging Impressions Chest X-Ray 08/05/18 20:03 CONCLUSION: Trace left base atelectasis. Otherwise negative. Assessment and Plan - Assessment (1) SIRS (systemic inflammatory response syndrome) Code(s): R65.10 - Systemic inflammatory response syndrome (SIRS) of non- infectious origin without acute organ dysfunction Status: Acute (2) Multiple myeloma Code(s): C90.00 - Multiple myeloma not having achieved remission Status: Acute (3) Renal insufficiency Code(s): N28.9 - Disorder of kidney and ureter, unspecified Status: Acute (4) Hypertension Code(s): I10 - Essential (primary) hypertension Status: Chronic - Plan This is a 67-year-old male with a PMH of HTN, Hyperlipidemia and Multiple Myeloma who presented to the ER with complaints of fever. Currently on Chemotherapy, following w/ Dr. Godfrey. Stated he developed sore throat and was started on Z-pack 5 days ago by PCP, then noted to have fever of 102 at home. SIRS: Temp 101.4, HR 118, Source-unclear. Poss source pulmonary, inc. cough with rales today. -continue Vanc/Cefepime, follow up cultures -lactic acid 2.3 today -continue IVF at 75/hr -follow labs in am Multiple Myeloma: Currently on 21-day cycle of chemotherapy -oncology consult pending, restart Pomalidomide if okay with oncology Renal Insufficiency: Acute on Chronic. Creatinine 1.39, previously 1.31 on 05/02 -continue with IVF for hydration -monitor I/O -repeat labs in am. HTN, BP stable -resume Lisinopril DVT Prophylaxis: SCD/Teds Labs in am Inc. activity, up to chair IS q 2 wa Code Status: Full code Discussed Condition With: RN, pt Discharge Planning: DC 2-3 days, home poss HHC (4) Hypertension Qualifiers: Hypertension type: essential hypertension Qualified Code(s): I10 - Essential (primary) hypertension
[2018-08-06] MEDS ORDERED: POMALIDOMIDE 3 MG PO SCH (15:00)
--- NOTE | 2018-08-06 18:08 | MB ---
cc: Jessica Meier MD DATE: 08/06/2018 CHIEF COMPLAINT: 1. SIRS. 2. IgG lambda light chain multiple myeloma. HISTORY OF PRESENT ILLNESS: Mr. Guerra is a 67-year-old gentleman with a history of multiple myeloma. His cancer history began when he presented with spinal cord compression in 2017. He received radiation and chemotherapy. He was subsequently treated with carfilzomib, dexamethasone and daratumumab with initial response, but then plateau and worsening slightly. He received Revlimid, but developed a rash. He was then switched to a regimen of daratumumab and pomalidomide. He is currently receiving dexamethasone 40 mg once a week, which was then switched to 20 mg once a week. He follows closely in clinic with my colleague, Dr. Godfrey, and he has had excellent response of his myeloma to his current regimen. He has issues with chronic pain due to myeloma bony pain as well as postherpetic neuralgia. He has been referred to a pain performance solutions specialist. He presented to the hospital on 08/05/2018 with a fever to 102 at home and he has been intermittently febrile while he has been inpatient. PAST MEDICAL HISTORY: Multiple myeloma, hypertension, hyperlipidemia. PAST SURGICAL HISTORY: Lymph node biopsy, colonoscopy. ALLERGIES: SULFA ANTIBIOTICS. MEDICATIONS: Include: 1. Acyclovir. 2. Aspirin. 3. Pomalyst. 4. Rosuvastatin. 5. Omeprazole. 6. Minocycline. 7. Enalapril. 8. Dexamethasone. 9. Zyrtec. 10. Bisacodyl. FAMILY HISTORY: Brother with prostate cancer at 47. SOCIAL HISTORY: Good support system with his spouse. Never smoker. No alcohol use. REVIEW OF SYSTEMS: Significant for intermittent rigors, chills and fever. He reports fatigue that has been present since he has been on pomalidomide. LABORATORY STUDIES: White blood cell count 10, hemoglobin 12, platelet count 239. Differential with an ANC of 9.5. Chemistry studies: Creatinine 1.37, total bilirubin 0.6, AST 8, ALT 14, alkaline phosphatase 60, total protein 5.8, albumin 2.6. Urinalysis with a small amount of occult blood, negative for leukocyte esterase. He has 3 white blood cells. Urine culture not indicated. Chest x-ray from the emergency room with trace left base atelectasis, otherwise negative. Strep screen is negative. Influenza is negative. Blood cultures are pending. He is currently on broad-spectrum antibiotics with vancomycin and Zosyn. PHYSICAL EXAMINATION: GENERAL: Well-developed, well-nourished man, mild rigors. HEAD: Normocephalic, atraumatic. EYES: PERRLA. EOMI. No scleral icterus. NECK: Supple with no palpable lymphadenopathy. CARDIOVASCULAR: Regular rate and rhythm. No murmurs. RESPIRATORY: Clear to auscultation bilaterally. ABDOMEN: Soft, nontender, nondistended. Bowel sounds present. EXTREMITIES: No edema. NEUROLOGIC: Grossly nonfocal. PSYCHIATRIC: Appropriate mood and affect. ASSESSMENT AND PLAN: 1. Systemic inflammatory response syndrome with elevated white blood cell count, fever. The patient is currently on broad-spectrum antibiotics with vancomycin and Zosyn. Chest x-ray negative. Urinalysis negative. Blood cultures are pending. Continue broad-spectrum antibiotics. 2. Multiple myeloma, IgG lambda light chain. He has had an excellent response to chemotherapy with dexamethasone, pomalidomide and daratumumab. We will continue to hold oral pomalidomide due to infection and we will restart once his clinical status improves. Inpatient oncology service will continue to follow. MD TROY Delgadillo/tere , 04:49 PM , 04:56 PM
[2018-08-07] MEDS: Sod Chloride 0.9% Inj 1,000 ML IV.CONT SCH ×3 (05:21→22:52)
[2018-08-07] MEDS: Senna/Docusate Sodium 8.6/50 MG Tablet PO SCH ×2 (09:42→20:53)
[2018-08-07] MEDS: Aspirin 325 MG Tablet PO SCH (09:42)
[2018-08-07] MEDS: Acyclovir 200 MG Capsule PO SCH ×2 (09:42→20:54)
[2018-08-07] MEDS: Pantoprazole Sodium 20 MG DR Tablet PO SCH (09:43)
[2018-08-07] MEDS: Acetaminophen 325 MG Tablet PO PRN ×3 (09:54→22:52)
--- NOTE | 2018-08-07 10:07 | P.PN ---
Subjective Interval history: Follow up for fever, chills, cough: remains febrile, up to 103 last night. Today 100.9. Chills and rigors noted, + cough, non productive. Left abd. tender from hx of shingles, chronic back pain, doesn't want narcotics. Has used before and don't work. No urinary symptoms. Eating fair. Was seen by onc. chemo med on hold. Physical Exam Vital signs: Vital Signs 08/06/18 12:00 08/06/18 16:00 08/06/18 19:54 Temperature 97.7 F 96.8 F L Pulse Rate 76 94 H 106 H Respiratory Rate 17 16 Blood Pressure 107/61 145/82 H Pulse Oximetry 92 L 91 L 08/06/18 20:00 08/06/18 23:54 08/07/18 00:00 Temperature 103.0 F H 97.8 F Pulse Rate 100 H 67 75 Respiratory Rate 19 17 Blood Pressure 125/63 105/56 L Pulse Oximetry 91 L 90 L 08/07/18 02:00 08/07/18 03:58 08/07/18 04:00 Temperature 98.9 F Pulse Rate 80 78 Respiratory Rate 18 17 Blood Pressure 110/62 Pulse Oximetry 91 L 08/07/18 05:57 08/07/18 08:00 Temperature 100.9 F H Pulse Rate 91 H Respiratory Rate 19 16 Blood Pressure 114/61 Pulse Oximetry 90 L Intake & Output 08/06/18 08/07/18 08/07/18 18:59 06:59 18:59 Intake Total 1460 / 1460 2099 / 2100 Balance 1460 / 1460 2099 / 2099 Intake: IV 1100 / 1100 2099 / 2099 NS Inj 1,000 ML @ 75 mls/hr IV. 1000 / 1000 1999 / 1999 CONT .[id number] BRAULIO Rx#:[id number] Maxipime Inj 1,000 MG In NS Inj 100 / 100 100 / 100 100 ML @ 200 mls/hr IV.SIG Q12H BRAULIO Rx#:[id number] Oral 360 / 360 Other: # Voids 4 Date of Last Bowel Movement 08/05/18 # Bowel Movements 0 Narrative: GENERAL: Very pleasant middle-aged white male in no acute distress. SKIN:warm and dry HEENT: PERRLA, EOMI. No scleral icterus or conjunctival pallor. No lid lag or facial droop. CARDIOVASCULAR: Regular rate and rhythm. No obvious murmurs to auscultation. No chest tenderness to palpation. RESPIRATORY: bibasilar rales GASTROINTESTINAL: Abdomen soft, left abd. tender, no rash, nondistended. BS normal. MUSCULOSKELETAL: Extremities without clubbing, cyanosis, or edema. No obvious deformities. NEUROLOGICAL: Awake, alert and oriented x4. No focal neurologic deficits. Moving both upper and lower extremities spontaneously. PSYCHIATRIC: Appropriate mood and affect. Insight and judgment normal. Results - Labs CBC & Chem 7: 08/06/18 05:54 08/06/18 05:54 Microbiology 08/05/18 22:00 Throat Group A Streptococcus Screen/Cult - Preliminary No Beta Streptococci isolated at 24 hours 08/05/18 20:20 Blood - Peripheral Aerobic Blood Culture - Preliminary No growth in 1 day 08/05/18 20:20 Blood - Peripheral Anaerobic Blood Culture - Preliminary No growth in 1 day 08/05/18 20:30 Blood - Peripheral Aerobic Blood Culture - Preliminary No growth in 1 day 08/05/18 20:30 Blood - Peripheral Anaerobic Blood Culture - Preliminary No growth in 1 day Assessment and Plan - Assessment (1) SIRS (systemic inflammatory response syndrome) Code(s): R65.10 - Systemic inflammatory response syndrome (SIRS) of non- infectious origin without acute organ dysfunction Status: Acute (2) Multiple myeloma Code(s): C90.00 - Multiple myeloma not having achieved remission Status: Acute (3) Renal insufficiency Code(s): N28.9 - Disorder of kidney and ureter, unspecified Status: Acute (4) Hypertension Code(s): I10 - Essential (primary) hypertension Status: Chronic - Plan This is a 67-year-old male with a PMH of HTN, Hyperlipidemia and Multiple Myeloma who presented to the ER with complaints of fever. Currently on Chemotherapy, following w/ Dr. Godfrey. Stated he developed sore throat and was started on Z-pack 5 days ago by PCP, then noted to have fever of 102 at home. SIRS>> sepsis, continues with fevers, up to 103. BP trending down, 110s, HR from 70s to 90s, sats 90% on RA. Having chills and rigors -continue Vanc/Cefepime, follow up cultures negative so far -Negative for flu, strep -repeat Lactic acid today -Inc. IVF to 100/hr -Repeat BC x 2 and CXR -labs in am -sats 90, apply oxygen at 2L/NC to keep sats > 90 -consult ID Multiple Myeloma: Currently on 21-day cycle of chemotherapy -Appreciate Dr. Meier's input, recommends to hold Pomalidomide for now Renal Insufficiency: Acute on Chronic. Creatinine 1.39, previously 1.31 on 05/02 -continue with IVF for hydration -monitor I/O -labs pending HTN, BP stable -on Lisinopril (hold is SBP <110) Labs pending DVT Prophylaxis: SCD/Teds IS q 2 wa Enc inc activity Code Status: Full code Discussed Condition With: RN, pt. Discharge Planning: DC 2-3 days, home poss HHC (4) Hypertension Qualifiers: Hypertension type: essential hypertension Qualified Code(s): I10 - Essential (primary) hypertension
[2018-08-07 11:07] LABS: Hemoglobin 10.8 gm/dL (13.0-17.0); Mean Corpuscular HGB Conc 33.6 % (32.0-36.0); Mean Corpuscular Hemoglobin 33.2 pg (27.0-34.0); Mean Corpuscular Volume 98.6 fL (80.0-100.0); Mean Platelet Volume 8.5 fL (7.0-11.0); Platelet Count 172 th/mm3 (150-450); Red Blood Count 3.25 mil/mm3 (4.50-5.90); Red Cell Distribution Width 18.9 % (11.6-17.2); White Blood Count 16.9 th/mm3 (4.0-11.0)
[2018-08-07 11:33] LABS: Calcium 7.3 mg/dL (8.5-10.1); Carbon Dioxide 22.1 meq/L (21.0-32.0); Potassium 3.3 meq/L (3.5-5.1)
--- NOTE | 2018-08-07 11:42 | XR ---
EXAM DATE: 08/07/2018 12:00 AM EDT AGE/SEX: 67 years / Male INDICATIONS: . Short of breath CLINICAL DATA: This is the patient's subsequent encounter. Patient reports that signs and symptoms h ave been present for 3 days and indicates a pain score of 0/10. MEDICAL/SURGICAL HISTORY: . Crohn's disease. Multiple myeloma. . Infusaport. COMPARISON: 08/05/2018. FINDINGS: There is an [id number] in place in the right chest. The heart size is normal. There is increased d ensity at the bases bilaterally being more prominent on the left. There is silhouetting the lateral a spect of the left hemidiaphragm. There is a prior examination the signs are worse. The mid and upper lungs appear clear. CONCLUSION: Bibasilar areas of consolidation or atelectasis being worse on the left. These appear worse when comp ared to the prior exam. Electronically signed by: Jim Leach MD 08/07/2018 11:41 AM EDT
[2018-08-07 11:50] LABS: Total Protein 5.5 g/dL (6.4-8.2)
[2018-08-07] MEDS: Sodium Chloride 0.9% 2 ML Flush BID IV.FLUSH SCH ×2 (12:34→20:54)
--- NOTE | 2018-08-07 12:38 | P.PNONC ---
Subjective Interval history: T-max 8 PM last night 103 Patient reports he continues to have increased cough, shortness of breath "I feel miserable" Complaining of generalized body aches Denies chest pain or palpitations Objective Vital Signs/Intake & Output: Vital Signs 08/06/18 16:00 08/06/18 19:54 08/06/18 20:00 Temperature 96.8 F L 103.0 F H Pulse Rate 94 H 106 H 100 H Respiratory Rate 16 19 Blood Pressure 145/82 H 125/63 Pulse Oximetry 91 L 91 L 08/06/18 23:54 08/07/18 00:00 08/07/18 02:00 Temperature 97.8 F Pulse Rate 67 75 Respiratory Rate 17 18 Blood Pressure 105/56 L Pulse Oximetry 90 L 08/07/18 03:58 08/07/18 04:00 08/07/18 05:57 Temperature 98.9 F Pulse Rate 80 78 Respiratory Rate 17 19 Blood Pressure 110/62 Pulse Oximetry 91 L 08/07/18 08:00 08/07/18 12:00 Temperature 100.9 F H 96.8 F L Pulse Rate 91 H 81 Respiratory Rate 16 16 Blood Pressure 114/61 102/61 Pulse Oximetry 90 L 93 L Intake & Output 08/06/18 08/07/18 08/07/18 18:59 06:59 18:59 Intake Total 1460 / 1460 2100 / 2100 Balance 1460 / 1460 2100 / 2100 Intake: IV 1100 / 1100 2100 / 2100 NS Inj 1,000 ML @ 75 mls/hr IV. 1000 / 1000 2000 / 2000 CONT .[id number] [facility] Rx#:[id number] Maxipime Inj 1,000 MG In NS Inj 100 / 100 100 / 100 100 ML @ 200 mls/hr IV.SIG Q12H [facility] Rx#:[id number] Oral 360 / 360 Other: # Voids 4 Date of Last Bowel Movement 08/05/18 # Bowel Movements 0 Result Diagrams: 08/07/18 10:50 08/07/18 10:50 Laboratory Results: Laboratory Results - last 24 hr 08/07/18 08/07/18 08/07/18 10:50 10:50 10:50 WBC 16.9 H RBC 3.25 L Hgb 10.8 L Hct 32.0 L MCV 98.6 MCH 33.2 MCHC 33.6 RDW 18.9 H Plt Count 172 MPV 8.5 Sodium 141 Potassium 3.3 L Chloride 110 H Carbon Dioxide 22.1 Anion Gap 9 BUN 12 Creatinine 1.37 H Estimated GFR 52 L Random Glucose 128 H Lactic Acid Calcium 7.3 L* Prot Corrected Calcium 8.2 L Total Protein 5.5 L Random Vancomycin 3.5 08/07/18 10:50 WBC RBC Hgb Hct MCV MCH MCHC RDW Plt Count MPV Sodium Potassium Chloride Carbon Dioxide Anion Gap BUN Creatinine Estimated GFR Random Glucose Lactic Acid 3.0 H Calcium Prot Corrected Calcium Total Protein Random Vancomycin Culture Results: Microbiology 08/05/18 22:00 Group A Streptococcus Screen/Cult - Final Throat No Beta Streptococci isolated. 08/05/18 20:20 Aerobic Blood Culture - Preliminary Blood - Peripheral No growth in 2 days Anaerobic Blood Culture - Preliminary No growth in 2 days 08/05/18 20:30 Aerobic Blood Culture - Preliminary Blood - Peripheral No growth in 2 days Anaerobic Blood Culture - Preliminary No growth in 2 days 08/05/18 22:00 Group A Streptococcus Screen (TRENT) - Final Throat 08/05/18 22:00 Influenza Types A,B Antigen - Final Nasal Wash Negative for FLU A and B antigen Infection due to influenza A or B cannot be ruled out since the antigen present in the sample may be below the detection limit of the test. Imaging Studies: Impressions Chest X-Ray 08/07/18 00:00 CONCLUSION: Bibasilar areas of consolidation or atelectasis being worse on the left. These appear worse when compared to the prior exam. Medications: Active Medications Generic Name Dose Route Start Last Admin Trade Name Freq PRN Reason Stop Dose Admin Acetaminophen 650 mg 08/05/18 22:26 08/07/18 09:54 Tylenol PO 650 mg Q4H PRN Administration Temp > 100.4 Acyclovir 400 mg 08/05/18 23:00 08/07/18 09:42 Zovirax PO 400 mg BID BRAULIO Administration Aspirin 325 mg 08/06/18 09:00 08/07/18 09:42 Aspirin PO 325 mg DAILY B[facility]ULIO Administration Atorvastatin Calcium 20 mg 08/06/18 09:00 08/07/18 09:43 Lipitor PO 20 mg DAILY B[facility]IO Administration Cetirizine HCl 10 mg 08/07/18 09:00 08/07/18 09:43 Zyrtec PO 10 mg DAILY B[facility]ULIO Administration Enalapril Maleate 10 mg 08/06/18 12:00 08/07/18 09:43 Vasotec PO 10 mg DAILY B[facility]IO Administration Cefepime HCl 1,000 mg/ Sodium 100 mls @ 200 mls/hr 08/06/18 09:00 08/07/18 09 :42 Chloride IV.SIG 200 mls/hr Q12H B[facility]IO Administration Sodium Chloride 1,000 mls @ 100 mls/hr 08/05/18 23:00 08/07/18 09:48 Ns Inj IV.CONT Not Given .Q10H [facility] Ondansetron HCl 4 mg 08/05/18 22:26 08/06/18 15:26 Zofran Inj IV.PUSH 4 mg Q6H PRN Administration NAUSEA OR VOMITING Pantoprazole Sodium 20 mg 08/07/18 09:00 08/07/18 09:43 Protonix PO 20 mg DAILY BRAULIO Administration Senna/Docusate Sodium 1 tab 08/06/18 09:00 08/07/18 09:42 Marva-Colace PO 1 tab BID B[facility]ULIO Administration Sodium Chloride 2 ml 08/06/18 09:00 08/06/18 20:00 Ns Flush IV.FLUSH Not Given BID B[facility]IO Objective Remarks: GENERAL: Older male sitting up in bed in no acute distress. SKIN: Warm and dry. HEAD: Normocephalic. EYES: No scleral icterus. No injection or drainage. NECK: Supple, trachea midline. No JVD or lymphadenopathy. CARDIOVASCULAR: Regular rate and rhythm without murmurs. RESPIRATORY: Crackles heard to bilateral bases, worse on the left. Occasional cough throughout exam. GASTROINTESTINAL: Abdomen soft, non-tender, nondistended. EXTREMITIES: No cyanosis, or edema. MUSCULOSKELETAL: Adequate muscle tone. NEUROLOGICAL: No obvious focal deficit. Awake, alert, and oriented x3. Assessment/Plan - Plan Mr. Guerra is a very pleasant 67-year-old male with history of multiple myeloma that was diagnosed when he presented with spinal cord compression in 2017. He has been on multiple lines of therapy but most recently he is on a regimen of daratumumab and pomalidomide. He presented to the hospital on this admission with fever as well as cough and cold symptoms. 1. Chest x-ray today shows bibasilar areas of consolidation that appear to be worsening from the previous exam. Infectious disease has been consulted. 2. Blood cultures are being repeated as he has had increased temp overnight of up to 103. Previous blood cultures show no growth times 2 days. 3. Continue maximum supportive care. - Attending Statement The exam, history, and the medical decision-making described in the above note were completed with the assistance of the mid-level provider. I reviewed and agree with the findings presented. I attest that I had a [id number] encounter with the patient on the same day, and personally performed and documented my assessment and findings in the medical record. 67 yoF with MM on dexamethasone, pomalidomide, daratumumab admitted with SIRS. Febrile overnight. Repeat CXR with worsening pna. Cultures repeated, no growth to date. Patient reports that he feels slightly improved compared to prior. Continue broad spectrum antibiotics if continues to spike would order CT chest, consult ID team.
[2018-08-07] MEDS ORDERED: Vancomycin Inj 2,000 MG in Sodium Chlor 0.9% Inj 500 ML IV.SIG ONE (16:00)
--- NOTE | 2018-08-07 18:24 | P.CONID ---
History of Present Illness Service: ID Consult date: 08/07/18 Requesting Physician: Jennifer Wilkinson Reason for Consult: Fever, SIRS, pt. immunocompromised on chemo Primary Care Provider: No Primary Care Physician Family Provider: No Primary Care Physician History of Present Illness: 67 yo male with h/o multiple myeloma on chemothearpy presented with 1 week of fever up to 103 He had some URI symptoms initilally, now having dry cough He was started on azithromycin by his proimary doc but w/o improvement Pt was started on vancomycin, cefepime' His fever improved and T max was < 101 today Blood cultures , 2 sets are negative group A strep screen and flu test are negative WBC went to 16.9 K today, no neutropenia No diarrhea,, no vomiting, disuria Pt is on vancomycin,cefepime CXR showed consolidations b/l Review of Systems All other systems reviewed negative except as stated in HPI PMFSH - History History Provided By: Patient - Medical History Medical History: Medical History (Last Reviewed 08/07/18 @ 18:16 by Elizabeth Montero MD) Enlarged prostate HTN (hypertension) Hypercholesteremia Multiple myeloma - Family History Family History: Family History (Last Updated 08/07/18 @ 18:16 by Elizabeth Montero MD) Other No pertinent family history - Social History I have reviewed the patient's Social History: Yes - Tobacco History Second Hand Smoke Exposure: No Smoking Status: Never smoker - Alcohol History How Often Do You Have a Drink Containing Alcohol: Never - Substance Use History Substance History: No History of Abuse - Travel History Recent Travel in the [place] Within the Last 8 Weeks: No Recent Travel Out of the Country Within the Last 8 Weeks: No - Immunization History Tetanus Immunization: Unsure Hx Influenza Vaccine This Season: Yes Medications and Allergies Active Medications: Active Medications Acetaminophen (Tylenol) 650 mg PO Q4H PRN PRN Reason: Temp > 100.4 Last Admin: 08/07/18 15:41 Dose: 650 mg Acyclovir (Zovirax) 400 mg PO BID BRAULIO Last Admin: 08/07/18 09:42 Dose: 400 mg Al Hydroxide/Mg Hydroxide (Milk Of Magnesia Liq) 30 ml PO Q12H PRN PRN Reason: Mild Constipation Albuterol (Duoneb Neb (Prn)) 1 ampul NEB Q2HR NEB PRN PRN Reason: SHORTNESS OF BREATH/WHEEZING Albuterol (Duoneb Neb ([facility])) 1 ampul NEB Q6HR WHILE AWAKE NEB [facility] Aspirin (Aspirin) 325 mg PO DAILY [facility] Last Admin: 08/07/18 09:42 Dose: 325 mg Atorvastatin Calcium (Lipitor) 20 mg PO DAILY [facility] Last Admin: 08/07/18 09:43 Dose: 20 mg Bisacodyl (Dulcolax Supp) 10 mg RECTAL DAILY PRN PRN Reason: SEVERE CONSITIPATION Cetirizine HCl (Zyrtec) 10 mg PO DAILY [facility] Last Admin: 08/07/18 09:43 Dose: 10 mg Enalapril Maleate (Vasotec) 10 mg PO DAILY [facility] Last Admin: 08/07/18 09:43 Dose: 10 mg Guaifenesin (Mucinex Er) 600 mg PO BID [facility] Cefepime HCl 1,000 mg/ Sodium (Chloride) 100 mls @ 200 mls/hr IV.SIG Q12H [facility] Last Infusion: 08/07/18 10:12 Dose: Infused Sodium Chloride (Ns Inj) 1,000 mls @ 100 mls/hr IV.CONT .Q10H [facility] Last Admin: 08/07/18 09:48 Dose: Not Given Lactulose (Lactulose Liq) 30 ml PO DAILY PRN PRN Reason: SEVERE CONSITIPATION Ondansetron HCl (Zofran Inj) 4 mg IV.PUSH Q6H PRN PRN Reason: NAUSEA OR VOMITING Last Admin: 08/07/18 15:41 Dose: 4 mg Pantoprazole Sodium (Protonix) 20 mg PO DAILY [facility] Last Admin: 08/07/18 09:43 Dose: 20 mg Patient Own Medication ( Pomalidomide [ Pomalyst] 3 Mg) 0 each PO DAILY [facility] Pharmacy Profile Note (Vancomycin Consult Pharmacy) 1 each OTHER UNSCH PRN PRN Reason: Pharmacy to dose Senna/Docusate Sodium (Marva-Colace) 1 tab PO BID [facility] Last Admin: 08/07/18 09:42 Dose: 1 tab Sennosides (Senokot) 17.2 mg PO Q12H PRN PRN Reason: Moderate Constipation Sodium Chloride (Ns Flush) 2 ml IV.FLUSH BID [facility] Last Admin: 08/07/18 12:34 Dose: Not Given Sodium Chloride (Ns Flush) 2 ml IV.FLUSH PRN PRN PRN Reason: FLUSH AFTER USING IV ACCESS Allergies Allergy/AdvReac Type Severity Reaction Status Date / Time Sulfa (Sulfonamide Allergy Severe DIZZINESS Verified 08/05/18 22:05 Antibiotics) Home Medications Medication Instructions Recorded Confirmed Type acyclovir 400 mg PO BID 08/05/18 08/05/18 History aspirin 325 mg PO DAILY 08/05/18 08/05/18 History azithromycin 250 mg PO DAILY 08/05/18 08/05/18 History cetirizine 10 mg PO DAILY 08/05/18 08/05/18 History daratumumab 16 mg/kg IV Q4W 08/05/18 08/05/18 History dexamethasone 20 mg PO QWEEK 08/05/18 08/05/18 History docusate sodium [Colace] 100 mg PO BID 08/05/18 08/05/18 History enalapril maleate 10 mg PO DAILY 08/05/18 08/05/18 History minocycline 100 mg PO BID 08/05/18 08/05/18 History omeprazole 20 mg PO QWEEK 08/05/18 08/05/18 History pomalidomide [Pomalyst] 3 mg PO DAILY 08/05/18 08/06/18 History rosuvastatin 10 mg PO DAILY 08/05/18 08/05/18 History Exam Vital signs: Vital Signs 08/06/18 19:54 08/06/18 20:00 08/06/18 23:54 Temperature 103.0 F H Pulse Rate 106 H 100 H 67 Respiratory Rate 19 Blood Pressure 125/63 Pulse Oximetry 91 L 08/07/18 00:00 08/07/18 02:00 08/07/18 03:58 Temperature 97.8 F Pulse Rate 75 80 Respiratory Rate 17 18 Blood Pressure 105/56 L Pulse Oximetry 90 L 08/07/18 04:00 08/07/18 05:57 08/07/18 08:00 Temperature 98.9 F 100.9 F H Pulse Rate 78 91 H Respiratory Rate 17 19 16 Blood Pressure 110/62 114/61 Pulse Oximetry 91 L 90 L 08/07/18 12:00 08/07/18 16:00 Temperature 96.8 F L 96.1 F L Pulse Rate 81 70 Respiratory Rate 16 16 Blood Pressure 102/61 94/55 L Pulse Oximetry 93 L 93 L Intake & Output 08/06/18 08/07/18 08/07/18 18:59 06:59 18:59 Intake Total 1460 / 1460 2099 / 2100 100 / 100 Balance 1460 / 1460 2099 / 2100 100 / 100 Intake: IV 1100 / 1100 2099 / 2100 100 / 100 NS Inj 1,000 ML @ 75 mls/hr IV. 1000 / 1000 2000 / 2000 CONT .[id number] [facility] Rx#:[id number] Maxipime Inj 1,000 MG In NS Inj 100 / 100 100 / 100 100 / 100 100 ML @ 200 mls/hr IV.SIG Q12H [facility] Rx#:[id number] Oral 360 / 360 Other: # Voids 4 Date of Last Bowel Movement 08/05/18 # Bowel Movements 0 - Constitutional no acute distress, average body habitus - Routine HEENT Exam Head: Present: normocephalic, atraumatic Eye: Present: EOMI, PERRL ENT: Present: mucous membranes moist, oropharynx clear, dentition normal - Routine Neck Exam Present: supple. Absent: lymphadenopathy - Routine Chest/Breast/Axilla Exam Axillae: Absent: lymphadenopathy Comments: PORT in place R side, no skin changes over it - Routine Respiratory Exam Present: CTA bilaterally. Absent: accessory muscle use, respiratory distress, rhonchi, wheezes - Routine Cardiovascular Exam Present: RRR, S1, S2. Absent: murmur, gallop, rubs - Routine Abdominal Exam Present: soft, normoactive bowel sounds, tenderness (LLQ), rebound. Absent: distended, guarding, organomegaly, mass - Routine Extremities Exam Present: full ROM. Absent: cyanosis, clubbing, edema, joint swelling - Routine Skin Exam Present: intact, dry. Absent: cyanosis, lesions, jaundice, rash - Routine Neurological Exam Present: alert, oriented X3, CN II-XII intact, moving all extremities, vision grossly intact, hearing grossly intact, normal speech Results - Labs CBC & Chem 7: 08/07/18 10:50 08/07/18 10:50 Labs: Laboratory Results - last 24 hr 08/07/18 08/07/18 08/07/18 10:50 10:50 10:50 WBC 16.9 H RBC 3.25 L Hgb 10.8 L Hct 32.0 L MCV 98.6 MCH 33.2 MCHC 33.6 RDW 18.9 H Plt Count 172 MPV 8.5 Sodium 141 Potassium 3.3 L Chloride 110 H Carbon Dioxide 22.1 Anion Gap 9 BUN 12 Creatinine 1.37 H Estimated GFR 52 L Random Glucose 128 H Lactic Acid Calcium 7.3 L* Prot Corrected Calcium 8.2 L Total Protein 5.5 L Random Vancomycin 3.5 08/07/18 10:50 WBC RBC Hgb Hct MCV MCH MCHC RDW Plt Count MPV Sodium Potassium Chloride Carbon Dioxide Anion Gap BUN Creatinine Estimated GFR Random Glucose Lactic Acid 3.0 H Calcium Prot Corrected Calcium Total Protein Random Vancomycin - Imaging Impressions Chest X-Ray 08/07/18 00:00 CONCLUSION: Bibasilar areas of consolidation or atelectasis being worse on the left. These appear worse when compared to the prior exam. Assessment and Plan - Plan Immunocompromised, but non neutropenic Multiple myeloma on chemo fever - source is likely PNA PNA, puulmonary infiltrates cont cefpeime, vancomycin add azitromycin resp[iratory panel dw pt, @ b/s
[2018-08-07] MEDS: guaiFENesin 600 MG ER Tablet PO SCH ×2 (18:26→20:53)
[2018-08-07] MEDS: Azithromycin Inj 500 MG in Sodium Chlor 0.9% Inj 250 ML IV.SIG SCH (20:46)
[2018-08-08 05:58] LABS: Baso # (Auto) 0.1 th/mm3 (0.0-0.2); Baso % (Auto) 0.7 % (0.0-2.0); Eos # (Auto) 0.6 th/mm3 (0.0-0.4); Eos % (Auto) 4.8 % (0.0-4.0); Hematocrit 32.1 % (39.0-51.0); Hemoglobin 10.7 gm/dL (13.0-17.0); Lymph # (Auto) 0.3 th/mm3 (1.0-4.8); Lymph % (Auto) 2.1 % (9.0-44.0); Mean Corpuscular HGB Conc 33.3 % (32.0-36.0); Mean Corpuscular Hemoglobin 33.4 pg (27.0-34.0); Mean Corpuscular Volume 100.3 fL (80.0-100.0); Mean Platelet Volume 8.8 fL (7.0-11.0); Mono # (Auto) 0.7 th/mm3 (0.0-0.9); Mono % (Auto) 5.5 % (0.0-8.0); Neut # (Auto) 10.7 th/mm3 (1.8-7.7); Neut % (Auto) 86.9 % (16.0-70.0); Platelet Count 160 th/mm3 (150-450); White Blood Count 12.3 th/mm3 (4.0-11.0)
[2018-08-08 06:35] LABS: Albumin 2.2 g/dL (3.4-5.0); Anion Gap 10 meq/L (5-15); Aspartate Aminotransferase 13 U/L (15-37); Blood Urea Nitrogen 13 mg/dL (7-18); Calcium 7.9 mg/dL (8.5-10.1); Carbon Dioxide 20.8 meq/L (21.0-32.0); Chloride 110 meq/L (98-107); Glomerular Filtration Rate 52 mL/min (>89); Glucose,Random 124 mg/dL (74-106); Magnesium 1.7 mg/dL (1.5-2.5); Potassium 3.7 meq/L (3.5-5.1); Sodium 141 meq/L (136-145)
[2018-08-08 06:47] LABS: Alanine Aminotransferase 30 U/L (12-78); Alkaline Phosphatase 56 U/L (45-117); Phosphorus 1.9 mg/dL (2.5-4.9); Total Protein 6.2 g/dL (6.4-8.2); Vancomycin,Random 15.8 Comment
[2018-08-08] MEDS: Sodium Chloride 0.9% 2 ML Flush BID IV.FLUSH SCH ×2 (08:00→20:23)
[2018-08-08] MEDS: guaiFENesin 600 MG ER Tablet PO SCH ×2 (08:42→20:23)
[2018-08-08] MEDS: Senna/Docusate Sodium 8.6/50 MG Tablet PO SCH ×2 (08:42→20:23)
[2018-08-08] MEDS: Acyclovir 200 MG Capsule PO SCH ×2 (08:42→20:23)
[2018-08-08] MEDS: Aspirin 325 MG Tablet PO SCH (08:43)
[2018-08-08] MEDS: Pantoprazole Sodium 20 MG DR Tablet PO SCH (08:43)
[2018-08-08] MEDS ORDERED: POMALIDOMIDE 3 MG PO SCH (09:00)
[2018-08-08] MEDS: Acetaminophen 325 MG Tablet PO PRN (10:25)
[2018-08-08] MEDS: Sod Chloride 0.9% Inj 1,000 ML IV.CONT SCH ×2 (10:49→18:36)
--- NOTE | 2018-08-08 11:57 | P.PNIM ---
Subjective Interval history: Patient states that he is still having a productive cough. Mild shortness of breath with congestion. No complaints of chest pain. No fevers or chills overnight. Still feeling fatigued. Physical Exam Vital signs: Vital Signs 08/07/18 12:00 08/07/18 16:00 08/07/18 20:00 Temperature 96.8 F L 96.1 F L 97.2 F L Pulse Rate 81 70 91 H Respiratory Rate 16 16 18 Blood Pressure 102/61 94/55 L 112/54 L Pulse Oximetry 93 L 93 L 91 L 08/07/18 20:04 08/08/18 00:00 08/08/18 00:05 Temperature 102.0 F H Pulse Rate 94 H 114 H 90 Respiratory Rate 16 19 Blood Pressure 118/65 Pulse Oximetry 93 L 91 L 08/08/18 00:32 08/08/18 00:58 08/08/18 04:00 Temperature 99.6 F 97.4 F L Pulse Rate 77 Respiratory Rate 19 17 Blood Pressure 105/62 Pulse Oximetry 92 L 08/08/18 04:05 08/08/18 06:26 08/08/18 08:00 Temperature 97 F L Pulse Rate 78 101 H 85 Respiratory Rate 18 Blood Pressure 130/63 Pulse Oximetry 93 L 08/08/18 09:25 08/08/18 10:26 Temperature 100.1 F H Pulse Rate 94 H Respiratory Rate 17 Blood Pressure Pulse Oximetry 94 L Intake & Output 08/07/18 08/08/18 08/08/18 18:59 06:59 18:59 Intake Total 800 / 800 1770 / 1770 440 / 440 Balance 800 / 800 1770 / 1770 440 / 440 Weight 85.8 kg Intake: IV 100 / 100 1770 / 1770 200 / 200 NS Inj 1,000 ML @ 100 mls/hr IV 1000 / 1000 .CONT .Q10H [facility] Rx#:[id number] Azithromycin Inj 500 MG In NS 250 / 250 Inj 250 ML @ 250 mls/hr IV.SIG Q24H [facility] Rx#:[id number] Maxipime Inj 1,000 MG In NS Inj 100 / 100 200 / 200 100 ML @ 200 mls/hr IV.SIG Q12H [facility] Rx#:[id number] Vancomycin Inj 2,000 MG In NS 520 / 520 Inj 500 ML @ 250 mls/hr IV.SIG ONCE ONE Rx#:[id number] Oral 700 / 700 240 / 240 Other: # Voids 6 7 Date of Last Bowel Movement 08/05/18 08/05/18 # Bowel Movements 0 Narrative: GENERAL: Very pleasant middle-aged white male in no acute distress. SKIN:warm and dry CARDIOVASCULAR: Regular rate and rhythm. No obvious murmurs to auscultation. No chest tenderness to palpation. RESPIRATORY: bibasilar rales and rhonchi GASTROINTESTINAL: Abdomen soft, left abd. tender, no rash, nondistended. BS normal. MUSCULOSKELETAL: Extremities without clubbing, cyanosis, or edema. No obvious deformities. NEUROLOGICAL: Awake, alert and oriented x4. No focal neurologic deficits. Moving both upper and lower extremities spontaneously. PSYCHIATRIC: Appropriate mood and affect. Insight and judgment normal. Results - Labs CBC & Chem 7: 08/08/18 04:32 08/08/18 04:32 Laboratory Results - last 24 hr 08/08/18 08/08/18 04:32 04:32 WBC 12.3 H RBC 3.20 L Hgb 10.7 L Hct 32.1 L MCV 100.3 H MCH 33.4 MCHC 33.3 RDW 19.0 H Plt Count 160 MPV 8.8 Neut % (Auto) 86.9 H Lymph % (Auto) 2.1 L [place] % (Auto) 5.5 Eos % (Auto) 4.8 H Baso % (Auto) 0.7 Neut # (Auto) 10.7 H Lymph # (Auto) 0.3 L [place] # (Auto) 0.7 Eos # (Auto) 0.6 H Baso # (Auto) 0.1 WBC Differential . Differential Comment Auto diff final Sodium 141 Potassium 3.7 Chloride 110 H Carbon Dioxide 20.8 L Anion Gap 10 BUN 13 Creatinine 1.37 H Estimated GFR 52 L Random Glucose 124 H Calcium 7.9 L Phosphorus 1.9 L Magnesium 1.7 Total Bilirubin 0.8 AST 13 L ALT 30 Alkaline Phosphatase 56 Total Protein 6.2 L D Albumin 2.2 L Random Vancomycin 15.8 Microbiology 08/07/18 11:00 Blood - Peripheral Aerobic Blood Culture - Preliminary No growth in 1 day 08/07/18 11:00 Blood - Peripheral Anaerobic Blood Culture - Preliminary No growth in 1 day 08/07/18 10:50 Blood - Peripheral Aerobic Blood Culture - Preliminary No growth in 1 day 08/07/18 10:50 Blood - Peripheral Anaerobic Blood Culture - Preliminary No growth in 1 day 08/05/18 20:20 Blood - Peripheral Aerobic Blood Culture - Preliminary No growth in 3 days 08/05/18 20:20 Blood - Peripheral Anaerobic Blood Culture - Preliminary No growth in 3 days 08/05/18 20:30 Blood - Peripheral Aerobic Blood Culture - Preliminary No growth in 3 days 08/05/18 20:30 Blood - Peripheral Anaerobic Blood Culture - Preliminary No growth in 3 days 08/07/18 21:00 Sputum - Expectorated Sputum Gram Stain - Final 08/05/18 22:00 Throat Group A Streptococcus Screen/Cult - Final No Beta Streptococci isolated. - Imaging Impressions Chest X-Ray 08/07/18 00:00 CONCLUSION: Bibasilar areas of consolidation or atelectasis being worse on the left. These appear worse when compared to the prior exam. Assessment and Plan - Assessment (1) SIRS (systemic inflammatory response syndrome) Code(s): R65.10 - Systemic inflammatory response syndrome (SIRS) of non- infectious origin without acute organ dysfunction Status: Acute (2) Multiple myeloma Code(s): C90.00 - Multiple myeloma not having achieved remission Status: Acute (3) Renal insufficiency Code(s): N28.9 - Disorder of kidney and ureter, unspecified Status: Acute (4) Hypertension Code(s): I10 - Essential (primary) hypertension Status: Chronic - Plan This is a 67-year-old male with a past medical history of HTN, Hyperlipidemia and Multiple Myeloma who presented to the ER with complaints of fever. Currently on Chemotherapy, following w/ Dr. Godfrey. Stated he developed sore throat and was started on Z-pack 5 days ago by PCP, then noted to have fever of 102 at home. 1. Severe Sepsis on presentation with source of pneumonia in an immunocompromised patient -continue Vanc/Cefepime and Zithromax, follow up cultures negative so far -Negative for flu, strep -Continue IVF to 100/hr -Repeat BC x 2 Appreciate ID assistance 2. Multiple Myeloma: Currently on 21-day cycle of chemotherapy -Appreciate Dr. Meier's input, recommends to hold Pomalidomide for now 3. Acute of CKD stage 3 - Acute on Chronic. Creatinine 1.39, previously 1.31 on 05/02/18 -continue with IVF for hydration monitor on Abx and Vanco 4. HTN, chronic essential BP stable -on Lisinopril DVT Prophylaxis: SCD/Teds (4) Hypertension Qualifiers: Hypertension type: essential hypertension Qualified Code(s): I10 - Essential (primary) hypertension
[2018-08-08] MEDS ORDERED: guaiFENesin/Dextromethorphan 200 MG/20 MG 10 ML UDC PO PRN (11:58)
--- NOTE | 2018-08-08 12:54 | P.PNONC ---
Subjective Interval history: Febrile, T-max 102 F. Patient reports continued cough and fevers. No other complaints at this time. Objective Vital Signs/Intake & Output: Vital Signs 08/07/18 16:00 08/07/18 20:00 08/07/18 20:04 Temperature 96.1 F L 97.2 F L Pulse Rate 70 91 H 94 H Respiratory Rate 16 18 16 Blood Pressure 94/55 L 112/54 L Pulse Oximetry 93 L 91 L 93 L 08/08/18 00:00 08/08/18 00:05 08/08/18 00:32 Temperature 102.0 F H Pulse Rate 114 H 90 Respiratory Rate 19 19 Blood Pressure 118/65 Pulse Oximetry 91 L 08/08/18 00:58 08/08/18 04:00 08/08/18 04:05 Temperature 99.6 F 97.4 F L Pulse Rate 77 78 Respiratory Rate 17 Blood Pressure 105/62 Pulse Oximetry 92 L 08/08/18 06:26 08/08/18 08:00 08/08/18 09:25 Temperature 97 F L Pulse Rate 101 H 85 94 H Respiratory Rate 18 17 Blood Pressure 130/63 Pulse Oximetry 93 L 94 L 08/08/18 10:26 Temperature 100.1 F H Pulse Rate Respiratory Rate Blood Pressure Pulse Oximetry Intake & Output 08/07/18 08/08/18 08/08/18 18:59 06:59 18:59 Intake Total 800 / 800 1770 / 1770 440 / 440 Balance 800 / 800 1770 / 1770 440 / 440 Weight 85.8 kg Intake: IV 100 / 100 1770 / 1770 200 / 200 NS Inj 1,000 ML @ 100 mls/hr IV 1000 / 1000 .CONT .Q10H BRAULIO Rx#:[id number] Azithromycin Inj 500 MG In NS 250 / 250 Inj 250 ML @ 250 mls/hr IV.SIG Q24H BRAULIO Rx#:[id number] Maxipime Inj 1,000 MG In NS Inj 100 / 100 200 / 200 100 ML @ 200 mls/hr IV.SIG Q12H BRAULIO Rx#:[id number] Vancomycin Inj 2,000 MG In NS 520 / 520 Inj 500 ML @ 250 mls/hr IV.SIG ONCE ONE Rx#:[id number] Oral 700 / 700 240 / 240 Other: # Voids 6 7 Date of Last Bowel Movement 08/05/18 08/05/18 # Bowel Movements 0 Result Diagrams: 08/08/18 04:32 08/08/18 04:32 Laboratory Results: Laboratory Results - last 24 hr 08/08/18 08/08/18 04:32 04:32 WBC 12.3 H RBC 3.20 L Hgb 10.7 L Hct 32.1 L MCV 100.3 H MCH 33.4 MCHC 33.3 RDW 19.0 H Plt Count 160 MPV 8.8 Neut % (Auto) 86.9 H Lymph % (Auto) 2.1 L [place] % (Auto) 5.5 Eos % (Auto) 4.8 H Baso % (Auto) 0.7 Neut # (Auto) 10.7 H Lymph # (Auto) 0.3 L [place] # (Auto) 0.7 Eos # (Auto) 0.6 H Baso # (Auto) 0.1 WBC Differential . Differential Comment Auto diff final Sodium 141 Potassium 3.7 Chloride 110 H Carbon Dioxide 20.8 L Anion Gap 10 BUN 13 Creatinine 1.37 H Estimated GFR 52 L Random Glucose 124 H Calcium 7.9 L Phosphorus 1.9 L Magnesium 1.7 Total Bilirubin 0.8 AST 13 L ALT 30 Alkaline Phosphatase 56 Total Protein 6.2 L D Albumin 2.2 L Random Vancomycin 15.8 Culture Results: Microbiology 08/07/18 11:00 Aerobic Blood Culture - Preliminary Blood - Peripheral No growth in 1 day Anaerobic Blood Culture - Preliminary No growth in 1 day 08/07/18 10:50 Aerobic Blood Culture - Preliminary Blood - Peripheral No growth in 1 day Anaerobic Blood Culture - Preliminary No growth in 1 day 08/05/18 20:20 Aerobic Blood Culture - Preliminary Blood - Peripheral No growth in 3 days Anaerobic Blood Culture - Preliminary No growth in 3 days 08/05/18 20:30 Aerobic Blood Culture - Preliminary Blood - Peripheral No growth in 3 days Anaerobic Blood Culture - Preliminary No growth in 3 days 08/07/18 21:00 Gram Stain - Final Sputum - Expectorated Sputum 08/05/18 22:00 Group A Streptococcus Screen/Cult - Final Throat No Beta Streptococci isolated. 08/05/18 22:00 Group A Streptococcus Screen ([facility]) - Final Throat 08/05/18 22:00 Influenza Types A,B Antigen - Final Nasal Wash Negative for FLU A and B antigen Infection due to influenza A or B cannot be ruled out since the antigen present in the sample may be below the detection limit of the test. Medications: Active Medications Generic Name Dose Route Start Last Admin Trade Name Freq PRN Reason Stop Dose Admin Acetaminophen 650 mg 08/05/18 22:26 08/08/18 10:25 Tylenol PO 650 mg Q4H PRN Administration Temp > 100.4 Acyclovir 400 mg 08/05/18 23:00 10 08:42 Zovirax PO 400 mg BID BRAULIO Administration Albuterol 1 ampul 08/07/18 20:00 08/08/18 09:21 Duoneb Neb ([facility]) NEB 1 ampul Q6HR WHILE AWAKE NEB BRAULIO Administration Aspirin 325 mg 08/06/18 09:00 08/08/18 08:43 Aspirin PO 325 mg DAILY BRAULIO Administration Atorvastatin Calcium 20 mg 08/06/18 09:00 08/08/18 08:43 Lipitor PO 20 mg DAILY BRAULIO Administration Cetirizine HCl 10 mg 08/07/18 09:00 08/08/18 08:42 Zyrtec PO 10 mg DAILY BRAULIO Administration Enalapril Maleate 10 mg 08/06/18 12:00 08/08/18 08:43 Vasotec PO 10 mg DAILY BRAULIO Administration Guaifenesin 600 mg 08/07/18 16:15 08/08/18 08:42 Mucinex Er PO 600 mg BID BRAULIO Administration Cefepime HCl 1,000 mg/ Sodium 100 mls @ 200 mls/hr 08/06/18 09:00 08/08/18 09 :13 Chloride IV.SIG Infused Q12H BRAULIO Infusion Sodium Chloride 1,000 mls @ 100 mls/hr 08/05/18 23:00 08/08/18 10:49 Ns Inj IV.CONT Not Given .Q10H BRAULIO Azithromycin 500 mg/ Sodium 250 mls @ 250 mls/hr 08/07/18 20:00 08/07/18 21: 55 Chloride IV.SIG Infused Q24H BRAULIO Infusion Ondansetron HCl 4 mg 08/05/18 22:26 08/07/18 15:41 Zofran Inj IV.PUSH 4 mg Q6H PRN Administration NAUSEA OR VOMITING Pantoprazole Sodium 20 mg 08/07/18 09:00 08/08/18 08:43 Protonix PO 20 mg DAILY BRAULIO Administration Senna/Docusate Sodium 1 tab 08/06/18 09:00 10/08/18 08:42 Marva-Colace PO 1 tab BID BRAULIO Administration Sodium Chloride 2 ml 08/06/18 09:00 08/08/18 08:00 Ns Flush IV.FLUSH 2 ml BID BRAULIO Administration Objective Remarks: GENERAL: Well-nourished, well-developed elderly male patient, in no acute distress. SKIN: Warm and dry. HEAD: Normocephalic. EYES: No scleral icterus. No injection or drainage. NECK: Supple, trachea midline. CARDIOVASCULAR: Regular rate and rhythm without murmurs. RESPIRATORY: Posterior breath sounds coarse, equal bilaterally. Nonlabored at rest. +cough. GASTROINTESTINAL: Abdomen soft, non-tender, nondistended. EXTREMITIES: No cyanosis, or edema. MUSCULOSKELETAL: Adequate muscle tone. NEUROLOGICAL: No obvious focal deficit. Awake, alert, and oriented x3. PSYCHIATRIC: Appropriate mood and affect; insight and judgment normal. Assessment/Plan - Plan Mr. Guerra is a very pleasant 67-year-old male with history of multiple myeloma that was diagnosed when he presented with spinal cord compression in 2017. He has been on multiple lines of therapy but most recently he is on a regimen of daratumumab and pomalidomide. He presented to the hospital on this admission with fever as well as cough and cold symptoms. 1. Pneumonia, chest x-ray yesterday showed worsening bibasilar areas of consolidation. Patient continues with fevers. Continues on antibiotics, management per infectious disease. 2. Blood cultures with no growth times 3 days. 3. Continue supportive care. - Attending Statement The exam, history, and the medical decision-making described in the above note were completed with the assistance of the mid-level provider. I reviewed and agree with the findings presented. I attest that I had a [id number] encounter with the patient on the same day, and personally performed and documented my assessment and findings in the medical record. Chest film reviewed and his current symptoms, fever, cough due to pneumonia. His white count is normal but he is still immunocompromised and it would not surprise me if he has significant immunoglobulin deficiency. His ribs are painful and tender. This is due to the coughing and previous injury to the ribs from his myeloma. Will try Robitussin AC as this may be more effective than the Robitussin without codeine. Appreciate the help from the hospitalist and from infectious disease. If pneumonia continues to worsen which is unlikely , he may require bronchoscopy to obtain a specimen. Fungal infection possible, given the use of high-dose steroids.
[2018-08-08] MEDS: Vancomycin Inj 1,500 MG in Sodium Chlor 0.9% Inj 500 ML IV.SIG SCH (16:02)
[2018-08-08] MEDS ORDERED: diphenhydrAMINE HCl 12.5 MG/5 ML Elixir UDC PO ONE (17:45)
[2018-08-08] MEDS: Azithromycin Inj 500 MG in Sodium Chlor 0.9% Inj 250 ML IV.SIG SCH (20:20)
[2018-08-08] MEDS: guaiFENesin/Codeine Syrup 200 MG/20 MG 10 ML UDC PO PRN (20:28)
[2018-08-09] MEDS: guaiFENesin/Codeine Syrup 200 MG/20 MG 10 ML UDC PO PRN ×2 (02:56→22:03)
[2018-08-09 05:23] LABS: Baso % (Auto) 0.3 % (0.0-2.0); Eos # (Auto) 0.7 th/mm3 (0.0-0.4); Eos % (Auto) 6.6 % (0.0-4.0); Hematocrit 27.8 % (39.0-51.0); Hemoglobin 9.5 gm/dL (13.0-17.0); Lymph # (Auto) 0.4 th/mm3 (1.0-4.8); Lymph % (Auto) 4.2 % (9.0-44.0); Mean Corpuscular HGB Conc 34.2 % (32.0-36.0); Mean Corpuscular Hemoglobin 34.2 pg (27.0-34.0); Mean Corpuscular Volume 100.1 fL (80.0-100.0); Mean Platelet Volume 8.8 fL (7.0-11.0); Mono % (Auto) 9.9 % (0.0-8.0); Neut # (Auto) 8.3 th/mm3 (1.8-7.7); Platelet Count 144 th/mm3 (150-450); Red Blood Count 2.78 mil/mm3 (4.50-5.90); Red Cell Distribution Width 19.3 % (11.6-17.2); White Blood Count 10.5 th/mm3 (4.0-11.0)
[2018-08-09 05:40] LABS: Calcium 7.9 mg/dL (8.5-10.1); Carbon Dioxide 22.5 meq/L (21.0-32.0); Potassium 3.5 meq/L (3.5-5.1)
[2018-08-09] MEDS: Sod Chloride 0.9% Inj 1,000 ML IV.CONT SCH ×2 (06:40→18:01)
[2018-08-09] MEDS: Aspirin 325 MG Tablet PO SCH (08:26)
[2018-08-09] MEDS: Senna/Docusate Sodium 8.6/50 MG Tablet PO SCH ×2 (08:26→21:59)
[2018-08-09] MEDS: Pantoprazole Sodium 20 MG DR Tablet PO SCH (08:26)
[2018-08-09] MEDS: Acyclovir 200 MG Capsule PO SCH ×2 (08:26→21:59)
[2018-08-09] MEDS: guaiFENesin 600 MG ER Tablet PO SCH ×2 (08:26→21:59)
[2018-08-09] MEDS: Sodium Chloride 0.9% 2 ML Flush BID IV.FLUSH SCH ×2 (08:27→22:03)
[2018-08-09] MEDS ORDERED: Benzonatate 100 MG Capsule PO PRN (09:54)
--- NOTE | 2018-08-09 12:07 | P.PNIM ---
Subjective Interval history: Reports chest congestion better still with productive cough. No shortness of breath. Physical Exam Vital signs: Vital Signs 08/08/18 13:30 08/08/18 14:30 08/08/18 16:52 Temperature 97 F L 97 F L Pulse Rate 88 74 89 Respiratory Rate 18 18 18 Blood Pressure 117/68 133/65 Pulse Oximetry 92 L 94 L 08/08/18 20:00 08/08/18 20:20 08/09/18 00:00 Temperature 99.8 F H 99.1 F Pulse Rate 103 H 104 H 86 Respiratory Rate 16 24 19 Blood Pressure 143/69 H 125/65 Pulse Oximetry 94 L 95 08/09/18 02:50 08/09/18 04:00 08/09/18 04:02 Temperature 98.8 F Pulse Rate 75 91 H Respiratory Rate 20 18 Blood Pressure 118/62 Pulse Oximetry 94 L 08/09/18 08:00 08/09/18 09:38 Temperature 98.8 F Pulse Rate 83 100 H Respiratory Rate 18 15 Blood Pressure 142/68 H Pulse Oximetry 90 L 98 Intake & Output 08/08/18 08/09/18 08/09/18 18:59 06:59 18:59 Intake Total 680 / 680 865 / 865 340 / 340 Balance 680 / 680 865 / 865 340 / 340 Intake: IV 200 / 200 865 / 865 100 / 100 Azithromycin Inj 500 MG In NS 250 / 250 Inj 250 ML @ 250 mls/hr IV.SIG Q24H BRAULIO Rx#:[id number] Maxipime Inj 1,000 MG In NS Inj 200 / 200 100 / 100 100 / 100 100 ML @ 200 mls/hr IV.SIG Q12H BRAULIO Rx#:[id number] Vancomycin Inj 1,500 MG In NS 515 / 515 Inj 500 ML @ 250 mls/hr IV.SIG Q24H BRAULIO Rx#:[id number] Oral 480 / 480 240 / 240 Other: # Voids 3 Date of Last Bowel Movement 08/05/18 08/05/18 08/06/18 Narrative: GENERAL: Very pleasant middle-aged white male in no acute distress. SKIN:warm and dry CARDIOVASCULAR: Regular rate and rhythm. RESPIRATORY: Left base rales GASTROINTESTINAL: Abdomen soft, nontender nondistended normoactive bowel sounds MUSCULOSKELETAL: Extremities without clubbing, cyanosis, or edema. No obvious deformities. NEUROLOGICAL: Awake, alert and oriented x4. No focal neurologic deficits. Moving both upper and lower extremities spontaneously. PSYCHIATRIC: Appropriate mood and affect. Insight and judgment normal. Results - Labs CBC & Chem 7: 08/09/18 04:51 08/09/18 04:07 Laboratory Results - last 24 hr 08/09/18 08/09/18 04:07 04:51 WBC 10.5 RBC 2.78 L Hgb 9.5 L Hct 27.8 L MCV 100.1 H MCH 34.2 H MCHC 34.2 RDW 19.3 H Plt Count 144 L MPV 8.8 Neut % (Auto) 79.0 H Lymph % (Auto) 4.2 L [place] % (Auto) 9.9 H Eos % (Auto) 6.6 H Baso % (Auto) 0.3 Neut # (Auto) 8.3 H Lymph # (Auto) 0.4 L [place] # (Auto) 1.0 H Eos # (Auto) 0.7 H Baso # (Auto) 0.0 WBC Differential . Differential Comment Auto diff final Sodium 140 Potassium 3.5 Chloride 107 Carbon Dioxide 22.5 Anion Gap 11 BUN 9 Creatinine 1.26 Estimated GFR 57 L Random Glucose 96 Calcium 7.9 L Microbiology 08/07/18 11:00 Blood - Peripheral Aerobic Blood Culture - Preliminary No growth in 2 days 08/07/18 11:00 Blood - Peripheral Anaerobic Blood Culture - Preliminary No growth in 2 days 08/07/18 10:50 Blood - Peripheral Aerobic Blood Culture - Preliminary No growth in 2 days 08/07/18 10:50 Blood - Peripheral Anaerobic Blood Culture - Preliminary No growth in 2 days 08/05/18 20:20 Blood - Peripheral Aerobic Blood Culture - Preliminary No growth in 4 days 08/05/18 20:20 Blood - Peripheral Anaerobic Blood Culture - Preliminary No growth in 4 days 08/05/18 20:30 Blood - Peripheral Aerobic Blood Culture - Preliminary No growth in 4 days 08/05/18 20:30 Blood - Peripheral Anaerobic Blood Culture - Preliminary No growth in 4 days 08/07/18 21:00 Sputum - Expectorated Sputum Gram Stain - Final 08/07/18 21:00 Sputum - Expectorated Sputum Sputum Culture - Final Light growth normal respiratory kip Assessment and Plan - Assessment (1) SIRS (systemic inflammatory response syndrome) Code(s): R65.10 - Systemic inflammatory response syndrome (SIRS) of non- infectious origin without acute organ dysfunction Status: Acute (2) Multiple myeloma Code(s): C90.00 - Multiple myeloma not having achieved remission Status: Acute (3) Renal insufficiency Code(s): N28.9 - Disorder of kidney and ureter, unspecified Status: Acute (4) Hypertension Code(s): I10 - Essential (primary) hypertension Status: Chronic - Plan This is a 67-year-old male with a past medical history of HTN, Hyperlipidemia and Multiple Myeloma who presented to the ER with complaints of fever. Currently on Chemotherapy, following w/ Dr. Godfrey. Stated he developed sore throat and was started on Z-pack 5 days ago by PCP, then noted to have fever of 102 at home. 1. Severe Sepsis on presentation with source of pneumonia in an immunocompromised patient -continue Vanco/Cefepime and Zithromax, follow up cultures negative so far -Negative for flu, strep -Continue IVF to 100/hr -Repeat blood cultures negative thus far Appreciate ID assistance Add Mavis Tobias and Tess- for cough symptom relief. White blood cells trending down. 2. Multiple Myeloma: Currently on 21-day cycle of chemotherapy -Appreciate hematology, Dr. Godfrey/Dr. Meier's input, recommends to hold Pomalidomide for now 3. Acute of CKD stage 3 - Acute on Chronic. Creatinine 1.39, previously 1.31 on 05/02/18 -continue with IVF for hydration monitor on Abx and Vanco 4. HTN, chronic essential BP stable -on Lisinopril DVT Prophylaxis: SCD/Teds (4) Hypertension Qualifiers: Hypertension type: essential hypertension Qualified Code(s): I10 - Essential (primary) hypertension
--- NOTE | 2018-08-09 14:20 | P.PNONC ---
Subjective Interval history: Afebrile. Patient still reports not feeling well. He continues with cough, unrelieved by Alex. He now has abdominal and chest wall pain with cough. He refuses pain medication, stating he does not like the way it makes him feel. His abdominal pain is mainly left-sided, patient states he has a history of shingles with nerve damage. No rashes noted. Objective Vital Signs/Intake & Output: Vital Signs 08/08/18 14:30 08/08/18 16:52 08/08/18 20:00 Temperature 97 F L 99.8 F H Pulse Rate 74 89 103 H Respiratory Rate 18 18 16 Blood Pressure 133/65 143/69 H Pulse Oximetry 94 L 94 L 08/08/18 20:20 08/09/18 00:00 08/09/18 02:50 Temperature 99.1 F Pulse Rate 104 H 86 Respiratory Rate 24 19 20 Blood Pressure 125/65 Pulse Oximetry 95 08/09/18 04:00 08/09/18 04:02 08/09/18 08:00 Temperature 98.8 F 98.8 F Pulse Rate 75 91 H 83 Respiratory Rate 18 18 Blood Pressure 118/62 142/68 H Pulse Oximetry 94 L 90 L 08/09/18 09:38 08/09/18 12:00 Temperature 99.7 F H Pulse Rate 100 H 82 Respiratory Rate 15 18 Blood Pressure 126/66 Pulse Oximetry 98 93 L Intake & Output 08/08/18 08/09/18 08/09/18 18:59 06:59 18:59 Intake Total 680 / 680 865 / 865 340 / 340 Balance 680 / 680 865 / 865 340 / 340 Intake: IV 200 / 200 865 / 865 100 / 100 Azithromycin Inj 500 MG In NS 250 / 250 Inj 250 ML @ 250 mls/hr IV.SIG Q24H LISA Rx#:[id number] Maxipime Inj 1,000 MG In NS Inj 200 / 200 100 / 100 100 / 100 100 ML @ 200 mls/hr IV.SIG Q12H LISA Rx#:[id number] Vancomycin Inj 1,500 MG In NS 515 / 515 Inj 500 ML @ 250 mls/hr IV.SIG Q24H LISA Rx#:[id number] Oral 480 / 480 240 / 240 Other: # Voids 3 Date of Last Bowel Movement 1008/05/18 08/06/18 Result Diagrams: 08/09/18 04:51 08/09/18 04:07 Laboratory Results: Laboratory Results - last 24 hr 08/09/18 08/09/18 04:07 04:51 WBC 10.5 RBC 2.78 L Hgb 9.5 L Hct 27.8 L MCV 100.1 H MCH 34.2 H MCHC 34.2 RDW 19.3 H Plt Count 144 L MPV 8.8 Neut % (Auto) 79.0 H Lymph % (Auto) 4.2 L [place] % (Auto) 9.9 H Eos % (Auto) 6.6 H Baso % (Auto) 0.3 Neut # (Auto) 8.3 H Lymph # (Auto) 0.4 L [place] # (Auto) 1.0 H Eos # (Auto) 0.7 H Baso # (Auto) 0.0 WBC Differential . Differential Comment Auto diff final Sodium 140 Potassium 3.5 Chloride 107 Carbon Dioxide 22.5 Anion Gap 11 BUN 9 Creatinine 1.26 Estimated GFR 57 L Random Glucose 96 Calcium 7.9 L Culture Results: Microbiology 08/07/18 11:00 Aerobic Blood Culture - Preliminary Blood - Peripheral No growth in 2 days Anaerobic Blood Culture - Preliminary No growth in 2 days 08/07/18 10:50 Aerobic Blood Culture - Preliminary Blood - Peripheral No growth in 2 days Anaerobic Blood Culture - Preliminary No growth in 2 days 08/05/18 20:20 Aerobic Blood Culture - Preliminary Blood - Peripheral No growth in 4 days Anaerobic Blood Culture - Preliminary No growth in 4 days 08/05/18 20:30 Aerobic Blood Culture - Preliminary Blood - Peripheral No growth in 4 days Anaerobic Blood Culture - Preliminary No growth in 4 days 08/07/18 21:00 Gram Stain - Final Sputum - Expectorated Sputum Sputum Culture - Final Light growth normal respiratory kip 08/05/18 22:00 Group A Streptococcus Screen/Cult - Final Throat No Beta Streptococci isolated. Medications: Active Medications Generic Name Dose Route Start Last Admin Trade Name Freq PRN Reason Stop Dose Admin Acetaminophen 650 mg 08/05/18 22:26 08/08/18 10:25 Tylenol PO 650 mg Q4H PRN Administration Temp > 100.4 Acyclovir 400 mg 08/05/18 23:00 08/09/18 08:26 Zovirax PO 400 mg BID LISA Administration Albuterol 1 ampul 08/07/18 20:00 08/09/18 09:30 Duoneb Neb ([facility]) NEB 1 ampul Q6HR WHILE AWAKE NEB LISA Administration Aspirin 325 mg 08/06/18 09:00 08/09/18 08:26 Aspirin PO 325 mg DAILY LISA Administration Atorvastatin Calcium 20 mg 08/06/18 09:00 08/09/18 08:26 Lipitor PO 20 mg DAILY LISA Administration Benzonatate 200 mg 08/09/18 09:54 08/09/18 11:10 Tessalon Perles PO 200 mg Q8H PRN Administration COUGH Cetirizine HCl 10 mg 08/07/18 09:00 08/09/18 08:26 Zyrtec PO 10 mg DAILY LISA Administration Enalapril Maleate 10 mg 08/06/18 12:00 08/09/18 08:27 Vasotec PO 10 mg DAILY LISA Administration Guaifenesin 600 mg 08/07/18 16:15 08/09/18 08:26 Mucinex Er PO 600 mg BID LISA Administration Guaifenesin/Codeine Phosphate 10 ml 08/08/18 16:21 08/09/18 02:56 Robitussin Ac 200/20 Mg/10 Ml Liq PO 10 ml Q4H PRN Administration COUGH Cefepime HCl 1,000 mg/ Sodium 100 mls @ 200 mls/hr 08/06/18 09:00 08/09/18 08 :57 Chloride IV.SIG Infused Q12H LISA Infusion Sodium Chloride 1,000 mls @ 100 mls/hr 08/05/18 23:00 08/09/18 06:40 Ns Inj IV.CONT Not Given .Q10H LISA Azithromycin 500 mg/ Sodium 250 mls @ 250 mls/hr 08/07/18 20:00 08/08/18 21: 45 Chloride IV.SIG Infused Q24H LISA Infusion Vancomycin HCl 1,500 mg/ 515 mls @ 250 mls/hr 08/08/18 16:00 08/08/18 19:20 Sodium Chloride IV.SIG Infused Q24H LISA Infusion Ondansetron HCl 4 mg 08/05/18 22:26 08/07/18 15:41 Zofran Inj IV.PUSH 4 mg Q6H PRN Administration NAUSEA OR VOMITING Pantoprazole Sodium 20 mg 08/07/18 09:00 08/09/18 08:26 Protonix PO 20 mg DAILY LISA Administration Senna/Docusate Sodium 1 tab 08/06/18 09:00 08/09/18 08:26 Marva-Colace PO 1 tab BID LISA Administration Sennosides 17.2 mg 08/05/18 22:26 08/09/18 08:33 Senokot PO 17.2 mg Q12H PRN Administration Moderate Constipation Sodium Chloride 2 ml 08/06/18 09:00 08/09/18 08:27 Ns Flush IV.FLUSH 2 ml BID LISA Administration Objective Remarks: GENERAL: Well-nourished, well-developed elderly male patient, in no acute distress. SKIN: Warm and dry. HEAD: Normocephalic. EYES: No scleral icterus. No injection or drainage. NECK: Supple, trachea midline. CARDIOVASCULAR: Regular rate and rhythm without murmurs. RESPIRATORY: Posterior breath sounds coarse, equal bilaterally. Left base + rhonchi. nonlabored at rest. +cough. GASTROINTESTINAL: Abdomen soft, non-tender, nondistended. EXTREMITIES: No cyanosis, or pitting edema. MUSCULOSKELETAL: Adequate muscle tone. NEUROLOGICAL: No obvious focal deficit. Awake, alert, and oriented x3. PSYCHIATRIC: Appropriate mood and affect; insight and judgment normal. Assessment/Plan - Plan Mr. Guerra is a very pleasant 67-year-old male with history of multiple myeloma that was diagnosed when he presented with spinal cord compression in 2017. He has been on multiple lines of therapy but most recently he is on a regimen of daratumumab and pomalidomide. He presented to the hospital on this admission with fever as well as cough and cold symptoms. 1. Pneumonia, chest x-ray on 08/07/18, showed worsening bibasilar areas of consolidation. Patient continues with cough, unrelieved with cough medicine. Continues on antibiotics, management per infectious disease. Blood cultures negative thus far. Will repeat chest x-ray tomorrow. 2. Redness to left hand IV site. Patient reports vancomycin administration yesterday burned. Discussed with RN she will start a new IV site. Continue to monitor site. 3. Generalized non-pitting edema. We will give Lasix 40 mg IV today and then oral daily. 4. Continue supportive care. - Attending Statement The exam, history, and the medical decision-making described in the above note were completed with the assistance of the mid-level provider. I reviewed and agree with the findings presented. I attest that I had a [id number] encounter with the patient on the same day, and personally performed and documented my assessment and findings in the medical record. Temperature appears to be falling. Will check chest x-ray tomorrow. He has increasing edema. He has had this in the past and responded to Lasix. No calf tenderness and the swelling is bilateral and equal. Will temporarily treat with Lasix.
[2018-08-09] MEDS: Vancomycin Inj 1,500 MG in Sodium Chlor 0.9% Inj 500 ML IV.SIG SCH (15:16)
--- NOTE | 2018-08-09 17:34 | P.PNID ---
Subjective Remarks: c/o shivering when recieves vancomycin Only low grade fever of 99.7 T max today no fever c/o dry cough Allergies/Adverse Reactions: Allergies Sulfa (Sulfonamide Antibiotics) Allergy (Severe, Verified 08/05/18 22:05) DIZZINESS Objective Vital Signs 08/08/18 20:00 08/08/18 20:20 08/09/18 00:00 Temperature 99.8 F H 99.1 F Pulse Rate 103 H 104 H 86 Respiratory Rate 16 24 19 Blood Pressure 143/69 H 125/65 Pulse Oximetry 94 L 95 08/09/18 02:50 08/09/18 04:00 08/09/18 04:02 Temperature 98.8 F Pulse Rate 75 91 H Respiratory Rate 20 18 Blood Pressure 118/62 Pulse Oximetry 94 L 08/09/18 08:00 08/09/18 09:38 08/09/18 12:00 Temperature 98.8 F 99.7 F H Pulse Rate 83 100 H 82 Respiratory Rate 18 15 18 Blood Pressure 142/68 H 126/66 Pulse Oximetry 90 L 98 93 L Intake & Output 08/08/18 08/09/18 08/09/18 18:59 06:59 18:59 Intake Total 680 / 680 865 / 865 340 / 340 Balance 680 / 680 865 / 865 340 / 340 Intake: IV 200 / 200 865 / 865 100 / 100 Azithromycin Inj 500 MG In NS 250 / 250 Inj 250 ML @ 250 mls/hr IV.SIG Q24H BRAULIO Rx#:[id number] Maxipime Inj 1,000 MG In NS Inj 200 / 200 100 / 100 100 / 100 100 ML @ 200 mls/hr IV.SIG Q12H BRAULIO Rx#:[id number] Vancomycin Inj 1,500 MG In NS 515 / 515 Inj 500 ML @ 250 mls/hr IV.SIG Q24H BRAULIO Rx#:[id number] Oral 480 / 480 240 / 240 Other: # Voids 3 Date of Last Bowel Movement 08/05/18 08/05/18 08/06/18 08/07/18 11:00 Blood - Peripheral Aerobic Blood Culture - Preliminary No growth in 2 days 08/07/18 11:00 Blood - Peripheral Anaerobic Blood Culture - Preliminary No growth in 2 days 08/07/18 10:50 Blood - Peripheral Aerobic Blood Culture - Preliminary No growth in 2 days 08/07/18 10:50 Blood - Peripheral Anaerobic Blood Culture - Preliminary No growth in 2 days 08/05/18 20:20 Blood - Peripheral Aerobic Blood Culture - Preliminary No growth in 4 days 08/05/18 20:20 Blood - Peripheral Anaerobic Blood Culture - Preliminary No growth in 4 days 08/05/18 20:30 Blood - Peripheral Aerobic Blood Culture - Preliminary No growth in 4 days 08/05/18 20:30 Blood - Peripheral Anaerobic Blood Culture - Preliminary No growth in 4 days 08/07/18 21:00 Sputum - Expectorated Sputum Gram Stain - Final 08/07/18 21:00 Sputum - Expectorated Sputum Sputum Culture - Final Light growth normal respiratory kip 08/05/18 22:00 Throat Group A Streptococcus Screen/Cult - Final No Beta Streptococci isolated. Lab - Hematology Results 08/08/18 08/09/18 04:32 04:51 WBC 12.3 H 10.5 RBC 3.20 L 2.78 L Hgb 10.7 L 9.5 L Hct 32.1 L 27.8 L MCV 100.3 H 100.1 H MCH 33.4 34.2 H MCHC 33.3 34.2 RDW 19.0 H 19.3 H Plt Count 160 144 L MPV 8.8 8.8 Neut % (Auto) 86.9 H 79.0 H Lymph % (Auto) 2.1 L 4.2 L [place] % (Auto) 5.5 9.9 H Eos % (Auto) 4.8 H 6.6 H Baso % (Auto) 0.7 0.3 Neut # (Auto) 10.7 H 8.3 H Lymph # (Auto) 0.3 L 0.4 L [place] # (Auto) 0.7 1.0 H Eos # (Auto) 0.6 H 0.7 H Baso # (Auto) 0.1 0.0 WBC Differential . . Differential Comment Auto diff final Auto diff final Lab - Chemistry Results 08/08/18 08/09/18 04:32 04:07 Sodium 141 140 Potassium 3.7 3.5 Chloride 110 H 107 Carbon Dioxide 20.8 L 22.5 Anion Gap 10 11 BUN 13 9 Creatinine 1.37 H 1.26 Estimated GFR 52 L 57 L Random Glucose 124 H 96 Calcium 7.9 L 7.9 L Phosphorus 1.9 L Magnesium 1.7 Total Bilirubin 0.8 AST 13 L ALT 30 Alkaline Phosphatase 56 Total Protein 6.2 L D Albumin 2.2 L Imaging: ITS Impressions Chest X-Ray 08/07/18 00:00 CONCLUSION: Bibasilar areas of consolidation or atelectasis being worse on the left. These appear worse when compared to the prior exam. Physical Exam: GENERAL: NAD + dry cough SKIN: Warm and dry. No rash HEAD: Atraumatic. Normocephalic. EYES: Pupils equal and round. No scleral icterus. No injection or drainage. ENT: No nasal bleeding or discharge. Mucous membranes pink and moist. NECK: Trachea midline. No JVD. CARDIOVASCULAR: Regular rate and rhythm. RESPIRATORY: No accessory muscle use. Clear to auscultation. Breath sounds equal bilaterally. GASTROINTESTINAL: Abdomen soft, non-tender, nondistended. Hepatic and splenic margins not palpable. MUSCULOSKELETAL: Extremities without clubbing, cyanosis, + 2 soft pitting edema. No obvious deformities. NEUROLOGICAL: Awake and alert. No obvious cranial nerve deficits. Motor grossly within normal limits. Five out of 5 muscle strength in the arms and legs. Normal speech. PSYCHIATRIC: calm, cooperative Assessment and Plan - Plan Immunocompromised, but non neutropenic Multiple myeloma on chemo fever - source is likely PNA PNA, puulmonary infiltrates Blood clx negative cont cefepeme, cont azitromycin r dc vancomycin tyson pt, @ b/s tyson JEFFERSON
[2018-08-09] MEDS: Azithromycin Inj 500 MG in Sodium Chlor 0.9% Inj 250 ML IV.SIG SCH (20:10)
[2018-08-10] MEDS: Sod Chloride 0.9% Inj 1,000 ML IV.CONT SCH ×3 (00:35→21:25)
[2018-08-10 06:51] LABS: Alanine Aminotransferase 50 U/L (12-78); Anion Gap 10 meq/L (5-15); Aspartate Aminotransferase 21 U/L (15-37); Blood Urea Nitrogen 13 mg/dL (7-18); Calcium 8.1 mg/dL (8.5-10.1); Carbon Dioxide 25.1 meq/L (21.0-32.0); Chloride 107 meq/L (98-107); Glomerular Filtration Rate 58 mL/min (>89); Glucose,Random 91 mg/dL (74-106); Potassium 3.1 meq/L (3.5-5.1); Sodium 142 meq/L (136-145)
[2018-08-10 06:54] LABS: Alkaline Phosphatase 81 U/L (45-117)
[2018-08-10 07:01] LABS: Baso % (Auto) 0.5 % (0.0-2.0); Eos # (Auto) 1.1 th/mm3 (0.0-0.4); Eos % (Auto) 11.9 % (0.0-4.0); Hematocrit 26.8 % (39.0-51.0); Hemoglobin 9.3 gm/dL (13.0-17.0); Lymph # (Auto) 0.6 th/mm3 (1.0-4.8); Lymph % (Auto) 6.8 % (9.0-44.0); Mean Corpuscular HGB Conc 34.8 % (32.0-36.0); Mean Corpuscular Hemoglobin 34.5 pg (27.0-34.0); Mean Corpuscular Volume 99.1 fL (80.0-100.0); Mean Platelet Volume 8.7 fL (7.0-11.0); Mono # (Auto) 1.2 th/mm3 (0.0-0.9); Mono % (Auto) 13.2 % (0.0-8.0); Neut # (Auto) 6.1 th/mm3 (1.8-7.7); Neut % (Auto) 67.6 % (16.0-70.0); Platelet Count 162 th/mm3 (150-450); Red Cell Distribution Width 18.7 % (11.6-17.2); White Blood Count 9.1 th/mm3 (4.0-11.0)
[2018-08-10] MEDS ORDERED: Potassium Chlor 20 mEq Premix 20 MEQ/100 ML PIGGYBACK IV.SIG SCH (09:30)
--- NOTE | 2018-08-10 09:34 | P.PNONC ---
Subjective Interval history: Afebrile. Patient still with frequent cough. He states he does not feel like he is getting worse, however he does not feel any better. Remains with abdominal pain/tenderness related to cough. Objective Vital Signs/Intake & Output: Vital Signs 08/09/18 09:38 08/09/18 12:00 08/09/18 16:00 Temperature 99.7 F H 98.2 F Pulse Rate 100 H 82 97 H Respiratory Rate 15 18 18 Blood Pressure 126/66 130/71 Pulse Oximetry 98 93 L 91 L 08/09/18 19:17 08/09/18 20:00 08/09/18 20:41 Temperature 99.6 F Pulse Rate 85 90 98 H Respiratory Rate 17 17 Blood Pressure 136/71 Pulse Oximetry 95 95 08/10/18 00:00 08/10/18 04:10 08/10/18 07:53 Temperature 98.1 F Pulse Rate 68 61 79 Respiratory Rate 18 20 Blood Pressure 109/61 Pulse Oximetry 95 Intake & Output 08/09/18 08/10/18 08/10/18 18:59 06:59 18:59 Intake Total 1180 / 1180 590 / 590 Balance 1180 / 1180 590 / 590 Weight 85.8 kg Intake: IV 100 / 100 350 / 350 Azithromycin Inj 500 MG In NS 250 / 250 Inj 250 ML @ 250 mls/hr IV.SIG Q24H LISA Rx#:[id number] Maxipime Inj 1,000 MG In NS Inj 100 / 100 100 / 100 100 ML @ 200 mls/hr IV.SIG Q12H LISA Rx#:[id number] Oral 1080 / 1080 240 / 240 Other: # Voids 4 2 Date of Last Bowel Movement 08/06/18 08/06/18 # Bowel Movements 0 Result Diagrams: 08/10/18 05:53 08/10/18 05:53 Laboratory Results: Laboratory Results - last 24 hr 08/10/18 08/10/18 05:53 05:53 WBC 9.1 RBC 2.70 L Hgb 9.3 L Hct 26.8 L MCV 99.1 MCH 34.5 H MCHC 34.8 RDW 18.7 H Plt Count 162 MPV 8.7 Neut % (Auto) 67.6 Lymph % (Auto) 6.8 L [place] % (Auto) 13.2 H Eos % (Auto) 11.9 H Baso % (Auto) 0.5 Neut # (Auto) 6.1 Lymph # (Auto) 0.6 L [place] # (Auto) 1.2 H Eos # (Auto) 1.1 H Baso # (Auto) 0.0 WBC Differential . Differential Comment Auto diff final Sodium 142 Potassium 3.1 L Chloride 107 Carbon Dioxide 25.1 Anion Gap 10 BUN 13 Creatinine 1.24 Estimated GFR 58 L Random Glucose 91 Calcium 8.1 L Total Bilirubin 0.8 AST 21 ALT 50 Alkaline Phosphatase 81 Total Protein 6.0 L Albumin 2.0 L Culture Results: Microbiology 08/07/18 11:00 Aerobic Blood Culture - Preliminary Blood - Peripheral No growth in 2 days Anaerobic Blood Culture - Preliminary No growth in 2 days 08/07/18 10:50 Aerobic Blood Culture - Preliminary Blood - Peripheral No growth in 2 days Anaerobic Blood Culture - Preliminary No growth in 2 days 08/05/18 20:20 Aerobic Blood Culture - Preliminary Blood - Peripheral No growth in 4 days Anaerobic Blood Culture - Preliminary No growth in 4 days 08/05/18 20:30 Aerobic Blood Culture - Preliminary Blood - Peripheral No growth in 4 days Anaerobic Blood Culture - Preliminary No growth in 4 days 08/07/18 21:00 Gram Stain - Final Sputum - Expectorated Sputum Sputum Culture - Final Light growth normal respiratory kip 08/05/18 22:00 Group A Streptococcus Screen/Cult - Final Throat No Beta Streptococci isolated. Medications: Active Medications Generic Name Dose Route Start Last Admin Trade Name Freq PRN Reason Stop Dose Admin Acetaminophen 650 mg 08/05/18 22:26 08/08/18 10:25 Tylenol PO 650 mg Q4H PRN Administration Temp > 100.4 Acyclovir 400 mg 08/05/18 23:00 08/09/18 21:59 Zovirax PO 400 mg BID LISA Administration Albuterol 1 ampul 08/07/18 20:00 08/09/18 20:41 Duoneb Neb (Lsia) NEB 1 ampul Q6HR WHILE AWAKE NEB LISA Administration Aspirin 325 mg 08/06/18 09:00 08/09/18 08:26 Aspirin PO 325 mg DAILY LISA Administration Atorvastatin Calcium 20 mg 08/06/18 09:00 08/09/18 08:26 Lipitor PO 20 mg DAILY LISA Administration Benzonatate 200 mg 08/09/18 09:54 08/09/18 11:10 Tessalon Perles PO 200 mg Q8H PRN Administration COUGH Cetirizine HCl 10 mg 08/07/18 09:00 08/09/18 08:26 Zyrtec PO 10 mg DAILY LISA Administration Enalapril Maleate 10 mg 08/06/18 12:00 08/09/18 08:27 Vasotec PO 10 mg DAILY LISA Administration Guaifenesin 600 mg 08/07/18 16:15 08/09/18 21:59 Mucinex Er PO 600 mg BID LISA Administration Guaifenesin/Codeine Phosphate 10 ml 08/08/18 16:21 08/09/18 22:03 Robitussin Ac 200/20 Mg/10 Ml Liq PO 10 ml Q4H PRN Administration COUGH Cefepime HCl 1,000 mg/ Sodium 100 mls @ 200 mls/hr 08/06/18 09:00 08/09/18 22 :30 Chloride IV.SIG Infused Q12H LISA Infusion Sodium Chloride 1,000 mls @ 100 mls/hr 08/05/18 23:00 08/10/18 00:35 Ns Inj IV.CONT Not Given .Q10H LISA Azithromycin 500 mg/ Sodium 250 mls @ 250 mls/hr 08/07/18 20:00 08/09/18 21: 30 Chloride IV.SIG Infused Q24H LISA Infusion Ondansetron HCl 4 mg 08/05/18 22:26 08/07/18 15:41 Zofran Inj IV.PUSH 4 mg Q6H PRN Administration NAUSEA OR VOMITING Pantoprazole Sodium 20 mg 08/07/18 09:00 08/09/18 08:26 Protonix PO 20 mg DAILY LISA Administration Senna/Docusate Sodium 1 tab 08/06/18 09:00 08/09/18 21:59 Marva-Colace PO 1 tab BID LISA Administration Sennosides 17.2 mg 08/05/18 22:26 08/09/18 21:59 Senokot PO 17.2 mg Q12H PRN Administration Moderate Constipation Sodium Chloride 2 ml 08/06/18 09:00 08/09/18 22:03 Ns Flush IV.FLUSH 2 ml BID LISA Administration Objective Remarks: GENERAL: Well-nourished, well-developed male patient, in no acute distress. SKIN: Warm and dry. HEAD: Normocephalic. EYES: No scleral icterus. No injection or drainage. NECK: Supple, trachea midline. CARDIOVASCULAR: +S1/S2 RESPIRATORY: Posterior breath sounds coarse, equal bilaterally. Left base + rhonchi. Slight expiratory wheeze. nonlabored at rest. +cough. GASTROINTESTINAL: Abdomen soft, tender, nondistended. EXTREMITIES: No cyanosis. 3+pitting edema to BLE. MUSCULOSKELETAL: Adequate muscle tone. NEUROLOGICAL: No obvious focal deficit. Awake, alert, and oriented x3. PSYCHIATRIC: Appropriate mood and affect; insight and judgment normal. Assessment/Plan - Plan Mr. Guerra is a very pleasant 67-year-old male with history of multiple myeloma that was diagnosed when he presented with spinal cord compression in 2017. He has been on multiple lines of therapy but most recently he is on a regimen of daratumumab and pomalidomide. He presented to the hospital on this admission with fever as well as cough and cold symptoms. 1. Pneumonia, chest x-ray on 08/07/18, showed worsening bibasilar areas of consolidation. Patient continues with cough, unrelieved with cough medicine. Continues on antibiotics, management per infectious disease. Blood cultures negative thus far. Will repeat chest x-ray today. 2. Pitting BLE edema, s/p one dose of IV lasix yesterday. Potassium 3.1 today, will replace per electrolyte replacement policy and schedule additional IV lasix 40mg dose for this afternoon. Re-check potassium level and anticipate starting oral potassium supplementation and lasix tomorrow. 3. Afebrile x's 2 days, still with persistent cough, will await repeat chest x- ray today. Patient may benefit from a round of low dose steroids, however we will wait several days to make sure fevers are gone and chest xray is improving. 4. Discussed with attending Dr Goldstein. 5. Continue supportive care. - Attending Statement The exam, history, and the medical decision-making described in the above note were completed with the assistance of the mid-level provider. I reviewed and agree with the findings presented. I attest that I had a [id number] encounter with the patient on the same day, and personally performed and documented my assessment and findings in the medical record. The cough is persistent but the temperature has fallen and the chest x-ray shows a decrease in left lower lobe infiltrate. I believe he is improving but it will take a while before the cough is significantly better. I am hopeful that he will be able to go home in several days on p.o. antibiotics. I will not resume his therapy for myeloma until there has been full recovery. I am optimistic that he will do well. If cough and wheezing is not significantly improving over the next few days then he may benefit from a short course of steroids.
--- NOTE | 2018-08-10 09:40 | XR ---
EXAM DATE: 08/10/2018 12:00 AM EDT AGE/SEX: 67 years / Male INDICATIONS: . Short of breath, pneumonia CLINICAL DATA: This is the patient's initial encounter. Patient reports that signs and symptoms have been present for 1 day and indicates a pain score of 0/10. MEDICAL/SURGICAL HISTORY: . Crohn's disease, multiple myeloma None. [place] [facility] [place]. . FINDINGS: AP and lateral views of the chest demonstrate slight improvement of patchy infiltrates left lower lob e. Right-sided port unchanged. Heart normal in size. The cardiomediastinal contours are unremarkable . Osseous structures are intact. Old right-sided rib fractures. CONCLUSION: Improving left lower lobe infiltrate. Electronically signed by: Fredo Jerez MD 08/10/2018 9:39 AM EDT
[2018-08-10] MEDS: Acyclovir 200 MG Capsule PO SCH ×2 (10:15→21:43)
[2018-08-10] MEDS: Pantoprazole Sodium 20 MG DR Tablet PO SCH (10:16)
[2018-08-10] MEDS: Senna/Docusate Sodium 8.6/50 MG Tablet PO SCH ×2 (10:16→21:42)
[2018-08-10] MEDS: guaiFENesin 600 MG ER Tablet PO SCH ×2 (10:16→21:43)
[2018-08-10] MEDS: Aspirin 325 MG Tablet PO SCH (10:16)
[2018-08-10] MEDS: Sodium Chloride 0.9% 2 ML Flush BID IV.FLUSH SCH ×2 (10:17→21:46)
[2018-08-10] MEDS: Furosemide 40 MG Tablet PO SCH (10:26)
--- NOTE | 2018-08-10 11:11 | P.PNIM ---
Subjective Interval history: Patient still complained of coughing and congestion. States the coughing is keeping him up at night. No active shortness of breath. Still does not feel well. Reports still swelling of the lower legs however not worse. Did urinate quite a bit after Lasix was given yesterday. No leg pain. No muscle aches or cramps. Physical Exam Vital signs: Vital Signs 08/09/18 12:00 08/09/18 16:00 08/09/18 19:17 Temperature 99.7 F H 98.2 F 99.6 F Pulse Rate 82 97 H 85 Respiratory Rate 18 18 17 Blood Pressure 126/66 130/71 136/71 Pulse Oximetry 93 L 91 L 95 08/09/18 20:00 08/09/18 20:41 08/10/18 00:00 Temperature 98.1 F Pulse Rate 90 98 H 68 Respiratory Rate 17 18 Blood Pressure 109/61 Pulse Oximetry 95 95 08/10/18 04:10 08/10/18 07:53 08/10/18 08:00 Temperature 96.9 F L Pulse Rate 61 79 83 Respiratory Rate 20 18 Blood Pressure 137/69 Pulse Oximetry 91 L Intake & Output 08/09/18 08/10/18 08/10/18 18:59 06:59 18:59 Intake Total 1180 / 1180 590 / 590 Balance 1180 / 1180 590 / 590 Weight 85.8 kg Intake: IV 100 / 100 350 / 350 Azithromycin Inj 500 MG In NS 250 / 250 Inj 250 ML @ 250 mls/hr IV.SIG Q24H BRAULIO Rx#:[id number] Maxipime Inj 1,000 MG In NS Inj 100 / 100 100 / 100 100 ML @ 200 mls/hr IV.SIG Q12H BRAULIO Rx#:[id number] Oral 1080 / 1080 240 / 240 Other: # Voids 4 2 Date of Last Bowel Movement 08/06/18 08/06/18 # Bowel Movements 0 Narrative: GENERAL: Very pleasant middle-aged white male in no acute distress. CARDIOVASCULAR: Regular rate and rhythm. RESPIRATORY: Left base rales GASTROINTESTINAL: Abdomen soft, nontender nondistended normoactive bowel sounds MUSCULOSKELETAL: Extremities without clubbing, cyanosis, positive for 1+ edema NEUROLOGICAL: Awake, alert and oriented x4. No focal neurologic deficits. Moving both upper and lower extremities spontaneously. PSYCHIATRIC: Appropriate mood and affect. Insight and judgment normal. Results - Labs CBC & Chem 7: 08/10/18 05:53 08/10/18 05:53 Laboratory Results - last 24 hr 08/09/18 08/10/18 08/10/18 19:20 05:53 05:53 WBC 9.1 RBC 2.70 L Hgb 9.3 L Hct 26.8 L MCV 99.1 MCH 34.5 H MCHC 34.8 RDW 18.7 H Plt Count 162 MPV 8.7 Neut % (Auto) 67.6 Lymph % (Auto) 6.8 L [place] % (Auto) 13.2 H Eos % (Auto) 11.9 H Baso % (Auto) 0.5 Neut # (Auto) 6.1 Lymph # (Auto) 0.6 L [place] # (Auto) 1.2 H Eos # (Auto) 1.1 H Baso # (Auto) 0.0 WBC Differential . Differential Comment Auto diff final Sodium 142 Potassium 3.1 L Chloride 107 Carbon Dioxide 25.1 Anion Gap 10 BUN 13 Creatinine 1.24 Estimated GFR 58 L Random Glucose 91 Calcium 8.1 L Total Bilirubin 0.8 AST 21 ALT 50 Alkaline Phosphatase 81 Total Protein 6.0 L Albumin 2.0 L Adenovirus (PCR) Not detected Bordetella holmesii PCR Not detected B. pertussis DNA (PCR) Not detected B. paraper/bronch (PCR) Not detected Human Metapneumovir PCR Not detected Influenza A (RT-PCR) Not detected Influenza A (H1) PCR Not detected Influenza A (H3) PCR Not detected Influenza B (RT-PCR) Not detected Parainfluenza 1 (PCR) Not detected Parainfluenza 2 (PCR) Not detected Parainfluenza 3 (PCR) Not detected Parainfluenza 4 (PCR) Not detected RSV Type A (PCR) Not detected RSV Type B (PCR) Not detected Rhinovirus (PCR) Detected H Microbiology 08/07/18 11:00 Blood - Peripheral Aerobic Blood Culture - Preliminary No growth in 3 days 08/07/18 11:00 Blood - Peripheral Anaerobic Blood Culture - Preliminary No growth in 3 days 08/07/18 10:50 Blood - Peripheral Aerobic Blood Culture - Preliminary No growth in 3 days 08/07/18 10:50 Blood - Peripheral Anaerobic Blood Culture - Preliminary No growth in 3 days 08/05/18 20:20 Blood - Peripheral Aerobic Blood Culture - Final No growth in 5 days 08/05/18 20:20 Blood - Peripheral Anaerobic Blood Culture - Final No growth in 5 days 08/05/18 20:30 Blood - Peripheral Aerobic Blood Culture - Final No growth in 5 days 08/05/18 20:30 Blood - Peripheral Anaerobic Blood Culture - Final No growth in 5 days 08/07/18 21:00 Sputum - Expectorated Sputum Gram Stain - Final 08/07/18 21:00 Sputum - Expectorated Sputum Sputum Culture - Final Light growth normal respiratory kip - Imaging Impressions Chest X-Ray 08/10/18 00:00 CONCLUSION: Improving left lower lobe infiltrate. Assessment and Plan - Assessment (1) SIRS (systemic inflammatory response syndrome) Code(s): R65.10 - Systemic inflammatory response syndrome (SIRS) of non- infectious origin without acute organ dysfunction Status: Acute (2) Multiple myeloma Code(s): C90.00 - Multiple myeloma not having achieved remission Status: Acute (3) Renal insufficiency Code(s): N28.9 - Disorder of kidney and ureter, unspecified Status: Acute (4) Hypertension Code(s): I10 - Essential (primary) hypertension Status: Chronic - Plan This is a 67-year-old male with a past medical history of HTN, Hyperlipidemia and Multiple Myeloma who presented to the ER with complaints of fever. Currently on Chemotherapy, following w/ Dr. Godfrey. Stated he developed sore throat and was started on Z-pack 5 days ago by PCP, then noted to have fever of 102 at home. 1. Severe Sepsis on presentation with source of pneumonia in an immunocompromised patient -continue Cefepime and Zithromax, follow up cultures negative so far, infectious disease has stopped the vancomycin. -Negative for flu, strep Rhino virus detected -Discontinue IVF to 100/hr -Repeat blood cultures negative thus far Appreciate ID assistance Add Tessalon Perles and Robitussin-AC for cough symptom relief. White blood cells trending down. 2. Multiple Myeloma: Currently on 21-day cycle of chemotherapy -Appreciate hematology, Dr. Godfrey/Dr. Meier's input, recommends to hold Pomalidomide for now 3. Acute kidney injury of CKD stage 3 - Acute on Chronic. Creatinine 1.39, previously 1.31 on 05/02/18 monitor on Abx, monitor while on Lasix 4. HTN, chronic essential BP stable -on Lisinopril 5. Bilateral lower extremity dependent edemano pain on physical exam. Lasix initiated by hematology oncology. 6. Hypokalemiareplete DVT Prophylaxis: SCD/Teds (4) Hypertension Qualifiers: Hypertension type: essential hypertension Qualified Code(s): I10 - Essential (primary) hypertension
[2018-08-10] MEDS: guaiFENesin/Codeine Syrup 200 MG/20 MG 10 ML UDC PO PRN (14:24)
[2018-08-10] MEDS: Azithromycin Inj 500 MG in Sodium Chlor 0.9% Inj 250 ML IV.SIG SCH (19:53)
[2018-08-11] MEDS: Sod Chloride 0.9% Inj 1,000 ML IV.CONT SCH ×2 (06:22→18:31)
[2018-08-11 07:29] LABS: Calcium 8.1 mg/dL (8.5-10.1); Carbon Dioxide 23.4 meq/L (21.0-32.0); Potassium 3.1 meq/L (3.5-5.1)
[2018-08-11] MEDS: Pantoprazole Sodium 20 MG DR Tablet PO SCH (08:46)
[2018-08-11] MEDS: Aspirin 325 MG Tablet PO SCH (08:47)
[2018-08-11] MEDS: guaiFENesin 600 MG ER Tablet PO SCH ×2 (08:47→20:22)
[2018-08-11] MEDS: Acyclovir 200 MG Capsule PO SCH ×2 (08:47→20:23)
[2018-08-11] MEDS: Senna/Docusate Sodium 8.6/50 MG Tablet PO SCH ×2 (08:47→20:22)
[2018-08-11] MEDS: Furosemide 40 MG Tablet PO SCH (08:48)
[2018-08-11] MEDS: Sodium Chloride 0.9% 2 ML Flush BID IV.FLUSH SCH ×2 (09:10→20:22)
--- NOTE | 2018-08-11 10:51 | P.PN ---
Subjective Interval history: Patient doing well, reports continued cough which is minimally improving. Patient is tolerating p.o., voiding/stooling well. Patient reports that when he has had previous infections he has generalized weakness and can take a little over a week to recover. Physical Exam Vital signs: Vital Signs 08/10/18 12:00 08/10/18 13:14 08/10/18 16:00 Temperature 97.5 F L 96.6 F L Pulse Rate 88 86 77 Respiratory Rate 18 20 18 Blood Pressure 135/77 133/78 Pulse Oximetry 93 L 94 L 08/10/18 19:58 08/10/18 20:00 08/11/18 00:00 Temperature 97.7 F 99.7 F H Pulse Rate 87 100 H Respiratory Rate 18 18 Blood Pressure 151/90 H 141/73 H Pulse Oximetry 94 L 94 L 92 L 08/11/18 07:46 08/11/18 07:57 Temperature 97.5 F L Pulse Rate 80 78 Respiratory Rate 18 16 Blood Pressure 140/78 Pulse Oximetry 90 L 91 L Intake & Output 08/10/18 08/11/18 08/11/18 18:59 06:59 18:59 Intake Total 100 / 100 350 / 350 Balance 100 / 100 350 / 350 Intake: IV 100 / 100 350 / 350 Azithromycin Inj 500 MG In NS 250 / 250 Inj 250 ML @ 250 mls/hr IV.SIG Q24H BRAULIO Rx#:[id number] Maxipime Inj 1,000 MG In NS Inj 100 / 100 100 / 100 100 ML @ 200 mls/hr IV.SIG Q12H BRAULIO Rx#:[id number] Other: # Voids 4 3 Date of Last Bowel Movement 08/10/18 08/10/18 # Bowel Movements 1 Narrative: GENERAL: Well-nourished male, in NAD, lying comfortably in bed SKIN: Warm and dry. HEAD: Normocephalic. No scleral icterus. No injection or drainage. PERRLA, MOM. NECK: Supple, trachea midline. No JVD or lymphadenopathy. CARDIOVASCULAR: Regular rate and rhythm without murmurs, gallops, or rubs. RESPIRATORY: Left middle lung with rales. Right lung clear. No accessory muscle use. GASTROINTESTINAL: Abdomen soft, non-tender, nondistended. MUSCULOSKELETAL: No cyanosis, trace edema of BL LE. BACK: Nontender without obvious deformity. No CVA tenderness. NEURO: AAOx3, no focal deficits Results - Labs CBC & Chem 7: 08/10/18 05:53 08/11/18 04:17 Laboratory Results - last 24 hr 08/09/18 08/11/18 19:20 04:17 Sodium 139 Potassium 3.1 L Chloride 105 Carbon Dioxide 23.4 Anion Gap 11 BUN 14 Creatinine 1.19 Estimated GFR 61 L Random Glucose 94 Calcium 8.1 L Adenovirus (PCR) Not detected Bordetella holmesii PCR Not detected B. pertussis DNA (PCR) Not detected B. paraper/bronch (PCR) Not detected Human Metapneumovir PCR Not detected Influenza A (RT-PCR) Not detected Influenza A (H1) PCR Not detected Influenza A (H3) PCR Not detected Influenza B (RT-PCR) Not detected Parainfluenza 1 (PCR) Not detected Parainfluenza 2 (PCR) Not detected Parainfluenza 3 (PCR) Not detected Parainfluenza 4 (PCR) Not detected RSV Type A (PCR) Not detected RSV Type B (PCR) Not detected Rhinovirus (PCR) Detected H Microbiology 08/07/18 11:00 Blood - Peripheral Aerobic Blood Culture - Preliminary No growth in 3 days 08/07/18 11:00 Blood - Peripheral Anaerobic Blood Culture - Preliminary No growth in 3 days 08/07/18 10:50 Blood - Peripheral Aerobic Blood Culture - Preliminary No growth in 3 days 08/07/18 10:50 Blood - Peripheral Anaerobic Blood Culture - Preliminary No growth in 3 days 08/05/18 20:20 Blood - Peripheral Aerobic Blood Culture - Final No growth in 5 days 08/05/18 20:20 Blood - Peripheral Anaerobic Blood Culture - Final No growth in 5 days 08/05/18 20:30 Blood - Peripheral Aerobic Blood Culture - Final No growth in 5 days 08/05/18 20:30 Blood - Peripheral Anaerobic Blood Culture - Final No growth in 5 days Assessment and Plan - Assessment (1) SIRS (systemic inflammatory response syndrome) Code(s): R65.10 - Systemic inflammatory response syndrome (SIRS) of non- infectious origin without acute organ dysfunction Status: Resolved (2) Multiple myeloma Code(s): C90.00 - Multiple myeloma not having achieved remission Status: Chronic (3) Renal insufficiency Code(s): N28.9 - Disorder of kidney and ureter, unspecified Status: Acute (4) Hypertension Code(s): I10 - Essential (primary) hypertension Status: Chronic - Plan This is a 67-year-old male with a PMHx of HTN, Hyperlipidemia, and Multiple Myeloma who presented to the ER with complaints of fever. Currently on Chemotherapy, following w/ Dr. Godfrey. Stated he developed sore throat and was started on Z-pack 5 days ago by PCP, then noted to have fever of 102 at home, being managed for failed outpatient treatment of pneumonia, HD #7 1. Severe Sepsis on presentation with source of pneumonia in an immunocompromised patient CXR 08/10: Improving left lower lobe infiltrate. Continue Cefepime (started 08/06) and Zithromax (started 08/07), ABX day #5, follow up cultures until final, Bld Cx 08/07 Neg x3 days (4bottles) Negative for flu, strep. +Rhino virus Appreciate ID assistance Cont. Tessalon Perles and Robitussin-AC for cough symptom relief. Per HemOnc Reccs 08/10: 1. Pneumonia, chest x-ray on 08/07/18, showed worsening bibasilar areas of consolidation. Patient continues with cough, unrelieved with cough medicine. Continues on antibiotics, management per infectious disease. Blood cultures negative thus far. Will repeat chest x-ray today. 2. Pitting BLE edema, s/p one dose of IV lasix yesterday. Potassium 3.1 today, will replace per electrolyte replacement policy and schedule additional IV lasix 40mg dose for this afternoon. Re-check potassium level and anticipate starting oral potassium supplementation and lasix tomorrow. 3. Afebrile x's 2 days, still with persistent cough, will await repeat chest x- ray today. Patient may benefit from a round of low dose steroids, however we will wait several days to make sure fevers are gone and chest xray is improving. 4. Discussed with attending Dr Goldstein. 5. Continue supportive care. Per ID 08/09: Immunocompromised, but non neutropenic Multiple myeloma on chemo fever - source is likely PNA PNA, puulmonary infiltrates Blood clx negative cont cefepeme, cont azitromycin dc vancomycin 2. Multiple Myeloma: Currently on 21-day cycle of chemotherapy Appreciate hematology, Dr. Godfrey/Dr. Meier's input, recommends to hold Pomalidomide for now, cont. Acylovir (home med) 3. Acute kidney injury of CKD stage 3 - Acute on Chronic, resolved Creatinine 1.19 today We will continue to monitor follow-up BMP in a.m. 4. HTN, chronic Stable Cont. Vasotec, Lasix, and ASA 5. Bilateral lower extremity dependent edema No pain on physical exam Cont. Lasix started by HemOnc 6. Hypokalemia K3.1 today, will replace and start on KCl 40meq daily while on Lasix Follow-up BMP in AM Checking mag level 7. Anemia, likely due to CKD Hgb 9.3 today from 9.5 We will continue to monitor No active signs of bleeding 8. HLD Cont. statin 9. AR Cont. Zyrtec 10. DVT Prophylaxis: SCD/Teds 11. Dispo: Continue antibiotics for PNA per ID, on day #5 and heme on Reccs, CXR yesterday showed improving pulmonary infiltrate Code Status: full Discussed Condition With: patient, RN (4) Hypertension Qualifiers: Hypertension type: essential hypertension Qualified Code(s): I10 - Essential (primary) hypertension
[2018-08-11] MEDS ORDERED: Pharmacy Ordered Lab Info OTHER ONE (15:45)
--- NOTE | 2018-08-11 16:57 | P.PNONC ---
Subjective Interval history: Patient afebrile. Patient lying in bed, states he is still not feeling well. He does report his cough is slightly better. At times he does feel cold and feverish, however there have been no documented fevers. Repeat chest x-ray yesterday did show some improvement. Still with bilateral lower extremity edema, however it does appear to have decreased with diuretic. Objective Vital Signs/Intake & Output: Vital Signs 08/10/18 19:58 08/10/18 20:00 08/11/18 00:00 Temperature 97.7 F 99.7 F H Pulse Rate 87 100 H Respiratory Rate 18 18 Blood Pressure 151/90 H 141/73 H Pulse Oximetry 94 L 94 L 92 L 08/11/18 07:46 08/11/18 07:57 08/11/18 12:00 Temperature 97.5 F L 96.5 F L Pulse Rate 80 78 77 Respiratory Rate 18 16 18 Blood Pressure 140/78 139/79 Pulse Oximetry 90 L 91 L 94 L 08/11/18 14:00 08/11/18 15:40 Temperature 96.6 F L 96.6 F L Pulse Rate 81 79 Respiratory Rate 18 19 Blood Pressure 119/69 113/67 Pulse Oximetry 92 L 92 L Intake & Output 08/10/18 08/11/18 08/11/18 18:59 06:59 18:59 Intake Total 100 / 100 350 / 350 100 / 100 Balance 100 / 100 350 / 350 100 / 100 Intake: IV 100 / 100 350 / 350 100 / 100 Azithromycin Inj 500 MG In NS 250 / 250 Inj 250 ML @ 250 mls/hr IV.SIG Q24H LISA Rx#:[id number] Maxipime Inj 1,000 MG In NS Inj 100 / 100 100 / 100 100 / 100 100 ML @ 200 mls/hr IV.SIG Q12H LISA Rx#:[id number] Other: # Voids 4 3 Date of Last Bowel Movement 08/10/18 08/10/18 08/11/18 # Bowel Movements 1 Result Diagrams: 08/10/18 05:53 08/11/18 04:17 Laboratory Results: Laboratory Results - last 24 hr 08/11/18 04:17 Sodium 139 Potassium 3.1 L Chloride 105 Carbon Dioxide 23.4 Anion Gap 11 BUN 14 Creatinine 1.19 Estimated GFR 61 L Random Glucose 94 Calcium 8.1 L Culture Results: Microbiology 08/07/18 11:00 Aerobic Blood Culture - Preliminary Blood - Peripheral No growth in 4 days Anaerobic Blood Culture - Preliminary No growth in 4 days 08/07/18 10:50 Aerobic Blood Culture - Preliminary Blood - Peripheral No growth in 4 days Anaerobic Blood Culture - Preliminary No growth in 4 days 08/05/18 20:20 Aerobic Blood Culture - Final Blood - Peripheral No growth in 5 days Anaerobic Blood Culture - Final No growth in 5 days 08/05/18 20:30 Aerobic Blood Culture - Final Blood - Peripheral No growth in 5 days Anaerobic Blood Culture - Final No growth in 5 days 08/07/18 21:00 Gram Stain - Final Sputum - Expectorated Sputum Sputum Culture - Final Light growth normal respiratory kip Medications: Active Medications Generic Name Dose Route Start Last Admin Trade Name Freq PRN Reason Stop Dose Admin Acetaminophen 650 mg 08/05/18 22:26 08/08/18 10:25 Tylenol PO 650 mg Q4H PRN Administration Temp > 100.4 Acyclovir 400 mg 08/05/18 23:00 08/11/18 08:47 Zovirax PO 400 mg BID LISA Administration Albuterol 1 ampul 08/07/18 20:00 08/11/18 12:36 Duoneb Neb (Lisa) NEB Not Given Q6HR WHILE AWAKE NEB LISA Aspirin 325 mg 08/06/18 09:00 08/11/18 08:47 Aspirin PO 325 mg DAILY LISA Administration Atorvastatin Calcium 20 mg 08/06/18 09:00 08/11/18 08:46 Lipitor PO 20 mg DAILY LISA Administration Benzonatate 200 mg 08/09/18 09:54 08/09/18 11:10 Tessalon Perles PO 200 mg Q8H PRN Administration COUGH Cetirizine HCl 10 mg 08/07/18 09:00 08/11/18 08:47 Zyrtec PO 10 mg DAILY LISA Administration Enalapril Maleate 10 mg 08/06/18 12:00 08/11/18 08:46 Vasotec PO 10 mg DAILY LISA Administration Furosemide 40 mg 08/10/18 09:00 08/11/18 08:48 Lasix PO 40 mg DAILY LISA Administration Guaifenesin 600 mg 08/07/18 16:15 08/11/18 08:47 Mucinex Er PO 600 mg BID LISA Administration Guaifenesin/Codeine Phosphate 10 ml 08/08/18 16:21 08/10/18 14:24 Robitussin Ac 200/20 Mg/10 Ml Liq PO 10 ml Q4H PRN Administration COUGH Cefepime HCl 1,000 mg/ Sodium 100 mls @ 200 mls/hr 08/06/18 09:00 08/11/18 09 :16 Chloride IV.SIG Infused Q12H LISA Infusion Sodium Chloride 1,000 mls @ 100 mls/hr 08/05/18 23:00 08/11/18 06:22 Ns Inj IV.CONT Not Given .Q10H LISA Azithromycin 500 mg/ Sodium 250 mls @ 250 mls/hr 08/07/18 20:00 08/10/18 21: 40 Chloride IV.SIG Infused Q24H LISA Infusion Ondansetron HCl 4 mg 08/05/18 22:26 08/07/18 15:41 Zofran Inj IV.PUSH 4 mg Q6H PRN Administration NAUSEA OR VOMITING Pantoprazole Sodium 20 mg 08/07/18 09:00 08/11/18 08:46 Protonix PO 20 mg DAILY LISA Administration Potassium Chloride 40 meq 08/11/18 11:00 08/11/18 11:51 Klor-Con 10 PO 08/11/18 21:01 40 meq BID LISA Administration Senna/Docusate Sodium 1 tab 08/06/18 09:00 08/11/18 08:47 Marva-Colace PO 1 tab BID LISA Administration Sennosides 17.2 mg 08/05/18 22:26 08/10/18 21:43 Senokot PO 17.2 mg Q12H PRN Administration Moderate Constipation Sodium Chloride 2 ml 08/06/18 09:00 08/11/18 09:10 Ns Flush IV.FLUSH 2 ml BID LISA Administration Objective Remarks: GENERAL: Well-nourished, well-developed male patient, in no acute distress. SKIN: Warm and dry. HEAD: Normocephalic. EYES: No scleral icterus. No injection or drainage. NECK: Supple, trachea midline. CARDIOVASCULAR: +S1/S2 RESPIRATORY: Posterior breath sounds coarse, equal bilaterally. Nonlabored at rest. GASTROINTESTINAL: Abdomen soft, tender, nondistended. EXTREMITIES: No cyanosis. 1+pitting edema to BLE. MUSCULOSKELETAL: Adequate muscle tone. NEUROLOGICAL: No obvious focal deficit. Awake, alert, and oriented x3. PSYCHIATRIC: Appropriate mood and affect; insight and judgment normal. Assessment/Plan - Plan Mr. Guerra is a very pleasant 67-year-old male with history of multiple myeloma that was diagnosed when he presented with spinal cord compression in 2017. He has been on multiple lines of therapy but most recently he is on a regimen of daratumumab and pomalidomide. He presented to the hospital on this admission with fever as well as cough and cold symptoms. 1. Pneumonia, chest x-ray on 08/07/18, showed worsening bibasilar areas of consolidation. Repeat chest x-ray on 08/10/2018 showed improvement in left lower lobe infiltrate. Patient reports cough has decreased slightly. 2. Pitting BLE edema, improving. Currently on Lasix and potassium replacement. 3. Discussed with , all multiple myeloma treatments, including weekly dose of steroids, will be held until patient recovers from acute illness. 4. Continue supportive care - Attending Statement The exam, history, and the medical decision-making described in the above note were completed with the assistance of the mid-level provider. I reviewed and agree with the findings presented. I attest that I had a [id number] encounter with the patient on the same day, and personally performed and documented my assessment and findings in the medical record. He has been afebrile for several days and the chest x-ray shows some improvement. He is having pain at the IV site and examination of the right arm reveals a mild cellulitis from the IV. He has a port but it has not been accessed. I have spoken with the nursing staff and the IV will be removed. He will receive local treatment to the forearm. The port will be accessed and should be used for the administration of medicines. If he remains afebrile and infectious disease agrees he may be able to go home in the next 24-48 hours on oral antibiotics.
[2018-08-11] MEDS: Azithromycin Inj 500 MG in Sodium Chlor 0.9% Inj 250 ML IV.SIG SCH (20:17)
[2018-08-12] MEDS: Sod Chloride 0.9% Inj 1,000 ML IV.CONT SCH ×2 (00:58→12:21)
[2018-08-12 05:34] VITALS: RESP 16
[2018-08-12 06:11] LABS: Baso # (Auto) 0.1 th/mm3 (0.0-0.2); Baso % (Auto) 0.9 % (0.0-2.0); Eos # (Auto) 1.7 th/mm3 (0.0-0.4); Eos % (Auto) 20.3 % (0.0-4.0); Hematocrit 25.2 % (39.0-51.0); Hemoglobin 8.9 gm/dL (13.0-17.0); Lymph # (Auto) 0.7 th/mm3 (1.0-4.8); Lymph % (Auto) 8.1 % (9.0-44.0); Mean Corpuscular HGB Conc 35.4 % (32.0-36.0); Mean Corpuscular Hemoglobin 34.9 pg (27.0-34.0); Mean Corpuscular Volume 98.4 fL (80.0-100.0); Mean Platelet Volume 8.5 fL (7.0-11.0); Mono # (Auto) 1.6 th/mm3 (0.0-0.9); Mono % (Auto) 18.1 % (0.0-8.0); Neut # (Auto) 4.5 th/mm3 (1.8-7.7); Neut % (Auto) 52.6 % (16.0-70.0); Platelet Count 239 th/mm3 (150-450); Red Blood Count 2.56 mil/mm3 (4.50-5.90); Red Cell Distribution Width 18.4 % (11.6-17.2); White Blood Count 8.6 th/mm3 (4.0-11.0)
[2018-08-12 06:33] LABS: Anion Gap 6 meq/L (5-15); Aspartate Aminotransferase 19 U/L (15-37); Blood Urea Nitrogen 14 mg/dL (7-18); Calcium 7.7 mg/dL (8.5-10.1); Carbon Dioxide 27.5 meq/L (21.0-32.0); Chloride 107 meq/L (98-107); Glomerular Filtration Rate 68 mL/min (>89); Glucose,Random 95 mg/dL (74-106); Potassium 3.2 meq/L (3.5-5.1); Sodium 140 meq/L (136-145)
[2018-08-12 06:34] LABS: Alanine Aminotransferase 37 U/L (12-78)
[2018-08-12 06:36] LABS: Alkaline Phosphatase 86 U/L (45-117); Total Protein 5.8 g/dL (6.4-8.2)
[2018-08-12] MEDS: Senna/Docusate Sodium 8.6/50 MG Tablet PO SCH (09:12)
[2018-08-12] MEDS: Furosemide 40 MG Tablet PO SCH (09:12)
[2018-08-12] MEDS: Aspirin 325 MG Tablet PO SCH (09:12)
[2018-08-12] MEDS: Acyclovir 200 MG Capsule PO SCH (09:12)
[2018-08-12] MEDS: Pantoprazole Sodium 20 MG DR Tablet PO SCH (09:12)
[2018-08-12] MEDS: guaiFENesin 600 MG ER Tablet PO SCH (09:12)
[2018-08-12] MEDS: Sodium Chloride 0.9% 2 ML Flush BID IV.FLUSH SCH (09:12)
--- NOTE | 2018-08-12 09:29 | P.PNONC ---
Subjective Interval history: Feeling a little better although cough is persistent. Objective Vital Signs/Intake & Output: Vital Signs 08/11/18 12:00 08/11/18 14:00 08/11/18 15:40 Temperature 96.5 F L 96.6 F L 96.6 F L Pulse Rate 77 81 79 Respiratory Rate 18 18 19 Blood Pressure 139/79 119/69 113/67 Pulse Oximetry 94 L 92 L 92 L 08/11/18 20:00 08/12/18 00:00 08/12/18 00:45 Temperature 99.0 F 99.5 F Pulse Rate 86 82 Respiratory Rate 18 17 18 Blood Pressure 147/67 H 127/75 Pulse Oximetry 91 L 90 L 08/12/18 02:50 Temperature Pulse Rate Respiratory Rate 16 Blood Pressure Pulse Oximetry Intake & Output 08/11/18 08/12/18 08/12/18 18:59 06:59 18:59 Intake Total 1440 / 1440 350 / 350 Output Total 125 / 125 Balance 1315 / 1315 350 / 350 Intake: IV 100 / 100 350 / 350 Azithromycin Inj 500 MG In NS 250 / 250 Inj 250 ML @ 250 mls/hr IV.SIG Q24H [facility] Rx#:[id number] Maxipime Inj 1,000 MG In NS Inj 100 / 100 100 / 100 100 ML @ 200 mls/hr IV.SIG Q12H BRAULIO Rx#:[id number] Oral 1340 / 1340 Output: Urine 125 / 125 Other: # Voids 3 Date of Last Bowel Movement 08/11/18 08/11/18 Result Diagrams: 08/12/18 04:36 08/12/18 04:36 Laboratory Results: Laboratory Results - last 24 hr 08/12/18 08/12/18 04:36 04:36 WBC 8.6 RBC 2.56 L Hgb 8.9 L Hct 25.2 L MCV 98.4 MCH 34.9 H MCHC 35.4 RDW 18.4 H Plt Count 239 D MPV 8.5 Neut % (Auto) 52.6 Lymph % (Auto) 8.1 L Whiteside % (Auto) 18.1 H Eos % (Auto) 20.3 H Baso % (Auto) 0.9 Neut # (Auto) 4.5 Lymph # (Auto) 0.7 L Whiteside # (Auto) 1.6 H Eos # (Auto) 1.7 H Baso # (Auto) 0.1 WBC Differential . Differential Comment Auto diff final Sodium 140 Potassium 3.2 L Chloride 107 Carbon Dioxide 27.5 Anion Gap 6 BUN 14 Creatinine 1.08 Estimated GFR 68 L Random Glucose 95 Calcium 7.7 L Total Bilirubin 0.6 AST 19 ALT 37 Alkaline Phosphatase 86 C-Reactive Protein 13.00 H Total Protein 5.8 L Albumin 2.0 L Culture Results: Microbiology 08/07/18 11:00 Aerobic Blood Culture - Preliminary Blood - Peripheral No growth in 4 days Anaerobic Blood Culture - Preliminary No growth in 4 days 08/07/18 10:50 Aerobic Blood Culture - Preliminary Blood - Peripheral No growth in 4 days Anaerobic Blood Culture - Preliminary No growth in 4 days 08/05/18 20:20 Aerobic Blood Culture - Final Blood - Peripheral No growth in 5 days Anaerobic Blood Culture - Final No growth in 5 days 08/05/18 20:30 Aerobic Blood Culture - Final Blood - Peripheral No growth in 5 days Anaerobic Blood Culture - Final No growth in 5 days 08/07/18 21:00 Gram Stain - Final Sputum - Expectorated Sputum Sputum Culture - Final Light growth normal respiratory kip Medications: Active Medications Generic Name Dose Route Start Last Admin Trade Name Freq PRN Reason Stop Dose Admin Acetaminophen 650 mg 08/05/18 22:26 08/08/18 10:25 Tylenol PO 650 mg Q4H PRN Administration Temp > 100.4 Acyclovir 400 mg 08/05/18 23:00 08/12/18 09:12 Zovirax PO 400 mg BID BRAULIO Administration Aspirin 325 mg 08/06/18 09:00 08/12/18 09:12 Aspirin PO 325 mg DAILY BRAULIO Administration Atorvastatin Calcium 20 mg 08/06/18 09:00 08/12/18 09:11 Lipitor PO 20 mg DAILY BRAULIO Administration Benzonatate 200 mg 08/09/18 09:54 08/09/18 11:10 Tessalon Perles PO 200 mg Q8H PRN Administration COUGH Cetirizine HCl 10 mg 08/07/18 09:00 08/11/18 08:47 Zyrtec PO 10 mg DAILY BRAULIO Administration Enalapril Maleate 10 mg 08/06/18 12:00 08/12/18 09:12 Vasotec PO 10 mg DAILY BRAULIO Administration Furosemide 40 mg 08/10/18 09:00 08/12/18 09:12 Lasix PO 40 mg DAILY BRAULIO Administration Guaifenesin 600 mg 08/07/18 16:15 08/12/18 09:12 Mucinex Er PO 600 mg BID BRAULIO Administration Guaifenesin/Codeine Phosphate 10 ml 08/08/18 16:21 08/10/18 14:24 Robitussin Ac 200/20 Mg/10 Ml Liq PO 10 ml Q4H PRN Administration COUGH Cefepime HCl 1,000 mg/ Sodium 100 mls @ 200 mls/hr 08/06/18 09:00 08/12/18 09 :12 Chloride IV.SIG 200 mls/hr Q12H BRAULIO Administration Sodium Chloride 1,000 mls @ 100 mls/hr 08/05/18 23:00 08/12/18 00:58 Ns Inj IV.CONT Not Given .Q10H BRAULIO Azithromycin 500 mg/ Sodium 250 mls @ 250 mls/hr 08/07/18 20:00 08/11/18 22: 38 Chloride IV.SIG Infused Q24H BRAULIO Infusion Ondansetron HCl 4 mg 08/05/18 22:26 08/12/18 09:21 Zofran Inj IV.PUSH 4 mg Q6H PRN Administration NAUSEA OR VOMITING Pantoprazole Sodium 20 mg 08/07/18 09:00 08/12/18 09:12 Protonix PO 20 mg DAILY BRAULIO Administration Potassium Chloride 40 meq 08/12/18 09:00 08/12/18 09:11 Klor-Con 10 PO 40 meq DAILY BRAULIO Administration Senna/Docusate Sodium 1 tab 08/06/18 09:00 08/12/18 09:12 Marva-Colace PO 1 tab BID BRAULIO Administration Sennosides 17.2 mg 08/05/18 22:26 08/10/18 21:43 Senokot PO 17.2 mg Q12H PRN Administration Moderate Constipation Sodium Chloride 2 ml 08/06/18 09:00 08/12/18 09:12 Ns Flush IV.FLUSH Not Given BID [facility] Objective Remarks: GENERAL: Well-nourished, well-developed patient. SKIN: Warm and dry. HEAD: Normocephalic. EYES: No scleral icterus. No injection or drainage. NECK: Supple, trachea midline. No JVD or lymphadenopathy. LYMPHATIC: No adenopathy. CARDIOVASCULAR: Regular rate and rhythm without murmurs. RESPIRATORY: Lungs are clearer. Wheezing almost gone. Few basilar rales. GASTROINTESTINAL: Mild abdominal tenderness from coughing EXTREMITIES: No cyanosis, or edema. MUSCULOSKELETAL: Adequate muscle tone. NEUROLOGICAL: No obvious focal deficit. Awake, alert, and oriented x3. PSYCHIATRIC: Appropriate mood and affect; insight and judgment normal. Assessment/Plan - Plan Pneumonia/myeloma: The patient is doing better. For a number of days he has had no temperatures greater than 100. His chest x-ray shows improvement. At this point if agreeable with medicine and infectious disease he can go home on oral antibiotics and I can follow him as an outpatient. I spoke with Dr. Montero from infectious disease and she will see him today and make recommendations and contact Dr. Goldstein who is his hospitalist.
[2018-08-12 10:13] VITALS: BP 116/69; PULSE 75; TEMP 96.4
[2018-08-12 10:46] VITALS: O2SAT 92
--- NOTE | 2018-08-12 10:58 | P.PNIM ---
Subjective Interval history: Still with cough but congestion is improved. No fevers or chills. Feeling better. Do want to go home no active shortness of breath. No chest pain. Physical Exam Vital signs: Vital Signs 08/11/18 12:00 08/11/18 14:00 08/11/18 15:40 Temperature 96.5 F L 96.6 F L 96.6 F L Pulse Rate 77 81 79 Respiratory Rate 18 18 19 Blood Pressure 139/79 119/69 113/67 Pulse Oximetry 94 L 92 L 92 L 08/11/18 20:00 08/12/18 00:00 08/12/18 00:45 Temperature 99.0 F 99.5 F Pulse Rate 86 82 Respiratory Rate 18 17 18 Blood Pressure 147/67 H 127/75 Pulse Oximetry 91 L 90 L 08/12/18 02:50 08/12/18 08:00 Temperature 96.4 F L Pulse Rate 75 Respiratory Rate 16 16 Blood Pressure 116/69 Pulse Oximetry 92 L Intake & Output 08/11/18 08/12/18 08/12/18 18:59 06:59 18:59 Intake Total 1440 / 1440 350 / 350 Output Total 125 / 125 Balance 1315 / 1315 350 / 350 Intake: IV 100 / 100 350 / 350 Azithromycin Inj 500 MG In NS 250 / 250 Inj 250 ML @ 250 mls/hr IV.SIG Q24H [facility] Rx#:[id number] Maxipime Inj 1,000 MG In NS Inj 100 / 100 100 / 100 100 ML @ 200 mls/hr IV.SIG Q12H [facility] Rx#:[id number] Oral 1340 / 1340 Output: Urine 125 / 125 Other: # Voids 3 Date of Last Bowel Movement 08/11/18 08/11/18 Narrative: GENERAL: This is a well-nourished, well-developed patient, in no apparent distress. CARDIOVASCULAR: Regular rate and rhythm without murmurs, gallops, or rubs. RESPIRATORY: Relatively clear to auscultation bilaterally. GASTROINTESTINAL: Abdomen soft, non-tender, nondistended. Normal active bowel sounds MUSCULOSKELETAL: Extremities without clubbing, cyanosis, or edema. NEURO: Alert & Oriented x4 to person, place, time, situation. Moves all ext x4 Results - Labs CBC & Chem 7: 08/12/18 04:36 08/12/18 04:36 Laboratory Results - last 24 hr 08/12/18 08/12/18 04:36 04:36 WBC 8.6 RBC 2.56 L Hgb 8.9 L Hct 25.2 L MCV 98.4 MCH 34.9 H MCHC 35.4 RDW 18.4 H Plt Count 239 D MPV 8.5 Neut % (Auto) 52.6 Lymph % (Auto) 8.1 L [place] % (Auto) 18.1 H Eos % (Auto) 20.3 H Baso % (Auto) 0.9 Neut # (Auto) 4.5 Lymph # (Auto) 0.7 L [place] # (Auto) 1.6 H Eos # (Auto) 1.7 H Baso # (Auto) 0.1 WBC Differential . Differential Comment Auto diff final Sodium 140 Potassium 3.2 L Chloride 107 Carbon Dioxide 27.5 Anion Gap 6 BUN 14 Creatinine 1.08 Estimated GFR 68 L Random Glucose 95 Calcium 7.7 L Total Bilirubin 0.6 AST 19 ALT 37 Alkaline Phosphatase 86 C-Reactive Protein 13.00 H Total Protein 5.8 L Albumin 2.0 L Microbiology 08/07/18 11:00 Blood - Peripheral Aerobic Blood Culture - Preliminary No growth in 4 days 08/07/18 11:00 Blood - Peripheral Anaerobic Blood Culture - Preliminary No growth in 4 days 08/07/18 10:50 Blood - Peripheral Aerobic Blood Culture - Preliminary No growth in 4 days 08/07/18 10:50 Blood - Peripheral Anaerobic Blood Culture - Preliminary No growth in 4 days Assessment and Plan - Assessment (1) SIRS (systemic inflammatory response syndrome) Code(s): R65.10 - Systemic inflammatory response syndrome (SIRS) of non- infectious origin without acute organ dysfunction Status: Resolved (2) Multiple myeloma Code(s): C90.00 - Multiple myeloma not having achieved remission Status: Chronic (3) Renal insufficiency Code(s): N28.9 - Disorder of kidney and ureter, unspecified Status: Acute (4) Hypertension Code(s): I10 - Essential (primary) hypertension Status: Chronic - Plan This is a 67-year-old male with a past medical history of HTN, Hyperlipidemia and Multiple Myeloma who presented to the ER with complaints of fever. Currently on Chemotherapy, following w/ Dr. Godfrey. Stated he developed sore throat and was started on Z-pack 5 days ago by PCP, then noted to have fever of 102 at home. 1. Severe Sepsis on presentation with source of pneumonia in an immunocompromised patient -continue Cefepime and Zithromax, follow up cultures negative so far, infectious disease has stopped the vancomycin. -Negative for flu, strep Rhino virus detected -Discontinue IVF to 100/hr -Repeat blood cultures negative thus far Appreciate ID assistance and await final clearance for discharge today and recommendations for transition for oral antibiotics as an outpatient. Add Tessalon Perles and Robitussin-AC for cough symptom relief. White blood cells trending down. 2. Multiple Myeloma: Currently on 21-day cycle of chemotherapy -Appreciate hematology, Dr. Godfrey/Dr. Meier's input, recommends to hold Pomalidomide for now 3. Acute kidney injury of CKD stage 2 - Acute on Chronic. Creatinine 1.08 with a GFR of 68, previously 1.31 on 05/02/18 monitor on Abx, monitor while on Lasix 4. HTN, chronic essential BP stable -on Lisinopril 5. Bilateral lower extremity dependent edemano pain on physical exam. Lasix initiated by hematology oncology. 6. Hypokalemiareplete DVT Prophylaxis: SCD/Teds Discharge Planning: Possible discharge home today when cleared by infectious disease. (4) Hypertension Qualifiers: Hypertension type: essential hypertension Qualified Code(s): I10 - Essential (primary) hypertension
--- NOTE | 2018-08-12 14:03 | P.PNID ---
Subjective Remarks: no fever c/o cough, expectorating yellow sputum, less amount On RA no SOB Antibiotics: acyclovir azithro cefepime Allergies/Adverse Reactions: Allergies Sulfa (Sulfonamide Antibiotics) Allergy (Severe, Verified 08/05/18 22:05) DIZZINESS Objective Vital Signs 08/11/18 14:00 08/11/18 15:40 08/11/18 20:00 Temperature 96.6 F L 96.6 F L 99.0 F Pulse Rate 81 79 86 Respiratory Rate 18 19 18 Blood Pressure 119/69 113/67 147/67 H Pulse Oximetry 92 L 92 L 91 L 08/12/18 00:00 08/12/18 00:45 08/12/18 02:50 Temperature 99.5 F Pulse Rate 82 Respiratory Rate 17 18 16 Blood Pressure 127/75 Pulse Oximetry 90 L 08/12/18 08:00 Temperature 96.4 F L Pulse Rate 75 Respiratory Rate 16 Blood Pressure 116/69 Pulse Oximetry 92 L Intake & Output 08/11/18 08/12/18 08/12/18 18:59 06:59 18:59 Intake Total 1440 / 1440 350 / 350 100 / 100 Output Total 125 / 125 Balance 1315 / 1315 350 / 350 100 / 100 Intake: IV 100 / 100 350 / 350 100 / 100 Azithromycin Inj 500 MG In NS 250 / 250 Inj 250 ML @ 250 mls/hr IV.SIG Q24H [facility] Rx#:[id number] Maxipime Inj 1,000 MG In NS Inj 100 / 100 100 / 100 100 / 100 100 ML @ 200 mls/hr IV.SIG Q12H [facility] Rx#:[id number] Oral 1340 / 1340 Output: Urine 125 / 125 Other: # Voids 3 Date of Last Bowel Movement 08/11/18 08/11/18 08/12/18 08/07/18 11:00 Blood - Peripheral Aerobic Blood Culture - Final No growth in 5 days 08/07/18 11:00 Blood - Peripheral Anaerobic Blood Culture - Final No growth in 5 days 08/07/18 10:50 Blood - Peripheral Aerobic Blood Culture - Final No growth in 5 days 08/07/18 10:50 Blood - Peripheral Anaerobic Blood Culture - Final No growth in 5 days 08/05/18 20:20 Blood - Peripheral Aerobic Blood Culture - Final No growth in 5 days 08/05/18 20:20 Blood - Peripheral Anaerobic Blood Culture - Final No growth in 5 days 08/05/18 20:30 Blood - Peripheral Aerobic Blood Culture - Final No growth in 5 days 08/05/18 20:30 Blood - Peripheral Anaerobic Blood Culture - Final No growth in 5 days 08/07/18 21:00 Sputum - Expectorated Sputum Gram Stain - Final 08/07/18 21:00 Sputum - Expectorated Sputum Sputum Culture - Final Light growth normal respiratory kip Lab - Hematology Results 08/12/18 04:36 WBC 8.6 RBC 2.56 L Hgb 8.9 L Hct 25.2 L MCV 98.4 MCH 34.9 H MCHC 35.4 RDW 18.4 H Plt Count 239 D MPV 8.5 Neut % (Auto) 52.6 Lymph % (Auto) 8.1 L [place] % (Auto) 18.1 H Eos % (Auto) 20.3 H Baso % (Auto) 0.9 Neut # (Auto) 4.5 Lymph # (Auto) 0.7 L [place] # (Auto) 1.6 H Eos # (Auto) 1.7 H Baso # (Auto) 0.1 WBC Differential . Differential Comment Auto diff final Lab - Chemistry Results 08/11/18 08/12/18 04:17 04:36 Sodium 139 140 Potassium 3.1 L 3.2 L Chloride 105 107 Carbon Dioxide 23.4 27.5 Anion Gap 11 6 BUN 14 14 Creatinine 1.19 1.08 Estimated GFR 61 L 68 L Random Glucose 94 95 Calcium 8.1 L 7.7 L Total Bilirubin 0.6 AST 19 ALT 37 Alkaline Phosphatase 86 C-Reactive Protein 13.00 H Total Protein 5.8 L Albumin 2.0 L Imaging: ITS Impressions Chest X-Ray 08/10/18 00:00 CONCLUSION: Improving left lower lobe infiltrate. Physical Exam: GENERAL: NAD SKIN: Warm and dry. No rash R sided PORT inplace w/o skin changes aorund it EYES: Pupils equal and round. No scleral icterus. No injection or drainage. ENT: No nasal bleeding or discharge. Mucous membranes pink and moist. NECK: Trachea midline. No JVD. CARDIOVASCULAR: Regular rate and rhythm. RESPIRATORY: No accessory muscle use. Clear to auscultation. Breath sounds equal bilaterally. GASTROINTESTINAL: Abdomen soft, non-tender, nondistended. MUSCULOSKELETAL: Extremities without clubbing, cyanosis, NEUROLOGICAL: Awake and alert. Non focal. Normal speech. PSYCHIATRIC: calm, cooperative Assessment and Plan - Plan Immunocompromised, but non neutropenic Multiple myeloma on chemo fever - resolved source is likely PNA, LLL infilatrare PNA, puulmonary infiltrates, nl resp kip - improved clincially and radiologically Blood clx negative dc cefepeme, complete 5 days of azitromycin + cefuroxime 500 BID dc vancomycin OK to dc from ID [facility] dw pt, @ b/s Angelita Lobo
--- NOTE | 2018-08-12 14:16 | P.DS ---
Date of admission: 08/05/18 22:16 Primary care physician: No Primary Care Physician Brief History from admission: This is a 67-year-old male with a PMH of HTN, Hyperlipidemia and Multiple Myeloma who presented to the ER with complaints of fever. Currently on Chemotherapy, following coy/ Dr. Godfrey. States he developed sore throat and was started on Z-pack 5 days ago by PCP, today noted to have fever of 102 at home. Denies cough, nausea, vomiting or diarrhea. On arrival, BP 135/76, HR 118, O2 sat 95% on RA, Temp 101.4. CBC unremarkable except for elevated neutrophil count. Creatinine 1.39, previous E1.31 on 05-18. Lactic Acid 2.1. UA negative for UTI. CXR with trace left base atelectasis otherwise negative. S/p Vanc/ Cefepime in ER. Patient update on day of discharge: Patient reports still some congestion however no active shortness of breath. No fevers or chills. Wants to go home. DS: Diagnosis - Discharge Diagnosis (1) Multiple myeloma Status: Chronic (2) Renal insufficiency Status: Acute (3) Hypertension Status: Chronic (4) Severe sepsis Status: Resolved Diagnosis: Principal (5) Community acquired pneumonia Status: Resolved Diagnosis: Principal (6) Immunocompromised state Status: Acute Diagnosis: Secondary DS: Medications - Discharge Medications Prescriptions: azithromycin [Zithromax] 500 mg PO DAILY 5 Days #5 tab cefuroxime axetil 500 mg PO Q12HR #10 tab DS: Summary Hospital Course: These are the medical issues addressed during this hospitalization: - Time Spent with Patient Total time spent providing and/or coordinating discharge services: This is a 67-year-old male with a past medical history of HTN, Hyperlipidemia and Multiple Myeloma who presented to the ER with complaints of fever. Currently on Chemotherapy, following coy/ Dr. Godfrey. Stated he developed sore throat and was started on Z-pack 5 days ago by PCP, then noted to have fever of 102 at home. 1. Severe Sepsis on presentation with source of pneumonia in an immunocompromised patient -continue Cefepime and Zithromax, follow up cultures negative so far, infectious disease has stopped the vancomycin. Recommendations are to transition to p.o. Zithromax and Ceftin for 5 more days. Discussed this with Dr. Montero. -Negative for flu, strep Rhino virus detected -Repeat blood cultures negative thus far Add Tessalon Perles and Robitussin-AC for cough symptom relief. White blood cells trending down. 2. Multiple Myeloma: Currently on 21-day cycle of chemotherapy -Appreciate hematology, Dr. Godfrey/Dr. Meier's input, recommends to hold Pomalidomide for now 3. Acute kidney injury of CKD stage 2 - Acute on Chronic. Creatinine 1.08 with a GFR of 68, previously 1.31 on 05/02/18 monitor on Abx, monitor while on Lasix 4. HTN, chronic essential BP stable -on Lisinopril 5. Bilateral lower extremity dependent edemano pain on physical exam. Lasix initiated by hematology oncology. 6. Hypokalemiareplete DVT Prophylaxis: SCD/Teds At this time, patient has gained maximum benefit from hospitalization and ready to be discharged to home Less than 30 minutes - Quality: VTE Deep Vein Thrombosis/Pulmonary Embolism Present on Admission: No Exam Vital signs: Vital Signs 08/11/18 15:40 08/11/18 20:00 08/12/18 00:00 Temperature 96.6 F L 99.0 F 99.5 F Pulse Rate 79 86 82 Respiratory Rate 19 18 17 Blood Pressure 113/67 147/67 H 127/75 Pulse Oximetry 92 L 91 L 90 L 08/12/18 00:45 08/12/18 02:50 08/12/18 08:00 Temperature 96.4 F L Pulse Rate 75 Respiratory Rate 18 16 16 Blood Pressure 116/69 Pulse Oximetry 92 L Intake & Output 08/11/18 08/12/18 08/12/18 18:59 06:59 18:59 Intake Total 1440 / 1440 350 / 350 100 / 100 Output Total 125 / 125 Balance 1315 / 1315 350 / 350 100 / 100 Intake: IV 100 / 100 350 / 350 100 / 100 Azithromycin Inj 500 MG In NS 250 / 250 Inj 250 ML @ 250 mls/hr IV.SIG Q24H [facility] Rx#:[id number] Maxipime Inj 1,000 MG In NS Inj 100 / 100 100 / 100 100 / 100 100 ML @ 200 mls/hr IV.SIG Q12H [facility] Rx#:[id number] Oral 1340 / 1340 Output: Urine 125 / 125 Other: # Voids 3 Date of Last Bowel Movement 08/11/18 08/11/18 08/12/18 Narrative: GENERAL: This is a well-nourished, well-developed patient, in no apparent distress. CARDIOVASCULAR: Regular rate and rhythm without murmurs, gallops, or rubs. RESPIRATORY: Relatively clear to auscultation bilaterally. GASTROINTESTINAL: Abdomen soft, non-tender, nondistended. Normal active bowel sounds MUSCULOSKELETAL: Extremities without clubbing, cyanosis, or edema. NEURO: Alert & Oriented x4 to person, place, time, situation. Moves all ext x4 Results Procedures completed during hospitalization: none Labs on day of discharge: Labs from last 24 hours 08/12/18 08/12/18 04:36 04:36 WBC 8.6 RBC 2.56 L Hgb 8.9 L Hct 25.2 L MCV 98.4 MCH 34.9 H MCHC 35.4 RDW 18.4 H Plt Count 239 D MPV 8.5 Neut % (Auto) 52.6 Lymph % (Auto) 8.1 L [place] % (Auto) 18.1 H Eos % (Auto) 20.3 H Baso % (Auto) 0.9 Neut # (Auto) 4.5 Lymph # (Auto) 0.7 L [place] # (Auto) 1.6 H Eos # (Auto) 1.7 H Baso # (Auto) 0.1 WBC Differential . Differential Comment Auto diff final Sodium 140 Potassium 3.2 L Chloride 107 Carbon Dioxide 27.5 Anion Gap 6 BUN 14 Creatinine 1.08 Estimated GFR 68 L Random Glucose 95 Calcium 7.7 L Total Bilirubin 0.6 AST 19 ALT 37 Alkaline Phosphatase 86 C-Reactive Protein 13.00 H Total Protein 5.8 L Albumin 2.0 L - Impressions ITS Impressions Chest X-Ray 08/10/18 00:00 CONCLUSION: Improving left lower lobe infiltrate. Discharge Plan - Discharge Disposition Patient Disposition: Discharge Home - Discharge Condition Condition: Good - Discharge Order Discharge Orders: Discharge Order (Routine); Ordered 08/12/18 Ordered By: Chrystal Goldstein - Physicians Team Primary Care Provider: Primary Care Carlai,Farida Attending Provider: Chrystal Goldstein Other Providers: Elizabeth Monetro MD ; Ibeth Cristina ; Wiley Godfrey MD
[2018-08-12] MEDS ORDERED: Heparin Central Flush 100 UNIT/ML 5 ML Vial IV.FLUSH PRN ×2 (14:44)
== END 2018-08-12 15:04 | disposition home or self-care (01) ==
LOC: NEPE 19:04 → NEDA 22:16 → N06 22:56
PROVIDERS: ADMIT Family Medicine; ATTEND Family Medicine